=== PATIENT | female | born 1945 | race Caucasian/White ===

== ENCOUNTER 2019-05-31 09:02 | Outpatient (RCR) | payer MEDICARE, OTHER, SELFPAY | END 2019-08-28 23:59 | disposition home or self-care (01) | LOC: ANHLAB 09:02 | PROVIDERS: PCP Family Medicine; Visit Provider Internal Medicine Endocrinology, Diabetes & Metabolism | DX: R94.7 Abnormal results of other endocrine function studies (principal) | CPT/HCPCS: 36415; 82530 ==

== ENCOUNTER 2020-01-21 08:26 | Outpatient (CLI) | payer MEDICARE, OTHER, SELFPAY ==
[2020-01-21 09:21] LABS: Basophils Percent Auto 0.6 % (0.2-1.2); Eosinophils Absolute Auto 0.2 K/mm3 (0-0.3); Eosinophils Percent Auto 2.5 % (0-4.4); Hematocrit 41.8 % (37.0-47.0); Hemoglobin 13.7 g/dL (12.0-15.0); Immature Granulocyte Absolute 0.01 K/mm3 (0.00-0.031); Immature Granulocyte Percent A 0.1 % (0-0.5); Lymphocytes Absolute Auto 1.41 K/mm3 (0.9-3.2); Lymphocytes Percent Auto 21.1 % (18.3-44.2); Mean Corpuscular HGB Conc 32.8 g/dl (32-36); Mean Corpuscular Hemoglobin 30.7 pg (26-34); Mean Corpuscular Volume 93.7 fl (80-100); Mean Platelet Volume 9.9 fl (7.4-10.4); Monocytes Absolute Auto 0.5 K/mm3 (0.1-0.6); Monocytes Percent Auto 7.3 % (2.6-8.5); Neutrophils Absolute Auto 4.6 K/mm3 (1.3-6.7); Neutrophils Percent Auto 68.4 % (45.5-73.1); Platelet Count Result 313 k/mm3 (150-375); Red Blood Count 4.46 M/mm3 (4.2-5.4); Red Cell Distribution Width 13.2 % (11.5-14.5); White Blood Count 6.7 K/mm3 (4.5-10.0)
[2020-01-21 09:26] LABS: Hemoglobin A1C 5.2 % (<5.7)
[2020-01-21 09:29] LABS: Alanine Aminotransferase 15 U/L (4-35); Albumin Level 4.1 g/dL (3.5-5.1); Alkaline Phosphatase 76 U/L (38-126); Anion Gap 8.2 mmol/L (7-16); Aspartate Amino Transferase 23 U/L (14-36); Bilirubin,Total 0.6 mg/dL (0.2-1.3); Blood Urea Nitrogen 27 mg/dL (7-17); Calcium 9.1 mg/dL (8.4-10.2); Carbon Dioxide 30 mmol/L (22-30); Chloride 102 mmol/L (98-107); Cholesterol 217 mg/dL (0-200); Estimated Glomerular Filt Rate 54; Glucose 95 mg/dL (65-105); HDL Direct 78 mg/dL; Potassium 4.2 mmol/L (3.4-5.0); Sodium 136 mmol/L (137-145); Triglycerides 110 mg/dL (<150)
[2020-01-21 09:38] LABS: Add Urine Microscopic? YES; Appearance Urine Clear (Clear); Bilirubin Urine Negative (Negative); Blood Urine Negative (Negative); Color Urine Yellow (Yellow); Glucose Urine UA Negative (Negative); Ketones Urine Negative (Negative); Leukocyte Esterase Ur Trace LEU/UL (NEGATIVE); Nitrate Urine Negative (Negative); Protein Urine Negative (Negative); Specific Grav Ur 1.017 (1.001-1.035); Squamous Epithelial Cell Urine Few /hpf (Few); Urobilinogen Urine Negative mg/dL (<2.0); WBC Urine 0-3 /hpf (0-3)
[2020-01-21 09:39] LABS: LDL Cholesterol Direct 107 mg/dL
[2020-01-24 23:41] LABS: Vitamin D 1,25 (OH)2 Total 57 pg/mL (18-72); Vitamin D2 1,25 (OH)2 <8 pg/mL; Vitamin D3 1,25 (OH)2 57 pg/mL
== END 2020-01-21 08:27 | disposition home or self-care (01) ==
PROVIDERS: PCP Family Medicine; Visit Provider Physician Assistant
DX: I12.9 Hypertensive chronic kidney disease with stage 1 through stage 4 chronic kidney disease, or unspecified chronic kidney disease (principal); N18.9 Chronic kidney disease, unspecified; Z85.528 Personal history of other malignant neoplasm of kidney; R53.83 Other fatigue; R73.01 Impaired fasting glucose; E78.5 Hyperlipidemia, unspecified; E55.9 Vitamin D deficiency, unspecified
CPT/HCPCS: 36415; 80053; 80061; 81001; 82652; 83036; 85025

== ENCOUNTER 2020-01-23 06:29 | Outpatient (CLI) | payer MEDICARE, OTHER, SELFPAY ==
--- NOTE | ~2020-01-23 | CT_ITS ---
EXAMINATION: CT abdomen pelvis wo/w con DATE: 01/23/2020 07:09 INDICATION: Restaging of right renal cell carcinoma; status post right partial nephrectomy TECHNIQUE: Computed tomography (CT) of the abdomen and pelvis was performed without and subsequently with 100 cc Omnipaque 350 intravenous contrast. Automated exposure control and iterative reconstructi on technique were employed. Exam dose: 1303.50 mGy-cm total exam DLP. COMPARISON: None. FINDINGS: Approximately 9.7 mm rounded opacity in association with some discoid density in the psychology fellow ior right lower lobe may represent round atelectasis; primary or metastatic pulmonary neoplasm are in cluded but less likely in the differential diagnosis. Consider [address] examination. The lung bases are otherwise clear. No pericardial or pleural effusion. No hepatic space-occupying mass lesion. No bile duct dilatation. No pancreatic mass lesion, calcific ation or pancreatic duct dilatation. Normal splenic size. No splenic mass lesion. The adrenal glands are unremarkable. Status post right upper pole partial nephrectomy. Occasional bilateral renal cysts. No suspicious zulay id mass lesion of either kidney is evident. No urinary tract calculus or hydroureteronephrosis. The u rinary bladder is unremarkable. Retroflexed uterus. Normal caliber of the abdominal aorta. No intraperitoneal or retroperitoneal or pelvic mass lesion or adenopathy or ascites. Hemangiomas of T12 and L1. IMPRESSION: Status post right nephrectomy for history of right renal cell carcinoma; no recurrent or metastatic neoplasm is identified. Reviewed, dictated and finalized at [facility]. Reviewed, dictated and finalized at location B. IMPRESSION: Status post right nephrectomy for history of right renal cell carc inoma; no recurrent or metastatic neoplasm is identified.
== END 2020-01-23 06:30 | disposition home or self-care (01) ==
PROVIDERS: PCP Family Medicine; Visit Provider Physician Assistant
DX: C64.9 Malignant neoplasm of unspecified kidney, except renal pelvis (principal); Z90.5 Acquired absence of kidney
CPT/HCPCS: 74178; Q9967

== ENCOUNTER 2020-02-11 14:40 | Outpatient (CLI) | payer MEDICARE, OTHER, SELFPAY ==
--- NOTE | ~2020-02-11 | MM_ITS ---
EXAMINATION: MM screening [facility] BI w adria HISTORY: Screening mammogram TECHNIQUE: Craniocaudal and mediolateral oblique 3-D tomosynthesis images were obtained and synthetic 2-D images were generated. CAD analysis was submitted and interpreted. COMPARISON: 10/30/2018, 10/27/2018, 08/27/2016 BREAST PARENCHYMAL COMPOSITION: There are scattered areas of fibroglandular density. FINDINGS: RIGHT BREAST: There is no evidence of suspicious mass, calcification, or architectural distortion to suggest malignancy. There has been no significant interval change. LEFT BREAST: An asymmetry is present in the subareolar aspect of the left breast on the mediolateral oblique view. IMPRESSION: 1. Left breast asymmetry on the mediolateral oblique view. 2. Additional mammographic views and possible breast ultrasound are recommended. BI-RADS Category 0: Incomplete: Needs additional imaging evaluation. Reviewed, dictated and finalized at location A. IMPRESSION: 1. Left breast asymmetry on the mediolateral oblique view. 2. Additional mammographic views and possible breast ultrasound are recommended . BI-RADS Category 0: Incomplete: Needs additional imaging evaluation.
== END 2020-02-11 14:41 | disposition home or self-care (01) ==
LOC: ANHIMG 14:43
PROVIDERS: PCP Family Medicine; Visit Provider Physician Assistant
DX: Z12.31 Encounter for screening mammogram for malignant neoplasm of breast (principal); R92.8 Other abnormal and inconclusive findings on diagnostic imaging of breast
CPT/HCPCS: 77063; 77067

== ENCOUNTER 2020-03-07 11:55 | Outpatient (CLI) | payer MEDICARE, OTHER, SELFPAY ==
--- NOTE | ~2020-03-07 | MMUS_ITS ---
EXAMINATION: MM diagnostic mammo unilat LT, US breast LT limited HISTORY: Asymmetry reported in subareolar left breast on 02/11/2020 bilateral digital screening mammog cristian examination TECHNIQUE: Additional 3-D tomosynthesis images of the left breast were performed and synthetic 2-D im ages were generated. CAD analysis was submitted and interpreted. High resolution subareolar and lower inner quadrant left breast ultrasound was performed. COMPARISON: 02/11/2020 bilateral digital screening mammogram FINDINGS: MAMMOGRAPHIC FINDINGS: No suspicious mass, architectural distortion or any malignant calcification, skin thickening or retra ction is detected. ULTRASOUND: No suspicious mass or shadowing or any cyst is identified in the subareolar area or lower inner quadr ant. IMPRESSION: 1. No mammographic evidence of malignancy 2. Routine mammographic screening is recommended. BI-RADS Category 1: Negative Reviewed, dictated and finalized at location A. IMPRESSION: 1. No mammographic evidence of malignancy 2. Routine mammographic screening is recommended. BI-RADS Category 1: Negative
== END 2020-03-07 11:56 | disposition home or self-care (01) ==
LOC: ANHIMG 11:56
PROVIDERS: PCP Family Medicine; Visit Provider Physician Assistant
DX: R92.8 Other abnormal and inconclusive findings on diagnostic imaging of breast (principal)
CPT/HCPCS: 76642; 77065

== ENCOUNTER 2020-07-16 14:08 | Outpatient (CLI) | payer MEDICARE, OTHER, SELFPAY ==
[2020-07-16 14:52] LABS: Alanine Aminotransferase 15 U/L (4-35); Albumin Level 3.9 g/dL (3.5-5.1); Alkaline Phosphatase 69 U/L (38-126); Anion Gap 3 mmol/L (8-16); Aspartate Amino Transferase 23 U/L (14-36); Bilirubin,Total 0.3 mg/dL (0.2-1.3); Blood Urea Nitrogen 25 mg/dL (7-17); Calcium 8.9 mg/dL (8.4-10.2); Carbon Dioxide 33 mmol/L (22-30); Chloride 100 mmol/L (98-107); Estimated Glomerular Filt Rate 49; Glucose 115 mg/dL (65-105); Potassium 4.1 mmol/L (3.4-5.0); Sodium 136 mmol/L (137-145)
[2020-07-16 14:55] LABS: Hemoglobin A1C 5.3 % (<5.7)
== END 2020-07-16 14:09 | disposition home or self-care (01) ==
PROVIDERS: PCP Family Medicine; Visit Provider Family Medicine
DX: I12.9 Hypertensive chronic kidney disease with stage 1 through stage 4 chronic kidney disease, or unspecified chronic kidney disease (principal); E11.9 Type 2 diabetes mellitus without complications; N18.9 Chronic kidney disease, unspecified
CPT/HCPCS: 36415; 80053; 83036

== ENCOUNTER 2020-08-04 09:01 | Outpatient (CLI) | payer MEDICARE, OTHER, SELFPAY ==
--- NOTE | ~2020-08-04 | CT_ITS ---
EXAMINATION: CT diagnostic chest wo con DATE: 08/04/2020 09:21 INDICATION: Solitary pulmonary nodule, history of renal cell carcinoma TECHNIQUE: Computed tomography (CT) of the chest was performed without intravenous contrast. The dose -length product (DLP) was 123.27 mGy-cm. Automated exposure control and iterative reconstruction tech [employer] Cocktailque were employed. COMPARISON: 01/23/2020 FINDINGS: There is a 10 mm groundglass nodule of the left lung apex. Mild emphysema is noted. The pre viously described subpleural nodule of the right lower lobe has resolved, consistent with resolved in fection/inflammation. There is no pleural effusion or pneumothorax. No pathologically enlarged thorac ic lymph nodes are identified. The heart size is normal. Subendocardial fat deposition in the interve ntricular septum and left ventricular apex likely reflect prior myocardial infarction. Surgical canales es are noted in the right kidney. There is an 11 mm adenoma of the right adrenal gland. IMPRESSION: 1. Interval resolution of the previously described right lower lobe nodule, consistent with resolved infection/inflammation. 2. 10 mm groundglass nodule of the left lung apex, possibly infectious or inflammatory. Reviewed, dictated and finalized at location A. S PRESS OPERATOR IMPRESSION: 1. Interval resolution of the previously described right lower lobe nodule, con sistent with resolved infection/inflammation. 2. 10 mm groundglass nodule of the left lung apex, possibly infectious or infla mmatory.
== END 2020-08-04 09:02 | disposition home or self-care (01) ==
PROVIDERS: PCP Family Medicine; Visit Provider Family Medicine
DX: R91.1 Solitary pulmonary nodule (principal)
CPT/HCPCS: 71250

== ENCOUNTER → 2020-08-11 00:14 | Outpatient (CLI) | payer MEDICARE, OTHER, SELFPAY ==
[2020-08-11 19:33] LABS: SARS-CoV-2 RNA PCR Negative
== END ==
PROVIDERS: PCP Family Medicine; Visit Provider Internal Medicine Cardiovascular Disease
DX: Z01.812 Encounter for preprocedural laboratory examination (principal); Z20.822 Contact with and (suspected) exposure to COVID-19
CPT/HCPCS: C9803; U0003; U0005

== ENCOUNTER 2020-08-14 01:43 | Day surgery (SDC) | payer MEDICARE, OTHER, SELFPAY ==
[2020-08-13 13:55] VITALS: BMI 36.3
[2020-08-14] VITALS (8 sets, daily range): BP systolic 113–153; BP diastolic 56–97; PULSE 60–78; RESP 13–21; TEMP 36.2–36.6; O2SAT 95–98
[2020-08-14 08:32] LABS: Basophils Percent Auto 0.4 % (0.2-1.2); Eosinophils Absolute Auto 0.2 K/mm3 (0-0.3); Eosinophils Percent Auto 1.8 % (0-4.4); Hematocrit 42.1 % (37.0-47.0); Hemoglobin 14.2 g/dL (12.0-15.0); Immature Granulocyte Absolute 0.04 K/mm3 (0.00-0.031); Immature Granulocyte Percent A 0.4 % (0-0.5); Lymphocytes Absolute Auto 1.67 K/mm3 (0.9-3.2); Lymphocytes Percent Auto 17.6 % (18.3-44.2); Mean Corpuscular HGB Conc 33.7 g/dl (32-36); Mean Corpuscular Hemoglobin 31.4 pg (26-34); Mean Corpuscular Volume 93.1 fl (80-100); Mean Platelet Volume 9.5 fl (7.4-10.4); Monocytes Absolute Auto 0.8 K/mm3 (0.1-0.6); Neutrophils Absolute Auto 6.8 K/mm3 (1.3-6.7); Neutrophils Percent Auto 71.8 % (45.5-73.1); Platelet Count Result 305 k/mm3 (150-375); Red Blood Count 4.52 M/mm3 (4.2-5.4); Red Cell Distribution Width 13.2 % (11.5-14.5); White Blood Count 9.5 K/mm3 (4.5-10.0)
[2020-08-14 08:42] LABS: INR 0.9; Prothrombin Time 12.9 Seconds (11.1-14.7)
[2020-08-14 08:46] LABS: Anion Gap 5 mmol/L (8-16); Blood Urea Nitrogen 18 mg/dL (7-17); Calcium 9.2 mg/dL (8.4-10.2); Carbon Dioxide 31 mmol/L (22-30); Chloride 104 mmol/L (98-107); Estimated CRCL calculation 50 ml/min; Estimated Glomerular Filt Rate 54; Glucose 103 mg/dL (65-105); Potassium 4.1 mmol/L (3.4-5.0); Sodium 140 mmol/L (137-145)
--- NOTE | 2020-08-14 11:07 | WPDHPUPDATE1 ---
History and Physical Update Update Date/Time: 08/14/20 10:00am History and Physical has been reviewed, including an updated exam of the patient. There are NO changes in the patient's condition. Risks, benefits, and alternatives have been discussed and questions answered. Patient agrees to proceed with procedure.
--- NOTE | 2020-08-14 11:08 | WPDMODSED ---
Moderate Sedation Note-Pt Data Patient Data Allergies Allergy/AdvReac Type Severity Reaction Status Date / Time No Known Allergies Allergy Verified 07/16/20 13:31 Home Medications Medication Instructions Recorded Confirmed Type cholecalciferol (vitamin D3) 50 2,000 unit PO DAILY 05/25/19 08/13/20 History mcg (2,000 unit) tablet aspirin 81 mg tablet,delayed 81 mg PO DAILY tablet 05/28/19 08/13/20 History release metoprolol succinate 25 mg 25 mg PO DAILY #90 tablet 03/28/20 08/13/20 Rx tablet,extended release 24 hr irbesartan 150 mg tablet 150 mg PO DAILY 07/16/20 08/13/20 History hydrochlorothiazide 12.5 mg PO DAILY 08/13/20 08/13/20 History primidone 50 mg PO QPM 08/13/20 08/13/20 History Current Medications: Active Medications Sodium Chloride (Normal Saline Iv) 500 mls @ 100 mls/hr IV CONT .Q5H OMMO Sedation/Anesthesia: No previous sedation/anesthesia problems (including family history). [facility] Past Medical History Medical History Chronic kidney disease, stage 3 unspecified Essential and other specified forms of tremor Right lower lobe lung mass Vitamin D deficiency, unspecified Wellness examination Surgical History Surgical History History of partial nephrectomy Social History Social History Smoking status: Never smoker Second hand tobacco smoke exposure: Yes Alcohol intake: never Drinks per week: 1 Alcohol use details: very rarely Substance use: never Substance use type: does not use Living arrangements: with family Gender identity (if verbalized by the patient): Female Spiritual care concerns: No Mod Sed Physical Exam Physical Exam Pre Procedural Exam: Normal: Appearance, Eyes, Ears, Nose, Neck, Throat, Airway, Lungs, Heart Size, Heart Rate, Heart Rhythm, Neuro Exam, Abdomen, Liver, Kidneys, Spleen, Breasts, Genitalia, Extremities and Skin Hours since solid foods: 8 Hours since liquid intake: 8 Internal Medicine - PN: Obj Da Vital Signs Vital Signs: Vital Signs - 24 hr 08/14/20 08:30 Temperature 36.6 C Pulse Rate 78 Respiratory Rate 21 H Blood Pressure 153/97 H Pulse Oximetry 98 Meds/Results Medications: Active Medications Generic Name Dose Route Start Last Admin Trade Name Evette PRN Reason Stop Dose Admin Sodium Chloride 500 mls @ 100 mls/hr 08/14/20 08:30 Normal Saline Iv IV CONT .Q5H MOMO Labs CBC & Chem 7: 08/14/20 08:23 08/14/20 08:23 Labs: Laboratory Results - last 24 hr 08/14/20 08/14/20 08/14/20 08:23 08:23 08:23 WBC 9.5 RBC 4.52 Hgb 14.2 Hct 42.1 MCV 93.1 MCH 31.4 MCHC 33.7 RDW 13.2 Plt Count 305 MPV 9.5 Immature Gran % (Auto) 0.4 Neut % (Auto) 71.8 Lymph % (Auto) 17.6 L [place] % (Auto) 8.0 Eos % (Auto) 1.8 Baso % (Auto) 0.4 Lymph # (Auto) 1.67 [place] # (Auto) 0.8 H Eos # (Auto) 0.2 Baso # (Auto) 0.0 Abs Immat Gran (auto) 0.04 H Absolute Neuts (auto) 6.8 H Absolute Nucleated RBC 0.0 Nucleated RBC % 0.0 PT 12.9 INR 0.9 Sodium 140 Potassium 4.1 Chloride 104 Carbon Dioxide 31 H Anion Gap 5 L BUN 18 H Creatinine 1.00 Estim Creat Clear Calc 50 Estimated GFR 54 L Glucose 103 Calcium 9.2 ASA Classification/Sedation ASA Classification/Sedation ASA Class: I Emergent: No Risks: Risks, benefits and alternatives explained and patient/family accepted plan for sedation. Patient re-evaluated immediately prior to sedation.
--- NOTE | 2020-08-14 11:08 | WPDCARDPROC ---
Cardiac Cath Procedure Note Date of procedure:: 08/14/20 Performing physician:: Olivier Miramontes MD date of service 08/14/2020 Indication:: abnormal stress test Brief clinical history:: this is a 74-year-old female with past medical history of hypertension, renal cell carcinoma status post resection was evaluated for premature ventricular contractions. She complains of dyspnea on exertion. The total burden of the PVCs is 1.2%. Underwent stress test. echo ejection fraction 60%. Stress test shows small defect in the basal anterior and mid anterior and apical anterior segment. Procedure Procedure performed:: 1-Moderate sedation that started at 10:44 a.m. and ended at 11:04 a.m. total duration 20 minutes using 4mg of Versed and 100mcg fentanyl. The registered nurse was abi lackey. 2-Selective left and right coronary angiogram. 3-Left heart catheterization with measurement of LVEDP and measurement of gradient across aortic valve. 4-Right common femoral arterial angiogram. 5-Deployment of 6 Moroccan Angio-Seal. Sedation/Medication given:: Moderate sedation. Access site:: Right common femoral artery. Estimated blood loss:: 10cc Procedure note:: After informed consent patient was brought in to photo lab specialist with the was draped and prepped in usual manner. Moderate sedation was given and the right groin was infiltrated using 1% lidocaine. Five Moroccan sheath was obtained using micropuncture needle and the modified Seldinger technique. Selective left coronary angiogram was done using JL4 catheter with the tip of the catheter placed in the left main coronary artery. Selective right coronary angiogram was done using JR4 catheter with the tip of the catheter placed to the right coronary artery. After that 5 Moroccan pigtail catheter was advanced across the aortic valve into the left ventricle with measurement of LVEDP and measurement of gradient across aortic valve. Right common femoral arterial angiogram was done. Findings:: 1- left coronary artery is a large artery that divides into large LAD, large circumflex artery. Left main is free of disease. 2- left anterior descending artery is a large artery that runs and wraps around the apex. Free of disease. Large diagonal 1 branch free of disease. 3- leftcircumflex artery is a large artery Free of disease.. There is high OM1 medium in size and free of disease and large OM2 free of disease. 4- right coronary artery is Large artery and dominant and free of disease. 5- LVEDP was 15 mm Hgand no gradient across aortic valve. 6- opening arterial pressure 156/86 was and closing pressure was 130/80 7- right femoral artery angiogram shows no significant disease in the right common femoral artery. Conclusion:: no coronary artery disease. false positive stress test. PVCs are not related to coronary artery disease. Assessment and Plan Additional Plan continue aggressive risk factor modification for CAD.
--- NOTE | 2020-08-14 12:55 | SUR.PHASEII ---
Pt. given post cardiac cath. discharge education. Pt. verbalizes understanding of education. R femoral site dressing clean, dry, and intact upon discharge with no evidence of bleeding or hematoma. Pt. escorted to private vehicle with spouse. No change in pt. condition upon departure.
== END 2020-08-14 14:30 | disposition home or self-care (01) ==
PROVIDERS: PCP Family Medicine; Visit Provider Internal Medicine Cardiovascular Disease
PROC: 4A023N7 Measurement of Cardiac Sampling and Pressure, Left Heart, Percutaneous Approach (ICD-10-PCS; CPT 93452; principal; 2020-08-14 10:00)
DX: R94.39 Abnormal result of other cardiovascular function study (principal); R06.09 Other forms of dyspnea; I49.3 Ventricular premature depolarization; I12.9 Hypertensive chronic kidney disease with stage 1 through stage 4 chronic kidney disease, or unspecified chronic kidney disease; N18.30 Chronic kidney disease, stage 3 unspecified; G25.0 Essential tremor; E55.9 Vitamin D deficiency, unspecified; R91.8 Other nonspecific abnormal finding of lung field; Z85.528 Personal history of other malignant neoplasm of kidney; Z90.5 Acquired absence of kidney
CPT/HCPCS: 36415; 80048; 85025; 85610; 93458; A9270; C1760; C1887; C1894; G0269; J1644; J2250; J3010; J7040

== ENCOUNTER 2020-08-27 10:07 | Outpatient (CLI) | payer MEDICARE, OTHER, SELFPAY ==
[2020-08-27 10:37] LABS: Rheumatoid Factor < 8.6 IU/ML (<12)
[2020-08-27 10:49] LABS: Erythrocyte Sedimentation Rate 104 mm/hr (0-20)
== END 2020-08-27 10:08 | disposition home or self-care (01) ==
LOC: ANHLAB 10:09
PROVIDERS: PCP Family Medicine; Visit Provider Physician Assistant
DX: M25.50 Pain in unspecified joint (principal)
CPT/HCPCS: 36415; 85652; 86038; 86039; 86430

== ENCOUNTER 2021-01-27 13:32 | Outpatient (CLI) | payer MEDICARE, OTHER, SELFPAY ==
--- NOTE | ~2021-01-27 | CT_ITS ---
EXAMINATION: CT abdomen pelvis wo/w con DATE: 01/27/2021 14:15 INDICATION: Renal cell cancer restaging TECHNIQUE: Computed tomography (CT) of the abdomen and pelvis was performed without and subsequently with 100 cc Omnipaque 350 intravenous contrast. Automated exposure control and iterative reconstructi on technique were employed. Exam dose: 2096.35 mGy-cm total exam DLP. COMPARISON: 01/23/2020 CT abdomen and pelvis without and subsequently with IV contrast material FINDINGS: The lung bases are clear of infiltrate or consolidation. Borderline heart size. No pericardial or pleural effusion. The liver, gallbladder, bile ducts, pancreas, pancreatic duct, spleen and adrenal glands are unremark able. Status post right upper pole partial nephrectomy for history of renal cell cancer. Bilateral renal cysts, measuring up to 2.3 cm on the right, 3.2 cm on the left. No urinary tract calculus or hydroureteronephrosis. Normal caliber of the abdominal aorta. No intraperitoneal or retroperitoneal or pelvic mass lesion or adenopathy or ascites. Retroflexed uterus. The adnexal areas and urinary bladder are unremarkable. Benign hemangiomas of T12 and L1 vertebral bodies. No suspicious osteolytic or osteoblastic lesions are noted. IMPRESSION: Status post partial right nephrectomy for renal cell cancer; no recurrent or metastasis is identified. Bilateral renal cysts Retroflexed uterus Reviewed, dictated and finalized at [facility]. Reviewed, dictated and finalized at location A. IMPRESSION: Status post partial right nephrectomy for renal cell cancer; no re current or metastasis is identified. Bilateral renal cysts Retroflexed uterus
[2021-01-27 13:57] LABS: Estimated Glomerular Filt Rate > 60
== END 2021-01-27 13:33 | disposition home or self-care (01) ==
PROVIDERS: PCP Family Medicine; Visit Provider Physician Assistant
DX: Z85.528 Personal history of other malignant neoplasm of kidney (principal); Z90.5 Acquired absence of kidney; N28.1 Cyst of kidney, acquired; N85.4 Malposition of uterus
CPT/HCPCS: 74178; Q9967

== ENCOUNTER 2021-05-01 08:38 | Outpatient (CLI) | payer MEDICARE, OTHER, SELFPAY ==
--- NOTE | ~2021-05-01 | MM_ITS ---
EXAMINATION: MM screening [facility] w [facility]ria HISTORY: Screening mammogram TECHNIQUE: Craniocaudal and mediolateral oblique 3-D tomosynthesis images were obtained and synthetic 2-D images were generated. CAD analysis was submitted and interpreted. COMPARISON: 03/07/2020 diagnostic left mammogram and limited left breast ultrasound 02/11/2020, 10/30/2018, 10/27/2017 bilateral screening mammogram examinations BREAST PARENCHYMAL COMPOSITION: There are scattered areas of fibroglandular density. FINDINGS: Stable mild fibroglandular asymmetry. There is no evidence of suspicious mass, calcificatio n, or architectural distortion to suggest malignancy in either breast. There has been no suspicious i nterval change. IMPRESSION: 1. No mammographic evidence of malignancy. 2. Recommend routine screening mammography in one year. BI-RADS Category 2: Benign finding(s). Reviewed, dictated and finalized at location A. S ENGINEER
== END 2021-05-01 08:39 | disposition home or self-care (01) ==
LOC: ANHIMG 08:40
PROVIDERS: PCP Family Medicine; Visit Provider Obstetrics & Gynecology
DX: Z12.31 Encounter for screening mammogram for malignant neoplasm of breast (principal)
CPT/HCPCS: 77063; 77067

== ENCOUNTER → 2021-06-10 09:29 | Outpatient (CLI) | payer MEDICARE, OTHER, SELFPAY ==
[2021-06-10 19:39] LABS: SARS-CoV-2 RNA PCR Negative
== END ==
PROVIDERS: PCP Family Medicine; Visit Provider Physician Assistant
DX: R09.89 Other specified symptoms and signs involving the circulatory and respiratory systems (principal); Z20.822 Contact with and (suspected) exposure to COVID-19
CPT/HCPCS: C9803; U0003; U0005

== ENCOUNTER 2021-09-21 09:12 | Outpatient (CLI) | payer MEDICARE, OTHER, SELFPAY ==
[2021-09-21 09:59] LABS: Albumin Level 3.9 g/dL (3.5-5.1); Anion Gap 5 mmol/L (8-16); Blood Urea Nitrogen 21 mg/dL (7-17); Calcium 9.1 mg/dL (8.4-10.2); Carbon Dioxide 31 mmol/L (22-30); Chloride 102 mmol/L (98-107); Estimated Glomerular Filt Rate 54; Glucose 106 mg/dL (65-110); Phosphorus 3.8 mg/dL (2.5-4.5); Potassium 3.8 mmol/L (3.4-5.0); Sodium 138 mmol/L (137-145)
[2021-09-21 10:35] LABS: Creatinine Urine 101.3 mg/dL
[2021-09-21 10:49] LABS: Vitamin D 25 Hydroxy 87.2 ng/mL
[2021-09-21 11:00] LABS: Total Protein Urine Random < 5 mg/dL
[2021-09-21 11:01] LABS: Ur Ttl Prot Creatinine Ratio < 0.05 mg/mg (0-0.20)
== END 2021-09-21 09:13 | disposition home or self-care (01) ==
LOC: ANHLAB 09:19
PROVIDERS: PCP Family Medicine; Visit Provider Internal Medicine Nephrology
DX: I12.9 Hypertensive chronic kidney disease with stage 1 through stage 4 chronic kidney disease, or unspecified chronic kidney disease (principal); N18.31 Chronic kidney disease, stage 3a; R80.8 Other proteinuria
CPT/HCPCS: 36415; 80069; 82306; 82570; 83970; 84156

== ENCOUNTER 2022-02-01 07:55 | Outpatient (CLI) | payer MEDICARE, OTHER, SELFPAY ==
[2022-02-01 08:47] LABS: Anion Gap 5 mmol/L (8-16); Blood Urea Nitrogen 25 mg/dL (7-17); Calcium 8.9 mg/dL (8.4-10.2); Carbon Dioxide 33 mmol/L (22-30); Chloride 101 mmol/L (98-107); Estimated Glomerular Filt Rate > 60; Glucose 92 mg/dL (65-110); Phosphorus 3.4 mg/dL (2.5-4.5); Sodium 139 mmol/L (137-145)
[2022-02-01 08:49] LABS: Creatinine Urine 176.6 mg/dL
[2022-02-01 09:12] LABS: Total Protein Urine Random < 5 mg/dL
[2022-02-01 09:13] LABS: Ur Ttl Prot Creatinine Ratio < 0.03 mg/mg (0-0.20)
== END 2022-02-01 07:56 | disposition home or self-care (01) ==
LOC: ANHLAB 07:58
PROVIDERS: PCP Family Medicine; Visit Provider Internal Medicine Nephrology
DX: I12.9 Hypertensive chronic kidney disease with stage 1 through stage 4 chronic kidney disease, or unspecified chronic kidney disease (principal); N18.31 Chronic kidney disease, stage 3a
CPT/HCPCS: 36415; 80069; 82570; 84156

== ENCOUNTER 2022-02-03 09:06 | Outpatient (CLI) | payer MEDICARE, OTHER, SELFPAY ==
--- NOTE | ~2022-02-03 | CT_ITS ---
EXAMINATION: CT abdomen pelvis wo/w con DATE: 02/03/2022 09:52 INDICATION: Right partial nephrectomy for renal cancer TECHNIQUE: Computed tomography (CT) of the abdomen and pelvis was performed without and subsequently with 100 CC Omnipaque 350 intravenous contrast. Automated exposure control and iterative reconstructi on technique were employed. Exam dose: 1253.45 mGy-cm total exam DLP. COMPARISON: 01/27/2021 CT abdomen pelvis 03/02/2018 CT abdomen pelvis FINDINGS: The lung bases are clear. Normal heart size. No pericardial or pleural effusion. Several 4 mm or smaller hypoattenuating lesions of the liver, too small to definitively characterize, most like ly hepatic cysts. The gallbladder is unremarkable. No bile duct or pancreatic duct dilatation. No pancreatic mass lesio n or calcification. Normal splenic size. The adrenal glands are unremarkable, unchanged since 03/02/2018. Status post right partial nephrectomy for renal cell carcinoma a clinical history. Bilateral renal cy sts are again noted. No recurrent or new renal mass lesion is noted. No urinary tract calculus or hyd roureteronephrosis. The urinary bladder is unremarkable. Retroverted uterus. Normal caliber of the abdominal aorta. No intraperitoneal or retroperitoneal or pelvic mass lesion or adenopathy or ascites. Occasional colonic diverticula; no CT evidence of diverticulitis. No evidence of appendicitis. No bow el obstruction or intraperitoneal free air. Small fat-containing umbilical hernia. T12 and L1 vertebral body hemangiomas. Levoscoliosis and degenerative change of the lumbar spine. No suspicious osteolytic or osteoblastic lesions are noted. IMPRESSION: Status post right partial nephrectomy for renal cell cancer; no recurrent or new renal m alignancy is noted Bilateral renal cysts Retroverted uterus Mild colonic diverticulosis; no CT evidence of diverticulitis T12 and L1 vertebral body hemangiomas Reviewed, dictated and finalized at [facility]. Reviewed, dictated and finalized at location A. IMPRESSION: Status post right partial nephrectomy for renal cell cancer; no re current or new renal malignancy is noted Bilateral renal cysts Retroverted uterus Mild colonic diverticulosis; no CT evidence of diverticulitis T12 and L1 vertebral body hemangiomas
== END 2022-02-03 09:07 | disposition home or self-care (01) ==
PROVIDERS: PCP Family Medicine; Visit Provider Physician Assistant
DX: C64.9 Malignant neoplasm of unspecified kidney, except renal pelvis (principal); Z98.890 Other specified postprocedural states; N28.1 Cyst of kidney, acquired; N85.4 Malposition of uterus; K57.90 Diverticulosis of intestine, part unspecified, without perforation or abscess without bleeding; D18.09 Hemangioma of other sites
CPT/HCPCS: 74178; Q9967

== ENCOUNTER 2022-04-06 12:52 | Outpatient (CLI) | payer MEDICARE, OTHER, SELFPAY ==
--- NOTE | ~2022-04-06 | DEXA_ITS ---
Bone Density Report Name: FRANCIS WILBURN Age: 76 Sex: Female Ethnicity: White Date of : 1945 Indication: postmenopausal; screening for osteoporosis; height loss; cancer; end stage renal disease; Referring Provider: JORGE ALBERTO JENKINS Study: Bone densitometry was performed. Exam Date: April 06, 2022 Accession number: [id number] Bone Density: Region BMD T-score Z-score Classification AP Spine(L1-L4) 0.773 -2.5 -0.1 Osteoporosis Femoral Neck (Left) 0.618 -2.1 0.0 Osteopenia Total Hip (Left) 0.809 -1.1 0.7 Osteopenia Femoral Neck (Right) 0.561 -2.6 -0.5 Osteoporosis Total Hip (Right) 0.819 -1.0 0.8 Normal Total Hip Mean 0.814 -1.1 0.8 Osteopenia World Health Organization criteria for BMD impression classify patients as: Normal (T-score at or above -1.0), Osteopenia (T-score between -1.0 and -2.5), or Osteoporosis (T-score at or below -2.5). 10-year Fracture Risk: FRAX not reported because: Some T-score for Spine Total or Hip Total or Femoral Neck at or below -2.5 Clinical Information Provided by Patient: Has used the following medications: Prolia (i.e. denosumab), Vitamin D Has the following medical conditions: Cancer, End stage renal disease Patient maximum height was 66 Menopause Age: 56 No regular weight bearing exercise Onset of menses at age 13 Number of children 3 Impression: The patient has osteoporosis, based on the Right Femoral Neck T-score. Discussion: INCREASED RISK OF FRACTURE. BONE DENSITY IS UNDESIRABLY LOW AT ONE OR MORE SKELETAL SITES, CONSISTENT WITH POSTMENOPAUSAL OSTEOPOROSIS. This patient's lowest T-score meets the World Health Organization's (WHO) criteria for osteoporosis at one or more sites (T-score -2.5 or below). In untreated patients, the risk of osteoporotic fracture increases approximately two-fold for each 1.0 SD decrease in T-score. Low bone density is not the only risk factor for fracture; also consider factors such as patient's age, frailty or poor health, risk of falling, risk of injury, previous osteoporotic fracture, family history of osteoporosis, cigarette smoking, low body weight, etc. Not everyone with low bone mineral density has osteoporosis; osteomalacia and other metabolic bone disorders should also be considered. Patients who have osteoporosis should be evaluated for specific diseases and conditions (secondary causes) that may cause or contribute to bone loss. The [place] [employer]ocrinologists (AACE) and National Osteoporosis Foundation (NOF) recommend pharmacologic intervention for all postmenopausal women whose T-score is in this range. The patient should follow a healthful lifestyle (good nutrition with adequate calcium and vitamin D, and appropriate weight-bearing exercise). Follow-Up: Consider a repeat BMD and V
== END 2022-04-06 12:53 | disposition home or self-care (01) ==
PROVIDERS: PCP Family Medicine; Visit Provider Physician Assistant
DX: M81.0 Age-related osteoporosis without current pathological fracture (principal); M85.89 Other specified disorders of bone density and structure, multiple sites
CPT/HCPCS: 77080

== ENCOUNTER 2022-05-19 15:29 | Outpatient (CLI) | payer MEDICARE, OTHER, SELFPAY ==
--- NOTE | ~2022-05-19 | MM_ITS ---
EXAMINATION: MM screening [facility] BI w [facility]ria HISTORY: Screening mammogram TECHNIQUE: Craniocaudal and mediolateral oblique 3-D tomosynthesis images were obtained and synthetic 2-D images were generated. CAD analysis was submitted and interpreted. COMPARISON: 05/01/2021 bilateral screening mammogram diagnostic left mammogram and limited left breast ultrasound 02/07/2020 bilateral screening mammogram BREAST PARENCHYMAL COMPOSITION: There are scattered areas of fibroglandular density. FINDINGS: There is no evidence of suspicious mass, calcification, or architectural distortion to sugg est malignancy in either breast. There has been no suspicious interval change. IMPRESSION: 1. No mammographic evidence of malignancy. 2. Recommend routine screening mammography in one year. BI-RADS Category 1: Negative Reviewed, dictated and finalized at location A. ER CLAM
== END 2022-05-19 15:30 | disposition home or self-care (01) ==
PROVIDERS: PCP Family Medicine; Visit Provider Obstetrics & Gynecology
DX: Z12.31 Encounter for screening mammogram for malignant neoplasm of breast (principal)
CPT/HCPCS: 77063; 77067

== ENCOUNTER 2022-06-07 16:50 | Outpatient (CLI) | payer MEDICARE, OTHER, SELFPAY ==
[2022-06-07 17:57] LABS: Influenza A QL RT-PCR Negative (Negative); Influenza B QL RT-PCR Negative (Negative); SARS-CoV-2 RNA PCR Negative
== END 2022-06-07 16:51 | disposition home or self-care (01) ==
LOC: ANHLAB 16:53
PROVIDERS: PCP Family Medicine; Visit Provider Physician Assistant
DX: R19.7 Diarrhea, unspecified (principal); R50.9 Fever, unspecified; Z20.822 Contact with and (suspected) exposure to COVID-19
CPT/HCPCS: 87636

== ENCOUNTER 2022-07-05 14:22 | Outpatient (CLI) | payer MEDICARE, OTHER, SELFPAY ==
[2022-07-05 15:24] LABS: Creatinine Urine 56.2 mg/dL
[2022-07-05 15:26] LABS: Anion Gap 4 mmol/L (8-16); Blood Urea Nitrogen 24 mg/dL (7-17); Calcium 9.1 mg/dL (8.4-10.2); Carbon Dioxide 33 mmol/L (22-30); Chloride 102 mmol/L (98-107); Estimated Glomerular Filt Rate > 60; Glucose 93 mg/dL (65-110); Phosphorus 4.1 mg/dL (2.5-4.5); Potassium 4.1 mmol/L (3.4-5.0); Sodium 139 mmol/L (137-145)
[2022-07-05 15:35] LABS: Parathyroid Intact 64.2 pg/mL (7.5-53.5)
[2022-07-05 15:54] LABS: Total Protein Urine Random < 5 mg/dL; Ur Ttl Prot Creatinine Ratio < 0.09 mg/mg (0-0.20)
[2022-07-05 16:40] LABS: Vitamin D 25 Hydroxy 52.5 ng/mL
== END 2022-07-05 14:23 | disposition home or self-care (01) ==
PROVIDERS: PCP Family Medicine; Visit Provider Internal Medicine Nephrology
DX: I12.9 Hypertensive chronic kidney disease with stage 1 through stage 4 chronic kidney disease, or unspecified chronic kidney disease (principal); N18.31 Chronic kidney disease, stage 3a; E55.9 Vitamin D deficiency, unspecified; N25.81 Secondary hyperparathyroidism of renal origin
CPT/HCPCS: 36415; 80069; 82306; 82570; 83970; 84156

== ENCOUNTER 2022-07-09 01:46 | Day surgery (SDC) | payer MEDICARE, OTHER, SELFPAY ==
[2022-06-30 15:35] VITALS: BMI 35.9
[2022-07-09 08:27] VITALS: BP 163/60; PULSE 63; RESP 18; TEMP 36.6; O2SAT 97
[2022-07-09] MEDS: LACTATED RINGERS 1,000 ML 150 ML IV CONT (08:30)
--- NOTE | 2022-07-09 08:39 | PM.HPGS ---
History of Present Illness History of Present Illness Consent: Risks, benefits, and alternatives have been discussed and questions answered. Patient agrees to proceed with procedure. Chief complaint: hx of polyps, family hx colon ca Narrative: Priscilla Bone is a 76 year old female Presents for screening colonoscopy. Patient has a history of serrated adenoma removed by previous colonoscopy 2016. Family history is significant that her mother had colon cancer. Patient reports that in 2016 had resection of a renal cell carcinoma. Currently she states that her weight appetite and bowel movements are normal. She has had no bleeding. Review of Systems Review of Systems: Review of systems noncontributory. [facility] Past Medical History Medical History Chronic kidney disease, stage 3 unspecified Essential and other specified forms of tremor Right lower lobe lung mass Vitamin D deficiency, unspecified Wellness examination Surgical History Surgical History History of partial nephrectomy Social History Social History Smoking status: Never smoker Second hand tobacco smoke exposure: Yes Alcohol intake: never Drinks per week: 1 Alcohol use details: very rarely Substance use: never Substance use type: does not use Living arrangements: with family Occupation/Education: retired Gender identity (if verbalized by the patient): Female Sexual Orientation (if Verbalized by the Patient): Straight or Heterosexual Spiritual care concerns: No Meds Home Medications and Allergies Home Medications Medication Instructions Recorded Confirmed Type aspirin 81 mg tablet,delayed 81 mg PO DAILY 05/28/19 06/30/22 History release (Nancy Low Dose Aspirin) hydrochlorothiazide 12.5 mg tablet 12.5 mg PO DAILY #90 tabs 11/23/21 06/30/22 Rx ascorbic acid (vitamin C) 1,000 mg 1 g PO HS 06/17/22 06/30/22 History capsule cholecalciferol (vitamin D3) 50 5,000 unit PO DAILY 06/17/22 06/30/22 History mcg (2,000 unit) tablet docusate sodium 100 mg capsule 100 mg PO DAILY 06/30/22 06/30/22 History (Stool Softener) irbesartan 75 mg tablet 75 mg PO DAILY 06/30/22 06/30/22 History metoprolol succinate 25 mg 25 mg PO DAILY PRN PALPITATIONS 06/30/22 06/30/22 History tablet,extended release 24 hr primidone 50 mg tablet 50 mg PO HS 06/30/22 06/30/22 History Allergies Allergy/AdvReac Type Severity Reaction Status Date / Time No Known Allergies Allergy Verified 07/09/22 08:26 Vital Signs Vital Signs - 24 hr 07/09/22 08:27 Temperature 97.8 F Pulse Rate 63 Respiratory Rate 18 Blood Pressure 163/60 H Pulse Oximetry 97 Oxygen Delivery Room Air Exam Narrative: Physical exam reveals patient to be alert. Vital signs stable. HEENT exam is unremarkable. Patient is anicteric. Lungs are clear to auscultation and percussion. Heart is without murmur or extra sounds. Abdominal exam bowel sounds are present soft nontender with no hepatosplenomegaly. Digital external rectal exam is normal. Assessment and Plan Assessment and plan (1) History of colon polyps: Code(s): Z86.010 - Personal history of colonic polyps Status: Acute Assessment and Plan: Patient had a serrated adenoma removed from the colon in 2017. Plan for surveillance colonoscopy now. Consider this a 5 years. (2) Family history of colon cancer in mother: Code(s): Z80.0 - Family history of malignant neoplasm of digestive organs Status: Acute Assessment and Plan: Patient's mother had colon cancer. Continued surveillance colonoscopies at 5 year intervals has been recommended. (3) History of renal cell cancer: Code(s): Z85.528 - Personal history of other malignant neoplasm of kidney Status: Acute
--- NOTE | 2022-07-09 08:58 | P.PNAN_ITS ---
Anes - Initial Pre Proc Eval Procedure: Operation Date: 07/09/22 09:30 Proposed Procedures p Screening Colonoscopy - Garrick Castro MD Date/Time: 07/09/22 08:58 Surgeon: Garrick Castro MD Pre Op Diagnosis: hx of polyps, family hx colon ca Patient Data Age: 76 Gender: F Height: 1.63 m Weight: 92 kg Last Vital Signs Temp 97.8 F 07/09/22 08:27 Pulse 63 07/09/22 08:27 Resp 18 07/09/22 08:27 BP 163/60 H 07/09/22 08:27 Pulse Ox 97 07/09/22 08:27 O2 Del Method Room Air 07/09/22 08:27 Allergies Allergy/AdvReac Type Severity Reaction Status Date / Time No Known Allergies Allergy Verified 07/09/22 08:26 Home Medications Medication Instructions Recorded Confirmed Type aspirin 81 mg tablet,delayed 81 mg PO DAILY 05/28/19 06/30/22 History release (Nancy Low Dose Aspirin) hydrochlorothiazide 12.5 mg tablet 12.5 mg PO DAILY #90 tabs 11/23/21 06/30/22 Rx ascorbic acid (vitamin C) 1,000 mg 1 g PO HS 06/17/22 06/30/22 History capsule cholecalciferol (vitamin D3) 50 5,000 unit PO DAILY 06/17/22 06/30/22 History mcg (2,000 unit) tablet docusate sodium 100 mg capsule 100 mg PO DAILY 06/30/22 06/30/22 History (Stool Softener) irbesartan 75 mg tablet 75 mg PO DAILY 06/30/22 06/30/22 History metoprolol succinate 25 mg 25 mg PO DAILY PRN PALPITATIONS 06/30/22 06/30/22 History tablet,extended release 24 hr primidone 50 mg tablet 50 mg PO HS 06/30/22 06/30/22 History Patient hx anesthesia problems: none Family hx anesthesia problems: none Results Review: All pre-operative results and documents have been reviewed as part of the pre- operative evaluation. [facility] Past Medical History Medical History Chronic kidney disease, stage 3 unspecified Essential and other specified forms of tremor Right lower lobe lung mass Vitamin D deficiency, unspecified Wellness examination Surgical History Surgical History History of partial nephrectomy Social History Social History Smoking status: Never smoker Second hand tobacco smoke exposure: Yes Alcohol intake: never Drinks per week: 1 Alcohol use details: very rarely Substance use: never Substance use type: does not use Living arrangements: with family Occupation/Education: retired Gender identity (if verbalized by the patient): Female Sexual Orientation (if Verbalized by the Patient): Straight or Heterosexual Spiritual care concerns: No Anes - Eval Final PreProcedure Day of Procedure 07/09/22 08:58 Patient weight: obese Airway: Mallampati scale class II ASA classification: III Anesthesia type and monitoring: general GIVS and standard monitoring Results Review: All pre-operative results and documents have been reviewed as part of the pre- operative evaluation. Informed Consent: The patient's anesthetic plan and its attendant risks and benefits were discussed with the patient/family/POA. Questions were solicited and answers provided to the satisfaction of the patient/family/POA.
[2022-07-09 09:22] VITALS: BP 122/60; PULSE 59; RESP 21; O2SAT 96
[2022-07-09 09:32] VITALS: BP 134/74; PULSE 66; RESP 30; O2SAT 97
[2022-07-09 09:42] VITALS: BP 134/74; PULSE 59; RESP 18; O2SAT 96
== END 2022-07-09 09:45 | disposition home or self-care (01) ==
PROVIDERS: PCP Family Medicine; Visit Provider Internal Medicine Gastroenterology
PROC: 0DJD8ZZ Inspection of Lower Intestinal Tract, Via Natural or Artificial Opening Endoscopic (ICD-10-PCS; CPT 45378; principal; 2022-07-09 09:30)
DX: Z12.11 Encounter for screening for malignant neoplasm of colon (principal); K64.8 Other hemorrhoids; K57.30 Diverticulosis of large intestine without perforation or abscess without bleeding; Z86.010 Personal history of colon polyps; Z80.0 Family history of malignant neoplasm of digestive organs; N18.30 Chronic kidney disease, stage 3 unspecified; G25.0 Essential tremor; E55.9 Vitamin D deficiency, unspecified; Z79.82 Long term (current) use of aspirin; E66.9 Obesity, unspecified; Z68.34 Body mass index [BMI] 34.0-34.9, adult; Z85.528 Personal history of other malignant neoplasm of kidney
CPT/HCPCS: G0105; J2704; J7120

== ENCOUNTER 2022-12-28 14:00 | Outpatient (CLI) | payer MEDICARE, SELFPAY ==
--- NOTE | ~2022-12-28 | CT_ITS ---
EXAMINATION: CT abdomen pelvis wo/w con DATE: 12/28/2022 14:41 INDICATION: Renal cell carcinoma. TECHNIQUE: Computed tomography (CT) of the abdomen and pelvis was performed without and with 100 mL O mnipaque 350 intravenous contrast. Automated exposure control and iterative reconstruction technique were employed. The dose-length product was 1431.39 mGy-cm. COMPARISON: CT abdomen and pelvis 02/03/2022, 06/23/15 FINDINGS: The visualized portions of the lung bases demonstrate mild atelectasis. A calcified right l dillon nodule is consistent with old granulomatous disease. No pleural effusion. The heart size is michael l. No pericardial effusion. There is a 6 mm cyst in the liver. Calcifications in the spleen are consi stent with old granulomatous disease. The gallbladder, pancreas, and adrenal glands are normal. There are changes of partial right nephrectomy. There are cysts in the kidneys measuring up to 3.9 cm on t he left. There is a chronic 1.8 cm cyst medial to right kidney, likely a lymphangioma or inclusion cy st. There is diverticulosis of the colon without evidence of diverticulitis. There are no dilated loo ps of bowel. The appendix is normal. There are no pathologically enlarged lymph nodes. There is no fr ee intraperitoneal fluid. There is thoracolumbar levoscoliosis and moderate spondylosis. There is a h emangioma in T12 vertebral body. IMPRESSION: 1. Partial right nephrectomy. No recurrent neoplasm or metastatic disease. Reviewed, dictated and finalized at location E.
[2022-12-28 14:35] LABS: Estimated Glomerular Filt Rate 54
== END 2022-12-28 14:01 | disposition home or self-care (01) ==
PROVIDERS: PCP Family Medicine; Referring Provider Internal Medicine Nephrology; Visit Provider Physician Assistant
DX: N18.30 Chronic kidney disease, stage 3 unspecified (principal); Z85.528 Personal history of other malignant neoplasm of kidney; Z90.5 Acquired absence of kidney
CPT/HCPCS: 74178; Q9967

== ENCOUNTER 2023-01-07 09:02 | Outpatient (CLI) | payer MEDICARE, SELFPAY ==
[2023-01-07 09:39] LABS: Creatinine Urine 41.9 mg/dL; Total Protein Urine Random 7 mg/dL; Ur Ttl Prot Creatinine Ratio 0.17 mg/mg (0-0.20)
[2023-01-07 09:54] LABS: Anion Gap 6 mmol/L (8-16); Blood Urea Nitrogen 22 mg/dL (7-17); Calcium 9.4 mg/dL (8.4-10.2); Carbon Dioxide 33 mmol/L (22-30); Chloride 101 mmol/L (98-107); Estimated Glomerular Filt Rate 54; Glucose 87 mg/dL (65-110); Potassium 3.9 mmol/L (3.4-5.0); Sodium 140 mmol/L (137-145)
== END 2023-01-07 09:03 | disposition home or self-care (01) ==
LOC: ANHLAB 09:05
PROVIDERS: PCP Family Medicine; Visit Provider Internal Medicine Nephrology
DX: I12.9 Hypertensive chronic kidney disease with stage 1 through stage 4 chronic kidney disease, or unspecified chronic kidney disease (principal); N18.2 Chronic kidney disease, stage 2 (mild)
CPT/HCPCS: 36415; 80069; 82570; 84156

== ENCOUNTER 2023-07-06 13:44 | Outpatient (CLI) | payer MEDICARE, SELFPAY ==
[2023-07-06 14:14] LABS: Albumin Level 4.1 g/dL (3.5-5.1); Anion Gap 6 mmol/L (8-16); Blood Urea Nitrogen 25 mg/dL (7-17); Calcium 9.5 mg/dL (8.4-10.2); Carbon Dioxide 33 mmol/L (22-30); Chloride 100 mmol/L (98-107); Estimated Glomerular Filt Rate > 60; Glucose 127 mg/dL (65-110); Phosphorus 4.1 mg/dL (2.5-4.5); Sodium 139 mmol/L (137-145)
[2023-07-06 14:29] LABS: Parathyroid Intact 51.9 pg/mL (7.5-53.5)
[2023-07-06 14:33] LABS: Total Protein Urine Random < 5 mg/dL
[2023-07-06 14:34] LABS: Ur Ttl Prot Creatinine Ratio < 0.05 mg/mg (0-0.20)
== END 2023-07-06 13:45 | disposition home or self-care (01) ==
LOC: ANHLAB 13:51
PROVIDERS: PCP Family Medicine; Visit Provider Internal Medicine Nephrology
DX: I12.9 Hypertensive chronic kidney disease with stage 1 through stage 4 chronic kidney disease, or unspecified chronic kidney disease (principal); N18.31 Chronic kidney disease, stage 3a; N25.81 Secondary hyperparathyroidism of renal origin; E55.9 Vitamin D deficiency, unspecified; N28.1 Cyst of kidney, acquired
CPT/HCPCS: 36415; 80069; 82306; 82570; 83970; 84156

== ENCOUNTER 2023-07-20 14:33 | Outpatient (CLI) | payer MEDICARE, SELFPAY ==
--- NOTE | ~2023-07-20 | MM_ITS ---
EXAMINATION: MM screening [facility] BI w adria HISTORY: Screening TECHNIQUE: Craniocaudal and mediolateral oblique 3-D tomosynthesis images were obtained and synthetic 2-D images were generated. CAD analysis was submitted and interpreted. COMPARISON: Comparison to multiple prior studies sequentially, with oldest reviewed study dated 10/27. BREAST PARENCHYMAL COMPOSITION: Not dense: There are scattered areas of fibroglandular density. FINDINGS: There is no evidence of suspicious mass, calcification, or architectural distortion to sugg est malignancy in either breast. There has been no suspicious interval change. IMPRESSION: 1. No mammographic evidence of malignancy. 2. Recommend routine screening mammography in one year. BI-RADS Category 1: Negative Reviewed, dictated and finalized at location A. HOP PERFORMERS
== END 2023-07-20 14:34 | disposition home or self-care (01) ==
LOC: ANHIMG 14:36
PROVIDERS: PCP Family Medicine; Visit Provider Obstetrics & Gynecology
DX: Z12.31 Encounter for screening mammogram for malignant neoplasm of breast (principal)
CPT/HCPCS: 77063; 77067

== ENCOUNTER → 2023-08-09 13:34 | Outpatient (CLI) | payer MEDICARE, SELFPAY ==
--- NOTE | ~2023-08-09 | US_ITS ---
EXAMINATION: US renal BI DATE: 08/09/2023 14:01 INDICATION: Cyst of kidney, acquired. TECHNIQUE: Multiple ultrasound grayscale images of the kidneys were obtained. COMPARISON: CT 12/28/2022 FINDINGS: The right kidney measures 8.3 x 4.2 x 4.6 cm. The left kidney measures 12.4 x 5.1 x 7.3 cm. The kidne ys demonstrate normal parenchymal echogenicity. There are changes of partial nephrectomy involving ri ght kidney upper pole. There are cysts in the kidneys measuring up to 3.9 cm on the left. There is no hydronephrosis. The bladder is normal. IMPRESSION: 1. Stable benign cysts in the kidneys. 2. Partial right nephrectomy. Reviewed, dictated and finalized at location E. 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
== END ==
PROVIDERS: PCP Family Medicine; Visit Provider Internal Medicine Nephrology
DX: N28.1 Cyst of kidney, acquired (principal); Z90.5 Acquired absence of kidney
CPT/HCPCS: 76775

== ENCOUNTER 2023-11-29 10:07 | Outpatient (CLI) | payer MEDICARE, SELFPAY ==
[2023-11-29 10:47] LABS: Erythrocyte Sedimentation Rate 42 mm/hr (0-20)
[2023-11-29 11:08] LABS: Rheumatoid Factor < 12.0 IU/ML (<12)
[2023-11-29 11:09] LABS: CRP 0.7 mg/dL (<1.0)
[2023-11-30 14:19] LABS: Anti Cyclic Citrullinated Pept <16 UNITS
[2023-12-01 10:43] LABS: Anti Nuclear Antibody Pattern Nuclear, Speckled
== END 2023-11-29 10:08 | disposition home or self-care (01) ==
LOC: ANHLAB 10:11
PROVIDERS: PCP Family Medicine; Visit Provider Physician Assistant
DX: M25.532 Pain in left wrist (principal); M54.9 Dorsalgia, unspecified; R76.8 Other specified abnormal immunological findings in serum; R70.0 Elevated erythrocyte sedimentation rate
CPT/HCPCS: 36415; 85652; 86038; 86039; 86140; 86200; 86430

== ENCOUNTER 2024-01-03 06:40 | Outpatient (CLI) | payer MEDICARE, SELFPAY ==
--- NOTE | ~2024-01-03 | CT_ITS ---
EXAMINATION: CT abdomen pelvis wo/w con DATE: 01/03/2024 07:37 INDICATION: Renal cell carcinoma TECHNIQUE: Computed tomography (CT) of the abdomen and pelvis was performed without and with 100 mL O mnipaque-350 intravenous contrast. Automated exposure control and iterative reconstruction technique were employed. The dose-length product was 1376.69 mGy-cm. COMPARISON: 12/28/2022,, 01/27/2021 and 03/02/2018 FINDINGS: Lung bases are clear. Heart size is normal. No pericardial effusion. 6 mm hepatic cyst. Unchanged gal lbladder, spleen, pancreas and left adrenal gland are normal. 1.2 cm low-attenuation right adrenal ad enoma. Postoperative change of prior partial nephrectomy at the upper pole the right kidney with ovidio tional region at the upper pole demonstrating significant focal atrophy suggesting sequela prior infa rct. There are bilateral renal cysts the largest on the left measuring 4.1 cm. Unchanged 1.8 cm cysti c lesion along side the lateral margin of the inferior vena cava at level of the caudal tip in the ki dney most likely a lymphangioma or inclusion cyst. There are few scattered colonic diverticula withou t adjacent inflammatory stranding to suggest diverticulitis. No bowel obstruction. Normal appendix. U nchanged 1.3 cm hypoenhancing fibroid at the anterior fundus of the retroverted uterus. Bladder and b ilateral adnexa are unremarkable. No free intraperitoneal gas or fluid. No pathologically enlarged ab dominal or pelvic lymphadenopathy. Mild thoracolumbar levocurvature scoliosis with moderate spondylos is. There are hemangiomas at T12 and L1. IMPRESSION: 1. Stable appearance of a prior partial right nephrectomy. No evident residual/recurrent or metastati c disease. Reviewed, dictated and finalized at location A. IMPRESSION: 1. Stable appearance of a prior partial right nephrectomy. No evident residual/ recurrent or metastatic disease.
--- NOTE | ~2024-01-03 | CT_ITS ---
CT Scan of the Chest without Contrast: Clinical Indication: Pulmonary nodule Technique: Contiguous sections were acquired throughout the chest without intravenous contrast. Dose reduction technique was used on this scan by utilizing automated exposure control and iterative recon struction technique. The dose-length product (DLP) was 260.59 mGy-cm. COMPARISON: 08/04/2020 Findings: There is no evidence of any significant mediastinal, hilar or axillary lymphadenopathy. Small calcifi ed mediastinal lymph nodes are present. The mediastinal soft tissues appear normal. There is no evidence of pleural or pericardial effusion. Stable 9 mm groundglass nodule in the left lung apex. Several calcified granulomas are present. Images through the upper abdomen reveal no abnormalities. Impression: Stable 9 mm groundglass left apical pulmonary nodule. Reviewed, dictated and finalized at [facility]. Impression: Stable 9 mm groundglass left apical pulmonary nodule.
[2024-01-03 07:23] LABS: Estimated Glomerular Filt Rate > 60
== END 2024-01-03 06:41 | disposition home or self-care (01) ==
PROVIDERS: PCP Family Medicine; Visit Provider Physician Assistant
DX: R91.1 Solitary pulmonary nodule (principal); Z90.5 Acquired absence of kidney; Z85.528 Personal history of other malignant neoplasm of kidney
CPT/HCPCS: 71250; 74178; Q9967

== ENCOUNTER 2024-01-10 14:36 | Outpatient (CLI) | payer MEDICARE, SELFPAY ==
[2024-01-10 15:11] LABS: Creatinine Urine 113.8 mg/dL
[2024-01-10 15:16] LABS: Anion Gap 8 mmol/L (4-12); Blood Urea Nitrogen 30 mg/dL (7-17); Carbon Dioxide 31 mmol/L (22-30); Chloride 99 mmol/L (98-107); Estimated Glomerular Filt Rate 54; Glucose 106 mg/dL (65-110); Potassium 4.1 mmol/L (3.4-5.0); Sodium 138 mmol/L (137-145)
[2024-01-10 16:18] LABS: Total Protein Urine Random < 5 mg/dL; Ur Ttl Prot Creatinine Ratio < 0.04 mg/mg (0-0.20)
== END 2024-01-10 14:37 | disposition home or self-care (01) ==
LOC: ANHLAB 14:38
PROVIDERS: PCP Family Medicine; Visit Provider Internal Medicine Nephrology
DX: I12.9 Hypertensive chronic kidney disease with stage 1 through stage 4 chronic kidney disease, or unspecified chronic kidney disease (principal); N18.2 Chronic kidney disease, stage 2 (mild)
CPT/HCPCS: 36415; 80069; 82570; 84156

== ENCOUNTER 2024-01-17 14:16 | Outpatient (CLI) | payer MEDICARE, SELFPAY ==
--- NOTE | ~2024-01-17 | XR_ITS ---
XR hand RT min 3V Ordering provider: Nancy IrwinYolis History: . 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 Comparison: None. FINDINGS: BONES: No acute fracture or dislocation. Post operative changes in the distal radius. Old fracture of the ulnar styloid. JOINT SPACES: Narrowing of the distal interphalangeal joints SOFT TISSUES: Normal. IMPRESSION: No acute osseous abnormality right hand. Reviewed, dictated and finalized at location A.
--- NOTE | ~2024-01-17 | XR_ITS ---
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 Comparison: None. FINDINGS: BONES: No acute fracture or dislocation. Minimal subluxation of the first carpophalangeal joint. JOINT SPACES: Osteoarthritic changes of the first carpometacarpal joint. Osteoarthritic changes of th e proximal and distal interphalangeal joints with narrowing of the joints. SOFT TISSUES: Unremarkable. IMPRESSION: No acute osseous abnormality left hand. Reviewed, dictated and finalized at location A.
--- NOTE | ~2024-01-17 | XR_ITS ---
XR sacroiliac joints min 3V Ordering provider: Nancy IrwinYolis History: . ARTHRALGIA;CARE HOME CURRENT USE OF MEDICATIONS . Comparison: None. FINDINGS: BONES: No acute fracture or dislocation. Degenerative changes of the spine. JOINTS: The bilateral sacroiliac joint spaces appear well maintained. No bony fusion of the sacroilia c joints or bony erosions. . Pubic symphysitis. SOFT TISSUES: Unremarkable. IMPRESSION: NO ACUTE OSSEOUS ABNORMALITY. NORMAL SACROILIAC JOINTS. Pubic symphysitis. Degenerative changes of the spine. Reviewed, dictated and finalized at location A.
--- NOTE | ~2024-01-17 | XR_ITS ---
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 Comparison: None. FINDINGS: VERTEBRAL BODIES: No visible fracture or subluxation. Levoscoliosis. Degenerative changes of the spin e. DISK SPACES: Narrowing of the disc L1-L2, L2-L3, L4-L5 and L5-S1. SOFT TISSUES: Normal. IMPRESSION: No acute osseous abnormality lumbar spine. Reviewed, dictated and finalized at location A.
== END 2024-01-17 14:17 | disposition home or self-care (01) ==
LOC: ANHIMG 14:21
PROVIDERS: PCP Family Medicine; Visit Provider Physician Assistant Medical
DX: M25.50 Pain in unspecified joint (principal); Z79.899 Other long term (current) drug therapy
CPT/HCPCS: 72100; 72202; 73130

== ENCOUNTER 2024-09-27 09:18 | Outpatient (CLI) | payer MEDICARE, SELFPAY ==
--- NOTE | ~2024-09-27 | MM_ITS ---
EXAMINATION: MM screening ann marie BI w adria HISTORY: Screening TECHNIQUE: Craniocaudal and mediolateral oblique 3-D tomosynthesis images were obtained and synthetic 2-D images were generated. CAD analysis was submitted and interpreted. COMPARISON: Comparison to multiple prior studies sequentially, with oldest reviewed study dated 10/30. BREAST PARENCHYMAL COMPOSITION: Not dense: There are scattered areas of fibroglandular density. FINDINGS: There are developing asymmetries in the upper outer quadrant of the right breast, middle th ird. The left breast is stable without evidence for malignancy. IMPRESSION: 1. Developing right breast asymmetries. 2. Additional mammographic views and possible breast ultrasound are recommended. BI-RADS Category 0: Incomplete: Needs additional imaging evaluation. Reviewed, dictated and finalized at location A. IMPRESSION: 1. Developing right breast asymmetries. 2. Additional mammographic views and possible breast ultrasound are recommended . BI-RADS Category 0: Incomplete: Needs additional imaging evaluation.
--- OUTSIDE RECORDS SUMMARY | 2024-09-27 09:36 | XMS_ITS | Encounter Summary ---
Author Organization [facility] Address [facility] [place] [address] Care Team Providers Care Manager French Name Role Phone None, Provider Primary Care Provider UnavailMoreno Al MD Primary Care Provider [phone] Olivier Miramontes MD Unavailable Encounter Details Date Type Department Care Team (Latest Contact Info) Description 04/25/2018 Abstract [facility] , Wesley Antony MD Social History Tobacco Use Types Packs/Day Years Used Date Smoking Tobacco: Never Comments Unknown Sex and Gender Information Value Date Recorded Sex Assigned at Female 07/14/2024 9:23 AM ALCOHOL RUBBER Legal Sex Female 11:04 PM CDT Gender Identity Not on file Sexual Orientation Not on file documented as of this encounter Plan of Treatment Not on file documented as of this encounter Visit Diagnoses Not on filedocumented in this encounter Additional Health Concerns Infection Onset Date Last Indicated Resolved Time COVID-19 Rule Out 07/14/2024 07/14/2024 07/14/2024 9:35 AM ALCOHOL RUBBER documented as of this encounter Care Teams Manager French Relationship Specialty Start Date End Date None, Provider, PCP - General 10/09/20 03/24/22 Moreno Woodward MD [address] [facility] [address] [place] [address] PCP - General FAMILY PRACTICE 03/25/22 Olivier Miramontes MD [address] [place] [id number] CARDIOVASCULAR DISEASE 07/14/24 documented as of this encounter
--- OUTSIDE RECORDS SUMMARY | 2024-09-27 09:36 | XMS_ITS | Encounter Summary ---
Author Organization [facility] Address [facility] [facility] [place] [address] Care Team Providers Care Master Baker Name Role Phone Moreno Woodward MD Primary Care Provider [phone] Jignesh Weller MD Unavailable [phone] Encounter Details Date Type Department Care Team (Late st Contact Info) Description 05/01/2024 Lab Requisition [facility] - DermPath Lab [address] [facility] [place] [id number] Mehrdad [place] [address] Social History Tobacco Use Types Packs/Day Years Used Date Smoking Tobacco: Never Smokeless Tobacco: Never Alcohol Use Standard Drinks/Week Comments No 0 (1 standard drink = 0.6 oz pur e alcohol) PHQ-2 Answer Date Recorded PHQ2 TOTAL SCORE 0 10/18/2022 Sex and Gender Information Value Date Recorded Sex Assigned at Not on file Gender Identity Not on file Sexual Orientation Not on file documented as of this encounter Plan of Treatment Not on file documented as of this encounter Procedures Procedure Name Priority Date/Time Associated Diagnosis Comments DERMATOPATHOLOGY Routine 04/30/2024 12:0 0 AM [employer] TECHNICAL MANAGER documented in this encounter Results * DERMATOPATHOLOGY (04/30/2024 12:00 AM [employer] TECHNICAL MANAGER) Case Report Dermatopathology Report Case: [id number] Authorizing Provider: Mehrdad Mariano MD Collected: 04/30/2024 12:00 AM Ordering Location: [facility] - Received: 05/01/2024 02:37 PM DermPath Lab Pathologist: Darby Nation MD Specimen: Skin, right superior pretibia 3:07 PM [facility] DERMATOPATHOLOGY LABORATORY Final Diagnosis Specimen A. SKIN, right superior pretibia: SEBORRHEIC KERATOSIS, IRRITATED AND INFLAMED (L82.0) NOT PRESENT AT SAMPLED MARGIN 3:07 PM [employer] TECHNICAL MANAGER DERMATOPATHOLOGY LABORATORY Clinical History R/O SK Please check margins 3:07 PM [facility] DERMATOPATHOLOGY LABORATORY Gross Description Specimen A: Received is one formalin filled container labeled with the patients name and designated right superior pretibia. The specimen consists of a shave removal measuring [id number] mm. Jar 0. 3:07 PM [facility] DERMATOPATHOLOGY LABORATORY Microscopic Description Specimen A. SKIN, right superior pretibia: Sections show acanthosis, papillomatosis, hyperkeratosis, and squamous eddies. There is a lymphohistiocytic infiltrate within the papillary dermis. This lesion is not present at the sampled margin of the specimen. 3:07 PM [facility] DERMATOPATHOLOGY LABORATORY Disclaimer An external and internal positive and negative controls are appropriate for the histochemical, immunohistochemical and immunofluorescence stain(s) in this case (if any), except where stated explicitly. The performance characteristics of the stain(s) cited in this report were developed and its performance characteristic determined by the Dermatopathology Laboratory at [facility], directed by Dr. Amparo Pugh. These tests need not be, and therefore are not, approved by the [place] Food and Drug Administration. The tests are used for clinical purposes. Billing Codes Specimen Charges Stain Charges 97993 1 3:07 PM [facility] DERMATOPATHOLOGY LABORATORY Embedded Images 3:07 PM [facility] DERMATOPATHOLOGY LABORATORY Pathology/Cytolog y TISSUE SPECIMEN FROM SKIN / Unknown 04/30/2024 05/01/2024 2:37 PM [employer] TECHNICAL MANAGER Mehrdad Mariano MD LAB - PATHOLOGY/CYTO LOGY ORDERABLES DERMATOPATHOLOGY LABORATORY [facility] - Department of Dermatology [facility] Medicine [address] [place] [address], [address] [phone] documented in this encounter Visit Diagnoses Not on filedocumented in this encounter Care Teams Master Baker Relationship Specialty Start Date End Date Moreno Woodward MD [address] [place] [address] PCP - General Family Medicine 03/24/17 Jignesh Weller MD [address] [place] [address] Jackhammer Splitter Operator Electrophysiology 12/03/20 documented as of this encounter
--- OUTSIDE RECORDS SUMMARY | 2024-09-27 09:36 | XMS_ITS | Data Portability ---
Author Organization 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 Patient will come back in a year unless there are new symptoms. Not available 11/26/2020 16:02:10 04/09/2024 04/09/2024 Annual gynecological exam performed. Patient will come back in a year unless there are new symptoms. [email or web address] Not available 04/09/2024 14:25:02 Plan of Treatment Reminders Order Date Submit Date Provider Last Modified By Organization Details Last Modified Time Details Appointments None record ed. Lab None record ed. Referral None record ed. Procedures None record ed. Surgeries None record ed. Imaging None record ed. Medication Orders None record ed. Patient TargetsNo targets recorded. Patient InstructionsNo instructions recorded. Reason for Referral None Reported. Results Created Date Observation Date Name Description Value Unit Range Abnormal Flag Note LastModifiedBy Organization Detail LastModifiedTime 11/27/19 21 11/26/2020 pap, IG + HR HPV image guided Pap, HPV regardless of Pap result SEE RESULT S BELOW CASE REPOR T: Cytol ogy Gynec ologi katerine Repor t Case: [id number] Autho millie g Provi eli: Gaby Cruz MD Colle cted: 11/26 1651 Order ing Locat ion: [place] Patho [place] Recei opal: 11/27 0113 First Scree n: McBri de, Liza ret, CT Speci men: Scree mir Pap - Image d, Cervi x STATE MENT OF ADEQU ACY: Satis facto ry for evalu ation Trans forma tion zone compo nent prese nt FINAL DIAGN OSIS: Negat eva for Intra epith elial Lesio n or Malig nandini Elect frank elise felix d by Liza Lopez ret, CT on 2020 at 2:28 PM ----- ----- ----- ----- ----- ----- ----- ----- ----- ----- ----- ----- ----- ----- ----- ----- ----- ---- HPV RESUL TS: HPV mRNA E6/E7 : No HPV mRNA Detec kristin NOTE: This high risk HPV mRNA assay detec ts fourt een high- risk HPV types (16, 18, 31, 33, 35, 39, 45, 51, 52, 56, 58, 59, 66, 68) witho ut diffe renti ation . CHART ABLE COMME NT: Note: This speci men was revie wed by a Cytot echno logis t and/o r Patho logis t (as indic ated in this repor t) after evalu ation using the Thinp rep Imagi ng Syste m. CLINI KATERINE INFOR MATIO N: Menst rual Statu s: LMP (if appli cable ): 012 Clini katerine Histo ry/Pr eviou s Pap: Type of Neopl bakari (if appli cable ): Other Histo ry: Hormo gina (if appli cable ): PAP EDUCA LUCIANO L NOTE: The Pap Test is a scree mir test with an inher ent false negat eva rate. Liqui d-bas e sampl ing may decre ase, but will not elimi yoni, false negat eva resul ts. A negat eva resul t does not precl ude the prese nce and/o r devel opmen t of disea se, since the prese nce of abnor mal cells in the sampl e depen ds on the locat ion of the lesio n and sampl ing techn ique. Ricardo nued regul ar screroxanne hester is the best metho d of cance r preve ntion . If repor kristin cytol ogic findi ng do not corre late with physi katerine and/o r histo rical findi ngs, furth er inves tigat ion is recom jocelyn d, as clini mariela teixeira nted. Not Available [facility] (Lab) [address], [place], [address], 11/27/2020 15:31:38 04/09/20 24 04/09/2024 IMAGE GUIDE D PAP AND HPV REGAR DLESS image guided Pap, HPV regardless of Pap result SEE RESULT S BELOW CASE REPOR T: Cytol ogy Gynec ologi katerine Repor t Case: [id number] Autho ricaridad g Provi eli: Gaby Cruz MD Colle cted: 04/09 1621 Order ing Locat ion: [place] Path[place] Recei opal: 04/10 0643 First Scree n: Temo Tavarez, CT Speci men: Shalini hester Pap - Image d, Cervi x STATE MENT OF ADEQU ACY: Satis facto ry for evalu ation Trans forma tion zone compo nent prese nt ----- ----- ----- ----- ----- ----- ----- ----- ----- ----- ----- ----- ----- ----- ----- ----- ----- ---- FINAL DIAGN OSIS: Negat eva for Intra epith elial Lesio n or Anny delatorre (NIL) . Elect frank elise felix d by eTmo Tavarez, CT on 04/14 at 6:39 AM ----- ----- ----- ----- ----- ----- ----- ----- ----- ----- ----- ----- ----- ----- ----- ----- ----- ---- HPV RESUL TS: HPV mRNA E6/E7 : No HPV mRNA Detec kristin NOTE: This high risk HPV mRNA assay detec ts fourt een high- risk HPV types (16, 18, 31, 33, 35, 39, 45, 51, 52, 56, 58, 59, 66, 68) witho ut diffe renti ation . COMME NT: This speci men was revie wed by a Cytot echno logis t and/o r Patho logis t (as indic ated in this repor t) after evalu ation using the Thinp rep Imagi ng Syste m. CLINI KATERINE INFOR MATIO N: Menst rual Statu s: LMP (if appli cable ): Clini katerine Histo ry/Pr eviou s Pap: Type of Neopl bakari (if appli cable ): Signi fican t Clini katerine Findi ngs: Other Histo ry: Hormo gina (if appli cable ): PAP EDUCA LUCIANO L NOTE: The Pap Test is a scree mir test with an inher ent false negat eva rate. Liqui d-bas ed sampl ing may decre ase, but will not elimi yoni, false negat eva resul ts. A negat eva resul t does not precl ude the prese nce and/o r devel opmen t of disea se, since the prese nce of abnor mal cells in the sampl e depen ds on the locat ion of the lesio n and sampl ing techn ique. Ricardo nued regul ar scree mir is the best metho d of cance r preve ntion . If repor kristin cytol ogic findi ng do not corre late with physi katerine and/o r histo rical findi ngs, furth er inves tigat ion is recom jocelyn d, as clini mariela teixeira nted. Not Available [facility] (Lab) [address], [place], [address], 04/14/2024 07:42:41 11/06/08 2105/01/2021 MAMMO , scree mir, bilat eral No observ ation record ed. [facility] [address], [place], [address], 05/18/2021 10:47:09 05/19/20 22 05/19/2022 MAMMO , scree mir, bilat eral No observ ation record ed. [address], [place], [address], 09/22/2023 09:24:50 07/20/19 24 07/20/2023 MAMMO , scree mir, bilat eral No observ ation record ed. [facility] [address], [place], [address], 08/18/2023 15:40:28 Result Notes None recorded. Problems Name Problem SNOMED Code Status Onset Date Resolution Date Notes Provider Name and Address Organization Details Recorded Time Screening for malignant neoplasm of cervix Completed 201811/26/2020 Encounter for screening for malignant neoplasm of cervix;Re corded Elsewhere : No Locati on: [facility] So urce: EHR Chron ic: N Practic e ID: [id number] Bill able Time: 02:00:00 PM Reyna reese [facility] 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 16:04:14 Adult health examinati on Completed 201111/26/2020 Routine Medical Exam;Zeus rded Elsewhere : No Locati on: [facility] So urce: EHR Chron ic: N Practic e ID: [id number] Bill able Time: 09:00:00 AM Reyna reese [facility] 1 16:04:[address] Concept Completed 201811/26/2020 Encntr for case resource manager exam (general) (routine) w/o abn findings; Recorded Elsewhere : No Locati on: [facility] So urce: EHR Chron ic: N Practic e ID: [id number] Bill able Time: 02:00:00 PM Reyna Moreira [facility] 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 1 16:04:11 Noninflam matory disorder of vulva [id number] Completed 201811/26/2020 Noninflam matory disorder of vulva and perineum, unspecifi ed;Record ed Elsewhere : No Locati on: [facility] So urce: EHR Chron ic: N Practic e ID: [id number] Bill able Time: 01:30:00 PM Reyna reese [facility] 1 16:04:17 Screening for malignant neoplasm of rectum Completed 201111/26/2020 Screening for malignant neoplasms of the rectum;Re corded Elsewhere : No Locati on: [facility] So urce: EHR Chron ic: N Practic e ID: [id number] Bill able Time: 09:00:00 AM Reyna Moreira [facility] 16:04:21 Specializ ed medical examinati on Completed 201111/26/2020 Routine gynecolog ical examinati on;Practi ce ID: [id number] Reyna Moreira [facility] 1 16:04:25 Notes:Neoplasm of unsp behav ior of other genitourinary organs Practice ID: [id number] Problem Notes None recorded. Procedures Surgical History Date Name Laterality Status Provider Name and Address Organization Details Recorded Time 07/20/19 24 Date of Last Mammogram completed Brittany Garibay [facility] 04/09/2024 14:27:53 08/14/19 21 cardiac catheterization completed [facility] 12/01/2020 15:45:47 11/04/19 19 Date of Last Pap Smear completed [facility] 05/22/2020 15:58:43 10/19/19 18 grafting to skin completed [facility] 03/15/2022 15:09:48 10/19/19 16 partial nephrectomy completed [facility] 03/15/2022 15:09:28 04/20/20 13 procedure on wrist completed [facility] 03/15/2022 15:09:09 02/19/20 13 procedure on knee completed [facility] 03/15/2022 15:08:16 10/19/19 13 procedure on shoulder completed [facility] 11/15/2019 10:40:06 01/18/19 98 procedure on shoulder completed [facility] 11/15/2019 10:39:40 Imaging Results Imaging Date Name Status LastModified by Organiz ation Details LastModified Time 05/01/2021 MAMMO, screening, bilateral completed [place] [id number] [facility] [address], [place], [address], 05/18/2021 10:47:09 05/19/2022 MAMMO, screening, bilateral completed [address] [facility] [address], [place], [address], 09/22/2023 09:24:50 07/20/2023 MAMMO, screening, bilateral completed [facility] [address], [place], [address], 08/18/2023 15:40:28 Procedure Notes None recorded. Medical Equipment None Reported. Allergies No known drug allergies Medications Name Sig Start Date Stop Date Status Note LastModified by Organization Details LastModified Time amoxicill in 500 mg capsule TAKE 4 CAPSULES BY MOUTH 1HOUR BEFORE DENTAL APPOINTM ENT 04/09 completed Not Available Not Available Not Available primidone 50 mg tablet TAKE 1 TABLET AT BEDTIME active Not Available Not Available No t Available prednison e 10 mg tablet 3 TABS BY MOUTH DAILY X 3D, THEN 2 TABS DAILY X 3DAYS, THEN 1 TAB DAILY X 5D 12/01 completed Not Available Not Available Not Available cephalexi n 250 mg capsule 05/22 completed Not Available Not Available Not Available benzonata te 100 mg capsule TAKE 1 CAPSULE BY MOUTH 3 TIMES A DAY NEEDED FOR COUGH 04/09 completed Not Available Not Available Not Available losartan 25 mg tablet take 1 tablet by oral route every day 12/01 completed Prescrib ed Elsewher e: Yes [facility] By: cmedical Encount er DateTime : 05/10/20 12 09:00:00 AM Not Available Not Available Not Available hydrochlo rothiazid e 12.5 mg capsule take 2 capsule by oral route every day 12/01 completed Prescrib ed Elsewher e: Yes [facility]oca [facility] odify By: cmedical Encount er DateTime : 05/10/20 12 09:00:00 AM Not Available Not Available Not Available irbesarta n 75 mg tablet TAKE 1 TABLET BY MOUTH EVERY DAY AT NIGHT active Not Available Not Available No t Available diltiazem CD 120 mg capsule,e xtended release 24 hr 06/28 completed Not Available Not Available Not Available Longs Adult Low Strength ASA 81 mg tablet,de layed release Take 1 tablet every day by oral route. 06/28 completed Not Available Not Available Not Available metoprolo l succinate ER 25 mg tablet,ex tended release 24 hr TAKE 1 TABLET BY MOUTH EVERY DAY active Not Available Not Available No t Available irbesarta n 150 mg tablet TAKE 1 TABLET BY MOUTH EVERY DAY 06/28 completed Not Available Not Available Not Available Aspir-81 mg tablet,de layed release take 1 tablet by oral route every day 2021 active Prescrib ed Elsewher e: Yes Loca tion: Vipul oliveira [facility] odify By: [email or web address] trick En counter DateTime : 09/01/19 14 09:00:00 AM Not Available Not Available Not Available albuterol sulfate HFA 90 mcg/actua tion aerosol inhaler INHALE 1 PUFF EVERY 4 HOURS NEEDED FOR SHORTNES S OF BREATH OR WHEEZING 06/28 completed Not Available Not Available Not Available losartan 100 mg tablet 05/22 completed Not Available Not Available Not Available topiramat e 50 mg tablet SLOW INCREASE TO 2 TABS AT BREAKFAS T AND BEDTIME (WRITTEN INSTRUCT IONS GIVEN TO PATIENT) 06/28 completed Not Available Not Available Not Available Boostrix Tdap 2.5 Lf unit-8 mcg-5 Lf/0.5 mL intramusc ular syringe 11/14 completed Not Available Not Available Not Available Vitamin C active Not Available Not Leda ilable Not Available Stool Softener active Not Available Not Available Not Available Vitamin D3 active Not Available Not Available Not Available Miralax 05/22 completed Not Available Not Available Not Available Vitamin D3 10 mcg (400 unit) capsule 06/28 completed Prescrib ed Elsewher e: Yes Loca tion: Vipul oliveira [facility] odify By: cmedical Encount er DateTime : 05/10/20 12 09:00:00 AM Not Available Not Available Not Available hydrochlo rothiazid e 12.5 mg tablet TAKE 1 TABLET BY MOUTH EVERY MORNING active Not Available Not Available No t Available Fiber Laxative (methylce llulose) 500 mg tablet 08/31 completed Prescrib ed Elsewher e: Yes Loca tion: Vipul oliveira [facility] odify By: [email or web address] trick En counter DateTime : 05/10/20 12 09:00:00 AM Not Available Not Available Not Available amlodipin e besylate (bulk) 100 % powder 10/13 completed Prescrib ed Elsewher e: Yes Loca tion: Vipul oliveira [facility] odify By: reyna noriega DateTime : 05/10/20 12 09:00:00 AM Not Available Not Available Not Available Prolia 2021 active Not Available Not Available Not Avai lable Suprep Bowel Prep Kit 17.5 gram-3.13 gram-1.6 gram oral solution 06/28 completed Not Available Not Available Not Available Kapspargo Sprinkle 25 mg capsule,e xtended release 11/03 completed Prescrib ed Elsewher e: Yes Loca tion: [facility] M odify By: reyna Rodriguez r DateTime : 11/04/19 19 02:00:00 PM Not Available Not Available Not Available Flowflex COVID-19 Antigen Home Test kit USE DIRECTED 04/09 completed Not Available Not Available Not Available Vitals Date Recorded Body height Body mass index (BMI) Body weight Systolic blood pressure Diastolic blood pressure Provider Name and Address Organization Details Last Updated DateTime 11/26/2020 162.56 cm 35.4 kg/m2 98204.03 g 167 mm[Hg] 78 mm[Hg] [facility] 1 16:03:58 Date Recorded Body height Body mass index (BMI) Body weight Systolic blood pressure Diastolic blood pressure Provider Name and Address Organization Details Last Updated DateTime 01/22/2022 162.56 cm 35.4 kg/m2 06592.03 g 122 mm[Hg] 78 mm[Hg] [facility] 2 16:07:39 Date Recorded Body height Body mass index (BMI) Body weight Systolic blood pressure Diastolic blood pressure Provider Name and Address Organization Details Last Updated DateTime 06/24/2022 162.56 cm 35.9 kg/m2 94114.81 g 160 mm[Hg] 74 mm[Hg] [facility] 3 11:59:46 Date Recorded Body height Body mass index (BMI) Body weight Systolic blood pressure Diastolic blood pressure Provider Name and Address Organization Details Last Updated DateTime 12/23/2022 162.56 cm 35.4 kg/m2 30230.03 g 146 mm[Hg] 72 mm[Hg] [facility] 3 11:03:46 Date Recorded Body height Body mass index (BMI) Body weight Systolic blood pressure Diastolic blood pressure Systolic blood pressure Diastolic blood pressure Provider Name and Address Organization Details Last Updated DateTime 4 162.56 cm 35 kg/m2 58823.8 4 g 161 mm[Hg] 101 mm[Hg] 160 mm[Hg] 88 mm[Hg] Brittany Garibay [facility] 4 14:26:08 Social History Question Answer Notes LastModified by Organizat ion Details LastModified Time Tobacco Smoking Status Never Smoker Reyna Moreira mary ann [facility] 12/23/2022 11:03:55 Do You Have An Advance Directive? No Information n ot available 12/23/2022 What Is Your Level Of Alcohol Consumption? None Information not available 12/23/2022 Are You Blind Or Do You Have Difficulty Seeing? No Information n ot available 12/23/2022 What Is Your Level Of Caffeine Consumption? None Information not available 12/23/2022 How Much Tobacco Do You Chew? None Information not available 12/23/2022 In The 14 Days Before Symptom Onset, Have You Had Close Contact With A Laboratory-confirm ed COVID-19 While That Case Was Ill? No Information n ot available 12/23/2022 In The 14 Days Before Symptom Onset, Have You Had Close Contact With A Person Who Is Under Investigation For COVID-19 While That Person Was Ill? No Information not available 12/23/2022 Have You Been To An Area Known To Be High Risk For COVID-19? No Information not available 12/23/2022 Are You Deaf Or Do You Have Serious Difficulty Hearing? No Information not available 12/23/2022 What Type Of Diet Are You Following? REGULAR Information n ot available 12/23/2022 What Is The Highest Grade Or Level Of School You Have Completed Or The Highest Degree You Have Received? 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 No Information not available 12/23/2022 Do You Use Protection During Sex? No Information not available 12/23/2022 Do You Use Your Seat Belt Or Car Seat Routinely? Yes Information not available 12/23/2022 Do You Have Smoke And Carbon Monoxide Detectors In Your Home? Yes Information not available 12/23/2022 How Much Tobacco Do You Smoke? No Information not available 12/23/2022 Do You Feel Stressed (tense, Restless, Nervous, Or Anxious, Or Unable To Sleep At Night)? [id number] Information not available 12/23/2022 Do You Use Any Illicit Or Recreational Drugs? No Information not available 12/23/2022 Do You Use Sunscreen Routinely? No Information not available 12/23/2022 Have You Used IV Drugs? No Information not available 12/23/2022 Sex: Unknown Functional Status Question Answer Note LastModified by Organizat ion Details LastModified Time Are you able to walk? YESWOREST Information not available 12/23/2022 What is your exercise level? Occasional Information not available 12/23/2022 Mental Status None recorded. Family History Relationship Description Onset Age of this Age Resolved Age Notes LastModified by Organization Details LastModified Time Mother Carcinoma in situ of colon [email or web address] Not available 2022 10:51:21 Sister Hypertensive disorder [email or web address] Not available 2019 09:52:48 Father Heart disease [email or web address] Not available 2019 09:52:53 Medical History Condition Response Cancer Y Hypertension Y GI Problems Y High Cholesterol Y Gynecological History Statement/Question Response Date of Last Mammogram 07/20/2023 N On BCP's at Conception? N HPV Vaccine N Current Control Method None Age at First Child 27 Sexually Active? N Date of DEXA bone scan 12/01/2018 Date of Last Pap Smear 11/03/2018 Sexual Problems? N LMP Unknown N Obstetrics History GPAL:G 4 P 0 0 1 3 Type Value Spontaneous 1 Living 3 Total 4 Past Encounters Encounter ID Performer Location Encounter Start Date Encounter Closed Date Diagnosis/Indication Diagnosis SNOMED-CT Code Diagnosis ICD10 Code Diagnosis Note [id number] Randy Cruz MD [facility] [address] [address] 11/15/2019 09:24:01 11/15/2019 10:20:08 Vaginal lesion 814372613 N94.89 [id number] Randy Cruz MD [facility] [address] [address] 05/22/2020 15:17:49 05/22/2020 16:01:32 Vaginal lesion 071573850 N94.89 This patient is a 74-year-ol d female presents for follow-up on vaginal polyp. She has a vaginal polyp in the posterior left fornix of the vagina. It appears unchanged. She was examined. She has lot of inclusion cyst over the vulva. There is nothing on the vulva appears malignant. She will follow up in 6 months for well-woman exam. [id number] Randy Cruz MD [facility] [address] [address] 11/26/2020 14:33:52 11/26/2020 16:51:11 Gynecologic examination 21474379 Z01.419 This patient is here for her annual exam. A thorough history was taken. A physical exam was performed. Age appropriat e routine health screening was ordered, performed, and discussed. Recommende d testing was ordered. She was asked to follow up in one year. She will be informed of any test results. Mammogram - [ done] Colonoscop y - [ done ] Bone Density - [ done ] Cholestero l - [ done] Pap - todaypolyp unchanged. Same as last year. Vaginal polyp. [id number] Randy Cruz MD [facility] [address] [address] 01/22/2022 15:18:27 01/23/2022 18:12:23 Polyp of vaginal wall 240952846 N84.2 this patient is a 76-year-ol d female with a vaginal polyp. She presents for examinatio n the polyp to confirm its stability. The polyp was examined it is at the posterior left fornix. Is hyperemic and unchanged in size. We will follow-up as needed. It is been stable over several examinatio ns. [id number] Randy Cruz MD [facility] [address] [address] 06/24/2022 10:51:12 06/24/2022 12:17:00 Polyp of vaginal wall 756129858 N84.2 76-year-ol d female who presents for follow-up for vaginal polyp. Was examined. It appears stable and unchanged. No worrisome features. We did discuss removal of this and I recommende d we do in the operating room due to its location. As far back in the vagina and may require some suturing. I think she does not tolerate the exams well. This would be difficult for her. She will contact us and come in if she wants to proceed with removal. Otherwise she will return in 6 months. [id number] Randy Cruz MD [facility] [address] [address] 12/23/2022 10:02:04 12/23/2022 11:41:33 Polyp of vaginal wall 946903401 N84.2 77-year-ol d female presents for follow-up on a vaginal polyp. It is stable. Is been stable for year and. We going look at this once a year now. [id number] Randy Cruz MD [facility] [address] [address] 04/09/2024 14:15:28 04/09/2024 15:04:31 Gynecologic examination 62102158 Z01.419 Z11.51 This patient is here for her annual exam. A thorough history was taken. A physical exam was performed. Age appropriat e routine health screening was ordered, performed, and discussed. Recommende d testing was ordered. She was asked to follow up in one year. She will be informed of any test results. Mammogram - [ done] Colonoscop y - [ done ] Bone Density - [ done ] Cholestero l - [ done] Pap - todaypolyp unchanged. Same as last year. Vaginal polyp. Health Concerns Section Related Observation LastModified by Organization Alex ls LastModified Time None Recorded Concern Status LastModified by Organization Details LastModified Time None Recorded Advance Directives Directive N: Payers Encounter Date Sequence Insurance Name Policy Number Policy Tsang Covered Member ID Tsang Member ID Guarantor Name 11/26/2020 1 [place] Priscilla J Smitha [id number] 1 Priscilla Smitha 11/26/2020 2 [employer] Priscilla J Smitha [id number] Priscilla Smitha 01/22/2022 1 [place] Priscilla J Smitha [id number] 1 Priscilla Smitha 01/22/2022 2 [employer] Priscilla J Smitha [id number] Priscilla Smitha 06/24/2022 1 [place] Priscilla J Smitha [id number] 1 Priscilla Smitha 06/24/2022 2 [employer] Priscilla J Smitha [id number] Priscilla Smitha 12/23/2022 1 [place] Priscilla J Smitha [id number] 1 Priscilla Smitha 12/23/2022 2 [place] [id number] Priscilla J Smitha [id number] Priscilla Smitha 04/09/2024 1 [place] Priscilla J Smitha [id number] Priscilla Smitha 04/09/2024 2 [id number] Priscilla J Smitha [id number] Priscilla Smitha Notes Date Note Type Note Provider Name and Address Organization Details Recorded Time 11/26/2020 text/html Annual GYNReport ed bypatient.History: no gynecologic complaints Menstrual cycle:Normal menses Urinary symptoms:No hematuria; No incontinence Vulva:No genital lesion Vagina:Normal vaginal discharge Breast:No breast pain; No breast lump; No nipple discharge Menopausal Symptoms:No menopausal symptoms; Normal vaginal lubrication Psychological symptoms:No depression; No anxiety Preventive measures:Encourage self breast examination; Encourage regular exercise Randy Cruz MD [address], [place], [address], [facility] 11/26/2020 16:46:30 01/22/2022 text/html this patient is a 76-year-old female with a vaginal polyp. She presents for examination the polyp to confirm its stability. The polyp was examined it is at the posterior left fornix. Is hyperemic and unchanged in size. We will follow-up as needed. It is been stable over several examinations. Randy Cruz MD [address], [place], [address], [facility] 01/23/2022 15:49:36 06/24/2022 text/html 76-year-old cecily mehta who presents for follow-up for vaginal polyp. Was examined. It appears stable and unchanged. No worrisome features. We did discuss removal of this and I recommended we do in the operating room due to its location. As far back in the vagina and may require some suturing. I think she does not tolerate the exams well. This would be difficult for her. She will contact us and come in if she wants to proceed with removal. Otherwise she will return in 6 months. Randy Cruz MD [address], [place], [address], [facility] 06/24/2022 12:13:20 12/23/2022 text/html 77-year-old cecily mehta presents for follow-up on a vaginal polyp. It is stable. Is been stable for year and. We going look at this once a year now. Randy Cruz MD [address], [place], [address], [facility] 12/23/2022 11:40:25 04/09/2024 text/html Annual GYNReport ed bypatient.History: no gynecologic complaints Urinary symptoms:No hematuria Vulva:No genital lesion Vagina:Normal vaginal discharge Breast:No breast pain; No breast lump Menopausal Symptoms:No menopausal symptoms Psychological symptoms:No depression; No anxiety Preventive measures:Encourage self breast examination; Encourage regular exercise Randy Cruz MD [address], [place], [address], [facility] 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 Status 11/15/19 20 1 CLOSED Fetus Data First Name Last Name Admitted to NICU Weight (g) Sex Living Outcome Pediatric Complications Fetus ID Race Codes Race Delivery Type M [id number] Vaginal Delivery Alo Calculation Initial Alo Date Initial Exam Date Initial Exam Provider Initial Ultrasound Date Last Menstrual Period Date Ultra Sound Weeks Gestation 0 Eighteen To Twenty Week Alo Update Ultra Sound Date Fundal Height At Umbil Quickening Date Ultra Sound Latest Weeks Gestation Final Alo Confirmed By Final Alo Confirmed Date Final Alo Date Ultra Sound Latest Days Gestation 0 0 Menstrual History Last Menstrual Date Menses Monthly On Bcp Conception Prior Menses Frequency Hcg Plus Date Menarche Onset Age Delivery Information Delivery Date Delivery Type Labor Anesthesia Weeks Gestation Incision Type Labor Labor Length Hrs Delivered By Post Complications Tubal Sterilization Discharge Date Comments 9 Discharge Information Feeding Method Contraceptive Method Maternal HG B and HCT Levels Ob Episode Information Episode Created Date Number of Fetuses Patient Bloodtype Patient rh Status Prepregnancy Weight lbs Domestic Partner Domestic Partner Phone Father Name Bundling Machine Operator Status 11/15/19 20 1 CLOSED Fetus Data First Name Last Name Admitted to NICU Weight (g) Sex Living Outcome Pediatric Complications Fetus ID Race Codes Race Delivery Type M [id number] Vaginal Delivery Alo Calculation Initial Alo Date Initial Exam Date Initial Exam Provider Initial Ultrasound Date Last Menstrual Period Date Ultra Sound Weeks Gestation 0 Eighteen To Twenty Week Alo Update Ultra Sound Date Fundal Height At Umbil Quickening Date Ultra Sound Latest Weeks Gestation Final Alo Confirmed By Final Alo Confirmed Date Final Alo Date Ultra Sound Latest Days Gestation 0 0 Menstrual History Last Menstrual Date Menses Monthly On Bcp Conception Prior Menses Frequency Hcg Plus Date Menarche Onset Age Delivery Information Delivery Date Delivery Type Labor Anesthesia Weeks Gestation Incision Type Labor Labor Length Hrs Delivered By Post Complications Tubal Sterilization Discharge Date Comments 8 Discharge Information Feeding Method Contraceptive Method Maternal HG B and HCT Levels Ob Episode Information Episode Created Date Number of Fetuses Patient Bloodtype Patient rh Status Prepregnancy Weight lbs Domestic Partner Domestic Partner Phone Father Name Bundling Machine Operator Status 11/15/19 20 1 CLOSED Fetus Data First Name Last Name Admitted to NICU Weight (g) Sex Living Outcome Pediatric Complications Fetus ID Race Codes Race Delivery Type F [id number] Vaginal Delivery Alo Calculation Initial Alo Date Initial Exam Date Initial Exam Provider Initial Ultrasound Date Last Menstrual Period Date Ultra Sound Weeks Gestation 0 Eighteen To Twenty Week Alo Update Ultra Sound Date Fundal Height At Umbil Quickening Date Ultra Sound Latest Weeks Gestation Final Alo Confirmed By Final Alo Confirmed Date Final Alo Date Ultra Sound Latest Days Gestation 0 0 Menstrual History Last Menstrual Date Menses Monthly On Bcp Conception Prior Menses Frequency Hcg Plus Date Menarche Onset Age Delivery Information Delivery Date Delivery Type Labor Anesthesia Weeks Gestation Incision Type Labor Labor Length Hrs Delivered By Post Complications Tubal Sterilization Discharge Date Comments 4 Discharge Information Feeding Method Contraceptive Method Maternal HG B and HCT Levels Ob Episode Information Episode Created Date Number of Fetuses Patient Bloodtype Patient rh Status Prepregnancy Weight lbs Domestic Partner Domestic Partner Phone Father Name Bundling Machine Operator Status 11/15/19 20 1 CLOSED Fetus Data First Name Last Name Admitted to NICU Weight (g) Sex Living Outcome Pediatric Complications Fetus ID Race Codes Race Delivery Type , Spontane ous [id number] Alo Calculation Initial Alo Date Initial Exam Date Initial Exam Provider Initial Ultrasound Date Last Menstrual Period Date Ultra Sound Weeks Gestation 0 Eighteen To Twenty Week Alo Update Ultra Sound Date Fundal Height At Umbil Quickening Date Ultra Sound Latest Weeks Gestation Final Alo Confirmed By Final Alo Confirmed Date Final Alo Date Ultra Sound Latest Days Gestation 0 0 Menstrual History Last Menstrual Date Menses Monthly On Bcp Conception Prior Menses Frequency Hcg Plus Date Menarche Onset Age Delivery Information Delivery Date Delivery Type Labor Anesthesia Weeks Gestation Incision Type Labor Labor Length Hrs Delivered By Post Complications Tubal Sterilization Discharge Date Comments 6 Discharge Information Feeding Method Contraceptive Method Maternal HG B and HCT Levels
--- OUTSIDE RECORDS SUMMARY | 2024-09-27 09:36 | XMS_ITS | Clinical Summary ---
Author Organization [facility] Address [address] [place] [address] Care Team Providers Care Therapist Asst Name Role Phone Moreno Woodward MD Primary Care Provider Jose Angel Cody MD Unavailable [phone] Allergies No known active allergies Medications hydroCHLOROthiaz magda (MICROZIDE) 12.5 mg capsule 08/05/2015Hydrochlo rothiazide, po solid 12.5 mg CapsulePOas directedCurrent Medication 08/05/19 16 Active aspirin 81 mg tablet Take 1 tablet (81 mg total) by mouth daily Active primidone (MYSOLINE) 50 mg tablet Take 1 tablet (50 mg total) by mouth nightly 5 03/16/20 19 Active cholecalciferol (VITAMIN D-3) 5,000 unit capsule Take 1 capsule (5,000 Units total) by mouth daily Active amoxicillin 500 mg capsule TAKE 4 CAPSULES BY MOUTH 1 HOUR BEFORE DENTAL APPOINTMENT 09/15/19 24 Active bisacodyl EC (DULCOLAX EC) 5 mg EC tablet Active denosumab (PROLIA) 60 mg/mL syringe Inject under the skin once Active metoprolol XL (TOPROL-XL) 25 mg extended release tablet Take 1 tablet (25 mg total) by mouth as needed Active ascorbic acid (ascorbic acid with rory hips) 500 mg tablet,chewable Acti ve irbesartan (AVAPRO) 75 mg tabletIndication s:Essential hypertension TAKE 1 TABLET BY MOUTH EVERY DAY AT NIGHT 90 tablet 3 06/14/20 24 Active Active Problems Problem Noted Date Diagnosed Date Polyarthralgia 01/16/2024 Overview (01/30/2024): US left hand/wrist 01/30/24: Grade 1-2 power Doppler of the scapho-lunate joint Grade 1 power Doppler of the dorsal wrist, radial scaphoid joint and ulnar styloid Moderate synovial thickening of the 2nd MCPJ Mild synovial thickening of the 3rd and 4th MCPJ Moderate synovial thickening with grade 1 power Doppler of the 2nd and 3rd PIPJ Moderate to marked spurring of the 1st CMC joint Assessment & Plan (02/02/2024 1:32 PM CDT): Mild joint swelling but no pain so cdai still low. Hand US did show inflammation but pt has not pain and she is not interested in medication. She was informed that serologies and exam are compatible with a seronegative rheumatoid arthritis diagnosis and this is a progressive, chronic disease that damages joints. Will have her follow up with us when she is interested in taking medication. We discussed starting methotrexate or plaquenil but she declined today. Labs/xrays and US reviewed with pt at length. 45 min spent with pt today between Dr. Cody and myself. Has hx of + mike 1:80 but no other symptoms or signs of a CTD/SLE. No family hx of psoriasis. . Labs and imaging 01/2024: Avise shows MIKE positive by MICHELLE only. Othewise negative. Hep b and c neg Ua neg Igg 1477 Crp 5.4 Cbc neg Cmp neg Uric acid 5.4 Esr 22 CK 75 Lumbar spine xray DDD L1-S1 Si joints neg Lt hand neg US left hand/wrist 01/30/24: Grade 1-2 power Doppler of the scapho-lunate joint Grade 1 power Doppler of the dorsal wrist, radial scaphoid joint and ulnar styloid Moderate synovial thickening of the 2nd MCPJ Mild synovial thickening of the 3rd and 4th MCPJ Moderate synovial thickening with grade 1 power Doppler of the 2nd and 3rd PIPJ Moderate to marked spurring of the 1st CMC joint Assessment & Plan (01/16/2024 1:05 PM CDT): Mild joint swelling but no pain so cdai still low at 11. Has hx of + mike 1:80 but no other symptoms or signs of a CTD/SLE. Suspect she is a seronegative rheumatoid arthritis. No family hx of psoriasis. Check serologies, hand and lumbar xrays and Left hand US and re-evaluate in [address] Cody today. 45 min spent with pt today between Dr. Cody and myself. Encounter for long-term (current) use of medicat ions 01/16/2024 Assessment & Plan (02/02/2024 8:28 AM CDT): Renal cell carcinoma 2016- s/p partial right nephrectomy. + mike 1:80 from pcp 2023. Assessment & Plan (01/16/2024 1:05 PM CDT): Renal cell carcinoma 2016- s/p partial right nephrectomy. + mike 1:80 from pcp 2023. Localized osteoarthritis of right knee Assessment & Plan (01/16/2024 1:07 PM CDT): Hx of rt knee ACL tear and OA, managed with off loading ortho rt knee brace, does not want tkr. Chronic low back pain without sciatica Assessment & Plan (01/16/2024 1:08 PM CDT): Hx of chronic low back pain, check lumbar and SI joint xray. Sprain of cruciate ligament of knee 06/29/2021 PVC's (premature ventricular contractions) 12/08 Essential hypertension 07/07/2020 Assessment & Plan (01/16/2024 1:06 PM CDT): Managed by pcp. Bp at goal today. CALLAHAN (dyspnea on exertion) 07/07/2020 Essential tremor 04/02/2019 Assessment & Plan (08/08/2023 10:53 AM STUDENT FINANCE ADVISOR): Images from the original note were not included. Ms. Priscilla Bone is a 77 y.o. old right handed patient with a predominantly action and postural tremor that affected her ADLs, impaired her ability to handle her job and was socially awkward. She first developed tremor involving her right hand. Since then she had gradual progression of the tremor. She was prescribed propranolol, primidone and topiramate with adequate doses and either had minimal benefit or had intolerable side effects of sedation, depression, bradycardia, mental slowing and fatigue. Alcohol improved the tremor. Her tremor had worsened over the past year The natural history of the illness and the treatment options (including the surgical ones) were extensively discussed with Ms. Priscilla Bone and her . Her tremor affected her ADLs, impaired her ability to handle her job and was socially awkward. She has failed medical treatment and therefore is a good candidate for left deep brain stimulation surgery of the ventral intermediate nucleus of the thalamus (VIM). Indeed, she has no major medical illness and no cognitive deficit by history. She was also considering left VIM Focused Ultrasound Thalamotomy (HiFUS). I discussed with her all aspects of this procedure (including the actual performance of the procedure, the potential benefits and complications and the post-surgical programming sessions). I answered all her questions pertaining to the procedure. We also discussed HIFU, inertial dampening devices and the Gopal Trio peripheral stimulation device. We discussed that we start by implanting the side of the brain controlling the dominant hand (in her case the left hemisphere), and that only later will we assess the need for bilateral ViM stimulation given its elevated risk of stimulation side effects such as dysarthria and imbalance. She would like to proceed with left VIM HiFU thalamotomy evaluation. Recommendations: CT scan to evaluate skull density ratio Refer to Dr. Alva when SDR is in the normal range or discuss candidacy for DBS Watch balance Same primidone for now A total of 40 minutes were spent face to face this patient during this visit, of which greater than 50% of the time was spent talking about the treatment and management of the symptoms. Prescribed medications: risks, benefits, potential medical consequences and complications ( side effects ), alternatives and indications for treatment were discussed. All questions were answered to satisfaction of patient and/or family members. Angella Salcedo MD Assessment & Plan (04/19/2022 10:15 AM CDT): Images from the original note were not included. Ms. Priscilla Bone is a 76 y.o. old right handed patient with a predominantly action and postural tremor that affected her ADLs, impaired her ability to handle her job and was socially awkward. She first developed tremor involving her right hand. Since then she had gradual progression of the tremor. She was prescribed propranolol, primidone and topiramate with adequate doses and either had minimal benefit or had intolerable side effects of sedation, depression, bradycardia, mental slowing and fatigue. Alcohol improved the tremor. The natural history of the illness and the treatment options (including the surgical ones) were extensively discussed with Ms. Priscilla Bone and her . Her tremor affected her ADLs, impaired her ability to handle her job and was socially awkward. She has failed medical treatment and therefore is a good candidate for left deep brain stimulation surgery of the ventral intermediate nucleus of the thalamus (VIM). Indeed, she has no major medical illness and no cognitive deficit by history. She was also considering left VIM Focused Ultrasound Thalamotomy (HiFUS) which would need to be done either in [place] or [place]. I discussed with her all aspects of this procedure (including the actual performance of the procedure, the potential benefits and complications and the post-surgical programming sessions). I answered all her questions pertaining to the procedure. We also discussed HIFU, inertial dampening devices and the Gopal Trio peripheral stimulation device. We discussed that we start by implanting the side of the brain controlling the dominant hand (in her case the left hemisphere), and that only later will we assess the need for bilateral ViM stimulation given its elevated risk of stimulation side effects such as dysarthria and imbalance. She would like to think about left deep brain stimulation surgery of the ventral intermediate nucleus of the thalamus (VIM). Recommendations: 1. Refer to Dr. Bonilla left deep brain stimulation surgery of the ventral intermediate nucleus of the thalamus (VIM) for Essential Tremor when she is ready. 2. I gave her the tremor DBS packet today. I also gave her access to fusfoundation.org to learn about HIFU and essentialtremor.org to learn more about ET from the IETF as well as support groups. 3. Continue current therapy with primidone at 50 mg daily as more caused depression and fatigue. 4. Encourage exercise. A total of 40 minutes were spent face to face this patient during this visit, of which greater than 50% of the time was spent talking about the treatment and management of the symptoms. Prescribed medications: risks, benefits, potential medical consequences and complications ( side effects ), alternatives and indications for treatment were discussed. All questions were answered to satisfaction of patient and/or family members. Angella Salcedo MD Assessment & Plan (02/27/2021 9:47 AM CDT): She had a predominantly action and postural tremor affecting the upper extremities, head, neck and voice with only mild bradykinesia, with no evidence of rigidity, decreased arm swing, small steps, hypophonia or postural instability. As such the most likely diagnosis was essential tremor. Her thyroid levels were normal in the past. At this time she was undertreated for her tremor which was bothersome. She was taking primidone 75 mg daily. Bigger doses in the past made her feel confused and imbalanced and recently, when she tried to titrate to 100 mg, she noted sleepiness. She is not sure whether it is helping her tremor. Though her telemetry rn has given the okay, she is reluctant to try propranolol due to history of low heart rate and PVCs. So, we will first try a slow titration of topirimate (over 8 week, increasing from 12.5 mg/day to 200 mg/day or until side effects or tremor resolution). I gave her written instructions and she knows to watch and report any side effects. If this is not successful either due to side effects or lack of efficacy, we can consider propranolol, watching pulse and perhaps getting rid of her current anti- hypertensive. Should she have side effects of sleepiness or confusion, I would start to taper the primidone vs stopping the topirimate. Gabapentin is another options. I also discussed surgical treatments with her including deep brain stimulation, focused ultrasound thalamotomy and radiothalamotomy. She is not ready for these yet. Recs: 1. Same primidone for now but should she develop confusion or sleepiness with topirimate, I would first taper and stop the primidone since she is not sure she has any benefit. 2. Slow titration of topirimate, report once she gets to 100 mg bid or if side effects, sooner. 3. Start home exercise program. Assessment & Plan (04/02/2019 4:25 PM CDT): She had a predominantly action and postural tremor affecting the upper extremities, head, neck and voice with very little bradykinesia, no rigidity and no postural instability. As such the most likely diagnosis was essential tremor. Her thyroid levels were normal. At this time she was undertreated for her tremor. She was taking primidone 50 mg daily. I would titrate her primidone by 25 mg every other week until she had benefit or had a side effect she could not tolerate. These side effects could include fatigue and imbalance. Should primidone be ineffective or cause side effects I would consider trying propranolol titrated up to 120 mg BID or side effects (which could include fatigue, depression or decreased exercise tolerance). Gabapentin and topiramate are other options. I also discussed surgical treatments with her including deep brain stimulation, focused ultrasound thalamotomy and radiothalamotomy. She is not ready for these yet. I spent 60 minutes in consultation with her. Over 1/2 the time was spent in counseling and coordination of care. Osteoporosis 04/02/2019 Noninflammatory disorder of vulva 10/13/2018 Overview (09/27/2023): Noninflammatory disorder of vulva and perineum, unspecified;Recorded Elsewhere: No Location: [facility] Source: EHR Chronic: N Practice ID: [id number] Billable Time: 01:30:00 PM Squamous cell cancer of skin of nose 12/01/2017 Squamous cell carcinoma of nose 11/10/2017 Palpitations 03/28/2017 Overview (02/24/2021): Event monitor 03/2017 (2 week) - SR at 65, range 43-117 rare PACs/PVCs, rare atrial triplets, 4 SVT runs, longest 5 beats at 119, fastest 4 beats at 177, event button (136 times) & skipped/irrgular beats correlated SR w/ PVCs (rarely w/ PACs) Holter 01/2017 - Baseline sinus at 72 (range 45-110). Rare PVCs and PACs No runs. No AF. Most symptoms correlate w/ sinus alone. Some correlate w/ sinus w/ PVC. EKG Stress 03/2017 - Walked 6:00 min. EKG and clinically negative. Some PACs, PVCs, one ventricular triplet w/ exercise. 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 Overview (09/27/2023): Neoplasm of uncertain behavior of other and unspecified female genital organs;Recorded Elsewhere: No Location: [facility] Source: EHR Chronic: N Practice ID: [id number] Billable Time: 09:00:00 AM Complete tear of medial collateral ligament of k nee 04/02/2013 Complete tear of anterior cruciate ligament of k nee 03/05/2013 Osteoarthritis of knee 02/28/2013 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 08/26/2010 Resolved Problems Problem Noted Date Diagnosed Date Resolved Date Abnormal stress test 08/15/2020 021 Ventricular premature complexes 03/03/2017 09/03/2021 Arthralgia of ankle 04/16/2013 02/02/20 24 Arthralgia of shoulder 08/27/201002/01 Encounters Date Type Department Care Team Description 08/20/2024 Telephone [facility] Movement Disorders [address] [place] [id number] Lurdes Friedman CMA from Last 3 Months Immunizations Immunization Administration Dates Next Due Influenza, Unspecified 08/05/2015 Tdap 10/06/2019,04/25/2013 Surgical History Surgery Date Site/Laterality Comments KIDNEY SURGERY SHOULDER SURGERY WRIST SURGERY PARTIAL NEPHRECTOMY 10/19/2015 - 11/18/2015 Medical History Medical History Date Comments Hypertension Arrhythmia Renal cell carcinoma (HCC) Cataracts, bilateral Squamous cell carcinoma of skin, unspecified Family History Medical History Relation Name Comments No Known Problems Daughter Heart attack Father Myocardial infa rction; Cancer Mother Cancer, unknown ; Tremor Mother Tremor Mother's Sister Hypertension Sister 1 Osteoarthritis Sister 1 No Known Problems Son 1 GERD Son 2 Relation Name Status Comments Daughter Alive Father (Age 74) Mother (Age 94) Mother's Sister Sister 1 Alive Fraternal twin Sister 2 Alive Son 1 Alive Son 2 Alive Social History Tobacco Use Types Packs/Day Years Used Date Smoking Tobacco: Never Smokeless Tobacco: Never Tobacco Cessation:Counseling Given: Not Answered Alcohol Use Standard Drinks/Week Comments No 0 (1 standard drink = 0.6 oz pur e alcohol) AUDIT-C Answer Date Recorded Frequency of Alcohol Consumption Not on file 09/27/2023 Q2: How many drinks containi ng alcohol do you have on a typical day when you are drinking? Patient does not drink Frequency of Binge Drinking Not on file 02/2024 Comments Unknown Sex and Gender Information Value Date Recorded Sex Assigned at Not on file Legal Sex Female 3:30 AM STUDENT FINANCE ADVISOR Gender Identity Not on file Sexual Orientation Not on file 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 Not on file Not on file Obstetrics History Last Filed Vital Signs Vital Sign Reading Time Taken Comments Blood Pressure 122/70 06/04/2024 9:19 AM STUDENT FINANCE ADVISOR Pulse 85 06/04/2024 9:19 AM STUDENT FINANCE ADVISOR Temperature 36.2 C (97.1 F) 04/19/2022 9:03 AM CDT Respiratory Rate 16 03/03/2017 2:48 PM CDT Oxygen Saturation 96% 06/04/2024 9:19 AM STUDENT FINANCE ADVISOR Inhaled Oxygen Concentration - - Weight 94.3 kg (208 lb) 06/04/2024 9:19 AM STUDENT FINANCE ADVISOR Height 160 cm (5' 3 ) 06/04/2024 9:19 AM STUDENT FINANCE ADVISOR Body Mass Index 36.85 06/04/2024 9:19 AM STUDENT FINANCE ADVISOR Plan of Treatment Health Maintenance Due Date Last Done Comments Fall Risk Assessment 1945 Hepatitis C Screening 1945 Pneumococcal vaccine 65+ (1 of 1 - PCV) 1996 Zoster Vaccine (1 of 2) 1996 Well Visit 65+ 10/02/2011 Osteoporosis Screening-Bone Density Scan 10/25/2015 10/24/2013 Depression Screening 04/19/2023 04/19/2022 Influenza Vaccine (#1) 2024 08/05/2015 DTaP/Tdap/Td Vaccine (3 - Td or Tdap) 10/05/2029 10/06/2019, 04/25/2013 Breast Cancer Screening-Mammogram Discontinued 07/20/2023, 05/19/2022, 05/01/2021, Additional history exists Hepatitis B Screening Completed 01/16/2024 Insurance MEDICARE [facility] MEDICARE [facility] MEDICARE [facility] MEDICARE [facility] Care Teams Therapist Asst Relationship Specialty Start Date End Date Moreno Woodward MD [address] [place] [address] PCP - General 08/04/16 Jose Angel Cody MD [address] [place] [address] Consulting Physician Rheumatology 01/27/24
--- OUTSIDE RECORDS SUMMARY | 2024-09-27 09:36 | XMS_ITS | Clinical Summary ---
Author Organization [facility] Address [address] [place] [address] Care Team Providers Care Sql Ssrs Ssis Developer Name Role Phone Moreno Woodward MD Primary Care Provider Jignesh Weller MD Unavailable [phone] Source Comments [facility],non-owned Affiliates and Associated Physician Practices is amultiple site organization consisting of ambulatory clinics and hospital sitesin [place], [place], [place] and [place]. This disclosure is being madepursuant to the Care Everywhere program and may not contain all information available regarding this patient. Last updated 18.[facility] Allergies No known active allergies Medications * Be aware that medications may not be up to date on this document. Alwaysverify current medications with the patient. Medication Sig Dispensed Refills Start Date End Date Status aspirin (ASPIRIN) 81 MG tablet Take 1 (one) tablet by mouth once daily Active hydroCHLOROthiazide (HYDRODIURIL) 12.5 MG Take 1 (one) tablet by mouth once daily Active metoprolol succinate XL 24hr (TOPROL XL) 25 MG tablet Take 1 Tab by mouth once daily 30 Tab 5 03/28/2017 Active Additional Information Patient taking differently:25 mg Oral2 TIMES DAILY, PRN-If HR is over 60 bpm, Informant: Patient, Reported on 10/18/2022 primidone (MYSOLINE) 50 MG tablet Take 1 (one) tablet by mouth at bedtime 09/16/2020 Active denosumab (PROLIA) 60 MG/ML SC injection Prolia 60 mg/mL subcutaneous syringe inject 1 mL every 6 months into back of arm/subcutaneously Active irbesartan (AVAPRO) 75 MG tablet Take 1 (one) tablet by mouth once daily Active vitamin D3 (CHOLECACIFEROL) 125 MCG (5000 UT) Take 1 (one) tablet by mouth once daily Active Probiotic Product (ElationEMR) capsule Take 1 (one) capsule by mouth every 3 days Active ascorbic acid (VITAMIN C) 250 MG chewable tablet Take 1 (one) tablet by mouth at bedtime Active Active Problems Problem Noted Date Diagnosed Date PVC's (premature ventricular contractions) 12/08 Essential hypertension 07/07/2020 3 Essential tremor 04/02/2019 10/24/2022 Overview (10/24/2022): Last Assessment & Plan: Images from the original note were not included. Ms. Priscilla Wilburn is a 76 y.o. old right handed [...] ones) were extensively discussed with Ms. Priscilla Wilburn and her . Her tremor affected her [...] would need to be done either in [place] or [place]. I discussed with her all aspects of this procedure (including the actual performance of the procedure, the potential benefits and complications and the post-surgical programming sessions). I answered all her questions pertaining to the procedure. We also discussed HIFU, inertial dampening devices and the [employer] peripheral stimulation device. We discussed that we [...] patient and/or family members. Angella Salcedo MD Last Assessment & Plan: She had a predominantly action and postural [...] it is helping her tremor. 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 3. Start home exercise program. Palpitations 03/28/2017 Overview (04/18/2017): Event monitor 03/2017 (2 week) - SR [...] size, mild MR, trivial AI, RVSP 28 Osteoarthritis of knee 02/28/2013 3 Family History Medical History Relation Name Comments CAD (Coronary Artery Disease) Father at 72 CAD (Coronary Artery Disease) Paternal Uncle Relation Name Status Comments Father Maternal Grandfather Maternal Grandmother Mother Paternal Grandfather Paternal Grandmother Paternal Uncle Sister Alive Social History Tobacco Use Types Packs/Day [...] on file Sexual Orientation Not on file Last Filed Vital Signs Vital Sign Reading Time Taken Comments Blood Pressure 134/78 10/18/2022 10:36 AM CDT Pulse 80 10/18/2022 10:36 AM CDT Temperature 37.4 C (99.3 F) 10/18/2022 10:36 AM CDT Respiratory Rate - - Oxygen Saturation 97% 03/28/2017 11:45 AM CDT Inhaled Oxygen Concentration - - Weight 94.1 kg (207 lb 6.4 oz) 10/18/2022 10:36 AM CDT Height 160 cm (5' 3 ) 10/12/2021 11:41 AM CDT Body Mass Index 36.74 10/12/2021 11:41 AM CDT Plan of Treatment Health Maintenance Due Date Last Done Comments BONE DENSITY TESTING 1945 MEDICARE AWV 12 MONTHS 1945 HEPATITIS C SCREENING 09/26/1964 DTAP/TDAP/TD VACCINES (1 - Tdap) 1965 PNEUMOCOCCAL VACCINE 50+ (1 of 1 - PCV) 1996 ZOSTER VACCINE (1 of 2) 1996 Respiratory Syncytial Virus (RSV) Vaccine Pt: or over 60 yrs (1 - 1-dose 75+ series) 2021 COVID-19 VACCINE (3 - 2023-2 5 season) 2024 05/08/2021, 08/25/2020 DEPRESSION SCREENING 06/20/2024 10/18/2022 INFLUENZA VACCINE (Season Ended) 2025 08/05/2015 HEPATITIS B VACCINE Aged Out No longe r eligible based on patient's age to complete this topic HIB VACCINE Aged Out No longer eligi ble based on patient's age to complete this topic HPV VACCINE Aged Out No longer eligi ble based on patient's age to complete this topic MENINGOCOCCAL (Group B) VACCINE SHARED DECISION-MAKING Aged Out No longer eligible based on patient's age to complete this topic MENINGOCOCCAL GROUPS A/C/Y/W VACCINE Aged Out No longer eligible b ased on patient's age to complete this topic Care Teams Sql Ssrs Ssis Developer Relationship Specialty Start Date End Date Moreno Woodward MD [address] [place] [address] PCP - General Family Medicine 03/24/17 Jignesh Weller MD [address] [place] [address] Hotel Administrative Assistant Electrophysiology 12/03/20
--- OUTSIDE RECORDS SUMMARY | 2024-09-27 09:36 | XMS_ITS | Encounter Summary ---
Author Organization [facility] Address [address] [place], [place] [address] [address] Care Team Providers Care Frit Coater Name Role Phone Moreno Woodward MD Primary Care Provider [phone] Jignesh Weller MD Unavailable [phone] Encounter Details Date Type Department Care Team (Late st Contact Info) Description 10/13/2017 Lab Requisition [facility] D[facility] [address] [place] [id number] Mehrdad [place] [address] Social History Tobacco Use Types Packs/Day Years Used Date Smoking Tobacco: Never Alcohol Use Standard Drinks/Week Comments No 0 (1 standard drink = 0.6 oz pur e alcohol) Sex and Gender Information Value Date Recorded Sex Assigned at Not on file Gender Identity Not on file Sexual Orientation Not on file documented as of this encounter Plan of Treatment Not on file documented as of this encounter Procedures Procedure Name Priority Date/Time Associated Diagnosis Comments DERMATOPATHOLOGY Routine 10/12/2017 12:0 0 AM CDT documented in this encounter Results * DERMATOPATHOLOGY (10/12/2017 12:00 AM CDT) Case Report Dermatopathology Report Case: [id number] Authorizing Provider: Mehradd Mariano MD Collected: 10/12/2017 12:00 AM Pathologist: Floridalma Vyas MD Received: 10/13/2017 12:13 PM Specimens: A) - Skin, above tip of nose B) - Skin, right distal thigh 5:00 PM [facility] DERMATOPATHOLOGY LABORATORY Final Diagnosis Specimen A. 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 SKIN, right distal thigh: SEBORRHEIC KERATOSIS, IRRITATED AND INFLAMED (L82.0) NOT PRESENT AT SAMPLED MARGIN 5:00 PM T DERMATOPATHOLOGY LABORATORY Clinical History A: R/O BCC vs SCC. Check margins. B: R/O ISK. Check margins. 5:00 PM [facility] DERMATOPATHOLOGY LABORATORY Gross Description Specimen A: Received is one formalin filled container labeled with the patient's name and designated above tip of nose. The specimen consists of a punch biopsy measuring [id number]. The margin is inked green. Jar 0. Specimen B: Received is one formalin filled container labeled with the patient's name and designated right distal thigh. The specimen consists of a shave biopsy measuring [id number]. The margin is inked green. Jar 0. 5:00 PM [facility] DERMATOPATHOLOGY [facility]ORATORY Microscopic Description Specimen A. SKIN, above tip of nose: The epidermis shows parakeratosis and full thinkness disorderly maturation of keratinocytes. In the dermis there are nests of squamoid aggregates that infiltrate the dermis. The nests have only focal central keratinization and rare horn holly formation. Epithelial Membrane Antigen (SANJUANA) highlights the squamoid aggregates and fails to show definative evidence of ductal formation. Carcinoembryonic antigen (CEA) highlights only very rare ducts, which appear entrapped. CD117 is negative in the carcinoma as is Mike-EP4. This lesion is present at the margin of the specimen. Specimen B. SKIN, right distal thigh: Sections show acanthosis, papillomatosis, hyperkeratosis, and squamous eddies. There is a lymphohistiocytic infiltrate within the papillary dermis. This lesion is not present at the sampled margin of the specimen. 5:00 PM [facility] DERMATOPATHOLOGY LABORATORY Disclaimer An external and internal positive and negative controls are appropriate for the histochemical, immunohistochemical and immunofluorescence stain(s) in this case (if any), except where stated explicitly. The performance characteristics of the stain(s) cited in this report were developed and its performance characteristic determined by the Dermatopathology Laboratory at [facility]. These tests need not be, and therefore are not, approved by the [place] Food and Drug Administration. The tests are used for clinical purposes. Billing Codes Specimen Charges Stain Charges 51169 86634 1 1 68055 99625 76774 76913 1 1 1 1 8 5:00 PM CDT DERMATOPATHOLOGY LABORATORY Embedded Images 8 5:00 PM CDT DERMATOPATHOLOGY LABORATORY Pathology/Cytology TISSUE SPECIMEN FROM SKIN / Unknown 10/12/2017 10/13/2017 12:13 PM CDT Miscellaneous samples (specimen) TISSUE SPECIMEN FROM SKIN / Unknown 10/12/2017 10/13/2017 12:13 PM CDT Mehrdad Mariano MD LAB - PATHOLOGY/CYTO LOGY ORDERABLES DERMATOPATHOLOGY LABORATORY [facility] - Department of Dermatology [address] [place] [address], 5th Floor Lab [address] [phone] documented in this encounter Visit Diagnoses Not on filedocumented in this encounter Care Teams Frit Coater Relationship Specialty Start Date End Date Moreno Woodward MD [address] [place] [address] PCP - General Family Medicine 03/24/17 Jignesh Weller MD [address] [place] [address] Switch Technician Electrophysiology 12/03/20 documented as of this encounter
--- OUTSIDE RECORDS SUMMARY | 2024-09-27 09:36 | XMS_ITS ---
Author Organization [facility] Address [address] [place] [address] Care Team Providers Care Medical Consultant Name Role Phone Moreno Woodward MD Primary Care Provider Jose Angel Cody MD Unavailable [phone] Active Problems Problem Noted Date Diagnosed Date [...] Cody and myself. Has hx of + bob 1:80 but no other symptoms or signs of a CTD/SLE. No family hx of psoriasis. . Labs and imaging 01/2024: [facility]ise shows BOB positive by MICHELLE only. Othewise negative. Hep [...] low at 11. Has hx of + bob 1:80 but no other symptoms or signs [...] carcinoma 2016- s/p partial right nephrectomy. + bob 1:80 from pcp 2023. Assessment & Plan (01/16/2024 1:05 PM CDT): Renal cell carcinoma 2016- s/p partial right nephrectomy. + bob 1:80 from pcp 2023. Localized osteoarthritis of [...] 04/02/2019 Assessment & Plan (08/08/2023 10:53 AM DRIVER WHEELCHAIR): Images from the original note were not [...] would need to be done either in [place] or [place]. I discussed with her all aspects of this procedure (including the actual performance of the procedure, the potential benefits and complications and the post-surgical programming sessions). I answered all her questions pertaining to the procedure. We also discussed HIFU, inertial dampening devices and the [employer] peripheral stimulation device. We discussed that we [...] it is helping her tremor. Though her securities vault supervisor has given the okay, she is [...] vulva and perineum, unspecified;Recorded Elsewhere: No Location: [facility] Source: EHR Chronic: N Practice ID: [id number] [...] specified female genital organs;Recorded Elsewhere: No Location: 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 Past Treatment and Therapy Plans No past plan information found. Lifetime Dose Tracking * Chemical Lifetime Dose Automatic Entry Manual Entr y DLP 773 mGycm 773 mGycm 0 mGycm Resolved Problems Problem Noted Date Diagnosed Date Resolved Date Abnormal stress test 08/15/2020 021 Ventricular premature complexes 03/03/2017 09/03/2021 Arthralgia of ankle 04/16/2013 02/02/20 24 Arthralgia of shoulder 08/27/201002/01
--- OUTSIDE RECORDS SUMMARY | 2024-09-27 09:36 | XMS_ITS | Referral Summary ---
Author Organization [facility] Address [address] [place] [address] Care Team Providers Care Heavy Machinery Operator Name Role Phone Moreno Woodward MD Primary Care Provider Jose Angel Cody MD Unavailable [phone] Encounters Date Type Department Care Team Description 08/20/2024 Telephone [facility] Movement Disorders [address] [place] [phone] Lurdes Friedman CMA from Last 3 Months Allergies No known active allergies Medications hydroCHLOROthiaz [...] DAY AT NIGHT 90 tablet 3 06/14/20 Active Active Problems Problem Noted Date Diagnosed [...] . Labs and imaging 01/2024: [facility] shows BBO positive by MICHELLE only. Othewise negative. Hep [...] 04/02/2019 Assessment & Plan (08/08/2023 10:53 AM WOMEN'S SWIM COACH): Images from the original note were not [...] would need to be done either in [place] or [place]. I discussed with her all aspects of [...] it is helping her tremor. 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 Overview (09/27/2023): Neoplasm of uncertain behavior of other and unspecified female genital organs;Recorded Elsewhere: No Location: [facility] Source: EHR Chronic: N Practice [...] 04/16/2013 02/02/20 24 Arthralgia of shoulder 08/27/201002/01 Immunizations Immunization Administration Dates Next Due Influenza, Unspecified 08/05/2015 Tdap 10/06/2019,04/25/2013 Social History Tobacco Use Types Packs/Day Years [...] on file Legal Sex Female 3:30 AM WOMEN'S SWIM COACH Gender Identity Not on file Sexual Orientation Not on file 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 Not on file Not on file Last Filed Vital Signs Vital Sign Reading Time Taken Comments Blood Pressure 122/70 06/04/2024 9:19 AM WOMEN'S SWIM COACH Pulse 85 06/04/2024 9:19 AM WOMEN'S SWIM COACH Temperature 36.2 C (97.1 F) 04/19/2022 9:03 AM CDT Respiratory Rate 16 03/03/2017 2:48 PM CDT Oxygen Saturation 96% 06/04/2024 9:19 AM WOMEN'S SWIM COACH Inhaled Oxygen Concentration - - Weight 94.3 kg (208 lb) 06/04/2024 9:19 AM WOMEN'S SWIM COACH Height 160 cm (5' 3 ) 06/04/2024 9:19 AM WOMEN'S SWIM COACH Body Mass Index 36.85 06/04/2024 9:19 AM WOMEN'S SWIM COACH Plan of Treatment Not on file Insurance MEDICARE [facility] MEDICARE [facility] MEDICARE [facility] MEDICARE [facility] Care Teams Heavy Machinery Operator Relationship Specialty Start Date End Date Moreno Woodward MD [address] [facility] [address] [place] [address] PCP - General 08/04/16 Jose Angel Cody MD [address] [place] [address] Consulting Physician Rheumatology 01/27/24
--- OUTSIDE RECORDS SUMMARY | 2024-09-27 09:36 | XMS_ITS | Clinical Summary ---
Author Organization [facility] Address [address] [place] [address] Care Team Providers Care Ore Charger Name Role Phone Moreno Woodward MD Primary Care Provider [phone] Olivier Miramontes MD Unavailable [phone] Allergies No known active allergies Medications acetaminophen (TYLENOL) 500 MG tablet every 4 hours Active amLODIPine (NORVASC) 5 MG tablet Take 1 tablet (5 mg total) by mouth daily. 08/22/2012 Active vitamin C (ASCORBIC ACID) 500 MG tablet Active aspirin EC (ECOTRIN) 81 MG tablet Take 1 tablet (81 mg total) by mouth daily. 08/30/2013 Active vitamin D3, cholecalciferol , (D 5000) 125 mcg capsule Take 1 capsule (5,000 Units total) by mouth daily. Active denosumab (PROLIA) 60 MG/ML injection Inject under the skin once Active hydroCHLOROthia zide (MICROZIDE) 12.5 MG tablet Take 1 tablet (12.5 mg total) by mouth every morning. 06/05/2014 Active irbesartan (AVAPRO) 75 MG tablet Take 1 tablet (75 mg total) by mouth nightly. Active losartan (COZAAR) 100 MG tablet Take 1 tablet (100 mg total) by mouth daily. 08/30/2013 Active metoprolol succinate ER (TOPROL-XL) 25 MG 24 hr tablet Take 1 tablet (25 mg total) by mouth. Active primidone (MYSOLINE) 50 MG tablet take 1 tablet orally bedtime Active Encounters Date Type Department Care Team Description 07/14/2024 9:06 AM STRAP SEWER - 07/14/2024 12:04 PM STRAP SEWER Emergency [facility] Emergency Room [address] [place] [address] Froylan Wiseman MD URI Discharge Disposition: Home or Self Care (Routine Discharge) 07/14/2024 Travel from Last 3 Months Social History Tobacco Use Types Packs/Day Years Used Date Smoking Tobacco: Never Smokeless Tobacco: Never Tobacco Cessation:Counseling Given: Not Answered Comments Unknown Sex and Gender Information Value Date Recorded Sex Assigned at Female 07/14/2024 9:23 AM STRAP SEWER Legal Sex Female 11:04 PM CDT Gender Identity Not on file Sexual Orientation Not on file Last Filed Vital Signs Vital Sign Reading Time Taken Comments Blood Pressure 151/71 07/14/2024 12:00 PM STRAP SEWER Pulse 101 07/14/2024 12:00 PM STRAP SEWER Temperature 37.6 C (99.6 F) 07/14/2024 12:00 PM STRAP SEWER Respiratory Rate 20 07/14/2024 12:00 PM STRAP SEWER Oxygen Saturation 92% 07/14/2024 12:00 PM STRAP SEWER Inhaled Oxygen Concentration - - Weight 99.6 kg (219 lb 9.3 oz) 07/14/2024 9:08 A M STRAP SEWER Height 165.1 cm (5' 5 ) 07/14/2024 9:08 AM STRAP SEWER Body Mass Index 36.54 07/14/2024 9:08 AM STRAP SEWER Plan of Treatment Health Maintenance Due Date Last Done Comments Hepatitis C 1964 Zoster Vaccines (1 of 2) 1996 Annual Medicare Wellness Visit 10/02/2011 Pneumococcal Vaccine: 65+ Years (1 of 1 - PCV) 10/02/2011 RSV Immunization or 60+ Years (1 - 1-dose 75+ series) 2021 COVID-19 Vaccine ( - 2023-2 5 season) 2024 DTaP, Tdap and Td Vaccines ( 3 - Td or Tdap) 10/05/2029 10/06/2019, 04/25/2013 Dexa Scan (General) Completed 10/24/2013 Colorectal Cancer Screening FIT/FOBT (1 Year) Discontinued 04/07/2018 Meningococcal B Vaccine Aged Out No l onger eligible based on patient's age to complete this topic Meningococcal Vaccine Aged Out No amanuel alexandro eligible based on patient's age to complete this topic RSV Immunizations Under 20 Months Aged Out No longer eligible based on patient's age to complete this topic Procedures Procedure Name Priority Date/Time Associated Diagnosis Comments XR CHEST PORTABLE STAT 07/14/2024 9:3 4 AM STRAP SEWER ECG 12-LEAD Routine 07/14/2024 9:17 AM STRAP SEWER Procedure Note - 07/14/2024 9:17 AM CSTThis note is in progress. [facility] Test Date: 2024-07-14 Pat Name: FRANCIS WILBURN Department: 85 Room: EXAM 404 Gender: Female Field Account Director: : 1945 Requested By: FROYLAN WISEMAN Order Number: [id number] Reading MD: Measurements Intervals Pioneer Rate: 112 P: 38 NH: 172 QRS: 32 QRSD: 84 T: 38 QT: 303 QTc: 415 Interpretive Statements SINUS TACHYCARDIA ABNORMAL RHYTHM ECG No previous ECG available for comparison LACTIC ACID W REFLEX (SEPSIS) STAT 07/14/2024 9:10 AM STRAP SEWER PRO-BRAIN NATRIURETIC PEPTIDE STAT 07/14/2024 9:10 AM STRAP SEWER TROPONIN, QUANT STAT 07/14/2024 9:10 AM STRAP SEWER COMPREHENSIVE METABOLIC PANEL STAT 07/14/2024 9:10 AM STRAP SEWER CBC W/DIFF AUTOMATED STAT 07/14/2024 9:10 AM STRAP SEWER RESP SYNCYTIAL VIRUS STAT 07/14/2024 9:07 AM STRAP SEWER INFLUENZA A & B STAT 07/14/2024 9:07 AM STRAP SEWER CORONAVIRUS (COVID 19) STAT 07/14/2024 9:07 AM STRAP SEWER FECAL BLOOD FIT SCREEN Routine 04/07/2018 12:27 AM CDT BONE DENSITY/DEXA Routine 10/24/2013 12:14 PM CDT from Last 3 Months or Most Recently Relevant to Health Maintenance Results * XR CHEST PORTABLE (07/14/2024 9:34 AM STRAP SEWER) Anatomical Region Laterality Modality Chest Radiographic Denise ging 07/14/2024 9:36 AM STRAP SEWER Impressions 07/14/2024 9:38 AM STRAP SEWER IMPRESSION: Mild cardiac enlargement with slight prominence of the central pulmonary vessels but without CHF.. No active infiltrate. Referred By: Interpreted By: Caleb Castilol MD, 07/14/2024 9:36 AM Narrative 07/14/2024 9:38 AM STRAP SEWER [facility] [address] [facility] [place] [address] 07/14/2024, 9:30 AM. HISTORY: Cough. Fever. Flulike symptoms. EXAM: Erect portable AP chest. Correlation this study 04/25/2018. FINDINGS: Reverse arthroplasty right glenohumeral joint. The glenoid component prosthesis is anchored to the glenoid of the scapula by screws. The stem of the humeral component prosthesis is central medullary canal proximal humerus and cemented in place. The cortex of the diaphysis of the humerus is within suggesting osteopenia or osteoporosis. There is a braided wire suture circumferentially about the proximal diaphysis of the humerus. The heart is mildly enlarged with a left ventricular configuration. Minimal prominence of the central pulmonary vessels without congestive failure. The lungs appear clear of active infiltrates. No pleural effusion. No pneumothorax. Minimal ectasia of the aorta. Procedure Note Jairo Castillo MD - 07/14/2024 [facility] [id number] [place] [address]. [place] [address] 07/14/2024, 9:30 AM. HISTORY: Cough. Fever. Flulike symptoms. EXAM: Erect portable AP chest. Correlation this study 04/25/2018. FINDINGS: Reverse arthroplasty right glenohumeral joint. The glenoidcomponent prosthesis is anchored to the glenoid of the scapula by screws.The stem of the humeral component prosthesis is central medullary canalproximal humerus and cemented in place. The cortex of the diaphysis ofthe humerus is within suggesting osteopenia or osteoporosis. There is abraided wire suture circumferentially about the proximal diaphysis of thehumerus. The heart is mildly enlarged with a left ventricular configuration.Minimal prominence of the central pulmonary vessels without congestivefailure. The lungs appear clear of active infiltrates. No pleuraleffusion. No pneumothorax. Minimal ectasia of the aorta. IMPRESSION: Mild cardiac enlargement with slight prominence of the central pulmonaryvessels but without CHF.. No active infiltrate. Referred By: Interpreted By: Caleb Castillo MD, 07/14/2024 9:36 AM Froylan Wiseman MD GENERAL IMAGING Final Result * LACTIC ACID W REFLEX (SEPSIS) (07/14/2024 9:10 AM STRAP SEWER) LACTIC ACID VENOUS 1.2 0.4 - 2.0 MMOL/L 07/14/2024 9:52 AM STRAP SEWER [facility] 07/14/2024 9:10 AM STRAP SEWER Froylan Wiseman MD LABORATORY Final Result [facility] [address] [place] [address], * PRO-BRAIN NATRIURETIC PEPTIDE (07/14/2024 9:10 AM STRAP SEWER) PRO-B TYPE NATRIURETIC PEPTIDE 369 <450 PG/ML 07/14/2024 9:56 AM STRAP SEWER [facility] Comment: CUT POINTS ESTABLISHED BY [employer] ON NT PROBNP (ICON) STUDY (2006). AGE INDEPENDENT: <300 PG/ML HAS A 99% NEGATIVE PREDICTIVE VALUE FOR EXCLUDING ACUTE CHF <50 YEARS: >450 PG/ML IS CONSISTENT WITH ACUTE CHF 50-75 YEARS: >900 PG/ML IS CONSISTENT WITH ACUTE CHF >75 YEARS: >1800 PG/ML IS CONSISTENT WITH ACUTE CHF IN PATIENTS WITH RENAL INSUFFICIENCY (GFR <60), >1200 PG/ML YIELDS A DIAGNOSTIC SENSITIVITY AND SPECIFICITY OF 89% AND 72% FOR ACUTE CHF. 07/14/2024 9:10 AM STRAP SEWER us Froylan Wiseman MD LABORATORY Final Result [facility] [address] [place] [address], * (ABNORMAL) COMPREHENSIVE METABOLIC PANEL (07/14/2024 9:10 AM STRAP SEWER) GLUCOSE 126(H) 70 - 99 MG/DL 07/14/2024 9:56 AM [facility] BUN 20(H) 7 - 18 MG/DL 07/14/2024 9:56 AM [facility] CREATININE S/P/B 1.13(H) 0.55 - 1.02 MG/DL 07/14/2024 9:56 AM [facility] SODIUM S/P/B 137 136 - 145 MMOL/L 07/14/2024 9:56 AM [facility] POTASSIUM S/P/B 3.5 3.5 - 5.1 MMOL/L 07/14/2024 9:56 AM [facility] CHLORIDE S/P/B 99(L) 100 - 108 MMOL/L 07/14/2024 9:56 AM [facility] CO2 29.9 21 - 32 MMOL/L 07/14/2024 9:56 AM [facility] CALCIUM S/P/B 9.4 8.5 - 10.1 MG/DL 07/14/2024 9:56 AM [facility] BILIRUBIN TOTAL S/P/B 0.7 0.2 - 1.2 MG/DL 07/14/2024 9:56 AM [facility] TOTAL PROTEIN S/P/B 8.1 6.4 - 8.2 G/DL 07/14/2024 9:56 AM [facility] ALBUMIN S/P/B 3.5 3.4 - 5.0 G/DL 07/14/2024 9:56 AM [facility] AST 19 15 - 37 U/L 07/14/2024 9:56 AM [facility] ALT 25 14 - 55 U/L 07/14/2024 9:56 AM [facility] ALKALINE PHOSPHATASE S/P/B 92 50 - 136 U/L 07/14/2024 9:56 AM [facility] ANION GAP 8.1 5 - 15 MMOL/L 07/14/2024 9:56 AM [facility] BUN CREATININE RATIO 17.7 6 - 26 07/14/2024 9:56 AM [facility] A/G RATIO 0.8(L) 1.0 - 2.0 RATIO 07/14/2024 9:56 AM [facility] GFR ESTIMATE 50(L) >90 ML/MIN/1.7 3 M2 07/14/2024 9:56 AM [facility] Comment: NOTE: eGFR is not calculated for patients <18 years of age. This is an estimated GFR calculation using the new CKD EPI creatinine equation without race and so does not require a correction factor for race. This estimated GFR should not be used for calculating drug doses. 07/14/2024 9:10 AM STRAP SEWER us Froylan Wiseman MD LABORATORY Final Result [facility] [address] [place] [address], [place] [phone] * (ABNORMAL) CBC W/DIFF AUTOMATED (07/14/2024 9:10 AM [facility]) WBC 8.95 4.4 - 11.0 x10'3/uL 07/14/2024 9:33 AM [facility] RBC 4.46(L) 4.50 - 5.10 x10'6/uL 07/14/2024 9:33 AM [facility] HGB 13.9 12.3 - 15.3 G/DL 07/14/2024 9:33 AM [facility] HCT 41.1 35.9 - 44.6 % 07/14/2024 9:33 AM [facility] MCV 92.2 80.0 - 96.0 FL 07/14/2024 9:33 AM [facility] MCH 31.2(H) 25.3 - 30.9 PG 07/14/2024 9:33 AM [facility] MCHC 33.8 31.0 - 34.1 G/DL 07/14/2024 9:33 AM [facility] RDW 13.8 12.4 - 15.1 % 07/14/2024 9:33 AM [facility] PLT 253 151 - 353 x10'3/uL 07/14/2024 9:33 AM [facility] MPV 9.6 9.6 - 12.0 FL 07/14/2024 9:33 AM [facility] RBC MORPHOLOGY NORMAL 07/14/2024 9:33 AM [facility] PLT MORPH. NORMAL 07/14/2024 9:33 AM [facility] WBC MORPHOLOGY NORMAL 07/14/2024 9:33 AM [facility] LYMPHOCYTES % 2.8(L) 15.8 - 45.0 % 07/14/2024 9:33 AM [facility] NEUTROPHILS % 90.5(H) 42.1 - 71.9 % 07/14/2024 9:33 AM [facility] MONOCYTES % 5.6(L) 5.7 - 12.5 % 07/14/2024 9:33 AM [facility] EOSINOPHILS 0.3 0.0 - 5.6 % 07/14/2024 9:33 AM [facility] BASOPHILS 0.4 0.0 - 1.3 % 07/14/2024 9:33 AM [facility] ABS. NEUTROPHILS 8.09(H) 1.40 - 6.00 x10'3/uL 07/14/2024 9:33 AM [facility] IMMATURE GRANS % 0.4 0.0 - 0.5 % 07/14/2024 9:33 AM [facility] ABS. LYMPHOCYTES 0.25(L) 0.80 - 4.70 x10'3/uL 07/14/2024 9:33 AM [facility] 07/14/2024 9:10 AM STRAP SEWER Froylan Wiseman MD LABORATORY Final Result [facility] [address] [place] [address], * TROPONIN, QUANT (07/14/2024 9:10 AM STRAP SEWER) Pathologist [facility] TROPONIN I HIGH SENSITIVITY 17 0 - 50 ng/L 07/14/2024 9:54 AM [facility] Comment: HIGH DOSES OF BIOTIN, TROPONIN-SPECIFIC AUTOANTIBODIES, AND ANTIBODY THERAPY CONTAINING HAMA MAY INTERFERE WITH THIS TEST RESULT. CORRELATION TO CLINICAL HISTORY AND PRESENTATION RECOMMENDED. 07/14/2024 9:10 AM STRAP SEWER Froylan Wiseman MD LABORATORY Final Result Performing Organization Address City/[facility]/ZIP Co de Phone Number [facility] [address] [place] [address], [place] [phone] * CORONAVIRUS (COVID-19) MOLECULAR (07/14/2024 9:07 AM STRAP SEWER) CORONAVIRUS SARS COV 2 RNA NEGATIVE NEGATIVE 07/14/2024 9:35 AM STRAP SEWER [facility] Comment: NEGATIVE RESULTS DO NOT RULE OUT COVID 19 AND SHOULD NOT BE USED THE SOLE BASIS FOR TREATMENT OR PATIENT MANAGEMENT DECISIONS, INCLUDING INFECTION CONTROL DECISIONS. NEGATIVE RESULTS SHOULD BE CONSIDERED IN THE CONTEXT OF A PATIENT'S RECENT EXPOSURES, HISTORY AND THE PRESENCE OF CLINICAL SIGNS AND SYMPTOMS CONSISTENT WITH COVID 19. THE ID NOW COVID-19 2.0 TEST HAS BEEN AUTHORIZED BY THE FDA UNDER EAU FOR USE BY AUTHORIZED LABORATORIES. PERFORMED BY NUCLEIC ACID AMPLIFICATION FOR MOLECULAR QUALITATIVE DETECTION OF SARS-COV-2. SPECIMEN TYPE NASAL 07/14/2024 9:13 AM STRAP SEWER [facility] NASOPHARYNGEAL SWAB / Unknown 07/14/2024 9:07 AM STRAP SEWER Froylan Wiseman MD MICROBIOLOGY - GENERAL ORDERABLE S Final Result Performing Organization Address City/[facility]/ZIP Co de Phone Number [facility] [address] [place] [address], [place] [phone] * INFLUENZA A & B (07/14/2024 9:07 AM STRAP SEWER) SPECIMEN TYPE NASOPHARYNX 07/14/2024 9:34 AM STRAP SEWER [facility] INFLUENZA A NEGATIVE NEGATIVE 07/14/2024 9:36 AM STRAP SEWER [facility] INFLUENZA B NEGATIVE NEGATIVE 07/14/2024 9:36 AM STRAP SEWER [facility] NASAL STRUCTURE / Unknown 07/14/2024 9:07 AM STRAP SEWER us Froylan Wiseman MD MICROBIOLOGY - GENERAL ORDERABLE S Final Result Performing Organization Address City/[facility]/ZIP Co de Phone Number [facility] [address] [place] [address], [place] [phone] * RESP SYNCYTIAL VIRUS (07/14/2024 9:07 AM STRAP SEWER) SPECIMEN TYPE NASOPHARYNGEAL SWAB 07/14/2024 9:13 AM STRAP SEWER [facility] RAPID RSV NEGATIVE NEGATIVE 07/14/2024 9:34 AM STRAP SEWER [facility] NASOPHARYNGEAL SWAB / Unknown 07/14/2024 9:07 AM STRAP SEWER us Froylan Wiseman MD MICROBIOLOGY - GENERAL ORDERABLE S Final Result Performing Organization Address City/[facility] Co de Phone Number [facility] [address] [place] [address], [place] [phone] * FECAL BLOOD FIT SCREEN (04/07/2018 12:27 AM CDT) FECAL BLOOD FIT SCRN NEGATIVE NEGATIVE 04/11/2018 7:13 AM CDT [facility] STOOL SPECIMEN / Unknown 04/07/2018 12:27 AM CDT 04/07/2018 12:28 AM CDT Wesley Antony Md, MD BODY FLUIDS AND STOOLS ORDERABLES Final Result Performing Organization Address City/[facility]/ZIP Co de Phone Number [facility] [address] [place] [address], [place] [phone] * BONE DENSITY/DEXA (10/24/2013 12:14 PM CDT) Anatomical Region Laterality Modality Bone Bone Density 10/24/2013 12:1 4 PM CDT 10/24/2013 12:14 PM CDT Narrative 10/24/2013 2:51 PM CDT FRANCIS WILBURN ORDERING MD: GUSTAVO COURTNEY MD ACCT: [id number] ADMIT/SERVICE DATE: 10/24/13 DISCHARGE DATE: : 1945 PT TYPE: REG CLI SEX: F ORD SITE: [facility] STUDY DATE REPORT # PROCEDURE CODE PROCEDURE 10/24/13 [id number] DEXASCAN XR DEXA SCAN EXTORDERID [id number] CHART DOCUMENT DIVISION OF RADIOLOGY ACCESSION # EXAM DATE EXAM DESCRIPTION [id number] 10/24/2013 XR DEXA SCAN IMAGING STUDIES: BONE DENSITOMETRY 10-24-2013 HISTORY: OSTEOPENIA, OVARIAN FAILURE, VITAMIN D DEFICIENCY COMPARISON: 07-02-2008 DISCUSSION:BONE DENSITOMETRY LUMBAR SPINE L2-L4: BONE MINERAL DENSITY 0.694 GRAMS PER CM SQUARED T SCORE: -3.5 WHO CLASSIFICATION: BORDERLINE BETWEEN MODERATE AND SEVERE OSTEOPOROSIS ON 07-02-2008, BONE MINERAL DENSITY AT L2-L4 WAS 0.869 GRAMS PER CM SQUARED WITH T SCORE OF -2.8 INDICATING INTERVAL DECREASED SPINAL BONE MINERAL DENSITY. BONE DENSITOMETRY LEFT FEMORAL NECK: BONE MINERAL DENSITY 0.68GRAMS PER CM SQUARED T SCORE: -1.5 WHO CLASSIFICATION: BORDERLINE BETWEEN MILD AND MODERATE OSTEOPENIA ON 07-02-2008, LEFT FEMORAL NECK BONE MINERAL DENSITY WAS 0.903 GRAMS PER CM SQUARED WITH T SCORE OF -0.6 INDICATING INTERVAL DECREASE. IMPRESSION: 1.OSTEOPOROSIS SPINE WITH INTERVAL DECREASED BONE MINERAL DENSITY SINCE 2008. INCREASED RISK FOR FRACTURE. 2.OSTEOPENIA LEFT FEMORAL NECK WITH INTERVAL DECREASE SINCE 2008. ELECTRONICALLY SIGNED BY ENRICO FAM MD 10/24/2013 14:49 CRR/JANI 10/24/201312:14 P 10/24/2013 1:44 P JOB NO: DOC NO: [id number] CC: Procedure Note Wesley Prabhakar MD - 04/14/2018 FRANCIS WILBURN ORDERING MD: GUSTAVO COURTNEY MD ACCT: [id number] ADMIT/SERVICE DATE: 10/24/13 DISCHARGE DATE: : 1945 PT TYPE: REG CLI SEX: F ORD SITE: [facility] STUDY DATE REPORT # PROCEDURE CODE PROCEDURE 10/24/13 [id number] DEXASCAN XR DEXA SCAN EXTORDERID [id number] CHART DOCUMENT DIVISION OF RADIOLOGY ACCESSION # EXAM DATE EXAM DESCRIPTION [id number] 10/24/2013 XR DEXA SCAN IMAGING STUDIES: BONE DENSITOMETRY 10-24-2013 HISTORY: OSTEOPENIA, OVARIAN FAILURE, VITAMIN D DEFICIENCY COMPARISON: 07-02-2008 DISCUSSION:BONE DENSITOMETRY LUMBAR SPINE L2-L4: BONE MINERAL DENSITY 0.694 GRAMS PER CM SQUARED T SCORE: -3.5 WHO CLASSIFICATION: BORDERLINE BETWEEN MODERATE AND SEVERE OSTEOPOROSIS ON 07-02-2008, BONE MINERAL DENSITY AT L2-L4 WAS 0.869 GRAMS PER CMSQUARED WITH T SCORE OF -2.8 INDICATING INTERVAL DECREASED SPINAL BONE MINERAL DENSITY. BONE DENSITOMETRY LEFT FEMORAL NECK: BONE MINERAL DENSITY 0.68GRAMS PER CM SQUARED T SCORE: -1.5 WHO CLASSIFICATION: BORDERLINE BETWEEN MILD AND MODERATE OSTEOPENIA ON 07-02-2008, LEFT FEMORAL NECK BONE MINERAL DENSITY WAS 0.903 GRAMS PER CM SQUARED WITH T SCORE OF -0.6 INDICATING INTERVAL DECREASE. IMPRESSION: 1.OSTEOPOROSIS SPINE WITH INTERVAL DECREASED BONE MINERAL DENSITY SINCE 2008. INCREASED RISK FOR FRACTURE. 2.OSTEOPENIA LEFT FEMORAL NECK WITH INTERVAL DECREASE SINCE 2008. ELECTRONICALLY SIGNED BY ENRICO FAM MD 10/24/2013 14:49 CRR/DJEarline 10/24/201312:14 P 10/24/2013 1:44 P JOB NO: DOC NO: [id number] CC: Gustavo Courtney MD DEXA Final Result from Last 3 Months or Most Recently Relevant to Health Maintenance Insurance MEDICARE [facility] Care Teams Ore Charger Relationship Specialty Start Date End Date Moreno Woodward MD [address] [place] [address] PCP - General FAMILY PRACTICE 03/25/22 Olivier Miramontes MD [address] [facility] [address] [place] [id number] CARDIOVASCULAR DISEASE 07/14/24
--- OUTSIDE RECORDS SUMMARY | 2024-09-27 09:36 | XMS_ITS | Clinical Summary ---
Author Organization [facility] Address [address] [place] [address] Phone Care Team Providers Care Family Independence Case Manager Name Role Phone Moreno Woodward MD Primary Care Provider [phone] Allergies No known active allergies Medications acetaminophen (TYLENOL) 500 MG tablet every 4 hours Active albuterol HFA (PROVENTIL HFA) 108 (90 Base) MCG/ACT inhaler 1 Active ascorbic acid (VITAMIN C) 1000 MG tablet Take 1,000 mg by mouth Active aspirin (ST JUSTUS) 81 MG EC tablet daily Active benzonatate (TESSALON) 100 MG capsule 1 Active Cholecalciferol 50 MCG (2000 UT) capsule 1 capsule daily Ac tive Denosumab (Prolia) 60 MG/ML solution prefilled syringe Prolia 60 mg/mL subcutaneous syringe inject 1 mL every 6 months into back of arm/subcutaneous ly Active hydroCHLOROthia zide (HYDRODIURIL) 12.5 MG tablet 1 Active irbesartan (AVAPRO) 75 MG tablet 1 Active primidone (MYSOLINE) 50 MG tablet primidone 50 mg tablet 9 Active topiramate (TOPAMAX) 50 MG tablet Slow increase to 2 tabs at breakfast and bedtime (written instructions given to patient) 1 Active Probiotic Product capsule Take 1 capsule by mouth every 3 (three) days Active Active Problems Problem Noted Date Diagnosed Date Sprain of cruciate ligament of knee 06/29/2021 Ventricular premature beats 12/08/2020 Dyspnea on exertion 07/07/2020 Essential hypertension 07/07/2020 Hypertensive disorder 04/02/2019 Essential tremor 04/02/2019 Overview (06/29/2021): Last Assessment & Plan: She had a [...] it is helping her tremor. Though her events assistant has given the okay, she is reluctant [...] effects, sooner. 3. Start home exercise program. 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 Palpitations 03/28/2017 Overview (06/29/2021): Event monitor 03/2017 (2 week) - SR [...] size, mild MR, trivial AI, RVSP 28 Event monitor 03/2017 (2 week) - SR [...] size, mild MR, trivial AI, RVSP 28 Ventricular premature complex 03/03/2017 Renal cell carcinoma 02/04/2016 Imaging of thorax abnormal 11/25/2015 Ankle joint pain 04/16/2013 Complete tear, knee, medial collateral ligament 04/02/2013 Complete tear, knee, anterior cruciate ligament 03/05/2013 Osteoarthritis of knee 02/28/2013 Shoulder joint pain 08/27/2010 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 08/26/2010 Immunizations Immunization Administration Dates Next Due Influenza, Unspecified 08/05/2015 Sars-cov-2, Unspecified 08/27/2020 Tdap 10/06/2019,04/25/2013 Family History Medical History Relation Comments Kidney disease Neg Hx Nephrolithiasis Neg Hx Social History Tobacco Use Types Packs/Day Years Used Date Smoking Tobacco: Never Smokeless Tobacco: Never Alcohol Use Standard Drinks/Week Comments Yes 0 (1 standard drink = 0.6 oz pur e alcohol) rare use Comments Unknown Sex and Gender Information Value Date Recorded Sex Assigned at Not on file Legal Sex Female 9:55 AM [facility] Gender Identity Not on file Sexual Orientation Not on file Last Filed Vital Signs Vital Sign Reading Time Taken Comments Blood Pressure 134/76 02/08/2022 2:24 PM CDT Pulse - - Temperature 36.2 C (97.1 F) 02/08/2022 2:24 PM CDT Respiratory Rate 18 02/08/2022 2:24 PM CDT Oxygen Saturation - - Inhaled Oxygen Concentration - - Weight 93 kg (205 lb) 02/08/2022 2:24 PM CDT Height 162.6 cm (5' 4 ) 02/08/2022 2:24 PM CDT Body Mass Index 35.19 02/08/2022 2:24 PM CDT Plan of Treatment Health Maintenance Due Date Last Done Comments Pneumococcal PPSV23/PCV13 65 + Years / Low and Medium Risk (1 of 4 - PCV) 10/02/2011 Influenza Vaccine (Season Ended) 2025 08/05/19 16 Insurance MEDICARE [facility] MEDICARE SUPPLEMENT Care Teams Family Independence Case Manager Relationship Specialty Start Date End Date oMreno Woodward MD [id number] [facility] [address] [facility] [address] [place] [id number] PCP - General Internal Medicine 06/29/21
== END 2024-09-27 09:19 | disposition home or self-care (01) ==
PROVIDERS: PCP Family Medicine; Visit Provider Obstetrics & Gynecology
DX: Z12.31 Encounter for screening mammogram for malignant neoplasm of breast (principal)
CPT/HCPCS: 77063; 77067

== ENCOUNTER 2024-10-17 13:09 | Outpatient (CLI) | payer MEDICARE, SELFPAY ==
--- NOTE | ~2024-10-17 | DEXA_ITS ---
Bone Density Report Name: FRANCIS WILBURN Age: 79 Sex: Female Ethnicity: White Date of : 1945 Indication: postmenopausal osteoporosis; parental hip fracture; height loss; prior fracture; cancer; end stage renal disease; Referring Provider: MILTON CASILLAS Study: Bone densitometry was performed. Exam Date: October 17, 2024 Accession number: [id number] Bone Density: Region BMD T-score Z-score Classification AP Spine(L1-L4) 0.747 -2.7 -0.2 Osteoporosis Femoral Neck (Left) 0.557 -2.6 -0.4 Osteoporosis Total Hip (Left) 0.786 -1.3 0.7 Osteopenia Femoral Neck (Right) 0.542 -2.8 -0.6 Osteoporosis Total Hip (Right) 0.812 -1.1 0.9 Osteopenia Total Hip Mean 0.799 -1.2 0.8 Osteopenia World Health Organization criteria for BMD impression classify patients as: Normal (T-score at or above -1.0), Osteopenia (T-score between -1.0 and -2.5), or Osteoporosis (T-score at or below -2.5). 10-year Fracture Risk: FRAX not reported because: Some T-score for Spine Total or Hip Total or Femoral Neck at or below -2.5 Previous Exams: Region Exam Age BMD T-score BMD Change BMD Change Date g/cm2 vs Baseline vs Previous AP Spine (L1-L4) 10/17/2024 79 0.747 -2.7 0.018 (2.5%) -0.026 (-3.4%) 04/06/2022 76 0.773 -2.5 0.044 (6.0%)# 0.034 (4.6%)# 12/01/2018 73 0.739 -2.8 0.010 (1.4%) 0.010 (1.4%) 10/11/2016 71 0.729 -2.9 Total Hip(Left) 10/17/2024 79 0.786 -1.3 -0.087 (-10.0% -0.023 (-2.8%) 04/06/2022 76 0.809 -1.1 -0.065 (-7.4%) -0.043 (-5.0%) 12/01/2018 73 0.851 -0.7 -0.022 (-2.6%) -0.022 (-2.6%) 10/11/2016 71 0.873 -0.6 Total Hip(Right) 10/17/2024 79 0.812 -1.1 0.003 (0.4%) -0.007 (-0.9%) 04/06/2022 76 0.819 -1.0 0.010 (1.2%) 0.010 (1.2%) 10/11/2016 71 0.809 -1.1 *Denotes significance at 95% confidence level, LSC for AP Spine = 0.022 g/cm2, LSC for Total Hip = 0.027 g/cm2 # Denotes dissimilar scan types or analysis methods Clinical Information Provided by Patient: Has had a low trauma fracture Parent has had a hip fracture Has used the following medications: Fosamax (i.e. alendronate), Prolia (i.e. denosumab), Vitamin D Has the following medical conditions: Cancer, End stage renal disease Patient maximum height was 67 Menopause Age: 56 No regular weight bearing exercise Onset of menses at age 15 Number of children 3 Impression: The patient has established osteoporosis, based on the Right Femoral Neck T-score and the existence of a prior fracture. The patient has risk factors, including: parental hip fracture, previous fracture. No significant bone loss was observed. Discussion: HIGH RISK OF FRACTURE. BONE DENSITY IS UNDESIRABLY LOW AT ONE OR MORE SKELETAL SITES, CONSISTENT WITH POSTMENOPAUSAL OSTEOPOROSIS. This patient's lowest T-score, in a patient who has previously fractured, meets the World Health Organization's (WHO) criteria for severe osteoporosis. In untreated patients, the risk of osteoporotic fracture increases approximately two-fold for each 1.0 SD decrease in T-score. Low bone density is not the only risk factor for fracture; also consider factors such as patient's age, frailty or poor health, risk of falling, risk of injury, previous osteoporotic fracture, family history of osteoporosis, cigarette smoking, low body weight, etc. Not everyone with low bone mineral density has osteoporosis; osteomalacia and other metabolic bone disorders should also be considered. Patients who have osteoporosis should be evaluated for specific diseases and conditions (secondary causes) that may cause or contribute to bone loss. The [place] Association of Clinical Endocrinologists (AACE) and National Osteoporosis Foundation (NOF) recommend pharmacologic intervention for all postmenopausal women whose T-score is in this range. The patient should follow a healthful lifestyle (good nutrition with adequate calcium and vitamin D, and appropriate weight-bearing exercise). Follow-Up: Consider a repeat BMD and Vertebral Fracture Assessment (VFA) exam in 2 years or sooner if medically necessary, to reassess this patient's status. Reported by: ANGELES on 10/17/2024 1:46:00 PM. Reviewed, dictated and finalized at location [facility]
--- OUTSIDE RECORDS SUMMARY | 2024-10-17 14:02 | XMS_ITS | Clinical Summary ---
Author Organization [facility] Address [address] [place] [address] Care Team Providers Care Plate Colorer Name Role Phone Moreno Woodward MD Primary Care Provider [phone] Jignesh Weller MD Unavailable Source Comments [facility],non-owned Affiliates and Associated Physician Practices is amultiple site organization consisting of ambulatory clinics and hospital sitesin [place], [place], [place] and [place]. This disclosure is being madepursuant to the Care Everywhere program and may not contain all information available regarding this patient. Last updated 18.[facility] Allergies No known active allergies Medications * Be aware that medications may not be up to date on this document. Alwaysverify current medications with the patient. aspirin (ASPIRIN) 81 MG tablet Take 1 (one) tablet by mouth once daily Active hydroCHLOROthia zide (HYDRODIURIL) 12.5 MG Take 1 (one) tablet by mouth once daily Active metoprolol succinate XL 24hr (TOPROL XL) 25 MG tablet Take 1 Tab by mouth once daily 30 Tab 5 7 Active Additional Information Patient taking differently:25 mg Oral2 TIMES DAILY, PRN-If HR is over 60 bpm, Informant: Patient, Reported on 10/18/2022 primidone (MYSOLINE) 50 MG tablet Take 1 (one) tablet by mouth at bedtime Active denosumab (PROLIA) 60 MG/ML SC injection Prolia 60 mg/mL subcutaneous syringe inject 1 mL every 6 months into back of arm/subcutaneous ly Active irbesartan (AVAPRO) 75 MG tablet Take 1 (one) tablet by mouth once daily Active vitamin D3 (CHOLECACIFEROL ) 125 MCG (5000 UT) Take 1 (one) tablet by mouth once daily Active Probiotic Product (Commutable) capsule Take 1 (one) capsule by mouth every 3 days Active ascorbic acid (VITAMIN C) 250 MG chewable tablet Take 1 (one) tablet by mouth at bedtime Active Active Problems Problem Noted Date Diagnosed Date PVC's (premature ventricular contractions) 12/08 Essential hypertension 07/07/2020 Essential tremor 04/02/2019 10/24/2022 Overview (10/24/2022): Last [...] would need to be done either in [place] or [place]. I discussed with her all aspects of this procedure (including the actual performance of the procedure, the potential benefits and complications and the post-surgical programming sessions). I answered all her questions pertaining to the procedure. We also discussed HIFU, inertial dampening devices and the Epidemic Sound peripheral stimulation device. We discussed that we [...] it is helping her tremor. Though her kitchen hand has given the okay, she is reluctant [...] Date Recorded PHQ2 TOTAL SCORE 0 10/18/2022 Comments No Sex and Gender Information Value Date Recorded Sex Assigned at Not on file Legal Sex Female 1:14 PM CDT Gender Identity Not on file [...] on patient's age to complete this topic Insurance [facility] * Guarantor: PRISCILLA WILBURN Account Type Relation to Patient Date of Phone Billing Address Personal/Family [address] [place] [address] MEDICARE [employer] [place], [place] [phone] Care Teams Plate Colorer Relationship Specialty Start Date End Date Moreno Woodward MD [address] [place] [address] PCP - General Family Medicine 03/24/17 Jignesh Weller MD [address] [place] [address] [facility] 12/03/20
--- OUTSIDE RECORDS SUMMARY | 2024-10-17 14:02 | XMS_ITS ---
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 I discussed with her all aspects of this procedure (including the actual performance of the procedure, the potential benefits and complications and the post-surgical programming sessions). I answered all her questions pertaining to the procedure. We also discussed HIFU, inertial dampening devices and the inZair peripheral stimulation device. We discussed that we [...] it is helping her tremor. 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
--- OUTSIDE RECORDS SUMMARY | 2024-10-17 14:02 | XMS_ITS | Data Portability ---
Author Organization [facility] Address [address] [place] [address] Care Team Providers Care Billet Heater Operator Name Role Phone MENSAHCESARDIANNE Primary Care Provider [phone] Assessment Encounter Date Assessment Date Assessment LastModified [...] as clini mariela teixeira nted. Not Available [facility] (Lab) [address], [place], [address], 11/27/2020 15:31:38 04/09/20 24 04/09/2024 IMAGE GUIDE [...] . Elect frank elise felix d by Temo Tavarez, CT on 04/14 at 6:39 AM [...] as clini mariela teixeira nted. Not Available [facility] (Lab) [address], [place], [address], 04/14/2024 07:42:41 11/06/08 2105/01/2021 MAMMO , scree mir, bilat eral No observ ation record ed. [place] [id number] [facility] [address], [place], [address], 05/18/2021 10:47:09 05/19/20 22 05/19/2022 MAMMO , scree mir, bilat eral No observ ation record ed. [email or web address] [place] [address] [address], [place], [address], 09/22/2023 09:24:50 07/20/19 24 07/20/2023 MAMMO , scree mir, bilat eral No observ ation record ed. [id number], [place], [address], 08/18/2023 15:40:28 09/28/19 25 09/27/2024 MAMMO , scree mir, digit al, bilat eral No observ ation record ed. [id number] [facility], [place], [address], 10/09/2024 10:49:37 Result Notes None recorded. Problems Name Problem SNOMED Code Status Onset Date Resolution Date Notes Provider Name and Address Organization Details Recorded Time Screening for malignant neoplasm of cervix Completed 201811/26/2020 Encounter for screening for malignant neoplasm of cervix;Re corded Elsewhere : No Locati on: [facility] So urce: EHR Chron ic: N Practic e ID: [id number] Bill able Time: 02:00:00 PM Reyna reese [facility] 1 16:04:19 Neoplasti c disease of uncertain behavior Completed 201411/26/2020 Neoplasm of uncertain behavior of other specified female genital organs;Re corded Elsewhere : No Locati on: [facility] So urce: EHR Chron ic: N Practic e ID: [id number] Bill able Time: 02:30:00 PM Reyna reese [facility] 16:04:14 Adult health examinati on Completed 201111/26/2020 Routine Medical Exam;Zeus rded Elsewhere : No Locati on: [facility] So urce: EHR Chron ic: N Practic e ID: [id number] Bill able Time: 09:00:00 AM Reyna reese [facility] 1 16:04:[address] Concept Completed 201811/26/2020 Encntr for linen manager exam (general) (routine) w/o abn findings; Recorded Elsewhere : No Locati on: [facility] So urce: EHR Chron ic: N Practic e ID: [id number] Bill able Time: 02:00:00 PM Reyna reese [facility] 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 1 16:04:11 Noninflam matory disorder of vulva [id number] Completed 201811/26/2020 Noninflam matory disorder of vulva and perineum, unspecifi ed;Record ed Elsewhere : No Locati on: [facility] So urce: EHR Chron ic: N Practic e ID: [id number] Bill able Time: 01:30:00 PM Reyna reese [facility] 1 16:04:17 Screening for malignant neoplasm of rectum Completed 201111/26/2020 Screening for malignant neoplasms of the rectum;Re corded Elsewhere : No Locati on: [facility] So urce: EHR Chron ic: N Practic e ID: [id number] Bill able Time: 09:00:00 AM Reyna reese [facility] 1 16:04:21 Specializ ed medical examinati on Completed 201111/26/2020 Routine gynecolog ical examinati on;Greerti ce ID: [id number] [facility] 16:04:25 Notes:Neoplasm of unsp behav ior of other genitourinary organs Practice ID: [id number] Problem Notes None recorded. Procedures Surgical History Date Name Laterality Status Provider Name and Address Organization Details Recorded Time 07/20/19 24 Date of Last Mammogram completed Brittany Garibay [facility] 04/09/2024 14:27:53 08/14/19 21 cardiac catheterization completed [facility] 12/01/2020 15:45:47 11/04/19 19 Date of Last Pap Smear completed [facility] 05/22/2020 15:58:43 10/19/19 18 grafting to skin completed [facility] 03/15/2022 15:09:48 10/19/19 16 partial nephrectomy completed [facility] 03/15/2022 15:09:28 04/20/20 13 procedure on wrist completed [facility] 03/15/2022 15:09:09 02/19/20 13 procedure on knee completed [facility] 03/15/2022 15:08:16 10/19/19 13 procedure on shoulder completed [facility] 11/15/2019 10:40:06 01/18/19 98 procedure on shoulder completed [facility] 11/15/2019 10:39:40 Imaging Results Imaging Date Name Status LastModified by Organiz ation Details LastModified Time 05/01/2021 MAMMO, screening, bilateral completed [address], [place], [address], 05/18/2021 10:47:09 05/19/2022 MAMMO, screening, bilateral completed [place] [id number] [facility] [address], [place], [address], 09/22/2023 09:24:50 07/20/2023 MAMMO, screening, bilateral completed [place] [id number] [facility] [address], [place], [address], 08/18/2023 15:40:28 09/27/2024 MAMMO, screening, digital, bilateral completed [place] [id number] [facility] [address], [place], [address], 10/09/2024 10:49:37 Procedure Notes None recorded. Medical Equipment None [...] Prescrib ed Elsewher e: Yes [facility] By: cmedical Encount er DateTime : 05/10/20 12 09:00:00 AM Not Available Not Available Not Available hydrochlo rothiazid e 12.5 mg capsule take 2 capsule by oral route every day 12/01 completed Prescrib ed Elsewher e: Yes Loca tion: [facility] odify By: cmedical Encount er DateTime [...] Prescrib ed Elsewher e: Yes Loca tion: [facility] odify By: [email or web address] trick En counter DateTime [...] Prescrib ed Elsewher e: Yes Loca tion: [facility] odify By: cmedical Encount er DateTime : 05/10/20 12 09:00:00 AM Not Available Not Available Not Available hydrochlo rothiazid e 12.5 mg tablet TAKE 1 TABLET BY MOUTH EVERY MORNING active Not Available Not Available No t Available Fiber Laxative (methylce llulose) 500 mg tablet 08/31 completed Prescrib ed Elsewher e: Yes [facility] odify By: [email or web address] trick En counter DateTime : 05/10/20 12 09:00:00 AM Not Available Not Available Not Available amlodipin e besylate (bulk) 100 % powder 10/13 completed Prescrib ed Elsewher e: Yes Loca tion: Rusty roxanne [facility] odify By: reyna Rodriguez r DateTime : 05/10/20 12 09:00:00 AM Not Available Not Available Not Available Prolia 2021 active Not Available Not Available Not Avai lable Suprep Bowel Prep Kit 17.5 gram-3.13 gram-1.6 gram oral solution 06/28 completed Not Available Not Available Not Available Kapspargo Sprinkle 25 mg capsule,e xtended release 11/03 completed Prescrib ed Elsewher e: Yes Loca tion: Rusty roxanne [facility] odify By: reyna Rodriguez r DateTime : [...] Updated DateTime 11/26/2020 162.56 cm 35.4 kg/m2 89924.03 g 167 mm[Hg] 78 mm[Hg] [facility] 1 16:03:58 Date Recorded Body height Body mass index (BMI) Body weight Systolic blood pressure Diastolic blood pressure Provider Name and Address Organization Details Last Updated DateTime 01/22/2022 162.56 cm 35.4 kg/m2 27757.03 g 122 mm[Hg] 78 mm[Hg] [facility] 2 16:07:39 Date Recorded Body height Body mass index (BMI) Body weight Systolic blood pressure Diastolic blood pressure Provider Name and Address Organization Details Last Updated DateTime 06/24/2022 162.56 cm 35.9 kg/m2 91742.81 g 160 mm[Hg] 74 mm[Hg] Reyna Moreira [facility] 3 11:59:46 Date Recorded Body height Body mass index (BMI) Body weight Systolic blood pressure Diastolic blood pressure Provider Name and Address Organization Details Last Updated DateTime 12/23/2022 162.56 cm 35.4 kg/m2 28274.03 g 146 mm[Hg] 72 mm[Hg] Reyna Moreira [facility] 3 11:03:46 Date Recorded Body height Body mass index (BMI) Body weight Systolic blood pressure Diastolic blood pressure Systolic blood pressure Diastolic blood pressure Provider Name and Address Organization Details Last Updated DateTime 4 162.56 cm 35 kg/m2 20656.8 4 g 161 mm[Hg] 101 mm[Hg] 160 mm[Hg] 88 mm[Hg] Brittany Garibay [facility] 4 14:26:08 Social History Question Answer Notes LastModified by Organizat ion Details LastModified Time Tobacco Smoking Status Never Smoker [facility] 12/23/2022 11:03:55 Do You Have An [...] Or The Highest Degree You Have Received? 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 [id number] Information not available 12/23/2022 Do You Use [...] Time Mother Carcinoma in situ of colon [id number] Not available 2022 10:51:21 Sister Hypertensive disorder [...] Code Diagnosis Note [id number] Randy Cruz MD [place] [address] [address] 11/15/2019 09:24:01 11/15/2019 10:20:08 Vaginal lesion 439915726 N94.89 [id number] Randy Cruz MD [place] [address] [address] 05/22/2020 15:17:49 05/22/2020 16:01:32 Vaginal lesion 998423724 N94.89 This patient is a 74-year-ol d female presents for follow-up on vaginal polyp. She has a vaginal polyp in the posterior left fornix of the vagina. It appears unchanged. She was examined. She has lot of inclusion cyst over the vulva. There is nothing on the vulva appears malignant. She will follow up in 6 months for well-woman exam. [id number] Randy Cruz MD [place] [address],[facility] [place] [address] 11/26/2020 14:33:52 11/26/2020 16:51:11 Gynecologic examination 37490280 Z01.419 This patient is here for her [...] unchanged. Same as last year. Vaginal polyp. [id number] Randy Cruz MD [place] [address] [address] 01/22/2022 15:18:27 01/23/2022 18:12:23 Polyp of vaginal wall 392577433 N84.2 this patient is a 76-year-ol d female with a vaginal polyp. She presents for examinatio n the polyp to confirm its stability. The polyp was examined it is at the posterior left fornix. Is hyperemic and unchanged in size. We will follow-up as needed. It is been stable over several examinatio ns. [id number] MD Marilin Cage [address] [address] 06/24/2022 10:51:12 06/24/2022 12:17:00 Polyp of vaginal wall 779297968 N84.2 76-year-ol d female who presents for [...] Otherwise she will return in 6 months. [id number] MD Marilin Cage [address] [address] 12/23/2022 10:02:04 12/23/2022 11:41:33 Polyp of vaginal wall 386917761 N84.2 77-year-ol d female presents for follow-up on a vaginal polyp. It is stable. Is been stable for year and. We going look at this once a year now. [id number] MD Marilin Cage [address] [address] 04/09/2024 14:15:28 04/09/2024 15:04:31 Gynecologic examination 96779312 Z01.419 Z11.51 This patient is here for [...] Concerns Section Related Observation LastModified by Organization Detai ls LastModified Time None Recorded Concern Status LastModified by Organization Details LastModified Time None Recorded Advance Directives Directive N: Payers Encounter Date Sequence Insurance Name Policy Number Policy Tsang Covered Member ID Tsang Member ID Guarantor Name 11/26/2020 1 [place] Priscilla J Smitha [id number] 1 Priscilla Smitha 11/26/2020 2 [employer] Priscilla J Smitha [id number] Priscilla Smitha 01/22/2022 1 [place] Priscilla J Smitha [id number] 1 Priscilla Smitha 01/22/2022 2 [employer] Priscilla J Smitha [id number] Priscilla Smitha 06/24/2022 1 [place] Priscilla J Smitha [id number] 1 Priscilla Smitha 06/24/2022 2 [employer] Priscilla J Smitha [id number] Priscilla Smitha 12/23/2022 1 [place] Priscilla J Smitha [id number] 1 Priscilla Smitha 12/23/2022 2 [place] [id number] Priscilla J Smitha [id number] Priscilla Smitha 04/09/2024 1 [place] Priscilla J Smitha [id number] 1 Priscilla Smitha 04/09/2024 2 [place] [id number] Priscilla J Smitha [id number] Priscilla Smitha Notes Date Note Type [...] exercise Randy Cruz MD [address], [place], [address], [facility] 11/26/2020 16:46:30 01/22/2022 text/html this patient is a 76-year-old female with a vaginal polyp. She presents for examination the polyp to confirm its stability. The polyp was examined it is at the posterior left fornix. Is hyperemic and unchanged in size. We will follow-up as needed. It is been stable over several examinations. Randy Cruz MD [address], [place], [address], [facility] 01/23/2022 15:49:36 06/24/2022 text/html 76-year-old cecily [...] months. Randy Cruz MD [address], [place], [address], [facility] 06/24/2022 12:13:20 12/23/2022 text/html 77-year-old cecily mehta presents for follow-up on a vaginal polyp. It is stable. Is been stable for year and. We going look at this once a year now. Randy Cruz MD [address], [place], [address], [facility] 12/23/2022 11:40:25 04/09/2024 text/html Annual GYNReport ed bypatient.History: no gynecologic complaints Urinary symptoms:No hematuria Vulva:No genital lesion Vagina:Normal vaginal discharge Breast:No breast pain; No breast lump Menopausal Symptoms:No menopausal symptoms Psychological symptoms:No depression; No anxiety Preventive measures:Encourage self breast examination; Encourage regular exercise Randy Cruz MD [address], [place], [address], [facility] 04/09/2024 15:00:15 OBGyn Episode Ob Episode Information Episode Created Date Number of Fetuses Patient Bloodtype Patient rh Status Prepregnancy Weight lbs Domestic Partner Domestic Partner Phone Father Name Creative Services Producer Status 11/15/19 20 1 CLOSED Fetus Data [...] Domestic Partner Domestic Partner Phone Father Name Creative Services Producer Status 11/15/19 20 1 CLOSED Fetus Data [...] Domestic Partner Domestic Partner Phone Father Name Creative Services Producer Status 11/15/19 20 1 CLOSED Fetus Data [...] Domestic Partner Domestic Partner Phone Father Name Creative Services Producer Status 11/15/19 20 1 CLOSED Fetus Data [...]
--- OUTSIDE RECORDS SUMMARY | 2024-10-17 14:02 | XMS_ITS | Encounter Summary ---
Author Organization [facility] Address [address] [place] [address] Care Team Providers Care Captain Of Guards Name Role Phone Moreno Woodward MD Primary Care Provider [phone] Olivier Miramontes MD Unavailable [phone] Encounter Details Date Type Department Care Team (Late st Contact Info) Description 10/17/2024 7:00 AM CDT Laboratory Only [facility] [address] [place] [address] Donato Barba MD [address], [place] [id number] Arrived Social History Tobacco Use Types Packs/Day Years Used Date Smoking Tobacco: Never Smokeless Tobacco: Never Comments Unknown Sex and Gender Information Value Date Recorded Sex Assigned at Female 07/14/2024 9:23 AM 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 Legal Sex Female 11:04 PM CDT Gender Identity Not on file Sexual Orientation Not on file documented as of this encounter Plan of Treatment Not on file documented as of this encounter Procedures Procedure Name Priority Date/Time Associated Diagnosis Comments HEALTH FAIR WITH LIPID Routine 10/17/2024 12:10 AM CDT HEMOGLOBIN, GLYCOSYLATED Routine 10/17/2024 12:10 AM CDT VITAMIN D, 25 OH Routine 10/17/2024 12:1 0 AM CDT documented in this encounter Results * VITAMIN D, 25 OH (10/17/2024 12:10 AM CDT) VITAMIN D 25 HYDROXY S/P/B 71 30 - 100 NG/ML 10/17/2024 10:44 AM CDT [facility] Comment: INTERPRETATION DEFICIENT <20 INSUFFICIENT 20-29 SUFFICIENT 30-100 10/17/2024 12:1 0 AM CDT Donato Barba MD LABORATORY Final Result [facility] [address] [place] [address], * (ABNORMAL) HEALTH FAIR WITH LIPID (10/17/2024 12:10 AM CDT) Pathologist [facility] WBC 6.47 4.4 - 11.0 x10'3/uL 10/17/2024 7:52 AM CDT [facility] RBC 4.32(L) 4.50 - 5.10 x10'6/uL 10/17/2024 7:52 AM CDT [facility] HGB 13.5 12.3 - 15.3 G/DL 10/17/2024 7:52 AM CDT [facility] HCT 41.1 35.9 - 44.6 % 10/17/2024 7:52 AM CDT [facility] MCV 95.1 80.0 - 96.0 FL 10/17/2024 7:52 AM CDT [facility] MCH 31.3(H) 25.3 - 30.9 PG 10/17/2024 7:52 AM CDT [facility] MCHC 32.8 31.0 - 34.1 G/DL 10/17/2024 7:52 AM CDT [facility] RDW 13.6 12.4 - 15.1 % 10/17/2024 7:52 AM CDT [facility] PLT 292 151 - 353 x10'3/uL 10/17/2024 7:52 AM CDT [facility] MPV 9.8 9.6 - 12.0 FL 10/17/2024 7:52 AM CDT [facility] RBC MORPHOLOGY NORMAL 10/17/2024 7:52 AM CDT [facility] PLT MORPH. NORMAL 10/17/2024 7:52 AM T [facility] WBC MORPHOLOGY NORMAL 10/17/2024 7:52 AM CDT [facility] LYMPHOCYTES % 26.3 15.8 - 45.0 % 10/17/2024 7:52 AM CDT [facility] NEUTROPHILS % 60.0 42.1 - 71.9 % 10/17/2024 7:52 AM T [facility] MONOCYTES % 8.7 5.7 - 12.5 % 10/17/2024 7:52 AM CDT [facility] EOSINOPHILS 3.9 0.0 - 5.6 % 10/17/2024 7:52 AM T [facility] BASOPHILS 0.8 0.0 - 1.3 % 10/17/2024 7:52 AM T [facility] ABS. NEUTROPHILS 3.89 1.40 - 6.00 x10'3/uL 10/17/2024 7:52 AM T [facility] IMMATURE GRANS % 0.3 0.0 - 0.5 % 10/17/2024 7:52 AM T [facility] ABS. LYMPHOCYTES 1.70 0.80 - 4.70 x10'3/uL 10/17/2024 7:52 AM T [facility] GLUCOSE 97 70 - 99 MG/DL 10/17/2024 8:[address] [facility] BUN 24(H) 7 - 18 MG/DL 10/17/2024 8:[address] [facility] CREATININE S/P/B 0.97 0.55 - 1.02 MG/DL 10/17/2024 8:[address] [facility] SODIUM S/P/B 141 136 - 145 MMOL/L 10/17/2024 8:[address] [facility] POTASSIUM S/P/B 3.6 3.5 - 5.1 MMOL/L 10/17/2024 8:[address] [facility] CHLORIDE S/P/B 102 100 - 108 MMOL/L 10/17/2024 8:[address] [facility] CO2 31.8 21 - 32 MMOL/L 10/17/2024 8:[address] [facility] CALCIUM S/P/B 9.4 8.5 - 10.1 MG/DL 10/17/2024 8:[address] [facility] BILIRUBIN TOTAL S/P/B 0.5 0.2 - 1.2 MG/DL 10/17/2024 8:[address] [facility] TOTAL PROTEIN S/P/B 7.0 6.4 - 8.2 G/DL 10/17/2024 8:[address] [facility] ALBUMIN S/P/B 3.3(L) 3.4 - 5.0 G/DL 10/17/2024 8:[address] [facility] AST 16 15 - 37 U/L 10/17/2024 8:[address] [facility] ALT 20 14 - 55 U/L 10/17/2024 8:[address] [facility] ALKALINE PHOSPHATASE S/P/B 79 50 - 136 U/L 10/17/2024 8:[address] [facility] ANION GAP 7.2 5 - 15 MMOL/L 10/17/2024 8:[address] [facility] BUN CREATININE RATIO 24.7 6 - 26 10/17/2024 8:[address] [facility] A/G RATIO 0.9(L) 1.0 - 2.0 RATIO 10/17/2024 8:[address] [facility] GFR ESTIMATE 60(L) >90 ML/MIN/1. 73 M2 10/17/2024 8:[address] [facility] Comment: NOTE: eGFR is not calculated for patients <18 years of age. This is an estimated GFR calculation using the new CKD EPI creatinine equation without race and so does not require a correction factor for race. This estimated GFR should not be used for calculating drug doses. TSH 2.517 0.358 - 3.74 uIU/ML 10/17/2024 8:[address] [facility] Comment: HIGH DOSES OF BIOTIN MAY INTERFERE WITH THIS TEST RESULT. CORRELATION TO CLINICAL HISTORY AND PRESENTATION RECOMMENDED. CHOLESTEROL 238(H) <200.0 MG/DL 10/17/2024 8:[address] [facility] TRIGLYCERIDES 91 <150 MG/DL 10/17/2024 8:[address] [facility] HDL 90 >40.0 MG/DL 10/17/2024 8:[address] [facility] LDL (CALCULATED) 130(H) <100 MG/DL 10/17/2024 8:[address] [facility] NON HDL CHOLESTEROL 148(H) <130 MG/DL 10/17/2024 8:[address] [facility] CHOL/HDL RATIO 2.6 0.0 - 4.5 10/17/2024 8:[address] [facility] VLDL CALCULATION 18 5 - 55 MG/DL 10/17/2024 8:26 AM CDT [facility] LIPID INTERPRETATION 10/17/2024 8:26 AM CDT [facility] Comment: NIH CONCENSUS REPORT RECOMMENDATIONS: ADULT CHILD LOW RISK: CHOLESTEROL <200 <170 TRIGLYCERIDE <150 --- HDL >=60 --- LDL <100 <110 BORDERLINE: CHOLESTEROL 200-239 170-199 TRIGLYCERIDE 150-199 --- HDL 40-59 --- LDL 100-159 110-129 HIGH RISK: CHOLESTEROL >=240 >=200 TRIGLYCERIDE >=200 --- HDL <40 --- LDL >=160 >=130 10/17/2024 12:1 0 AM CDT Donato Barba MD LABORATORY Final Result Performing Organization Address [facility] de Phone Number [facility] [address] [place] [address], [place] [phone] * HEMOGLOBIN, GLYCOSYLATED (10/17/2024 12:10 AM CDT) HGB A1C 5.4 <5.7 % 10/17/2024 9:17 AM CDT [facility] Comment: INCREASED RISK OF DIABETES <5.7% NON-DIABETES 5.7-6.4% INCREASED RISK FOR FUTURE DIABETES > OR = 6.5 CONSISTENT WITH DIABETES STANDARDS OF MEDICAL CARE IN DIABETES-2010 DIABETES CARE, 33(SUPP 1): S1-S61,2010 ESTIMATED AVG GLUCOSE 108 mg/dL 10/17/2024 9:17 AM CDT [facility] 10/17/2024 12:1 0 AM CDT us Donato Barba MD LABORATORY Final Result Performing Organization Address [facility] Co de Phone Number [facility] [address] [place] [address], [place] [phone] documented in this encounter Visit Diagnoses Not on filedocumented in this encounter Care Teams Captain Of Guards Relationship Specialty Start Date End Date Moreno Woodward MD [address] [facility] [address] [place] [address] PCP - General FAMILY PRACTICE 03/25/22 Olivier Miramontes MD [address] [place] [address] CARDIOVASCULAR DISEASE 07/14/24 documented as of this encounter
--- OUTSIDE RECORDS SUMMARY | 2024-10-17 14:02 | XMS_ITS | Encounter Summary ---
Author Organization [facility] Address [address] [place] [address] Care Team Providers Care Starcher And Tenter Range Feeder Name Role Phone Moreno Woodward MD Primary Care Provider [phone] Jignesh Weller MD Unavailable [phone] Encounter Details Date Type Department Care Team (Late st Contact Info) Description 10/13/2017 Lab Requisition [facility] [address] [place] [id number] Mehrdad [place] [address] Social History Tobacco Use Types Packs/Day Years Used Date Smoking Tobacco: Never Alcohol Use Standard Drinks/Week Comments No 0 (1 standard drink = 0.6 oz pur e alcohol) Comments Unknown Sex and Gender Information Value [...] AM CDT) Case Report Dermatopathology Report Case: [id number] Authorizing Provider: Mehrdad Mariano MD Collected: 10/12/2017 12:00 AM Pathologist: Floridalma Vyas MD Received: 10/13/2017 12:13 PM Specimens: A) - Skin, above tip of nose B) - Skin, right distal thigh 8 5:00 PM T DERMATOPATHOLOGY LABORATORY Final Diagnosis Specimen A. 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 SKIN, right distal thigh: SEBORRHEIC KERATOSIS, IRRITATED AND INFLAMED (L82.0) NOT PRESENT AT SAMPLED MARGIN 5:00 PM T DERMATOPATHOLOGY LABORATORY Clinical History A: R/O BCC vs SCC. Check margins. B: R/O ISK. Check margins. 5:00 PM T DERMATOPATHOLOGY LABORATORY Gross Description Specimen A: Received is one formalin filled container labeled with the patient's name and designated above tip of nose. The specimen consists of a punch biopsy measuring [id number]. The margin is inked green. Jar 0. Specimen B: Received is one formalin filled container labeled with the patient's name and designated right distal thigh. The specimen consists of a shave biopsy measuring [id number]. The margin is inked green. Jar 0. 8 5:00 PM T DERMATOPATHOLOGY LABORATORY Microscopic Description Specimen A. SKIN, [...] at the sampled margin of the specimen. 8 5:00 PM CDT DERMATOPATHOLOGY LABORATORY Disclaimer An external and internal positive and negative controls are appropriate for the histochemical, immunohistochemical and immunofluorescence stain(s) in this case (if any), except where stated explicitly. The performance characteristics of the stain(s) cited in this report were developed and its performance characteristic determined by the Dermatopathology Laboratory at [facility]. These tests need not be, and therefore are not, approved by the [place] Food and Drug Administration. The tests are used for clinical purposes. Billing Codes Specimen Charges Stain Charges 29052 16439 1 1 81043 47970 40159 67450 1 1 1 1 8 5:00 PM CDT DERMATOPATHOLOGY LABORATORY Embedded Images 8 5:00 PM CDT DERMATOPATHOLOGY LABORATORY Pathology/Cytology TISSUE SPECIMEN FROM SKIN / Unknown 10/12/2017 10/13/2017 12:13 PM CDT Miscellaneous samples (specimen) TISSUE SPECIMEN FROM SKIN / Unknown 10/12/2017 10/13/2017 12:13 PM CDT Mehrdad Mariano MD LAB - PATHOLOGY/CYTOLOGY ORD ERABLES Final Result DERMATOPATHOLOGY LABORATORY [facility] - Department of Dermatology [address] [facility] 5th [address] [phone] documented in this encounter Visit Diagnoses Not on filedocumented in this encounter Care Teams Starcher And Tenter Range Feeder Relationship Specialty Start Date End Date Moreno Woodward MD [address] [place] [address] PCP - General Family Medicine 03/24/17 Jignesh Weller MD [address] [place] [address] Desktop Manager Electrophysiology 12/03/20 documented as of this encounter
--- OUTSIDE RECORDS SUMMARY | 2024-10-17 14:02 | XMS_ITS | Referral Summary ---
Author Organization [facility] Address [address] [place] [address] Care Team Providers Care Lead Janitor Name Role Phone Moreno Woodward MD Primary Care Provider Jose Angel Cody MD Unavailable [phone] Encounters Date Type Department Care Team Description 08/20/2024 Telephone [facility] Movement Disorders [address] [place] [phone] Lurdes Friedman CMA from Last 3 [...] 04/02/2019 Assessment & Plan (08/08/2023 10:53 AM INK MAKER): Images from the original note were not [...] would need to be done either in [place] or [place]. I discussed with her all aspects of [...] it is helping her tremor. 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 Overview (09/27/2023): Neoplasm of uncertain behavior of other and unspecified female genital organs;Recorded Elsewhere: No Location: [facility] Source: EHR Chronic: N Practice ID: [id number] [...] on file Legal Sex Female 3:30 AM INK MAKER Gender Identity Not on file Sexual Orientation Not on file 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 Not on file Not on file Last Filed Vital Signs Vital Sign Reading Time Taken Comments Blood Pressure 122/70 06/04/2024 9:19 AM INK MAKER Pulse 85 06/04/2024 9:19 AM INK MAKER Temperature 36.2 C (97.1 F) 04/19/2022 9:03 AM CDT Respiratory Rate 16 03/03/2017 2:48 PM CDT Oxygen Saturation 96% 06/04/2024 9:19 AM INK MAKER Inhaled Oxygen Concentration - - Weight 94.3 kg (208 lb) 06/04/2024 9:19 AM INK MAKER Height 160 cm (5' 3 ) 06/04/2024 9:19 AM INK MAKER Body Mass Index 36.85 06/04/2024 9:19 AM INK MAKER Plan of Treatment Not on file Insurance MEDICARE [facility] MEDICARE [facility] MEDICARE [facility] MEDICARE [facility] Care Teams Lead Janitor Relationship Specialty Start Date End Date Moreno Woodward MD [address] [facility] [address] [place] [address] PCP - General 08/04/16 Jose Angel Cody MD [address] [place] [address] Consulting Physician Rheumatology 01/27/24
--- OUTSIDE RECORDS SUMMARY | 2024-10-17 14:02 | XMS_ITS | Clinical Summary ---
Author Organization [facility] Address [address] [place] [address] Phone Care Team Providers Care Special Education Administrator Name Role Phone Moreno Woodward MD Primary Care Provider [phone] Allergies No known active allergies Medications acetaminophen [...] it is helping her tremor. Though her dough raiser has given the okay, she is reluctant [...] on file Legal Sex Female 9:55 AM [email or web address] Gender Identity Not on file Sexual Orientation [...] Medium Risk (1 of 4 - PCV) 1996 Influenza Vaccine (Season Ended) 2025 08/05/19 16 Insurance MEDICARE [facility] MEDICARE SUPPLEMENT Care Teams Special Education Administrator Relationship Specialty Start Date End Date Moreno Woodward MD [address] [facility] [address] [facility] [address] [place] [address] PCP - General Internal Medicine 06/29/21
--- OUTSIDE RECORDS SUMMARY | 2024-10-17 14:02 | XMS_ITS | Clinical Summary ---
Author Organization [facility] Address [address] [place] [address] Care Team Providers Care Mine Patrol Name Role Phone Moreno Woodward MD Primary Care Provider [phone] Olivier Miramontes MD Unavailable [phone] Allergies No known active allergies Medications acetaminophen [...] Encounters Date Type Department Care Team Description 10/17/2024 7:00 AM CDT Laboratory Only [facility] [address] [place] [address] Donato Barba MD Arrived from Last 3 Months Social History Tobacco Use Types Packs/Day Years Used Date Smoking Tobacco: Never Smokeless Tobacco: Never Tobacco Cessation:Counseling Given: Not Answered Comments Unknown Sex and Gender Information Value Date Recorded Sex Assigned at Female 07/14/2024 9:23 AM 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 Legal Sex Female 11:04 PM CDT Gender Identity Not on file Sexual Orientation Not on file Last Filed Vital Signs Vital Sign Reading Time Taken Comments Blood Pressure 151/71 07/14/2024 12:00 PM 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 ASSOCIATE Pulse 101 07/14/2024 12:00 PM 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 ASSOCIATE Temperature 37.6 C (99.6 F) 07/14/2024 12:00 PM 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 ASSOCIATE Respiratory Rate 20 07/14/2024 12:00 PM 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 ASSOCIATE Oxygen Saturation 92% 07/14/2024 12:00 PM 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 ASSOCIATE Inhaled Oxygen Concentration - - Weight 99.6 kg (219 lb 9.3 oz) 07/14/2024 9:08 A M 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 ASSOCIATE Height 165.1 cm (5' 5 ) 07/14/2024 9:08 AM 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 ASSOCIATE Body Mass Index 36.54 07/14/2024 9:08 AM 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 ASSOCIATE Plan of Treatment Health Maintenance Due Date Last Done Comments Hepatitis C 1963 Pneumococcal Vaccine: 50+ Years (1 of 1 - PCV) 1996 Zoster Vaccines (1 of 2) 1996 Annual Medicare Wellness Visit 10/02/2011 RSV Immunization or 60+ Years (1 [...] Procedure Name Priority Date/Time Associated Diagnosis Comments VITAMIN D, 25 OH Routine 10/17/2024 12:1 0 AM CDT HEALTH FAIR WITH LIPID Routine 10/17/2024 12:10 AM CDT HEMOGLOBIN, GLYCOSYLATED Routine 10/17/2024 12:10 AM CDT FECAL BLOOD FIT SCREEN Routine 04/07/2018 12:27 AM CDT BONE DENSITY/DEXA Routine 10/24/2013 12: 14 PM CDT from Last 3 Months or Most Recently Relevant to Health Maintenance Results * (ABNORMAL) HEALTH FAIR WITH LIPID (10/17/2024 12:10 AM CDT) WBC 6.47 4.4 - 11.0 x10'3/uL 10/17/2024 7:52 AM CDT [facility] RBC 4.32(L) 4.50 - 5.10 x10'6/uL 10/17/2024 7:52 AM CDT [facility] HGB 13.5 12.3 - 15.3 G/DL 10/17/2024 7:52 AM CDT [facility] HCT 41.1 35.9 - 44.6 % 10/17/2024 7:52 AM CDT [facility] MCV 95.1 80.0 - 96.0 FL 10/17/2024 7:52 AM CDT [facility] MCH 31.3(H) 25.3 - 30.9 PG 10/17/2024 7:52 AM CDT [facility] MCHC 32.8 31.0 - 34.1 G/DL 10/17/2024 7:52 AM CDT [facility] RDW 13.6 12.4 - 15.1 % 10/17/2024 7:52 AM CDT [facility] PLT 292 151 - 353 x10'3/uL 10/17/2024 7:52 AM CDT [facility] MPV 9.8 9.6 - 12.0 FL 10/17/2024 7:52 AM CDT [facility] RBC MORPHOLOGY NORMAL 10/17/2024 7:52 AM CDT [facility] PLT MORPH. NORMAL 10/17/2024 7:52 AM T [facility] WBC MORPHOLOGY NORMAL 10/17/2024 7:52 AM T [facility] LYMPHOCYTES % 26.3 15.8 - 45.0 % 10/17/2024 7:52 AM CDT [facility] NEUTROPHILS % 60.0 42.1 - 71.9 % 10/17/2024 7:52 AM CDT [facility] MONOCYTES % 8.7 5.7 - 12.5 % 10/17/2024 7:52 AM CDT [facility] EOSINOPHILS 3.9 0.0 - 5.6 % 10/17/2024 7:52 AM T [facility] BASOPHILS 0.8 0.0 - 1.3 % 10/17/2024 7:52 AM T [facility] ABS. NEUTROPHILS 3.89 1.40 - 6.00 x10'3/uL 10/17/2024 7:52 AM T [facility] IMMATURE GRANS % 0.3 0.0 - 0.5 % 10/17/2024 7:52 AM T [facility] ABS. LYMPHOCYTES 1.70 0.80 - 4.70 x10'3/uL 10/17/2024 7:52 AM T [facility] GLUCOSE 97 70 - 99 MG/DL 10/17/2024 8:26 AM [facility] BUN 24(H) 7 - 18 MG/DL 10/17/2024 8:26 AM [facility] CREATININE S/P/B 0.97 0.55 - 1.02 MG/DL 10/17/2024 8:26 AM [facility] SODIUM S/P/B 141 136 - 145 MMOL/L 10/17/2024 8:26 AM [facility] POTASSIUM S/P/B 3.6 3.5 - 5.1 MMOL/L 10/17/2024 8:26 AM [facility] CHLORIDE S/P/B 102 100 - 108 MMOL/L 10/17/2024 8:26 AM [facility] CO2 31.8 21 - 32 MMOL/L 10/17/2024 8:26 AM [facility] CALCIUM S/P/B 9.4 8.5 - 10.1 MG/DL 10/17/2024 8:26 AM [facility] BILIRUBIN TOTAL S/P/B 0.5 0.2 - 1.2 MG/DL 10/17/2024 8:26 AM [facility] TOTAL PROTEIN S/P/B 7.0 6.4 - 8.2 G/DL 10/17/2024 8:26 AM [facility] ALBUMIN S/P/B 3.3(L) 3.4 - 5.0 G/DL 10/17/2024 8:26 AM [facility] AST 16 15 - 37 U/L 10/17/2024 8:26 AM [facility] ALT 20 14 - 55 U/L 10/17/2024 8:26 AM [facility] ALKALINE PHOSPHATASE S/P/B 79 50 - 136 U/L 10/17/2024 8:26 AM [facility] ANION GAP 7.2 5 - 15 MMOL/L 10/17/2024 8:26 AM [facility] BUN CREATININE RATIO 24.7 6 - 26 10/17/2024 8:26 AM [facility] A/G RATIO 0.9(L) 1.0 - 2.0 RATIO 10/17/2024 8:26 AM [facility] GFR ESTIMATE 60(L) >90 ML/MIN/1. 73 M2 10/17/2024 8:26 AM [facility] Comment: NOTE: eGFR is not calculated for patients <18 years of age. This is an estimated GFR calculation using the new CKD EPI creatinine equation without race and so does not require a correction factor for race. This estimated GFR should not be used for calculating drug doses. TSH 2.517 0.358 - 3.74 uIU/ML 10/17/2024 8:26 AM [facility] Comment: HIGH DOSES OF BIOTIN MAY INTERFERE WITH THIS TEST RESULT. CORRELATION TO CLINICAL HISTORY AND PRESENTATION RECOMMENDED. CHOLESTEROL 238(H) <200.0 MG/DL 10/17/2024 8:26 AM [facility] TRIGLYCERIDES 91 <150 MG/DL 10/17/2024 8:26 AM [facility] HDL 90 >40.0 MG/DL 10/17/2024 8:26 AM [facility] LDL (CALCULATED) 130(H) <100 MG/DL 10/17/2024 8:26 AM [facility] NON HDL CHOLESTEROL 148(H) <130 MG/DL 10/17/2024 8:26 AM [facility] CHOL/HDL RATIO 2.6 0.0 - 4.5 10/17/2024 8:26 AM [facility] VLDL CALCULATION 18 5 - 55 MG/DL 10/17/2024 8:26 AM CDT [facility] LIPID INTERPRETATION 10/17/2024 8:26 AM CDT [facility] Comment: NIH [facility] REPORT RECOMMENDATIONS: [...] MD LABORATORY Final Result Performing Organization Address [facility] de Phone Number [facility] [address] [place] [address], [place] [phone] * HEMOGLOBIN, GLYCOSYLATED (10/17/2024 12:10 AM CDT) HGB A1C 5.4 <5.7 % 10/17/2024 9:17 AM CDT [facility] Comment: INCREASED RISK OF DIABETES <5.7% NON-DIABETES 5.7-6.4% INCREASED RISK FOR FUTURE DIABETES > OR = 6.5 CONSISTENT WITH DIABETES STANDARDS OF MEDICAL CARE IN DIABETES-2010 DIABETES CARE, 33(SUPP 1): S1-S61,2010 ESTIMATED AVG GLUCOSE 108 mg/dL 10/17/2024 9:17 AM CDT [facility] 10/17/2024 12:1 0 AM CDT Donato Barba MD LABORATORY Final Result Performing Organization Address [facility] Co de Phone Number [facility] [address] [place] [address], * VITAMIN D, 25 OH (10/17/2024 12:10 AM CDT) VITAMIN D 25 HYDROXY S/P/B 71 30 - 100 NG/ML 10/17/2024 10:44 AM CDT [facility] Comment: INTERPRETATION DEFICIENT <20 INSUFFICIENT 20-29 SUFFICIENT 30-100 10/17/2024 12:1 0 AM CDT Donato Barba MD LABORATORY Final Result Performing Organization Address [facility] Co de Phone Number [facility] [address] [place] [address], * FECAL BLOOD FIT SCREEN (04/07/2018 12:27 AM CDT) FECAL BLOOD FIT SCRN NEGATIVE NEGATIVE 04/11/2018 7:13 AM CDT [facility] STOOL SPECIMEN / Unknown 04/07/2018 12:27 AM CDT 04/07/2018 12:28 AM CDT Wesley Antony Md, MD BODY FLUIDS AND STOOLS ORDERABLES Final Result Performing Organization Address [facility] de Phone Number [facility] [address] [place] [address], [place] [phone] * BONE DENSITY/DEXA (10/24/2013 12:14 PM CDT) Anatomical Region Laterality Modality Bone Bone Density 10/24/2013 12:1 4 PM CDT 10/24/2013 12:14 PM CDT Narrative 10/24/2013 2:51 PM CDT PRISCILLA WILBURN MD: GUSTAVO COURTNEY MD ACCT: [id number] ADMIT/SERVICE DATE: 10/24/13 DISCHARGE DATE: : 1945 PT TYPE: REG CLI SEX: F ORD SITE: [facility] STUDY DATE REPORT # PROCEDURE CODE PROCEDURE 10/24/13 [id number] DEXASCAN XR DEXA SCAN EXTORDERID [id number] CHART DOCUMENT DIVISION OF RADIOLOGY ACCESSION # EXAM DATE EXAM DESCRIPTION [id number] 10/24/2013 XR DEXA SCAN IMAGING STUDIES: BONE [...] SIGNED BY ENRICO FAM MD 10/24/2013 14:49 CRR/DJM 10/24/201312:14 P 10/24/2013 1:44 P JOB NO: DOC NO: [id number] CC: Procedure Note Wesley Prabhakar MD - 04/14/2018 PRISCILLA WILBURN MD: GUSTAVO COURTNEY MD ACCT: [id number] ADMIT/SERVICE DATE: 10/24/13 DISCHARGE DATE: : 1945 PT TYPE: REG CLI SEX: F ORD SITE: [facility] STUDY DATE REPORT # PROCEDURE CODE PROCEDURE 10/24/13 [id number] DEXASCAN XR DEXA SCAN EXTORDERID [id number] CHART DOCUMENT DIVISION OF RADIOLOGY ACCESSION # EXAM DATE EXAM DESCRIPTION [id number] 10/24/2013 XR DEXA SCAN IMAGING STUDIES: BONE [...] 10/24/2013 1:44 P JOB NO: DOC NO: [id number] CC: Gustavo Courtney MD DEXA Final Result from Last 3 Months or Most Recently Relevant to Health Maintenance Insurance MEDICARE [facility] [address] [place] [id number] Care Teams Mine Patrol Relationship Specialty Start Date End Date Moreno Woodward MD [address] [place] [address] PCP - General FAMILY PRACTICE 03/25/22 Olivier Miramontes MD [address] [facility] [address] [place] [id number] CARDIOVASCULAR DISEASE 07/14/24
--- OUTSIDE RECORDS SUMMARY | 2024-10-17 14:02 | XMS_ITS | Encounter Summary ---
Author Organization [facility] Address [address] [place] [address] Care Team Providers Care Electronics Assembler Name Role Phone Moreno Woodward MD Primary Care Provider [phone] Jignesh Weller MD Unavailable [phone] Encounter Details Date Type Department Care Team (Late st Contact Info) Description 05/01/2024 Lab Requisition [facility] - DermPath Lab [address] [facility] [place] [id number] Mehrdad [place] [address] Social History Tobacco Use Types [...] Comments DERMATOPATHOLOGY Routine 04/30/2024 12:0 0 AM MEDICAL MICROBIOLOGIST documented in this encounter Results * DERMATOPATHOLOGY (04/30/2024 12:00 AM MEDICAL MICROBIOLOGIST) Case Report Dermatopathology Report Case: [id number] Authorizing Provider: Mehrdad Mariano MD Collected: 04/30/2024 12:00 AM Ordering Location: [facility] Physician [facility] - Received: 05/01/2024 02:37 PM DermPath Lab Pathologist: Darby Nation MD Specimen: Skin, right superior pretibia 3:07 PM [facility] DERMATOPATHOLOGY [facility]ORATORY Final Diagnosis Specimen A. SKIN, right superior pretibia: SEBORRHEIC KERATOSIS, IRRITATED AND INFLAMED (L82.0) NOT PRESENT AT SAMPLED MARGIN 3:07 PM [facility] DERMATOPATHOLOGY [facility]ORATORY Clinical History R/O SK Please check margins 3:07 PM [facility]ERMATOPATH[facility] Gross Description Specimen A: Received is one formalin filled container labeled with the patients name and designated right superior pretibia. The specimen consists of a shave removal measuring 61i52f2 mm. Jar 0. 3:07 PM [facility] DERMATOPATHOLOGY [facility]ORY Microscopic Description Specimen A. SKIN, right superior pretibia: Sections show acanthosis, papillomatosis, hyperkeratosis, and squamous eddies. There is a lymphohistiocytic infiltrate within the papillary dermis. This lesion is not present at the sampled margin of the specimen. 3:07 PM [facility] DERMATOPATHOLOGY [facility]ORATORY Disclaimer An external and internal positive and negative controls are appropriate for the histochemical, immunohistochemical and immunofluorescence stain(s) in this case (if any), except where stated explicitly. The performance characteristics of the stain(s) cited in this report were developed and its performance characteristic determined by the Dermatopathology Laboratory at [facility], directed by Dr. Amparo Pugh. These tests need not be, and therefore are not, approved by the [place] Food and Drug Administration. The tests are used for clinical purposes. Billing Codes Specimen Charges Stain Charges 78652 1 3:07 PM [facility] DERMATOPATHOLOGY [facility]ORATORY Embedded Images 3:07 PM [facility] DERMATOPATH[facility] Pathology/Cytolog y TISSUE SPECIMEN FROM SKIN / Unknown 04/30/2024 05/01/2024 2:37 PM MEDICAL MICROBIOLOGIST us Mehrdad Mariano MD LAB - PATHOLOGY/CYTOLOGY ORD ERABLES Final Result DERMATOPATHOLOGY LABORATORY [facility] - Department of Dermatology [facility] Specialized Medicine [address] [place] [address], [address] [phone] documented in this encounter Visit Diagnoses Not on filedocumented in this encounter Care Teams Electronics Assembler Relationship Specialty Start Date End Date Moreno Woodward MD [address] [place] [address] PCP - General Family Medicine 03/24/17 Jignesh Weller MD [address] [place] [address] Hedis Coordinator Electrophysiology 12/03/20 documented as of this encounter
--- OUTSIDE RECORDS SUMMARY | 2024-10-17 14:02 | XMS_ITS | Encounter Summary ---
Author Organization [facility] Address [facility] [place] [address] Care Team Providers Care Couture Dressmaker Name Role Phone None, Provider Primary Care Provider UnavailMoreno Al MD Primary Care Provider [phone] Olivier Miramontes MD Unavailable Encounter Details Date Type Department Care Team (Latest Contact Info) Description 04/25/2018 Abstract [facility] , Wesley Antony MD Social History Tobacco Use Types Packs/Day Years Used Date Smoking Tobacco: Never Comments Unknown Sex and Gender Information Value Date Recorded Sex Assigned at Female 07/14/2024 9:23 AM DIRECTOR MEDICAL WRITING Legal Sex Female 11:04 PM CDT Gender Identity Not on file Sexual Orientation Not on file documented as of this encounter Plan of Treatment Not on file documented as of this encounter Visit Diagnoses Not on filedocumented in this encounter Additional Health Concerns Infection Onset Date Last Indicated Resolved Time COVID-19 Rule Out 07/14/2024 07/14/2024 07/14/2024 9:35 AM DIRECTOR MEDICAL WRITING documented as of this encounter Care Teams Couture Dressmaker Relationship Specialty Start Date End Date None, Provider, PCP - General 10/09/20 03/24/22 Moreno Woodward MD [address] [facility] [address] [place] [address] PCP - General FAMILY PRACTICE 03/25/22 Olivier Miramontes MD [address] [place] [id number] CARDIOVASCULAR DISEASE 07/14/24 documented as of this encounter
--- OUTSIDE RECORDS SUMMARY | 2024-10-17 14:02 | XMS_ITS | Clinical Summary ---
Author Organization [facility] Address [address] [place] [address] Care Team Providers Care Manufacturing Technician Name Role Phone Moreno Woodward MD Primary Care Provider Jose Angel Cody MD Unavailable [phone] Allergies No known active allergies Medications [...] 04/02/2019 Assessment & Plan (08/08/2023 10:53 AM GASOLINE ENGINE INSPECTOR): Images from the original note were not [...] would need to be done either in [place] or [place]. I discussed with her all aspects of [...] it is helping her tremor. Though her charge account identification clerk has given the okay, she is reluctant [...] vulva and perineum, unspecified;Recorded Elsewhere: No Location: [facility] Source: EHR Chronic: N Practice ID: [...] specified female genital organs;Recorded Elsewhere: No Location: 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 Source: EHR Chronic: N Practice ID: [...] Type Department Care Team Description 08/20/2024 Telephone [facility] Movement Disorders [address] [place] [phone] Lurdes Friedman CMA from Last 3 Months [...] on file Legal Sex Female 3:30 AM GASOLINE ENGINE INSPECTOR Gender Identity Not on file Sexual Orientation Not on file 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 Not on file Not on file Obstetrics History Last Filed Vital Signs Vital Sign Reading Time Taken Comments Blood Pressure 122/70 06/04/2024 9:19 AM GASOLINE ENGINE INSPECTOR Pulse 85 06/04/2024 9:19 AM GASOLINE ENGINE INSPECTOR Temperature 36.2 C (97.1 F) 04/19/2022 9:03 AM CDT Respiratory Rate 16 03/03/2017 2:48 PM CDT Oxygen Saturation 96% 06/04/2024 9:19 AM GASOLINE ENGINE INSPECTOR Inhaled Oxygen Concentration - - Weight 94.3 kg (208 lb) 06/04/2024 9:19 AM GASOLINE ENGINE INSPECTOR Height 160 cm (5' 3 ) 06/04/2024 9:19 AM GASOLINE ENGINE INSPECTOR Body Mass Index 36.85 06/04/2024 9:19 AM GASOLINE ENGINE INSPECTOR Plan of Treatment Health Maintenance Due Date Last Done Comments Fall Risk Assessment 1945 Hepatitis C Screening 1945 Pneumococcal vaccine 65+ (1 of 1 - PCV) 1996 Zoster Vaccine (1 of 2) 1996 Well Visit 65+ 10/02/2011 Osteoporosis Screening-Bone Density Scan 10/25/2015 10/24/2013 Depression Screening 04/19/2023 04/19/2022 Influenza Vaccine (Season Ended) 2025 08/05/19 16 DTaP/Tdap/Td Vaccine (3 - Td or Tdap) 10/05/2029 10/06/2019, 04/25/2013 Breast Cancer Screening-Mammogram Discontinued 07/20/2023, 05/19/2022, 05/01/2021, Additional history exists Hepatitis B Screening Completed 01/16/2024 Insurance MEDICARE [employer] [facility] MEDICARE [employer] [facility] MEDICARE [facility] MEDICARE [facility] Care Teams Manufacturing Technician Relationship Specialty Start Date End Date Moreno Woodward MD [address] [place] [address] PCP - General 08/04/16 Jose Angel Cody MD [address] [place] [address] Consulting Physician Rheumatology 01/27/24
== END 2024-10-17 13:10 | disposition home or self-care (01) ==
LOC: ANHIMG 13:13
PROVIDERS: PCP Family Medicine; Visit Provider Obstetrics & Gynecology
DX: M81.0 Age-related osteoporosis without current pathological fracture (principal); M85.89 Other specified disorders of bone density and structure, multiple sites; Z78.0 Asymptomatic menopausal state
CPT/HCPCS: 77080

== ENCOUNTER 2024-11-02 08:45 | Outpatient (CLI) | payer MEDICARE, SELFPAY ==
--- NOTE | ~2024-11-02 | MMUS_ITS ---
EXAMINATION: US breast RT complete, MM diagnostic ann marie RT w adria HISTORY: Follow-up right breast asymmetry TECHNIQUE: Additional 3-D tomosynthesis images of the right breast were performed and synthetic 2-D i mages were generated. CAD analysis was submitted and interpreted. High resolution complete right jason st ultrasound was performed. COMPARISON: Comparison to multiple prior studies sequentially, with oldest reviewed study dated 02/10. BREAST PARENCHYMAL COMPOSITION: Not dense: There are scattered areas of fibroglandular density. FINDINGS: MAMMOGRAPHIC FINDINGS: There is a persistent small oval circumscribed mass in the lower outer quadrant of the right breast, middle third measuring 6 mm. ULTRASOUND: Complete US of all 4 quadrants of the right breast/s and retroareolar region was reviewed. At 8:00, 6 cm from the nipple there is an irregular shaped antiparallel hypoechoic mass with adjacent echogenic soft tissue and posterior shadowing. The entirety of the area measures approximately 1.8 cm on longi tudinal image. This may correspond to the area focal mass seen on mammogram. IMPRESSION: 1. Complex heterogeneous soft tissue of the right breast at 8:00, 6 cm from the nipple measuring up t o 1.8 cm with marginal antiparallel hypoechoic structure. 2. Ultrasound-guided right breast biopsy recommended. BI-RADS category 4, suspicious findings. Reviewed, dictated and finalized at location A. IMPRESSION: 1. Complex heterogeneous soft tissue of the right breast at 8:00, 6 cm from the nipple measuring up to 1.8 cm with marginal antiparallel hypoechoic structure. 2. Ultrasound-guided right breast biopsy recommended. BI-RADS category 4, suspicious findings.
== END 2024-11-02 08:46 | disposition home or self-care (01) ==
LOC: MICIMG 08:47
PROVIDERS: PCP Family Medicine; Visit Provider Obstetrics & Gynecology
DX: R92.8 Other abnormal and inconclusive findings on diagnostic imaging of breast (principal)
CPT/HCPCS: 76641; 77061; 77065; G0279

== ENCOUNTER 2025-01-03 09:48 | Outpatient (CLI) | payer MEDICARE, SELFPAY ==
--- NOTE | ~2025-01-03 | MR_ITS ---
MR breast BI wo/w con 01/04/2025 07:11 CDT INDICATION: Complex soft tissue the right breast seen on recent examination. TECHNIQUE: MRI of the breasts perform using standard protocol pre-and post IV contrast with the follo wing sequences: Axial T2 STIR, axial T1, axial vibrant T1 with fat suppression precontrast and multip hasic postcontrast. 20 cc MultiHance administered intravenously COMPARISON: Comparison to multiple prior studies sequentially, with oldest reviewed study dated 04/22. FINDINGS: There are no abnormalities on the precontrast sequences. There is mild background parenchym al enhancement. No enhancing lesions following contrast administration. No areas of enhancement emerald ting threshold criteria on CAD analysis. No evidence of signal abnormalities in the axillary or inte rnal mammary node distributions. LEFT BREAST: No signal abnormalities on precontrast sequences. There is mild background parenchymal enhancement. No enhancing lesions following contrast administration. No areas of enhancement meeti ng threshold criteria on CAD analysis. No evidence of signal abnormalities in the axillary or inter nal mammary node distributions. IMPRESSION: 1: Right breast: Negative. No evidence of malignancy. Given the lack of enhancement corresponding to the abnormality in the right breast seen on prior ultrasound dated 11/02/2024, this area likely rep resents benign fat necrosis. Six-month follow-up Limited right breast ultrasound recommended. BI-RADS Category 3. 2: Left breast: Negative. No evidence of malignancy. BI-RADS category 1. Recommend annual mammogr aphy follow-up. Follow-up MRI may be useful for supplementing mammographic evaluation as clinically indicated. Reviewed, dictated and finalized at location B. IMPRESSION: 1: Right breast: Negative. No evidence of malignancy. Given the lack of enha ncement corresponding to the abnormality in the right breast seen on prior ultr asound dated 11/02/2024, this area likely represents benign fat necrosis. Six-mo nth follow-up Limited right breast ultrasound recommended. BI-RADS Category 3. 2: Left breast: Negative. No evidence of malignancy. BI-RADS category 1. Re commend annual mammography follow-up. Follow-up MRI may be useful for supplementing mammographic evaluation as clinic ally indicated.
--- OUTSIDE RECORDS SUMMARY | 2025-01-03 09:53 | XMS_ITS | Clinical Summary ---
Author Organization [facility] Address [address] [place] [id number] Phone Care Team Providers Care Director Fundraising Name Role Phone Moreno Woodward MD Primary Care Provider [phone] Allergies No known active allergies Medications acetaminophen [...] it is helping her tremor. Though her dry wall nailer has given the okay, she is reluctant [...] file Legal Sex Female 9:55 AM [facility] Gender Identity Not on file Sexual Orientation [...] 2:24 PM CDT Height 162.6 cm (5' 4) 02/08/2022 2:24 PM CDT Body Mass Index 35.19 02/08/2022 2:24 PM CDT Plan of Treatment Health Maintenance Due Date Last Done Comments Pneumococcal PPSV23/PCV13 65 + Years / Low and Medium Risk (1 of 2 - PCV) 1996 Influenza Vaccine (#1) 2025 08/05/2015 Insurance MEDICARE [facility] MEDICARE SUPPLEMENT Care Teams Director Fundraising Relationship Specialty Start Date End Date Moreno Woodward MD [address] [facility] [address] [facility] [address] [place] [address] PCP - General Internal Medicine 06/29/21
--- OUTSIDE RECORDS SUMMARY | 2025-01-03 09:53 | XMS_ITS | Referral Summary ---
Author Organization [facility] Address [address] [place] [address] Care Team Providers Care Cryptographer Name Role Phone Moreno Woodward MD Primary Care Provider Jose Angel Cody MD Unavailable [phone] Allergies No known active allergies Medications [...] 04/02/2019 Assessment & Plan (08/08/2023 10:53 AM NURSE REVIEWER): Images from the original note were not [...] risks, benefits, potential medical consequences and complications (side effects), alternatives and indications for treatment were discussed. [...] would need to be done either in [place] or [place]. I discussed with her all aspects of [...] risks, benefits, potential medical consequences and complications (side effects), alternatives and indications for treatment were discussed. [...] it is helping her tremor. 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 Overview (09/27/2023): Neoplasm of uncertain behavior of other and unspecified female genital organs;Recorded Elsewhere: No Location: [facility] Source: EHR Chronic: N Practice [...] on file Legal Sex Female 3:30 AM NURSE REVIEWER Gender Identity Not on file Sexual Orientation Not on file 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 Not on file Not on file Last Filed Vital Signs Vital Sign Reading Time Taken Comments Blood Pressure 122/70 06/04/2024 9:19 AM NURSE REVIEWER Pulse 85 06/04/2024 9:19 AM NURSE REVIEWER Temperature 36.2 C (97.1 F) 04/19/2022 9:03 AM CDT Respiratory Rate 16 03/03/2017 2:48 PM CDT Oxygen Saturation 96% 06/04/2024 9:19 AM NURSE REVIEWER Inhaled Oxygen Concentration - - Weight 94.3 kg (208 lb) 06/04/2024 9:19 AM NURSE REVIEWER Height 160 cm (5' 3) 06/04/2024 9:19 AM NURSE REVIEWER Body Mass Index 36.85 06/04/2024 9:19 AM NURSE REVIEWER Plan of Treatment Not on file Insurance MEDICARE [facility] MEDICARE [facility] MEDICARE [facility] MEDICARE [facility] Care Teams Cryptographer Relationship Specialty Start Date End Date Moreno Woodward MD [address] [facility] [address] [place] [address] PCP - General 08/04/16 Jose Angel Cody MD [address] [place] [address] Consulting Physician Rheumatology 01/27/24
--- OUTSIDE RECORDS SUMMARY | 2025-01-03 09:53 | XMS_ITS | Data Portability ---
Author Organization [facility] [place] Address [address] [place] [address] Care Team Providers Care Tank Calibrator Name Role Phone DIANNE MENSAH Primary Care Provider [phone] Assessment Encounter Date Assessment Date Assessment LastModified [...] Abnormal Flag Note LastModifiedBy Organization Detail LastModifiedTime 11/27/1911/26/2020 pap, IG + HR HPV image guided Pap, HPV regardless of Pap result SEE RESULT S BELOW CASE REPOR T: Cytol ogy Gynec ologi katerine Repor t Case: [id number] Autho millie mccullough Provi eli: Gaby Cruz MD Colle cted: 11/26 1651 Order ing Locat ion: [place] [facility] Recei opal: 11/27 0113 First Scree n: Liza Lopez ret, CT Speci men: Scree mir Pap - Image d, Cervi x STATE MENT OF ADEQU ACY: Satis facto ry for evalu ation Trans forma tion zone compo nent prese nt FINAL DIAGN OSIS: Negat eva for Intra epith elial Lesio n or Anny delatorre Elect frank elise felix d by Liza [...] as clini mariela teixeira nted. Not Available [facility] (Lab) [address] [facility], [place], [address], 11/27/2020 15:31:38 04/09/20 24 04/09/2024 IMAGE GUIDE D PAP AND HPV REGAR DLESS image guided Pap, HPV regardless of Pap result SEE RESULT S BELOW CASE REPOR T: Cytol ogy Gynec ologi katerine Repor t Case: [id number] Autho millie g Provi eli: Gaby Cruz MD Colle cted: 04/09 1621 Order ing Locat ion: [place] [facility] Recei opal: 04/10 0643 First Scree n: Temo Tavarez, CT Speci men: Shalini maganag Pap - Image d, Cervi x STATE MENT OF ADEQU ACY: Satis facto ry for evalu ation Trans forma tion zone compo nent prese nt ----- ----- ----- ----- ----- ----- ----- ----- ----- ----- ----- ----- ----- ----- ----- ----- ----- ---- FINAL DIAGN OSIS: Negat eva for Intra epith elial Lesio n or Anny delatorre ([facility]) . Elect frank elise felix d by [...] tigat ion is recom jocelyn d, as leon teixeira nted. Not Available [facility] (Lab) [address], [place], [address], 04/14/2024 07:42:41 05/01/20 21 05/01/2021 MAMMO , scree mir, bilat eral No observ ation record ed. [address] [facility], [place], [address], 05/18/2021 10:47:09 05/19/20 22 05/19/2022 MAMMO , scree mir, bilat eral No observ ation record ed. [address] [facility], [place], [address], 09/22/2023 09:24:50 07/20/19 24 07/20/2023 MAMMO , scree mir, bilat eral No observ ation record ed. [address] [address], [place], [address], 08/18/2023 15:40:28 09/28/19 25 09/27/2024 MAMMO , scree mir, digit al, bilat eral No observ ation record ed. [address] [address], [place], [address], 10/09/2024 10:49:37 10/18/19 25 10/17/2024 DEXA, axial skele ton + verte bral fract ure asses sment No observ ation record ed. [address] [address], [place], [address], 10/22/2024 09:44:31 11/03/19 25 11/02/2024 MAMMO , diagn ostic , tomos ynthe sis, unila teral No observ ation record ed. [email or web address] [facility] [address], [place], [address], 11/07/2024 15:55:45 11/06/19 25 11/02/2024 MAMMO , diagn ostic , tomos ynthe sis, unila teral No observ ation record ed. [email or web address] [facility] [address], [place], [address], 11/07/2024 15:57:26 Result Notes None recorded. Problems Name Problem SNOMED Code Status Onset Date Resolution Date Notes Provider Name and Address Organization Details Recorded Time Adult health examinati on Completed 201111/26/2020 Routine Medical Exam;Zeus rded Elsewhere : No Locati on: [facility] So urce: EHR Chron ic: N Practic e ID: [id number] Bill able Time: 09:00:00 AM [facility] 16:04:08 Screening for malignant neoplasm of rectum Completed 201111/26/2020 Screening for malignant neoplasms of the rectum;Re corded Elsewhere : No Locati on: [facility] So urce: EHR Chron ic: N Practic e ID: [id number] Bill able Time: 09:00:00 AM Reyna reese [facility] 16:04:21 Specializ ed medical examinati on Completed 201111/26/2020 Routine gynecolog ical examinati on;Practi ce ID: 0001 [facility] 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 16:04:11 Neoplasti c disease of uncertain behavior Completed 201411/26/2020 Neoplasm of uncertain behavior of other specified female genital organs;Re corded Elsewhere : No Locati on: [facility] So urce: EHR Chron ic: N Practic e ID: 0001 Bill able Time: 02:30:00 PM Reyna reese [facility] 16:04:14 Noninflam matory disorder of vulva 83497731 Completed 201811/26/2020 Noninflam matory disorder of vulva and perineum, unspecifi ed;Record ed Elsewhere : No Locati on: [facility] So urce: EHR Chron ic: N Practic e ID: [id number] Bill able Time: 01:30:00 PM Reyna [facility] 16:04:17 Screening for malignant neoplasm of cervix Completed 201811/26/2020 Encounter for screening for malignant neoplasm of cervix;Re corded Elsewhere : No Locati on: [facility] So urce: EHR Chron ic: N Practic e ID: [id number] Bill able Time: 02:00:00 PM Reyna [facility] 16:04:[address] Concept Completed 201811/26/2020 Encntr for bell staff exam (general) (routine) w/o abn findings; Recorded Elsewhere : No Locati on: [facility] So urce: EHR Chron ic: N Practic e ID: [id number] Bill able Time: 02:00:00 PM Reynadanielle Moreira [facility] 16:04:24 Notes:Neoplasm of unsp behav ior of other genitourinary organs Practice ID: [id number] Problem Notes None recorded. Procedures Surgical History Date Name Laterality Status Provider Name and Address Organization Details Recorded Time 07/20/19 24 Date of Last Mammogram completed Brittany Garibay [facility] 04/09/2024 14:27:53 08/14/19 21 cardiac catheterization completed [facility] 12/01/2020 15:45:47 11/04/19 19 Date of Last Pap Smear completed [facility] 05/22/2020 15:58:43 10/19/19 18 grafting to skin completed [facility] 03/15/2022 15:09:48 10/19/19 16 partial nephrectomy completed [facility] 03/15/2022 15:09:28 04/20/20 13 procedure on wrist completed [facility] 03/15/2022 15:09:09 02/19/20 13 procedure on knee completed [facility] 03/15/2022 15:08:16 10/19/19 13 procedure on shoulder completed [facility] 11/15/2019 10:40:06 01/18/19 98 procedure on shoulder completed [facility] 11/15/2019 10:39:40 Imaging Results None recorded. Procedure Notes None recorded. Medical Equipment None [...] Prescrib ed Elsewher e: Yes [facility] By: cmedical Encount er DateTime : 05/10/20 12 09:00:00 AM Not Available Not Available Not Available hydrochlo rothiazid e 12.5 mg capsule take 2 capsule by oral route every day 12/01 completed Prescrib ed Elsewher e: Yes Loca tion: V[facility] odify By: cmedical Encount er DateTime : [...] ed Elsewher e: Yes Loca tion: [facility] odify By: [email or web address] trick En counter [...] ed Elsewher e: Yes Loca tion: [facility] odify By: cmedical Encount er DateTime : 05/10/20 12 09:00:00 AM Not Available Not Available Not Available hydrochlo rothiazid e 12.5 mg tablet TAKE 1 TABLET BY MOUTH EVERY MORNING active Not Available Not Available No t Available Fiber Laxative (methylce llulose) 500 mg tablet 08/31 completed Prescrib ed Elsewher e: Yes Loca tion: Vipul oliveira [facility] odify By: [email or web address] trick En counter DateTime : 05/10/20 12 09:00:00 AM Not Available Not Available Not Available amlodipin e besylate (bulk) 100 % powder 10/13 completed Prescrib ed Elsewher e: Yes Loca tion: Vipul oliveira [facility] odify By: reyna Rodriguez r DateTime : 05/10/20 12 09:00:00 AM Not Available Not Available Not Available Prolia 2021 active Not Available Not Available Not Avai lable Suprep Bowel Prep Kit 17.5 gram-3.13 gram-1.6 gram oral solution 06/28 completed Not Available Not Available Not Available Kapspargo Sprinkle 25 mg capsule,e xtended release 11/03 completed Prescrib ed Elsewher e: Yes Loca tion: Rusty roxanne [facility] odify By: reyna Rodriguez r DateTime : 11/04/19 19 02:00:00 PM Not Available Not Available Not Available Flowflex COVID-19 Antigen Home Test kit USE DIRECTED 04/09 completed Not Available Not Available Not Available Vitals Date Recorded Body height Body mass index (BMI) Body weight Systolic And Diastolic Provider Name and Address Organization Details Last Updated DateTime 06/24/2022 162.56 cm 35.9 kg/m2 81719.81 g 160/74 mm[Hg] [facility] 06/24/2022 11:59:46 Date Recorded Body height Body mass index (BMI) Body weight Systolic And Diastolic Provider Name and Address Organization Details Last Updated DateTime 11/26/2020 162.56 cm 35.4 kg/m2 44918.03 g 167/78 mm[Hg] [facility] 11/26/2020 16:03:58 Date Recorded Body height Body mass index (BMI) Body weight Systolic And Diastolic Provider Name and Address Organization Details Last Updated DateTime 12/23/2022 162.56 cm 35.4 kg/m2 45519.03 g 146/72 mm[Hg] Reyna Moreira [facility] 12/23/2022 11:03:46 Date Recorded Body height Body mass index (BMI) Body weight Systolic And Diastolic Provider Name and Address Organization Details Last Updated DateTime 01/22/2022 162.56 cm 35.4 kg/m2 27333.03 g 122/78 mm[Hg] Reyna Moreira [facility] 01/22/2022 16:07:39 Date Recorded Body height Body mass index (BMI) Body weight Systolic And Diastolic Systolic And Diastolic Provider Name and Address Organization Details Last Updated DateTime 04/09/2024 162.56 cm 35 kg/m2 65741.84 g 161/101 mm[Hg] 160/88 mm[Hg] Brittany Garibay [facility] 14:26:08 Social History Question Answer Notes LastModified by Organizat ion Details LastModified Time Tobacco Smoking Status Never Smoker Reyna Moreira [facility] 12/23/2022 11:03:55 Do You Have An Advance Directive? No Information n ot available 12/23/2022 Are You Blind Or Do [...] Or The Highest Degree You Have Received? [id number] Information not available 12/23/2022 Are There Any [...] LastModified by Organizat ion Details LastModified Time Do you use any illicit or recreational drugs? No Information not available 12/23/2022 What is your level of alcohol consumption? None Information not available 12/23/2022 Are you able to walk? 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 Occasional Information not available 12/23/2022 Mental Status Question Answer Note LastModified by Organization D etails LastModified Time Do you feel stressed (tense, restless, nervous, or anxious, or unable to sleep at night)? [id number] Information not available 12/23/2022 Family History Relationship Description Onset Age of this Age Resolved Age Notes LastModified by Organization Details LastModified Time Mother Carcinoma in situ of colon [email or web address] Not available 2022 10:51:21 Sister Hypertensive disorder [email or web address] Not available 2019 09:52:48 Father Heart disease [email or web address] Not available 2019 09:52:53 Medical History Condition Response Cancer Y GI Problems Y High Cholesterol Y Hypertension Y Gynecological History Statement/Question Response Date of [...] Code Diagnosis Note [id number] Randy Cruz MD [facility] [address] [address] 11/15/2019 09:24:01 11/15/2019 10:20:08 Vaginal lesion 507817031 N94.89 [id number] Randy Cruz MD [facility] [address],[place] [address] 05/22/2020 15:17:49 05/22/2020 16:01:32 Vaginal lesion 954584913 N94.89 This patient is a 74-year-ol d female presents for follow-up on vaginal polyp. She has a vaginal polyp in the posterior left fornix of the vagina. It appears unchanged. She was examined. She has lot of inclusion cyst over the vulva. There is nothing on the vulva appears malignant. She will follow up in 6 months for well-woman exam. [id number] Randy Cruz MD [facility] [address],[place] [address] 11/26/2020 14:33:52 11/26/2020 16:51:11 Gynecologic examination 31694695 Z01.419 This patient is here for her [...] unchanged. Same as last year. Vaginal polyp. [id number] Randy rCuz MD [facility] [address],[place] [address] 01/22/2022 15:18:27 01/23/2022 18:12:23 Polyp of vaginal wall 492430315 N84.2 this patient is a 76-year-ol d female with a vaginal polyp. She presents for examinatio n the polyp to confirm its stability. The polyp was examined it is at the posterior left fornix. Is hyperemic and unchanged in size. We will follow-up as needed. It is been stable over several examinatio ns. [id number] Randy Cruz MD [facility] [address],[place] [address] 06/24/2022 10:51:12 06/24/2022 12:17:00 Polyp of vaginal wall 910993692 N84.2 76-year-ol d female who presents for [...] Otherwise she will return in 6 months. [id number] Randy Cruz MD [facility] [address],[place] [address] 12/23/2022 10:02:04 12/23/2022 11:41:33 Polyp of vaginal wall 148425223 N84.2 77-year-ol d female presents for follow-up on a vaginal polyp. It is stable. Is been stable for year and. We going look at this once a year now. [id number] MD Marilin Cage [address],[facility] [place] [address] 04/09/2024 14:15:28 04/09/2024 15:04:31 Gynecologic examination 47900433 Z01.419 Z11.51 This patient is here for [...] None Recorded Advance Directives Directive N: Payers Insurance Date Sequence Insurance Name Policy Number Policy Tsang Covered Member ID Tsang Member ID Guarantor Name 03/27/2024 1 [place] Priscilla Bone [id number] Priscilla Bone 12/23/2022 2 [facility] Priscilla Bone [id number] Priscilla Bone 04/06/2024 2 [place] [id number] Priscilla Bone [id number] Priscilla Smitha Notes Date Note Type [...] exercise Randy Cruz MD [address], [place], [address], [facility] 11/26/2020 16:46:30 01/22/2022 text/html this patient is a 76-year-old female with a vaginal polyp. She presents for examination the polyp to confirm its stability. The polyp was examined it is at the posterior left fornix. Is hyperemic and unchanged in size. We will follow-up as needed. It is been stable over several examinations. Randy Cruz MD [address], [place], [address], [facility] 01/23/2022 15:49:36 06/24/2022 text/html 76-year-old cecily [...] months. Randy Cruz MD [address], [place], [address], [facility] 06/24/2022 12:13:20 12/23/2022 text/html 77-year-old cecily mehta presents for follow-up on a vaginal polyp. It is stable. Is been stable for year and. We going look at this once a year now. Randy Cruz MD [address], [place], [address], [facility] 12/23/2022 11:40:25 04/09/2024 text/html Annual GYNReport ed bypatient.History: no gynecologic complaints Urinary symptoms:No hematuria Vulva:No genital lesion Vagina:Normal vaginal discharge Breast:No breast pain; No breast lump Menopausal Symptoms:No menopausal symptoms Psychological symptoms:No depression; No anxiety Preventive measures:Encourage self breast examination; Encourage regular exercise Randy Cruz MD [address], [place], [address], [facility] 04/09/2024 15:00:15 OBGyn Episode Ob Episode Information Episode Created Date Number of Fetuses Patient Bloodtype Patient rh Status Prepregnancy Weight lbs Domestic Partner Domestic Partner Phone Father Name Apple Picking Supervisor Status 11/15/19 20 1 CLOSED Fetus Data [...] Domestic Partner Domestic Partner Phone Father Name Apple Picking Supervisor Status 11/15/19 20 1 CLOSED Fetus Data First Name Last Name Admitted to NICU Weight (g) Sex Living Outcome Pediatric Complications Fetus ID Race Codes Race Delivery Type M 178 Vaginal Delivery Alo Calculation Initial Alo Date [...] Domestic Partner Domestic Partner Phone Father Name Apple Picking Supervisor Status 11/15/19 20 1 CLOSED Fetus Data [...] Confirmed By Final Alo Confirmed Date Final Lao Date Ultra Sound Latest Days Gestation 0 [...] Domestic Partner Domestic Partner Phone Father Name Apple Picking Supervisor Status 11/15/19 20 1 CLOSED Fetus Data [...]
--- OUTSIDE RECORDS SUMMARY | 2025-01-03 09:53 | XMS_ITS | Clinical Summary ---
Author Organization [facility] Address [address] [place] [address] Care Team Providers Care Haulage Engine Operator Name Role Phone Moreno Woodward MD Primary Care Provider [phone] Jignesh Weller MD Unavailable [phone] Source Comments [facility],non-owned Affiliates and Associated Physician Practices is amultiple site organization consisting of ambulatory clinics and hospital sitesin [place], [place], [place] and [place]. This disclosure is being madepursuant to the Care Everywhere program and may not contain all information available regarding this patient. Last updated 18.[facility] Allergies No known active allergies Medications * [...] by mouth once daily Active Probiotic Product (PlayLab) capsule Take 1 (one) capsule by mouth [...] would need to be done either in [place] or [place]. I discussed with her all aspects of this procedure (including the actual performance of the procedure, the potential benefits and complications and the post-surgical programming sessions). I answered all her questions pertaining to the procedure. We also discussed HIFU, inertial dampening devices and the XimoXi peripheral stimulation device. We discussed that we [...] it is helping her tremor. Though her accountant clerk has given the okay, she is [...] 10:36 AM CDT Height 160 cm (5' 3) 10/12/2021 11:41 AM CDT Body Mass Index [...] 08/25/2020 DEPRESSION SCREENING 06/20/2024 10/18/2022 INFLUENZA VACCINE (#1) 2025 08/05/2015 HEPATITIS B VACCINE Aged Out [...] age to complete this topic Insurance MEDICARE [facility] * Guarantor: PRISCILLA WILBURN Account Type Relation to Patient Date of Phone Billing Address Personal/Family [address] [place] [address] MEDICARE [facility] [place], [place] [address] Care Teams Haulage Engine Operator Relationship Specialty Start Date End Date Moreno Woodward MD [address] [place] [address] PCP - General Family Medicine 03/24/17 Jignesh Weller MD [address] [place] [address] Floor Helper Electrophysiology 12/03/20
--- OUTSIDE RECORDS SUMMARY | 2025-01-03 09:53 | XMS_ITS | Clinical Summary ---
Author Organization [facility] Address [address] [place] [address] Care Team Providers Care Turn Out Worker Name Role Phone Moreno Woodward MD Primary Care Provider Jose Angel Cody MD Unavailable [phone] Allergies No known active allergies Medications [...] 04/02/2019 Assessment & Plan (08/08/2023 10:53 AM DIE CUTTER APPRENTICE): Images from the original note were not [...] would need to be done either in [place] or [place]. I discussed with her all aspects of [...] it is helping her tremor. 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 08/31/2013 Overview (09/27/2023): Neoplasm of uncertain behavior of other and unspecified female genital organs;Recorded Elsewhere: No Location: [facility] Source: EHR Chronic: N Practice ID: [...] on file Legal Sex Female 3:30 AM DIE CUTTER APPRENTICE Gender Identity Not on file Sexual Orientation Not on file 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 Not on file Not on file Obstetrics History Last Filed Vital Signs Vital Sign Reading Time Taken Comments Blood Pressure 122/70 06/04/2024 9:19 AM DIE CUTTER APPRENTICE Pulse 85 06/04/2024 9:19 AM DIE CUTTER APPRENTICE Temperature 36.2 C (97.1 F) 04/19/2022 9:03 AM CDT Respiratory Rate 16 03/03/2017 2:48 PM CDT Oxygen Saturation 96% 06/04/2024 9:19 AM DIE CUTTER APPRENTICE Inhaled Oxygen Concentration - - Weight 94.3 kg (208 lb) 06/04/2024 9:19 AM DIE CUTTER APPRENTICE Height 160 cm (5' 3) 06/04/2024 9:19 AM DIE CUTTER APPRENTICE Body Mass Index 36.85 06/04/2024 9:19 AM DIE CUTTER APPRENTICE Plan of Treatment Health Maintenance Due Date Last Done Comments Fall Risk Assessment 1945 Hepatitis C Screening 1945 Pneumococcal vaccine 65+ (1 of 1 - PCV) 1996 Zoster Vaccine (1 of 2) 1996 Well Visit 65+ 10/02/2011 Osteoporosis Screening-Bone Density Scan 10/25/2015 10/24/2013 Depression Screening 04/19/2023 04/19/2022 Influenza Vaccine (#1) 2025 08/05/2015 DTaP/Tdap/Td Vaccine (3 - Td or Tdap) 10/05/2029 10/06/2019, 04/25/2013 Breast Cancer Screening-Mammogram Discontinued 07/20/2023, 05/19/2022, 05/01/2021, Additional history exists Hepatitis B Screening Completed 01/16/2024 Insurance MEDICARE [facility] MEDICARE [facility] MEDICARE [facility] MEDICARE [facility] Care Teams Turn Out Worker Relationship Specialty Start Date End Date Moreno Woodward MD [address] [place] [address] PCP - General 08/04/16 Jose Angel Cody MD [address] [place] [address] Consulting Physician Rheumatology 01/27/24
--- OUTSIDE RECORDS SUMMARY | 2025-01-03 09:53 | XMS_ITS ---
Author Organization [facility] Address [address] [place] [address] Care Team Providers Care Brim Greaser Operator Name Role Phone Moreno Woodward MD Primary Care Provider Jose Angel Cody MD Unavailable [phone] Active Problems Problem Noted Date Diagnosed [...] 04/02/2019 Assessment & Plan (08/08/2023 10:53 AM CONSTRUCTION ASSISTANT): Images from the original note were not [...] would need to be done either in [place] or [place]. I discussed with her all aspects of this procedure (including the actual performance of the procedure, the potential benefits and complications and the post-surgical programming sessions). I answered all her questions pertaining to the procedure. We also discussed HIFU, inertial dampening devices and the Stribe peripheral stimulation device. We discussed that we [...] it is helping her tremor. 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
--- OUTSIDE RECORDS SUMMARY | 2025-01-03 09:53 | XMS_ITS | Encounter Summary ---
Author Organization [facility] Address [address] [facility] [place] [address] Care Team Providers Care Cloth Shrinking Tester Name Role Phone Moreno Woodward MD Primary Care Provider [phone] Jignesh Weller MD Unavailable [phone] Encounter Details Date Type Department Care Team (Late st Contact Info) Description 05/01/2024 Lab Requisition [facility] - DermPath Lab [address] [facility], [place] [id number] Mehrdad Mariano [place] [address] Social History Tobacco Use Types [...] Comments DERMATOPATHOLOGY Routine 04/30/2024 12:0 0 AM BUILDING WRECKER documented in this encounter Results * DERMATOPATHOLOGY (04/30/2024 12:00 AM BUILDING WRECKER) Case Report Dermatopathology Report Case: [id number] Authorizing Provider: Mehdrad Mariano MD Collected: 04/30/2024 12:00 AM Ordering Location: [facility] - Received: 05/01/2024 02:37 PM DermPath Lab Pathologist: Darby Nation MD Specimen: Skin, right superior pretibia 3:[address] [facility] DERMATOPATHOLOGY LABORATORY Final Diagnosis Specimen A. SKIN, right superior pretibia: SEBORRHEIC KERATOSIS, IRRITATED AND INFLAMED (L82.0) NOT PRESENT AT SAMPLED MARGIN 3:[address] [facility] DERMATOPATHOLOGY LABORATORY at [address] BUILDING WRECKER Clinical History R/O SK Please check margins 3:[address] [facility] DERMATOPATHOLOGY LABORATORY Gross Description Specimen A: Received is one formalin filled container labeled with the patients name and designated right superior pretibia. The specimen consists of a shave removal measuring [id number] mm. Jar 0. 3:[address] [facility] DERMATOPATHOLOGY LABORATORY Microscopic Description Specimen A. SKIN, right superior pretibia: Sections show acanthosis, papillomatosis, hyperkeratosis, and squamous eddies. There is a lymphohistiocytic infiltrate within the papillary dermis. This lesion is not present at the sampled margin of the specimen. 3:[address] [facility] DERMATOPATHOLOGY LABORATORY Disclaimer An external and internal positive and negative controls are appropriate for the histochemical, immunohistochemical and immunofluorescence stain(s) in this case (if any), except where stated explicitly. The performance characteristics of the stain(s) cited in this report were developed and its performance characteristic determined by the Dermatopathology Laboratory at [facility], directed by Dr. Amparo Pugh. These tests need not be, and therefore are not, approved by the [place] Food and Drug Administration. The tests are used for clinical purposes. Billing Codes Specimen Charges Stain Charges 79764 1 3:[address] [facility] DERMATOPATHOLOGY LABORATORY Embedded Images 3:[address] [facility] DERMATOPATHOLOGY LABORATORY Pathology/Cytolog y TISSUE SPECIMEN FROM SKIN / Unknown 04/30/2024 05/01/2024 2:37 PM BUILDING WRECKER us Mehrdad Mariano MD LAB - PATHOLOGY/CYTOLOGY ORD ERABLES Final Result DERMATOPATHOLOGY LABORATORY [facility] - Department of Dermatology [facility] [address] [place] [address], [address]rd [address] [phone] documented in this encounter Visit Diagnoses Not on filedocumented in this encounter Care Teams Cloth Shrinking Tester Relationship Specialty Start Date End Date Moreno Woodward MD [address] [place] [address] PCP - General Family Medicine 03/24/17 Jignesh Weller MD [address] [place] [address] Handle Lathe Operator Electrophysiology 12/03/20 documented as of this encounter
--- OUTSIDE RECORDS SUMMARY | 2025-01-03 09:53 | XMS_ITS | Encounter Summary ---
Author Organization [facility] Address [address] [facility] [place] [address] Care Team Providers Care Breakfast Manager Name Role Phone Moreno Woodward MD Primary Care Provider [phone] Jignesh Weller MD Unavailable [phone] Encounter Details Date Type Department Care Team (Late st Contact Info) Description 10/13/2017 Lab Requisition [facility] Care DermPath Lab [address] [place] [id number] Mehrdad [place] [address] Social History Tobacco Use Types [...] AM CDT) Case Report Dermatopathology Report Case: [id number] Authorizing Provider: Mehrdad Mariano MD Collected: 10/12/2017 12:00 AM Pathologist: Floridalma Vyas MD Received: 10/13/2017 12:13 PM Specimens: A) - Skin, above tip of nose B) - Skin, right distal thigh 8 5:00 PM CDT DERMATOPATHOLOGY LABORATORY Final Diagnosis Specimen A. 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 SKIN, right distal thigh: SEBORRHEIC KERATOSIS, IRRITATED AND INFLAMED (L82.0) NOT PRESENT AT SAMPLED MARGIN 8 5:00 PM CDT DERMATOPATHOLOGY LABORATORY at 1700 CDT Clinical History A: R/O BCC vs SCC. Check margins. B: R/O ISK. Check margins. 8 5:00 PM CDT DERMATOPATHOLOGY LABORATORY Gross Description Specimen A: Received is one formalin filled container labeled with the patient's name and designated above tip of nose. The specimen consists of a punch biopsy measuring [id number]. The margin is inked green. Jar 0. Specimen B: Received is one formalin filled container labeled with the patient's name and designated right distal thigh. The specimen consists of a shave biopsy measuring [id number]. The margin is inked green. Jar 0. 8 5:00 PM CDT DERMATOPATHOLOGY LABORATORY Microscopic Description Specimen A. SKIN, [...] Dermatopathology Laboratory at [facility]. These tests need not be, and therefore are not, approved by the [place] Food and Drug Administration. The tests are used for clinical purposes. Billing Codes Specimen Charges Stain Charges 01980 44737 1 1 25650 46067 54244 57563 1 1 1 1 8 5:00 PM CDT DERMATOPATHOLOGY LABORATORY Embedded Images 8 5:00 PM CDT DERMATOPATHOLOGY LABORATORY Pathology/Cytology TISSUE SPECIMEN FROM SKIN / Unknown 10/12/2017 10/13/2017 12:13 PM CDT Miscellaneous samples (specimen) TISSUE SPECIMEN FROM SKIN / Unknown 10/12/2017 10/13/2017 12:13 PM CDT Mehrdad Mariano MD LAB - PATHOLOGY/CYTOLOGY ORD ERABLES Final Result DERMATOPATHOLOGY LABORATORY [facility] - Department of Dermatology [address] [facility] 5th [address] [phone] documented in this encounter Visit Diagnoses Not on filedocumented in this encounter Care Teams Breakfast Manager Relationship Specialty Start Date End Date Moreon Woodward MD [address] [place] [address] PCP - General Family Medicine 03/24/17 Jignesh Weller MD [address] [place] [address] Interventional Technologist Electrophysiology 12/03/20 documented as of this encounter
== END 2025-01-03 09:49 | disposition home or self-care (01) ==
PROVIDERS: PCP Family Medicine; Visit Provider Surgery
DX: R92.8 Other abnormal and inconclusive findings on diagnostic imaging of breast (principal); N63.13 Unspecified lump in the right breast, lower outer quadrant
CPT/HCPCS: 77049; A9577; C8908

== ENCOUNTER 2025-01-07 13:16 | Outpatient (CLI) | payer MEDICARE, SELFPAY ==
--- OUTSIDE RECORDS SUMMARY | 2025-01-07 13:21 | XMS_ITS | Encounter Summary ---
Author Organization [facility] Address [address] [facility] [place] [address] Care Team Providers Care Logistics Account Manager Name Role Phone Moreno Woodward MD Primary Care Provider [phone] Jignesh Weller MD Unavailable [phone] Encounter Details Date Type Department Care Team (Late st Contact Info) Description 10/13/2017 Lab Requisition [facility] Care DermPath Lab [address] [place] [id number] Mehrdad Mariano [place] [address] Social History Tobacco Use Types [...] AM CDT) Case Report Dermatopathology Report Case: [id number] Authorizing Provider: Mehrdad Mariano MD Collected: 10/12/2017 [...] specimen consists of a punch biopsy measuring [id number]. The margin is inked green. Jar 0. Specimen B: Received is one formalin filled container labeled with the patient's name and designated right distal thigh. The specimen consists of a shave biopsy measuring [id number]. The margin is inked green. Jar 0. [...] determined by the Dermatopathology Laboratory at [facility]. These tests need not be, and therefore are not, approved by the [place] Food and Drug Administration. The tests are used for clinical purposes. Billing Codes Specimen Charges Stain Charges 10928 01634 1 1 16432 05582 43054 48827 1 1 1 1 8 5:00 PM CDT DERMATOPATHOLOGY LABORATORY Embedded Images 8 5:00 PM CDT DERMATOPATHOLOGY LABORATORY Pathology/Cytology TISSUE SPECIMEN FROM SKIN / Unknown 10/12/2017 10/13/2017 12:13 PM CDT Miscellaneous samples (specimen) TISSUE SPECIMEN FROM SKIN / Unknown 10/12/2017 10/13/2017 12:13 PM CDT Mehrdad Mariano MD LAB - PATHOLOGY/CYTOLOGY ORD ERABLES Final Result DERMATOPATHOLOGY LABORATORY [facility] - Department of Dermatology [address] [facility] 5th Floor [address] [phone] documented in this encounter Visit Diagnoses Not on filedocumented in this encounter Care Teams Logistics Account Manager Relationship Specialty Start Date End Date Moreno Woodward MD [address] [place] [address] PCP - General Family Medicine 03/24/17 Jignesh Weller MD [address] [place] [address] Senior Animator Electrophysiology 12/03/20 documented as of this encounter
--- OUTSIDE RECORDS SUMMARY | 2025-01-07 13:21 | XMS_ITS ---
Author Organization [facility] Address [address] [place] [address] Care Team Providers Care Explosive Ordnance Disposal Manager Name Role Phone Moreno Woodward MD Primary Care Provider Jose Angel Cody MD Unavailable [phone] Active Problems Problem Noted Date Diagnosed [...] 04/02/2019 Assessment & Plan (08/08/2023 10:53 AM PHYSICIAN PRACTICE MARKET MANAGER): Images from the original note were not [...] would need to be done either in [place] or [place]. I discussed with her all aspects of this procedure (including the actual performance of the procedure, the potential benefits and complications and the post-surgical programming sessions). I answered all her questions pertaining to the procedure. We also discussed HIFU, inertial dampening devices and the Pumpic peripheral stimulation device. We discussed that we [...] it is helping her tremor. 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
--- OUTSIDE RECORDS SUMMARY | 2025-01-07 13:21 | XMS_ITS | Clinical Summary ---
Author Organization [facility] Address [address] [place] [address] Phone Care Team Providers Care Lining Vamper Name Role Phone Moreno Woodward MD Primary Care Provider [phone] Allergies No known active allergies Medications acetaminophen [...] it is helping her tremor. Though her silhouette artist has given the okay, she is reluctant [...] on file Legal Sex Female 9:55 AM [facility] Gender Identity Not on file Sexual Orientation [...] Influenza Vaccine (#1) 2025 08/05/2015 Insurance MEDICARE [facility] MEDICARE SUPPLEMENT Care Teams Lining Vamper Relationship Specialty Start Date End Date Moreno Woodward MD [address] [facility] [address] [facility] [address] [place] [address] PCP - General Internal Medicine 06/29/21
--- OUTSIDE RECORDS SUMMARY | 2025-01-07 13:21 | XMS_ITS | Referral Summary ---
Author Organization [facility] Address [address] [place] [address] Care Team Providers Care Maintenance Shop Manager Name Role Phone Moreno Woodward MD Primary Care Provider Jose Angel Cody MD Unavailable [phone] Allergies No known active allergies Medications [...] 04/02/2019 Assessment & Plan (08/08/2023 10:53 AM COMMODITY TRADER): Images from the original note were not [...] would need to be done either in [place] or [place]. I discussed with her all aspects of [...] it is helping her tremor. 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 Overview (09/27/2023): Neoplasm of uncertain behavior of other and unspecified female genital organs;Recorded Elsewhere: No Location: [facility] Source: EHR Chronic: N Practice [...] on file Legal Sex Female 3:30 AM COMMODITY TRADER Gender Identity Not on file Sexual Orientation Not on file 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 Not on file Not on file Last Filed Vital Signs Vital Sign Reading Time Taken Comments Blood Pressure 122/70 06/04/2024 9:19 AM COMMODITY TRADER Pulse 85 06/04/2024 9:19 AM COMMODITY TRADER Temperature 36.2 C (97.1 F) 04/19/2022 9:03 AM CDT Respiratory Rate 16 03/03/2017 2:48 PM CDT Oxygen Saturation 96% 06/04/2024 9:19 AM COMMODITY TRADER Inhaled Oxygen Concentration - - Weight 94.3 kg (208 lb) 06/04/2024 9:19 AM COMMODITY TRADER Height 160 cm (5' 3) 06/04/2024 9:19 AM COMMODITY TRADER Body Mass Index 36.85 06/04/2024 9:19 AM COMMODITY TRADER Plan of Treatment Not on file Insurance MEDICARE [facility] MEDICARE [facility] MEDICARE [facility] MEDICARE [facility] Care Teams Maintenance Shop Manager Relationship Specialty Start Date End Date Moreno Woodward MD [address] [facility] [address] [place] [address] PCP - General 08/04/16 Jose Angel Cody MD [address] [place] [address] Consulting Physician Rheumatology 01/27/24
--- OUTSIDE RECORDS SUMMARY | 2025-01-07 13:21 | XMS_ITS | Encounter Summary ---
Author Organization [facility] Address [facility] [place] [address] Care Team Providers Care Hand Tier Name Role Phone None, Provider Primary Care Provider UnavailMoreno Al MD Primary Care Provider [phone] Olivier Miramontes MD Unavailable [phone] Encounter Details Date Type Department Care Team (Latest Contact Info) Description 04/25/2018 Abstract [facility] , Wesley Antony MD Social History Tobacco Use Types Packs/Day Years Used Date Smoking Tobacco: Never Comments Unknown Sex and Gender Information Value Date Recorded Sex Assigned at Female 07/14/2024 9:23 AM HEALTH AID Legal Sex Female 11:04 PM CDT Gender Identity Not on file Sexual Orientation Not on file documented as of this encounter Plan of Treatment Not on file documented as of this encounter Visit Diagnoses Not on filedocumented in this encounter Additional Health Concerns Infection Onset Date Last Indicated Resolved Time COVID-19 Rule Out 07/14/2024 07/14/2024 07/14/2024 9:35 AM HEALTH AID documented as of this encounter Care Teams Hand Tier Relationship Specialty Start Date End Date None, Provider, PCP - General 10/09/20 03/24/22 Moreno Woodward MD [address] [facility] [address] [place] [address] PCP - General FAMILY PRACTICE 03/25/22 Olivier Miramontes MD [address] [place] [id number] CARDIOVASCULAR DISEASE 07/14/24 documented as of this encounter
--- OUTSIDE RECORDS SUMMARY | 2025-01-07 13:21 | XMS_ITS | Data Portability ---
Author Organization [facility] Address [address] [place] [address] Care Team Providers Care Clarifier Operator Name Role Phone DIANNE MENSAH Primary Care Provider [phone] Assessment Encounter Date Assessment Date Assessment LastModified [...] Lesio n or Anny delatorre Elect frank eilse felix d by Liza Lopez ret, CT [...] as clini mariela teixeira nted. Not Available [facility] (Lab) [address] [facility], [place], [address], 11/27/2020 15:31:38 04/09/20 24 04/09/2024 IMAGE GUIDE [...] epith elial Lesio n or Anny delatorre ([facility]) . Elect frank elise felix d by [...] d, as leon teixeira nted. Not Available [facility] (Lab) [address], [place], [address], 04/14/2024 07:42:41 05/01/20 21 05/01/2021 MAMMO , scree mir, bilat eral No observ ation record ed. [address] [facility], [place], [address], 05/18/2021 10:47:09 05/19/20 22 05/19/2022 MAMMO , scree mir, bilat eral No observ ation record ed. [address] [facility], [place], [address], 09/22/2023 09:24:50 07/20/19 24 07/20/2023 MAMMO , scree mir, bilat eral No observ ation record ed. [address] [address], [place], [address], 08/18/2023 15:40:28 09/28/19 25 09/27/2024 MAMMO , scree mir, digit al, bilat eral No observ ation record ed. [address] [address], [place], [address], 10/09/2024 10:49:37 10/18/19 25 10/17/2024 DEXA, axial skele ton + verte bral fract ure asses sment No observ ation record ed. [address] [address], [place], [address], 10/22/2024 09:44:31 11/03/19 25 11/02/2024 MAMMO , diagn ostic , tomos ynthe sis, unila teral No observ ation record ed. [email or web address] [address], [place], [address], 11/07/2024 15:55:45 11/06/19 25 11/02/2024 MAMMO , diagn ostic , tomos ynthe sis, unila teral No observ ation record ed. [facility] [address], [place], [address], 11/07/2024 15:57:26 Result Notes None recorded. Problems Name Problem SNOMED Code Status Onset Date Resolution Date Notes Provider Name and Address Organization Details Recorded Time Adult health examinati on Completed 201111/26/2020 Routine Medical Exam;Zeus rded Elsewhere : No Locati on: [facility] So urce: EHR Chron ic: N Practic e ID: [id number] Bill able Time: 09:00:00 AM [facility] Screening for malignant neoplasm of rectum Completed 201111/26/2020 Screening for malignant neoplasms of the rectum;Re corded Elsewhere : No Locati on: [facility] So urce: EHR Chron ic: N Practic e ID: [id number] Bill able Time: 09:00:00 AM Reyna reese [facility] 16:04:21 Specializ ed medical examinati on Completed 201111/26/2020 Routine gynecolog ical examinati on;Practi ce ID: [id number] [facility] 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 16:04:11 Neoplasti c disease of uncertain behavior Completed 201411/26/2020 Neoplasm of uncertain behavior of other specified female genital organs;Re corded Elsewhere : No Locati on: [facility] So urce: EHR Chron ic: N Practic e ID: [id number] Bill able Time: 02:30:00 PM Reyna reese [facility] 16:04:14 Noninflam matory disorder of vulva 56856548 Completed 201811/26/2020 Noninflam matory disorder of vulva and perineum, unspecifi ed;Record ed Elsewhere : No Locati on: [facility] So urce: EHR Chron ic: N Practic e ID: [id number] Bill able Time: 01:30:00 PM Reyna [facility] 16:04:17 Screening for malignant neoplasm of cervix Completed 201811/26/2020 Encounter for screening for malignant neoplasm of cervix;Re corded Elsewhere : No Locati on: [facility] So urce: EHR Chron ic: N Practic e ID: 0001 Bill able Time: 02:00:00 PM Reyna [facility] 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 16:04:24 Notes:Neoplasm of unsp behav ior of other genitourinary organs Practice ID: [id number] Problem Notes None recorded. Procedures Surgical History Date Name Laterality Status Provider Name and Address Organization Details Recorded Time 07/20/19 24 Date of Last Mammogram completed Brittany Garibay [facility] 04/09/2024 14:27:53 08/14/19 21 cardiac catheterization completed [facility] 12/01/2020 15:45:47 11/04/19 19 Date of Last Pap Smear completed [facility] 05/22/2020 15:58:43 10/19/19 18 grafting to skin completed [facility] 03/15/2022 15:09:48 10/19/19 16 partial nephrectomy completed [facility] 03/15/2022 15:09:28 04/20/20 13 procedure on wrist completed [facility] 03/15/2022 15:09:09 02/19/20 13 procedure on knee completed [facility] 03/15/2022 15:08:16 10/19/19 13 procedure on shoulder completed [facility] 11/15/2019 10:40:06 01/18/19 98 procedure on shoulder completed [facility] 11/15/2019 10:39:40 Imaging Results None recorded. [...] Prescrib ed Elsewher e: Yes [facility] odify By: cmedical Encount er DateTime : 05/10/20 12 09:00:00 AM Not Available Not Available Not Available hydrochlo rothiazid e 12.5 mg capsule take 2 capsule by oral route every day 12/01 completed Prescrib ed Elsewher e: Yes Loca tion: [facility] odify By: cmedical Encount er DateTime : [...] Prescrib ed Elsewher e: Yes Loca tion: [facility] odify By: [email or web address] trick En counter DateTime [...] Prescrib ed Elsewher e: Yes Loca tion: [facility] odify By: cmedical Encount er DateTime : 05/10/20 12 09:00:00 AM Not Available Not Available Not Available hydrochlo rothiazid e 12.5 mg tablet TAKE 1 TABLET BY MOUTH EVERY MORNING active Not Available Not Available No t Available Fiber Laxative (methylce llulose) 500 mg tablet 08/31 completed Prescrib ed Elsewher e: Yes Loca tion: Vipul oliveira [facility] odify By: [email or web address] trick En counter DateTime : 05/10/20 12 09:00:00 AM Not Available Not Available Not Available amlodipin e besylate (bulk) 100 % powder 10/13 completed Prescrib ed Elsewher e: Yes Loca tion: [facility]ul oliveira [facility] odify By: reyna Rodriguez r [...] Elsewher e: Yes Loca tion: Rusty roxanne [facility] odify By: reyna Rodriguez r DateTime : 11/04/19 19 02:00:00 PM Not Available Not Available Not Available Flowflex COVID-19 Antigen Home Test kit USE DIRECTED 04/09 completed Not Available Not Available Not Available Vitals Date Recorded Body height Body mass index (BMI) Body weight Systolic And Diastolic Provider Name and Address Organization Details Last Updated DateTime 06/24/2022 162.56 cm 35.9 kg/m2 19916.81 g 160/74 mm[Hg] [facility] 06/24/2022 11:59:46 Date Recorded Body height Body mass index (BMI) Body weight Systolic And Diastolic Provider Name and Address Organization Details Last Updated DateTime 11/26/2020 162.56 cm 35.4 kg/m2 96622.03 g 167/78 mm[Hg] [facility] 11/26/2020 16:03:58 Date Recorded Body height Body mass index (BMI) Body weight Systolic And Diastolic Provider Name and Address Organization Details Last Updated DateTime 12/23/2022 162.56 cm 35.4 kg/m2 03613.03 g 146/72 mm[Hg] Reyna Moreira [facility] 12/23/2022 11:03:46 Date Recorded Body height Body mass index (BMI) Body weight Systolic And Diastolic Provider Name and Address Organization Details Last Updated DateTime 01/22/2022 162.56 cm 35.4 kg/m2 84442.03 g 122/78 mm[Hg] Reyna Moreira [facility] 01/22/2022 16:07:39 Date Recorded Body height Body mass index (BMI) Body weight Systolic And Diastolic Systolic And Diastolic Provider Name and Address Organization Details Last Updated DateTime 04/09/2024 162.56 cm 35 kg/m2 27615.84 g 161/101 mm[Hg] 160/88 mm[Hg] Brittany Garibay [facility] 14:26:08 Social History Question Answer Notes LastModified by Organizat ion Details LastModified Time Tobacco Smoking Status Never Smoker Reyna Moreira [facility] 12/23/2022 11:03:55 Do You Have An [...] Or The Highest Degree You Have Received? 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 Occasional Information not available 12/23/2022 Mental Status Question Answer Note LastModified by Organization D etails LastModified Time Do you feel stressed (tense, restless, nervous, or anxious, or unable to sleep at night)? [id number] Information not available 12/23/2022 Family History Relationship Description Onset Age of this Age Resolved Age Notes LastModified by Organization Details LastModified Time Mother Carcinoma in situ of colon [email or web address] Not available 2022 10:51:21 Sister Hypertensive disorder [...] Code Diagnosis Note [id number] Randy Cruz MD [facility] [address] [address] 11/15/2019 09:24:01 11/15/2019 10:20:08 Vaginal lesion 213795782 N94.89 [id number] Randy Cruz MD [facility] [address],[place] [address] 05/22/2020 15:17:49 05/22/2020 16:01:32 Vaginal lesion 524275942 N94.89 This patient is a 74-year-ol d female presents for follow-up on vaginal polyp. She has a vaginal polyp in the posterior left fornix of the vagina. It appears unchanged. She was examined. She has lot of inclusion cyst over the vulva. There is nothing on the vulva appears malignant. She will follow up in 6 months for well-woman exam. [id number] Rnady Cruz MD [facility] [address],[place] [address] 11/26/2020 14:33:52 11/26/2020 16:51:11 Gynecologic examination 29534078 Z01.419 This patient is here for her [...] unchanged. Same as last year. Vaginal polyp. [id number] Randy Cruz MD [facility] [address],[place] [address] 01/22/2022 15:18:27 01/23/2022 18:12:23 Polyp of vaginal wall 349678677 N84.2 this patient is a 76-year-ol d female with a vaginal polyp. She presents for examinatio n the polyp to confirm its stability. The polyp was examined it is at the posterior left fornix. Is hyperemic and unchanged in size. We will follow-up as needed. It is been stable over several examinatio ns. [id number] Randy Cruz MD [facility] [address],[place] [address] 06/24/2022 10:51:12 06/24/2022 12:17:00 Polyp of vaginal wall 490355940 N84.2 76-year-ol d female who presents for [...] Otherwise she will return in 6 months. [id number] Randy Curz MD [facility] [address],[place] [address] 12/23/2022 10:02:04 12/23/2022 11:41:33 Polyp of vaginal wall 892327648 N84.2 77-year-ol d female presents for follow-up on a vaginal polyp. It is stable. Is been stable for year and. We going look at this once a year now. [id number] MD Marilin Cage [address],[facility] [place] [address] 04/09/2024 14:15:28 04/09/2024 15:04:31 Gynecologic examination 38010323 Z01.419 Z11.51 This patient is here for [...] Name 03/27/2024 1 [place] Priscilla Bone [id number] 1 Priscilla Bone 12/23/[address] [facility] Priscilla Bone [id number] Priscilla Bone 04/06/2024 2 [place] [id number] Priscilla Bone [id number] Priscilla Smitha Notes Date Note Type [...] exercise Randy Cruz MD [address], [place], [address], [facility] 11/26/2020 16:46:30 01/22/2022 text/html this patient is a 76-year-old female with a vaginal polyp. She presents for examination the polyp to confirm its stability. The polyp was examined it is at the posterior left fornix. Is hyperemic and unchanged in size. We will follow-up as needed. It is been stable over several examinations. Randy Cruz MD [address], [place], [address], , [facility] 01/23/2022 15:49:36 06/24/2022 text/html 76-year-old cecily [...] months. Randy Cruz MD [address], [place], [address], , [facility] 06/24/2022 12:13:20 12/23/2022 text/html 77-year-old cecily mehta presents for follow-up on a vaginal polyp. It is stable. Is been stable for year and. We going look at this once a year now. Randy Cruz MD [address], [place], [address], , [facility] 12/23/2022 11:40:25 04/09/2024 text/html Annual GYNReport ed bypatient.History: no gynecologic complaints Urinary symptoms:No hematuria Vulva:No genital lesion Vagina:Normal vaginal discharge Breast:No breast pain; No breast lump Menopausal Symptoms:No menopausal symptoms Psychological symptoms:No depression; No anxiety Preventive measures:Encourage self breast examination; Encourage regular exercise Randy Cruz MD [address], [place], [address], , [facility] 04/09/2024 15:00:15 OBGyn Episode Ob Episode Information Episode Created Date Number of Fetuses Patient Bloodtype Patient rh Status Prepregnancy Weight lbs Domestic Partner Domestic Partner Phone Father Name Bookbinder Chief Status 11/15/19 20 1 CLOSED Fetus Data [...] Domestic Partner Domestic Partner Phone Father Name Bookbinder Chief Status 11/15/19 20 1 CLOSED Fetus Data [...] Domestic Partner Domestic Partner Phone Father Name Bookbinder Chief Status 11/15/19 20 1 CLOSED Fetus Data [...] Domestic Partner Domestic Partner Phone Father Name Bookbinder Chief Status 11/15/19 20 1 CLOSED Fetus Data [...]
--- OUTSIDE RECORDS SUMMARY | 2025-01-07 13:21 | XMS_ITS | Clinical Summary ---
Author Organization [facility] Address [address] [place] [address] Care Team Providers Care Quality Assurance Manager Name Role Phone Moreno Woodward MD Primary Care Provider Jose Angel Cody MD Unavailable [phone] Allergies No known active allergies Medications [...] 04/02/2019 Assessment & Plan (08/08/2023 10:53 AM ANGULAR JS DEVELOPER): Images from the original note were [...] would need to be done either in [place] or [place]. I discussed with her all aspects of [...] it is helping her tremor. 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 08/31/2013 Overview (09/27/2023): Neoplasm of uncertain behavior of other and unspecified female genital organs;Recorded Elsewhere: No Location: [facility] Source: EHR Chronic: N Practice ID: [...] on file Legal Sex Female 3:30 AM ANGULAR JS DEVELOPER Gender Identity Not on file Sexual Orientation Not on file 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 Not on file Not on file Obstetrics History Last Filed Vital Signs Vital Sign Reading Time Taken Comments Blood Pressure 122/70 06/04/2024 9:19 AM ANGULAR JS DEVELOPER Pulse 85 06/04/2024 9:19 AM ANGULAR JS DEVELOPER Temperature 36.2 C (97.1 F) 04/19/2022 9:03 AM CDT Respiratory Rate 16 03/03/2017 2:48 PM CDT Oxygen Saturation 96% 06/04/2024 9:19 AM ANGULAR JS DEVELOPER Inhaled Oxygen Concentration - - Weight 94.3 kg (208 lb) 06/04/2024 9:19 AM ANGULAR JS DEVELOPER Height 160 cm (5' 3) 06/04/2024 9:19 AM ANGULAR JS DEVELOPER Body Mass Index 36.85 06/04/2024 9:19 AM ANGULAR JS DEVELOPER Plan of Treatment Health Maintenance Due Date [...] Hepatitis B Screening Completed 01/16/2024 Insurance [facility]IC[facility]IC[facility] [id number] [employer] [facility] Care Teams Quality Assurance Manager Relationship Specialty Start Date End Date Moreno Woodward MD [address] [place] [address] PCP - General 08/04/16 Jose Angel Cody MD [address] [place] [address] Consulting Physician Rheumatology 01/27/24
--- OUTSIDE RECORDS SUMMARY | 2025-01-07 13:21 | XMS_ITS | Clinical Summary ---
Author Organization [facility] Address [address] [place] [address] Care Team Providers Care Management Recruiter Name Role Phone Moreno Woodward MD Primary Care Provider [phone] Olivier Miramontes MD Unavailable Allergies No known active allergies Medications acetaminophen [...] Description 10/17/2024 7:00 AM CDT Laboratory Only [facility] [address] [place] [address] Donato Barba MD from Last 3 Months Social History Tobacco Use Types Packs/Day Years Used Date Smoking Tobacco: Never Smokeless Tobacco: Never Tobacco Cessation:Counseling Given: Not Answered Comments Unknown Sex and Gender Information Value Date Recorded Sex Assigned at Female 07/14/2024 9:23 AM ENGINE LATHE TENDER Legal Sex Female 11:04 PM CDT Gender Identity Not on file Sexual Orientation Not on file Last Filed Vital Signs Vital Sign Reading Time Taken Comments Blood Pressure 151/71 07/14/2024 12:00 PM ENGINE LATHE TENDER Pulse 101 07/14/2024 12:00 PM ENGINE LATHE TENDER Temperature 37.6 C (99.6 F) 07/14/2024 12:00 PM ENGINE LATHE TENDER Respiratory Rate 20 07/14/2024 12:00 PM ENGINE LATHE TENDER Oxygen Saturation 92% 07/14/2024 12:00 PM ENGINE LATHE TENDER Inhaled Oxygen Concentration - - Weight 99.6 kg (219 lb 9.3 oz) 07/14/2024 9:08 A M ENGINE LATHE TENDER Height 165.1 cm (5' 5) 07/14/2024 9:08 AM ENGINE LATHE TENDER Body Mass Index 36.54 07/14/2024 9:08 AM ENGINE LATHE TENDER Plan of Treatment Health Maintenance Due Date [...] - 11.0 x10'3/uL 10/17/2024 7:52 AM CDT [facility] RBC 4.32(L) 4.50 - 5.10 x10'6/uL 10/17/2024 7:52 AM CDT [facility] HGB 13.5 12.3 - 15.3 G/DL 10/17/2024 7:52 AM CDT [facility] HCT 41.1 35.9 - 44.6 % 10/17/2024 7:52 AM CDT [facility] MCV 95.1 80.0 - 96.0 FL 10/17/2024 7:52 AM CDT [facility] MCH 31.3(H) 25.3 - 30.9 PG 10/17/2024 7:52 AM CDT [facility] MCHC 32.8 31.0 - 34.1 G/DL 10/17/2024 7:52 AM CDT [facility] RDW 13.6 12.4 - 15.1 % 10/17/2024 7:52 AM CDT [facility] PLT 292 151 - 353 x10'3/uL 10/17/2024 7:52 AM CDT [facility] MPV 9.8 9.6 - 12.0 FL 10/17/2024 7:52 AM CDT [facility] RBC MORPHOLOGY NORMAL 10/17/2024 7:52 AM CDT [facility] PLT MORPH. NORMAL 10/17/2024 7:52 AM T [facility] WBC MORPHOLOGY NORMAL 10/17/2024 7:52 AM T [facility] LYMPHOCYTES % 26.3 15.8 - 45.0 % 10/17/2024 7:52 AM CDT [facility] NEUTROPHILS % 60.0 42.1 - 71.9 % 10/17/2024 7:52 AM CDT [facility] MONOCYTES % 8.7 5.7 - 12.5 % 10/17/2024 7:52 AM T [facility] EOSINOPHILS 3.9 0.0 - 5.6 % 10/17/2024 7:52 AM T [facility] BASOPHILS 0.8 0.0 - 1.3 % 10/17/2024 7:52 AM T [facility] ABS. NEUTROPHILS 3.89 1.40 - 6.00 x10'3/uL 10/17/2024 7:52 AM T [facility] IMMATURE GRANS % 0.3 0.0 - 0.5 % 10/17/2024 7:52 AM T [facility] ABS. LYMPHOCYTES 1.70 0.80 - 4.70 x10'3/uL 10/17/2024 7:52 AM T [facility] GLUCOSE 97 70 - 99 MG/DL 10/17/2024 8:26 AM [facility] BUN 24(H) 7 - 18 MG/DL 10/17/2024 8:26 AM [facility] CREATININE S/P/B 0.97 0.55 - 1.02 MG/DL 10/17/2024 8:26 AM [facility] SODIUM S/P/B 141 136 - 145 MMOL/L 10/17/2024 8:26 AM [facility] POTASSIUM S/P/B 3.6 3.5 - 5.1 MMOL/L 10/17/2024 8:26 AM [facility] CHLORIDE S/P/B 102 100 - 108 MMOL/L 10/17/2024 8:26 AM [facility] CO2 31.8 21 - 32 MMOL/L 10/17/2024 8:26 AM [facility] CALCIUM S/P/B 9.4 8.5 - 10.1 MG/DL 10/17/2024 8:26 AM [facility] BILIRUBIN TOTAL S/P/B 0.5 0.2 - 1.2 MG/DL 10/17/2024 8:26 AM [facility] TOTAL PROTEIN S/P/B 7.0 6.4 - 8.2 G/DL 10/17/2024 8:26 AM [facility] ALBUMIN S/P/B 3.3(L) 3.4 - 5.0 G/DL 10/17/2024 8:26 AM [facility] AST 16 15 - 37 U/L 10/17/2024 8:26 AM [facility] ALT 20 14 - 55 U/L 10/17/2024 8:26 AM [facility] ALKALINE PHOSPHATASE S/P/B 79 50 - 136 U/L 10/17/2024 8:26 AM [facility] ANION GAP 7.2 5 - 15 MMOL/L 10/17/2024 8:26 AM [facility] BUN CREATININE RATIO 24.7 6 - 26 10/17/2024 8:26 AM [facility] A/G RATIO 0.9(L) 1.0 - 2.0 RATIO 10/17/2024 8:26 AM [facility] GFR ESTIMATE 60(L) >90 ML/MIN/1. 73 M2 10/17/2024 8:26 AM [facility] Comment: NOTE: eGFR is not calculated for patients <18 years of age. This is an estimated GFR calculation using the new CKD EPI creatinine equation without race and so does not require a correction factor for race. This estimated GFR should not be used for calculating drug doses. TSH 2.517 0.358 - 3.74 uIU/ML 10/17/2024 8:26 AM [facility] Comment: HIGH DOSES OF BIOTIN MAY INTERFERE WITH THIS TEST RESULT. CORRELATION TO CLINICAL HISTORY AND PRESENTATION RECOMMENDED. CHOLESTEROL 238(H) <200.0 MG/DL 10/17/2024 8:26 AM [facility] TRIGLYCERIDES 91 <150 MG/DL 10/17/2024 8:26 AM [facility] HDL 90 >40.0 MG/DL 10/17/2024 8:26 AM [facility] LDL (CALCULATED) 130(H) <100 MG/DL 10/17/2024 8:26 AM [facility] NON HDL CHOLESTEROL 148(H) <130 MG/DL 10/17/2024 8:26 AM [facility] CHOL/HDL RATIO 2.6 0.0 - 4.5 10/17/2024 8:26 AM [facility] VLDL CALCULATION 18 5 - 55 MG/DL 10/17/2024 8:26 AM CDT [facility] LIPID INTERPRETATION 10/17/2024 8:26 AM CDT [facility] Comment: NIH CONCENSUS REPORT RECOMMENDATIONS: [...] MD LABORATORY Final Result Performing Organization Address [facility] de Phone Number [facility] [address] [place] [address], [place] [phone] * HEMOGLOBIN, GLYCOSYLATED (10/17/2024 12:10 AM CDT) HGB A1C 5.4 <5.7 % 10/17/2024 9:17 AM CDT [facility] Comment: INCREASED RISK OF DIABETES <5.7% NON-DIABETES 5.7-6.4% INCREASED RISK FOR FUTURE DIABETES > OR = 6.5 CONSISTENT WITH DIABETES STANDARDS OF MEDICAL CARE IN DIABETES-2010 DIABETES CARE, 33(SUPP 1): S1-S61,2010 ESTIMATED AVG GLUCOSE 108 mg/dL 10/17/2024 9:17 AM CDT [facility] 10/17/2024 12:1 0 AM CDT Donato Barba MD LABORATORY Final Result Performing Organization Address [facility] Co de Phone Number [facility] [address] [place] [address], * VITAMIN D, 25 OH (10/17/2024 12:10 AM CDT) VITAMIN D 25 HYDROXY S/P/B 71 30 - 100 NG/ML 10/17/2024 10:44 AM CDT [facility] Comment: INTERPRETATION DEFICIENT <20 INSUFFICIENT 20-29 SUFFICIENT 30-100 10/17/2024 12:1 0 AM CDT Donato Barba MD LABORATORY Final Result Performing Organization Address [facility] Co de Phone Number [facility] [address] [place] [address], * FECAL BLOOD FIT SCREEN (04/07/2018 12:27 AM CDT) FECAL BLOOD FIT SCRN NEGATIVE NEGATIVE 04/11/2018 7:13 AM CDT [facility] STOOL SPECIMEN / Unknown 04/07/2018 12:27 AM CDT 04/07/2018 12:28 AM CDT Wesley Antony Md, MD BODY FLUIDS AND STOOLS ORDERABLES Final Result Performing Organization Address [facility] de Phone Number [facility] [address] [place] [address], [place] [phone] * BONE DENSITY/DEXA (10/24/2013 12:14 PM CDT) Anatomical Region Laterality Modality Bone Bone Density 10/24/2013 12:1 4 PM CDT 10/24/2013 12:14 PM CDT Narrative 10/24/2013 2:51 PM CDT PRISCILLA WILBURN MD: GUSTAVO COURTNEY MD ACCT: [id number] ADMIT/SERVICE DATE: 10/24/13 DISCHARGE DATE: : 1945 PT TYPE: REG CLI SEX: F ORD SITE: [facility] STUDY DATE REPORT # PROCEDURE CODE PROCEDURE 10/24/13 [id number] DEXASCAN XR DEXA SCAN EXTORDERID [id number] CHART DOCUMENT DIVISION OF RADIOLOGY ACCESSION # EXAM DATE EXAM DESCRIPTION [id number] 10/24/2013 XR DEXA SCAN IMAGING STUDIES: BONE [...] 10/24/2013 1:44 P JOB NO: DOC NO: [id number] CC: Procedure Note Wesley Prabhakar MD - 04/14/2018 PRISCILLA WILBURN ORDERING MD: GUSTAVO COURTNEY MD ACCT: [id number] ADMIT/SERVICE DATE: 10/24/13 DISCHARGE DATE: : 1945 PT TYPE: REG CLI SEX: F ORD SITE: [facility] STUDY DATE REPORT # PROCEDURE CODE PROCEDURE 10/24/13 [id number] DEXASCAN XR DEXA SCAN EXTORDERID [id number] CHART DOCUMENT DIVISION OF RADIOLOGY ACCESSION # EXAM DATE EXAM DESCRIPTION [id number] 10/24/2013 XR DEXA SCAN IMAGING STUDIES: BONE [...] 10/24/2013 1:44 P JOB NO: DOC NO: [id number] CC: Gustavo Courtney MD DEXA Final Result from Last 3 Months or Most Recently Relevant to Health Maintenance Insurance MEDICARE [facility] Care Teams Management Recruiter Relationship Specialty Start Date End Date Moreno Woodward MD [address] [place] [address] PCP - General FAMILY PRACTICE 03/25/22 Olivier Miramontes MD [address] [facility] [address] [place] [id number] CARDIOVASCULAR DISEASE 07/14/24
--- OUTSIDE RECORDS SUMMARY | 2025-01-07 13:21 | XMS_ITS | Clinical Summary ---
Author Organization [facility] Cover Address [address] [facility] [place] [address] Care Team Providers Care Side Gluer Name Role Phone Moreno Woodward MD Primary Care Provider [phone] Jignesh Weller MD Unavailable [phone] Source Comments [facility] Cover,non-owned Affiliates and Associated Physician Practices is amultiple site organization consisting of ambulatory clinics and hospital sitesin [place], [place], [place] and [place]. This disclosure is being madepursuant to the Care Everywhere program and may not contain all information available regarding this patient. Last updated 18.[facility] Cover Allergies No known active allergies Medications * [...] by mouth once daily Active Probiotic Product ([employer]) capsule Take 1 (one) capsule by mouth [...] would need to be done either in [place] or [place]. I discussed with her all aspects of this procedure (including the actual performance of the procedure, the potential benefits and complications and the post-surgical programming sessions). I answered all her questions pertaining to the procedure. We also discussed HIFU, inertial dampening devices and the Exo peripheral stimulation device. We discussed that we [...] to satisfaction of patient and/or family members. Anglela Salcedo MD Last Assessment & Plan: She [...] it is helping her tremor. Though her sink cutter has given the okay, she is reluctant [...] age to complete this topic Insurance MEDICARE [facility] * Guarantor: PRISCILLA WILBURN Account Type Relation to Patient Date of Phone Billing Address Personal/Family [address] [place] [address] MEDICARE [facility] [place], [place] [address] Care Teams Side Gluer Relationship Specialty Start Date End Date Moreno Woodward MD [address] [place] [address] PCP - General Family Medicine 03/24/17 Jignesh Weller MD [address] [place] [address] Cooking Casing And Drying Supervisor Electrophysiology 12/03/20
--- OUTSIDE RECORDS SUMMARY | 2025-01-07 13:21 | XMS_ITS | Encounter Summary ---
Author Organization [facility] Address [address] [facility] [place] [address] Care Team Providers Care Lead Burner Supervisor Name Role Phone Moreno Woodward MD Primary Care Provider [phone] Jignesh Weller MD Unavailable [phone] Encounter Details Date Type Department Care Team (Late st Contact Info) Description 05/01/2024 Lab Requisition [facility] - DermPath Lab [address] [facility] [place] [id number] Mehrdad [place] [address] Social History Tobacco Use Types [...] Comments DERMATOPATHOLOGY Routine 04/30/2024 12:0 0 AM FILLING HAULER WEAVING documented in this encounter Results * DERMATOPATHOLOGY (04/30/2024 12:00 AM FILLING HAULER WEAVING) Case Report Dermatopathology Report Case: [id number] Authorizing Provider: Mehrdad Mariano MD Collected: 04/30/2024 12:00 AM Ordering Location: [facility] - Received: 05/01/2024 02:37 PM DermPath Lab Pathologist: Darby Nation MD Specimen: Skin, right superior pretibia 3:07 PM [facility] Final Diagnosis Specimen A. SKIN, right superior pretibia: SEBORRHEIC KERATOSIS, IRRITATED AND INFLAMED (L82.0) NOT PRESENT AT SAMPLED MARGIN 3:07 PM [facility] DERMATOPATHOLOGY [facility]ATORY at [address] [employer] Clinical History R/O SK Please check margins 3:07 PM [facility] Gross Description Specimen A: Received is one formalin filled container labeled with the patients name and designated right superior pretibia. The specimen consists of a shave removal measuring 31s24s3 mm. Jar 0. 3:07 PM [facility] Microscopic Description Specimen A. SKIN, right superior pretibia: Sections show acanthosis, papillomatosis, hyperkeratosis, and squamous eddies. There is a lymphohistiocytic infiltrate within the papillary dermis. This lesion is not present at the sampled margin of the specimen. 3:07 PM [facility] Disclaimer An external and internal positive and negative controls are appropriate for the histochemical, immunohistochemical and immunofluorescence stain(s) in this case (if any), except where stated explicitly. The performance characteristics of the stain(s) cited in this report were developed and its performance characteristic determined by the Dermatopathology Laboratory at [facility], directed by Dr. Amparo Pugh. These tests need not be, and therefore are not, approved by the [place] Food and Drug Administration. The tests are used for clinical purposes. Billing Codes Specimen Charges Stain Charges 78085 1 3:07 PM [facility] Embedded Images 3:07 PM [facility] Pathology/Cytolog y TISSUE SPECIMEN FROM SKIN / Unknown 04/30/2024 05/01/2024 2:37 PM FILLING [employer]ING us Mehrdad Mariano MD LAB - PATHOLOGY/CYTOLOGY ORD ERABLES Final Result DERMATOPATHOLOGY LABORATORY [facility] - Department of Dermatology [facility] Specialized Medicine [address] [place] [address], [address] [phone] documented in this encounter Visit Diagnoses Not on filedocumented in this encounter Care Teams Lead Burner Supervisor Relationship Specialty Start Date End Date Moreno Woodward MD [address] [place] [address] PCP - General Family Medicine 03/24/17 Jignesh Weller MD [address] [place] [address] Wardrobe Specialist Electrophysiology 12/03/20 documented as of this encounter
[2025-01-07 14:16] LABS: Albumin Level 3.8 g/dL (3.5-5.1); Anion Gap 6 mmol/L (4-12); Blood Urea Nitrogen 21 mg/dL (7-17); Calcium 9.5 mg/dL (8.4-10.2); Carbon Dioxide 32 mmol/L (22-30); Chloride 97 mmol/L (98-107); Estimated Glomerular Filt Rate 54; Glucose 115 mg/dL (65-110); Potassium 4.1 mmol/L (3.4-5.0); Sodium 135 mmol/L (137-145)
[2025-01-07 14:26] LABS: Parathyroid Intact 40.1 pg/mL (14.5-75.2)
[2025-01-07 15:12] LABS: Total Protein Urine Random < 5 mg/dL; Ur Ttl Prot Creatinine Ratio < 0.08 mg/mg (0-0.20)
== END 2025-01-07 13:17 | disposition home or self-care (01) ==
LOC: ANHLAB 13:18
PROVIDERS: PCP Family Medicine; Visit Provider Internal Medicine Nephrology
DX: I12.9 Hypertensive chronic kidney disease with stage 1 through stage 4 chronic kidney disease, or unspecified chronic kidney disease (principal); N18.31 Chronic kidney disease, stage 3a; N25.81 Secondary hyperparathyroidism of renal origin; E55.9 Vitamin D deficiency, unspecified
CPT/HCPCS: 36415; 80069; 82306; 82570; 83970; 84156

== ENCOUNTER 2025-02-28 08:58 | Outpatient (CLI) | payer MEDICARE, SELFPAY ==
--- NOTE | ~2025-02-28 | CT_ITS ---
EXAMINATION: CT abdomen pelvis wo/w con DATE: 02/28/2025 09:46 INDICATION: Personal history of other malignant neoplasm of kidney. TECHNIQUE: Computed tomography (CT) of the abdomen and pelvis was performed without and with 100 mL Omnipaque 350 intravenous contrast. Automated exposure control and iterative reconstruction technique were employed. The dose-length product was 1419.26 mGy-cm. COMPARISON: CT abdomen and pelvis 01/03/2024, 03/02/2018, 06/23/2015 FINDINGS: The visualized portions of lung bases demonstrate mild atelectasis. No pleural effusion. The heart size is normal. No pericardial effusion. There is a 7 mm cyst in the liver. The gallbladder is normal. Calcifications in the spleen are consistent with old granulomatous disease. The pancreas and adrenal glands are normal. There are changes of posterior right nephrectomy. There are cysts in the kidneys measuring up to 4.2 cm on the left. There are no dilated loops of bowel. The appendix is normal. There are no pathologically enlarged lymph nodes. There is no free intraperitoneal fluid. There is a hemangioma in T12 vertebral body. There is severe lumbar spondylosis. Thoracolumbar levoscoliosis is noted. IMPRESSION: 1. Partial right nephrectomy. No evidence of malignancy. Reviewed, dictated and finalized at location E.
[2025-02-28 09:36] LABS: Estimated Glomerular Filt Rate 54
--- OUTSIDE RECORDS SUMMARY | 2025-02-28 09:36 | XMS_ITS ---
Author Organization [facility] Address [address] [place] [address] Care Team Providers Care Able Seaman Name Role Phone Moreno Woodward MD Primary Care Provider Jose Angel Cody MD Unavailable [phone] Active Problems Problem Noted Date Diagnosed Date BOB positive 01/31/2025 Assessment & Plan (01/31/2025 8:26 AM CDT): Hx of low positive bob 1:80 but no signs or symptoms of CTD/SLE, will continue monitoring pt. Polyarthralgia 01/16/2024 Overview (01/30/2024): US left hand/wrist [...] the 1st [facility] joint Assessment & Plan (01/31/2025 8:25 AM CDT): She was informed that serologies and exam [...] of medicat ions 01/16/2024 Assessment & Plan (01/31/2025 8:25 AM CDT): Renal cell carcinoma 2016- s/p partial right nephrectomy. + bob 1:80 from pcp 2023. Assessment & Plan (02/02/2024 8:28 AM CDT): [...] 04/02/2019 Assessment & Plan (08/08/2023 10:53 AM LOG CUT OFF SAWYER): Images from the original note were not [...] would need to be done either in [place] or [place]. I discussed with her all aspects of [...] it is helping her tremor. 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
--- OUTSIDE RECORDS SUMMARY | 2025-02-28 09:36 | XMS_ITS | Clinical Summary ---
Author Organization [facility] Address [address] [place] [address] Care Team Providers Care Roll Scale Worker Name Role Phone Moreno Woodward MD Primary Care Provider Jose Angel Cody MD Unavailable [phone] Allergies No known active allergies Medications hydroCHLOROthia zide (MICROZIDE) 12.5 mg capsule 08/05/2015Hydrochl orothiazide, po solid 12.5 mg CapsulePOas directedCurrent Medication [...] syringe Inject under the skin once Active ascorbic acid (ascorbic acid with rory hips) 500 mg tablet,chewable Acti ve irbesartan (AVAPRO) 75 mg tabletIndicatio ns:Essential hypertension TAKE 1 TABLET BY MOUTH EVERY DAY AT NIGHT 90 tablet 3 06/14/20 24 Active metoprolol XL (TOPROL-XL) 25 mg extended release tablet Take 1 tablet (25 mg total) by mouth as needed (for palpitations) 30 tablet 3 02/16/20 25 Active metoprolol XL (TOPROL-XL) 25 mg extended release tablet Take 1 tablet (25 mg total) by mouth as needed 025 Discontin ued(Reord er) Active Problems Problem Noted Date Diagnosed Date [...] 04/02/2019 Assessment & Plan (08/08/2023 10:53 AM FACILITIES LOCATOR): Images from the original note were not [...] would need to be done either in [place] or [place]. I discussed with her all aspects of [...] it is helping her tremor. 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 Overview (09/27/2023): Neoplasm of uncertain behavior of other and unspecified female genital organs;Recorded Elsewhere: No Location: [facility] Source: EHR Chronic: N Practice ID: [...] Encounters Date Type Department Care Team Description 02/15/2025 Telephone [facility] Cardiology [address] [place] [address] Olivier Miramontes MD from Last 3 Months Immunizations Immunization Administration [...] on file Legal Sex Female 3:30 AM FACILITIES LOCATOR Gender Identity Not on file Sexual Orientation Not on file 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 Not on file Not on file Obstetrics History Last Filed Vital Signs Vital Sign Reading Time Taken Comments Blood Pressure 122/70 06/04/2024 9:19 AM FACILITIES LOCATOR Pulse 85 06/04/2024 9:19 AM FACILITIES LOCATOR Temperature 36.2 C (97.1 F) 04/19/2022 9:03 AM CDT Respiratory Rate 16 03/03/2017 2:48 PM CDT Oxygen Saturation 96% 06/04/2024 9:19 AM FACILITIES LOCATOR Inhaled Oxygen Concentration - - Weight 94.3 kg (208 lb) 06/04/2024 9:19 AM FACILITIES LOCATOR Height 160 cm (5' 3) 06/04/2024 9:19 AM FACILITIES LOCATOR Body Mass Index 36.85 06/04/2024 9:19 AM FACILITIES LOCATOR Plan of Treatment Health Maintenance Due Date [...] Hepatitis B Screening Completed 01/16/2024 Insurance MEDICARE [facility] MEDICARE [facility] MEDICARE [facility] MEDICARE [facility] Care Teams Roll Scale Worker Relationship Specialty Start Date End Date Moreno Woodward MD [address] [place] [address] PCP - General 08/04/16 Jose Angel Cody MD [address] [place] [address] Consulting Physician Rheumatology 01/27/24
--- OUTSIDE RECORDS SUMMARY | 2025-02-28 09:36 | XMS_ITS | Clinical Summary ---
Author Organization [facility] Address [address] [place] [address] Phone Care Team Providers Care Patternmaker Bench Name Role Phone Moreno Woodward MD Primary Care Provider [phone] Allergies No known active allergies Medications acetaminophen [...] it is helping her tremor. Though her grease refiner operator has given the okay, she is [...] on file Legal Sex Female 9:55 AM [facility] Gender Identity Not on file Sexual [...] Influenza Vaccine (#1) 2025 08/05/2015 Insurance MEDICARE [facility] MEDICARE SUPPLEMENT Care Teams Patternmaker Bench Relationship Specialty Start Date End Date Moreno Woodward MD [address] [facility] [address] [facility] [address] [place] [address] PCP - General Internal Medicine 06/29/21
== END 2025-02-28 08:59 | disposition home or self-care (01) ==
PROVIDERS: PCP Family Medicine; Visit Provider Physician Assistant
DX: Z85.528 Personal history of other malignant neoplasm of kidney (principal)
CPT/HCPCS: 74178; Q9967

== ENCOUNTER 2025-05-13 09:00 | Outpatient (CLI) | payer MEDICARE, SELFPAY ==
--- NOTE | ~2025-05-13 | US_ITS ---
US breast RT limited 05/13/2025 09:25 Indication: Follow-up right breast mass Procedure: High-resolution ultrasound of the right breast in the area previously identified concern Comparison: Comparison to multiple prior studies sequentially, with oldest reviewed study dated 09/27/2024. Findings: There is heterogeneous soft tissue in the right breast at 8:00, 6 cm from the nipple without internal vascularity or posterior features. Serial images demonstrate a normal heterogeneous echotexture which blends with the surrounding soft tissue. No discrete mass identified. No significant interval change allowing for differences of technique. Impression: 1: Stable likely benign heterogeneous soft tissue in the right breast. BI-RADS CATEGORY 3-PROBABLY BENIGN FINDING RECOMMENDATION: Recommend 6 month follow-up bilateral mammogram with Limited right breast ultrasound or MRI examination. Reviewed, dictated and finalized at location O. RUCTIONAL TECHNOLOGY INSTRUCTOR Impression: 1: Stable likely benign heterogeneous soft tissue in the right breast. BI-RADS CATEGORY 3-PROBABLY BENIGN FINDING RECOMMENDATION: Recommend 6 month follow-up bilateral mammogram with Limited ri ght breast ultrasound or MRI examination.
--- OUTSIDE RECORDS SUMMARY | 2025-05-13 09:48 | XMS_ITS | Clinical Summary ---
Author Organization [facility] Address [address] [place] [address] Care Team Providers Care Flexographic Printing Press Operator Name Role Phone Moreno Woodward MD Primary Care Provider Jose Angel Cody MD Unavailable [phone] Allergies No known active allergies Medications [...] palpitations) 30 tablet 3 02/16/20 25 Active Active Problems Problem Noted Date Diagnosed [...] 04/02/2019 Assessment & Plan (08/08/2023 10:53 AM MAMMA LOGIST): Images from the original note were not [...] discussed HIFU, inertial dampening devices and the [employer] peripheral stimulation device. We discussed that we [...] would need to be done either in [place] or [place]. I discussed with her all aspects of this procedure (including the actual performance of the procedure, the potential benefits and complications and the post-surgical programming sessions). I answered all her questions pertaining to the procedure. We also discussed HIFU, inertial dampening devices and the [employer] peripheral stimulation device. We discussed that we [...] it is helping her tremor. 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 Overview (09/27/2023): Neoplasm of uncertain behavior of other and unspecified female genital organs;Recorded Elsewhere: No Location: [facility] Source: EHR Chronic: N Practice ID: [id number] [...] Encounters Date Type Department Care Team Description 03/22/2025 1:30 PM CDT Ancillary Procedure [facility] Medical [facility] Cardiology [address] [place] [phone] Palpitations 03/19/2025 Telephone [facility] Cardiology [address] [place] [phone] Olivier Miramontes MD 02/15/2025 Telephone [facility] Cardiology [address] [place] [phone] Olivier Miramontes MD from Last 3 Months [...] on file Legal Sex Female 3:30 AM MAMMA LOGIST Gender Identity Not on file Sexual Orientation Not on file 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 Not on file Not on file Last Filed Vital Signs Vital Sign Reading Time Taken Comments Blood Pressure 122/70 06/04/2024 9:19 AM MAMMA LOGIST Pulse 85 06/04/2024 9:19 AM MAMMA LOGIST Temperature 36.2 C (97.1 F) 04/19/2022 9:03 AM CDT Respiratory Rate 16 03/03/2017 2:48 PM CDT Oxygen Saturation 96% 06/04/2024 9:19 AM MAMMA LOGIST Inhaled Oxygen Concentration - - Weight 94.3 kg (208 lb) 06/04/2024 9:19 AM MAMMA LOGIST Height 160 cm (5' 3) 06/04/2024 9:19 AM MAMMA LOGIST Body Mass Index 36.85 06/04/2024 9:19 AM MAMMA LOGIST Plan of Treatment Health Maintenance Due Date [...] history exists Hepatitis B Screening Completed 01/16/2024 Procedures Procedure Name Priority Date/Time Associated Diagnosis Comments EXTENDED/ASSISTED HOLTER PATCH (>48 HOURS UP TO 7 DAYS) Routine 03/22/2025 12:54 PM CDT Palpitations from Last 3 Months Results * Extended/Residential Holter Patch (>48 hours up to 7 days) (03/22/2025 12:54 PM CDT) Anatomical Region Laterality Modality Electrocardiogra phy Narrative 04/08/2025 2:12 PM CDT AMBULATORY DIRECTOR OF DANCE REPORT Patient Name: Priscilla Bone Date of : 1945 Requesting Physician: Dr Miramontes Date of interpretation: 04/08/25 Type of monitor : 7 day Holter monitor Date of the study/Enrollment period: March 22 till March 29, 2025 Indication: Palpitations Quality of the study: Artifact time 2 hours Interpretation: Average heart rate was 70 beats per minute with a minimum heart rate 51 beats per minute and maximum heart rate 154 beats per minute. There was a total of 11 PVCs and a total of 150 supraventricular ectopic beats. No evidence of atrial fibrillation, ventricular tachycardia or significant pauses or blocks. There were 2 episodes of supraventricular tachycardia the longest consistent of 9 beats at heart rate 128 beats per minute. Patient was asymptomatic during the monitoring time. Conclusions: Couple episodes of supraventricular tachycardia. Rare supraventricular ectopic contractions. Voice recognition software was used to complete this document, therefore, dry cleaner presser variances may occur. Olivier Miramontes MD, [facility] 04/08/25 Procedure Note Olivier Miramontes MD - 04/08/2025 AMBULATORY DIRECTOR OF DANCE REPORT Patient Name: Priscilla Bone Date of : 1945 Requesting Physician: Dr Miramontes Date of interpretation: 04/08/25 Type of monitor : 7 day Holter monitor Date of the study/Enrollment period: March 22 till March 29, 2025 Indication: Palpitations Quality of the study: Artifact time 2 hours Interpretation: Average heart rate was 70 beats per minute with a minimum heart rate 51beats per minute and maximum heart rate 154 beats per minute. There was atotal of 11 PVCs and a total of 150 supraventricular ectopic beats. Noevidence of atrial fibrillation, ventricular tachycardia or significantpauses or blocks. There were 2 episodes of supraventricular tachycardiathe longest consistent of 9 beats at heart rate 128 beats per minute.Patient was asymptomatic during the monitoring time. Conclusions: Couple episodes of supraventricular tachycardia. Rare supraventricularectopic contractions. Voice recognition software was used to complete this document, therefore,dry cleaner presser variances may occur. Olivier Miramontes MD, [facility] 04/08/25 Olivier Miramontes MD CV CARDIAC SERVICES PROCEDURES Final Result from Last 3 Months Insurance MEDICARE [facility] MEDICARE [facility] MEDICARE [employer] MEDICARE SUPPLEMENT MEDICARE [facility] Care Teams Flexographic Printing Press Operator Relationship Specialty Start Date End Date Moreno Woodward MD [address] [email or web address] [address] [place] [address] PCP - General 08/04/16 Jose Angel Cody MD [address] [place] [address] Consulting Physician Rheumatology 01/27/24
--- OUTSIDE RECORDS SUMMARY | 2025-05-13 09:48 | XMS_ITS | Clinical Summary ---
Author Organization [facility] Address [address] [place] [address] Phone Care Team Providers Care Rubber Chemist Name Role Phone Moreno Woodward MD Primary Care Provider [phone] Allergies No known active allergies Medications acetaminophen [...] it is helping her tremor. Though her motor and chassis inspector has given the okay, she is reluctant [...] on file Legal Sex Female 9:[address] [facility] Gender Identity Not on file [...] Influenza Vaccine (#1) 2025 08/05/2015 Insurance MEDICARE [facility] MEDICARE SUPPLEMENT Care Teams Rubber Chemist Relationship Specialty Start Date End Date Moreno Woodward MD [address] [facility] [address] [facility] [address] [place] [address] PCP - General Internal Medicine 06/29/21
--- OUTSIDE RECORDS SUMMARY | 2025-05-13 09:48 | XMS_ITS ---
Author Organization [facility] Address [address] [place] [address] Care Team Providers Care Forest Scientist Name Role Phone Moreno Woodward MD Primary Care Provider Jose Angel Cody MD Unavailable [phone] Active Problems Problem Noted Date Diagnosed [...] 04/02/2019 Assessment & Plan (08/08/2023 10:53 AM CHURN DRILLER): Images from the original note were not [...] ones) were extensively discussed with Ms. Priscilla Boen and her . Her tremor affected her [...] would need to be done either in [place] or [place]. I discussed with her all aspects of [...] it is helping her tremor. 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
--- OUTSIDE RECORDS SUMMARY | 2025-05-13 09:49 | XMS_ITS | Encounter Summary ---
Author Organization [facility] Address [facility] [place] [address] Care Team Providers Care Black Oxide Coating Equipment Tender Name Role Phone None, Provider Primary Care Provider UnavailMoreno Al MD Primary Care Provider [phone] Olivier Miramontes MD Unavailable Encounter Details Date Type Department Care Team (Latest Contact Info) Description 04/25/2018 Abstract [facility] , [facility] Antony MD Social History Tobacco Use Types Packs/Day Years Used Date Smoking Tobacco: Never Comments Unknown Sex and Gender Information Value Date Recorded Sex Assigned at Female 07/14/2024 9:23 AM WADER BOOT TOP ASSEMBLER Legal Sex Female 11:04 PM CDT Gender Identity Not on file Sexual Orientation Not on file documented as of this encounter Plan of Treatment Not on file documented as of this encounter Visit Diagnoses Not on filedocumented in this encounter Additional Health Concerns Infection Onset Date Last Indicated Resolved Time COVID-19 Rule Out 07/14/2024 07/14/2024 07/14/2024 9:35 AM WADER BOOT TOP ASSEMBLER documented as of this encounter Care Teams Black Oxide Coating Equipment Tender Relationship Specialty Start Date End Date None, Provider, PCP - General 10/09/20 03/24/22 Moreno Woodward MD [address] [facility] [address] [place] [address] PCP - General FAMILY PRACTICE 03/25/22 Olivier Miramontes MD [address] [place] [address] CARDIOVASCULAR DISEASE 07/14/24 documented as of this encounter
--- OUTSIDE RECORDS SUMMARY | 2025-05-13 09:49 | XMS_ITS | Encounter Summary ---
Author Organization [facility] Address [address] [place] [address] Care Team Providers Care Rotary Drier Name Role Phone Moreno Woodward MD Primary Care Provider [phone] Jignesh Weller MD Unavailable [phone] Encounter Details Date Type Department Care Team (Late st Contact Info) Description 05/01/2024 Lab Requisition [facility] - DermPath Lab [address] [facility] [place] [id number] Mehrdad Mar[place] [address] Social History Tobacco Use Types [...] Comments DERMATOPATHOLOGY Routine 04/30/2024 12:0 0 AM APPEALS REPRESENTATIVE documented in this encounter Results * DERMATOPATHOLOGY (04/30/2024 12:00 AM APPEALS REPRESENTATIVE) Case Report Dermatopathology Report Case: [id number] Authorizing Provider: Mehrdad Mariano MD Collected: 04/30/2024 12:00 AM Ordering Location: [facility] - Received: 05/01/2024 02:37 PM DermPath Lab Pathologist: Darby Nation MD Specimen: Skin, right superior pretibia 3:07 PM [facility] DERMATOPATHOLOGY LABORATORY Final Diagnosis Specimen A. SKIN, right superior pretibia: SEBORRHEIC KERATOSIS, IRRITATED AND INFLAMED (L82.0) NOT PRESENT AT SAMPLED MARGIN 3:07 PM [facility] DERMATOPATHOLOGY LABORATORY at 1507 APPEALS REPRESENTATIVE Clinical History R/O SK Please check margins 3:07 PM [facility] DERMATOPATHOLOGY LABORATORY Gross Description Specimen A: Received is one formalin filled container labeled with the patients name and designated right superior pretibia. The specimen consists of a shave removal measuring [id number] mm. Jar 0. 3:07 PM [facility] DERMATOPATHOLOGY LABORATORY Microscopic Description Specimen A. SKIN, right superior pretibia: Sections show acanthosis, papillomatosis, hyperkeratosis, and squamous eddies. There is a lymphohistiocytic infiltrate within the papillary dermis. This lesion is not present at the sampled margin of the specimen. 3:07 PM [facility] DERMATOPATHOLOGY LABORATORY Disclaimer An external and internal positive and negative controls are appropriate for the histochemical, immunohistochemical and immunofluorescence stain(s) in this case (if any), except where stated explicitly. The performance characteristics of the stain(s) cited in this report were developed and its performance characteristic determined by the Dermatopathology Laboratory at [facility], directed by Dr. Amparo Pugh. These tests need not be, and therefore are not, approved by the [place] Food and Drug Administration. The tests are used for clinical purposes. Billing Codes Specimen Charges Stain Charges 98126 1 3:07 PM [facility] DERMATOPATHOLOGY LABORATORY Embedded Images 3:07 PM [facility] DERMATOPATHOLOGY LABORATORY Pathology/Cytolog y TISSUE SPECIMEN FROM SKIN / Unknown 04/30/2024 05/01/2024 2:37 PM APPEALS REPRESENTATIVE us Mehrdad Mariano MD LAB - PATHOLOGY/CYTOLOGY ORD ERABLES Final Result DERMATOPATHOLOGY LABORATORY [facility] - Department of Dermatology [facility] Specialized Medicine [address] [place] [address], [address] [phone] documented in this encounter Visit Diagnoses Not on filedocumented in this encounter Care Teams Rotary Drier Relationship Specialty Start Date End Date Moreno Woodward MD [address] [place] [address] PCP - General Family Medicine 03/24/17 Jignesh Weller MD [address] [place] [address] Estimator Printing Plate Making Electrophysiology 12/03/20 documented as of this encounter
--- OUTSIDE RECORDS SUMMARY | 2025-05-13 09:49 | XMS_ITS | Clinical Summary ---
Author Organization [facility] Address [address] [facility] [place] [address] Care Team Providers Care Academic Affairs Vice President Name Role Phone Moreno Woodward MD Primary Care Provider Jignesh Weller MD Unavailable [phone] Source Comments [facility],non-owned Affiliates and Associated Physician Practices is amultiple site organization consisting of ambulatory clinics and hospital sitesin [place], [place], [place] and [place]. This disclosure is being madepursuant to the Care Everywhere program and may not contain all information available regarding this patient. Last updated 18.[facility] Allergies No known active allergies Medications * [...] by mouth once daily Active Probiotic Product (Nanapi) capsule Take 1 (one) capsule by mouth [...] would need to be done either in [place] or [place]. I discussed with her all aspects of this procedure (including the actual performance of the procedure, the potential benefits and complications and the post-surgical programming sessions). I answered all her questions pertaining to the procedure. We also discussed HIFU, inertial dampening devices and the [employer] peripheral stimulation device. We discussed that we [...] it is helping her tremor. Though her community ambassador has given the okay, she is reluctant [...] yrs (1 - 1-dose 75+ series) 2021 DEPRESSION SCREENING 06/20/2024 10/18/2022 COVID-19 VACCINE (3 - 2024-2 6 season) 2025 05/08/2021, 08/25/2020 INFLUENZA VACCINE (#1) 2025 08/05/2015 HEPATITIS B [...] age to complete this topic Insurance MEDICARE REPLACED BY [facility] * Guarantor: PRISCILLA WILBURN Account Type Relation to Patient Date of Phone Billing Address Personal/Family [address] [place] [address] MEDICARE [facility] [place], [place] [address] Care Teams Academic Affairs Vice President Relationship Specialty Start Date End Date Moreno Woodward MD [address] [place] [address] PCP - General Family Medicine 03/24/17 Jignesh Weller MD [address] [place] [address] Scoring Machine Operator Electrophysiology 12/03/20
--- OUTSIDE RECORDS SUMMARY | 2025-05-13 09:49 | XMS_ITS | Encounter Summary ---
Author Organization [facility] Address [address] [facility] [place] [address] Care Team Providers Care Operational Intelligence Analyst Name Role Phone Moreno Woodward MD Primary Care Provider [phone] Jignesh Weller MD Unavailable [phone] Encounter Details Date Type Department Care Team (Late st Contact Info) Description 10/13/2017 Lab Requisition [facility] Care DermPath Lab [address] [place] [id number] [place] [address] Social History Tobacco Use Types [...] AM CDT) Case Report Dermatopathology Report Case: [id number] Authorizing Provider: Mehrdad Mariano MD Collected: 10/12/2017 [...] specimen consists of a punch biopsy measuring [id number]. The margin is inked green. Jar 0. Specimen B: Received is one formalin filled container labeled with the patient's name and designated right distal thigh. The specimen consists of a shave biopsy measuring [id number]. The margin is inked green. Jar 0. [...] characteristic determined by the Dermatopathology Laboratory at [facility]. These tests need not be, and therefore are not, approved by the [place] Food and Drug Administration. The tests are used for clinical purposes. Billing Codes Specimen Charges Stain Charges 72981 40109 1 1 [address] 537[address] 85152 88537 1 1 1 1 8 5:00 PM CDT DERMATOPATHOLOGY LABORATORY Embedded Images 8 5:00 PM CDT DERMATOPATHOLOGY LABORATORY Pathology/Cytology TISSUE SPECIMEN FROM SKIN / Unknown 10/12/2017 10/13/2017 12:13 PM CDT Miscellaneous samples (specimen) TISSUE SPECIMEN FROM SKIN / Unknown 10/12/2017 10/13/2017 12:13 PM CDT Mehrdad Mariano MD LAB - PATHOLOGY/CYTOLOGY ORD ERABLES Final Result DERMATOPATHOLOGY LABORATORY [facility] - Department of Dermatology [address] [facility] 5th [address] [phone] documented in this encounter Visit Diagnoses Not on filedocumented in this encounter Care Teams Operational Intelligence Analyst Relationship Specialty Start Date End Date Moreno Woodward MD [address] [place] [address] PCP - General Family Medicine 03/24/17 Jignesh Weller MD [address] [place] [address] Coke Handling Supervisor Electrophysiology 12/03/20 documented as of this encounter
--- OUTSIDE RECORDS SUMMARY | 2025-05-13 09:49 | XMS_ITS | Clinical Summary ---
Author Organization [facility] Address [address] [place] [address] Care Team Providers Care Radiation Oncologist Name Role Phone Moreno Woodward MD Primary Care Provider [phone] Olivier Miramontes MD Unavailable [phone] Allergies No known active allergies Medications acetaminophen [...] Encounters Date Type Department Care Team Description 04/17/2025 Travel from Last 3 Months Social History Tobacco Use Types Packs/Day Years Used Date Smoking Tobacco: Never Smokeless Tobacco: Never Tobacco Cessation:Counseling Given: Not Answered Comments Unknown Sex and Gender Information Value Date Recorded Sex Assigned at Female 07/14/2024 9:23 AM CLINICAL DOCUMENTATION DEVELOPER Legal Sex Female 11:04 PM CDT Gender Identity Not on file Sexual Orientation Not on file Last Filed Vital Signs Vital Sign Reading Time Taken Comments Blood Pressure 151/71 07/14/2024 12:00 PM CLINICAL DOCUMENTATION DEVELOPER Pulse 101 07/14/2024 12:00 PM CLINICAL DOCUMENTATION DEVELOPER Temperature 37.6 C (99.6 F) 07/14/2024 12:00 PM CLINICAL DOCUMENTATION DEVELOPER Respiratory Rate 20 07/14/2024 12:00 PM CLINICAL DOCUMENTATION DEVELOPER Oxygen Saturation 92% 07/14/2024 12:00 PM CLINICAL DOCUMENTATION DEVELOPER Inhaled Oxygen Concentration - - Weight 99.6 kg (219 lb 9.3 oz) 07/14/2024 9:08 A M CLINICAL DOCUMENTATION DEVELOPER Height 165.1 cm (5' 5) 07/14/2024 9:08 AM CLINICAL DOCUMENTATION DEVELOPER Body Mass Index 36.54 07/14/2024 9:08 AM CLINICAL DOCUMENTATION DEVELOPER Plan of Treatment Health Maintenance Due Date Last Done Comments Hepatitis C 1963 Pneumococcal Vaccine: 50+ Years (1 of 1 - PCV) 1996 Zoster Vaccines (1 of 2) 1996 Annual Medicare Wellness Visit 10/02/2011 RSV Immunization or 60+ Years (1 - 1-dose 75+ series) 2021 COVID-19 Vaccine ( - 2024-2 6 season) 2025 Influenza Adult (#1) 2025 08/05/2015 DTaP, Tdap and Td Vaccines ( 3 - Td or Tdap) 10/05/2029 10/06/2019, 04/25/2013 Dexa Scan (General) Completed 10/24/2013 Colorectal Cancer Screening FIT/FOBT (1 Year) Discontinued 04/07/2018 Hepatitis A Vaccines Aged Out No long er eligible based on patient's age to complete this topic Meningococcal B Vaccine Aged Out No l onger eligible based on patient's age to complete this topic Meningococcal Vaccine Aged Out No amanuel alexandro eligible based on patient's age to complete this topic RSV Immunizations Under 20 Months Aged Out No longer eligible based on patient's age to complete this topic Procedures Procedure Name Priority Date/Time Associated Diagnosis Comments HEALTH FAIR VITAMIN D 25-OH Routine 04/17/2025 12:10 AM CDT [facility] FAIR WITH LIPID Routine 04/17/2025 12:10 AM CDT [facility] HEMOGLOBIN A1C Routine 04/17/2025 12:10 AM CDT FECAL BLOOD FIT SCREEN Routine 04/07/2018 12:27 AM CDT BONE DENSITY/DEXA Routine 10/24/2013 12: 14 PM CDT from Last 3 Months or Most Recently Relevant to Health Maintenance Results * (ABNORMAL) HEALTH FAIR WITH LIPID (04/17/2025 12:10 AM CDT) WBC 7.33 4.4 - 11.0 x10'3/uL 04/17/2025 7:07 AM CDT [facility] RBC 4.47(L) 4.50 - 5.10 x10'6/uL 04/17/2025 7:07 AM CDT [facility] HGB 13.9 12.3 - 15.3 G/DL 04/17/2025 7:07 AM CDT [facility] HCT 41.5 35.9 - 44.6 % 04/17/2025 7:07 AM CDT [facility] MCV 92.8 80.0 - 96.0 FL 04/17/2025 7:07 AM CDT [facility] MCH 31.1(H) 25.3 - 30.9 PG 04/17/2025 7:07 AM CDT [facility] MCHC 33.5 31.0 - 34.1 G/DL 04/17/2025 7:07 AM CDT [facility] RDW 13.4 12.4 - 15.1 % 04/17/2025 7:07 AM CDT [facility] PLT 301 151 - 353 x10'3/uL 04/17/2025 7:07 AM T [facility] MPV 9.6 9.6 - 12.0 FL 04/17/2025 7:07 AM T [facility] RBC MORPHOLOGY NORMAL 04/17/2025 7:07 AM T [facility] PLT MORPH. NORMAL 04/17/2025 7:07 AM T [facility] WBC MORPHOLOGY NORMAL 04/17/2025 7:07 AM T [facility] LYMPHOCYTES % 19.9 15.8 - 45.0 % 04/17/2025 7:07 AM [facility] NEUTROPHILS % 68.5 42.1 - 71.9 % 04/17/2025 7:07 AM T [facility] MONOCYTES % 7.8 5.7 - 12.5 % 04/17/2025 7:07 AM [facility] EOSINOPHILS 2.9 0.0 - 5.6 % 04/17/2025 7:07 AM [facility] BASOPHILS 0.5 0.0 - 1.3 % 04/17/2025 7:07 AM [facility] ABS. NEUTROPHILS 5.02 1.40 - 6.00 x10'3/uL 04/17/2025 7:07 AM T [facility] IMMATURE GRANS % 0.4 0.0 - 0.5 % 04/17/2025 7:07 AM T [facility] ABS. LYMPHOCYTES 1.46 0.80 - 4.70 x10'3/uL 04/17/2025 7:07 AM [facility] GLUCOSE 92 70 - 99 MG/DL 04/17/2025 8:09 AM T [facility] BUN 20(H) 7 - 18 MG/DL 04/17/2025 8:09 AM T [facility] CREATININE S/P/B 0.92 0.55 - 1.02 MG/DL 04/17/2025 8:09 AM [facility] SODIUM S/P/B 139 136 - 145 MMOL/L 04/17/2025 8:09 AM T [facility] POTASSIUM S/P/B 4.0 3.5 - 5.1 MMOL/L 04/17/2025 8:09 AM T [facility] CHLORIDE S/P/B 102 100 - 108 MMOL/L 04/17/2025 8:09 AM [facility] CO2 29.7 21 - 32 MMOL/L 04/17/2025 8:09 AM [facility] CALCIUM S/P/B 9.0 8.5 - 10.1 MG/DL 04/17/2025 8:09 AM [facility] BILIRUBIN TOTAL S/P/B 0.4 0.2 - 1.2 MG/DL 04/17/2025 8:09 AM [facility] TOTAL PROTEIN S/P/B 7.7 6.4 - 8.2 G/DL 04/17/2025 8:09 AM [facility] ALBUMIN S/P/B 3.3(L) 3.4 - 5.0 G/DL 04/17/2025 8:09 AM [facility] AST 13(L) 15 - 37 U/L 04/17/2025 8:09 AM [facility] ALT 18 14 - 55 U/L 04/17/2025 8:09 AM [facility] ALKALINE PHOSPHATASE S/P/B 85 50 - 136 U/L 04/17/2025 8:09 AM [facility] ANION GAP 7.3 5 - 15 MMOL/L 04/17/2025 8:09 AM [facility] BUN CREATININE RATIO 21.7 6 - 26 04/17/2025 8:09 AM [facility] A/G RATIO 0.8(L) 1.0 - 2.0 RATIO 04/17/2025 8:09 AM [facility] GFR ESTIMATE 64(L) >90 ML/MIN/1. 73 M2 04/17/2025 8:09 AM [facility] Comment: NOTE: eGFR is not calculated for patients <18 years of age. This is an estimated GFR calculation using the new CKD EPI creatinine equation without race and so does not require a correction factor for race. This estimated GFR should not be used for calculating drug doses. TSH 2.197 0.358 - 3.74 uIU/ML 04/17/2025 8:09 AM [facility] Comment: HIGH DOSES OF BIOTIN MAY INTERFERE WITH THIS TEST RESULT. CORRELATION TO CLINICAL HISTORY AND PRESENTATION RECOMMENDED. CHOLESTEROL 249(H) <200.0 MG/DL 04/17/2025 8:09 AM [facility] TRIGLYCERIDES 74 <150 MG/DL 04/17/2025 8:09 AM [facility] HDL 91 >40.0 MG/DL 04/17/2025 8:09 AM [facility] LDL (CALCULATED) 143(H) <100 MG/DL 04/17/2025 8:09 AM [facility] Comment:CALCULATED USING THE FRIEDEWALD EQUATION NON HDL CHOLESTEROL 158(H) <130 MG/DL 04/17/2025 8:09 AM [facility] CHOL/HDL RATIO 2.7 0.0 - 4.5 04/17/2025 8:09 AM [facility] VLDL CALCULATION 15 5 - 55 MG/DL 04/17/2025 8:09 AM CDT [facility] LIPID INTERPRETATION 04/17/2025 8:09 AM CDT [facility] Comment: [facility] REPORT RECOMMENDATIONS: ADULT CHILD LOW RISK: CHOLESTEROL <200 <170 TRIGLYCERIDE <150 --- HDL >=60 --- LDL <100 <110 BORDERLINE: CHOLESTEROL 200-239 170-199 TRIGLYCERIDE 150-199 --- HDL 40-59 --- LDL 100-159 110-129 HIGH RISK: CHOLESTEROL >=240 >=200 TRIGLYCERIDE >=200 --- HDL <40 --- LDL >=160 >=130 04/17/2025 12:1 0 AM CDT Donato Barba MD LABORATORY Final Result Performing Organization Address [facility] de Phone Number [facility] [address] [place] [address], [place] [phone] * HEMOGLOBIN, GLYCOSYLATED (04/17/2025 12:10 AM CDT) HGB A1C 5.6 <5.7 % 04/17/2025 7:45 AM CDT [facility] Comment: INCREASED RISK OF DIABETES <5.7% NON-DIABETES 5.7-6.4% INCREASED RISK FOR FUTURE DIABETES > OR = 6.5 CONSISTENT WITH DIABETES STANDARDS OF MEDICAL CARE IN DIABETES-2010 DIABETES CARE, 33(SUPP 1): S1-S61,2010 ESTIMATED AVG GLUCOSE 114 mg/dL 04/17/2025 7:45 AM CDT [facility] 04/17/2025 12:1 0 AM CDT Donato Barba MD LABORATORY Final Result Performing Organization Address [facility] Co de Phone Number [facility] [address] [place] [address], [place] [phone] * VITAMIN D, 25 OH (04/17/2025 12:10 AM CDT) VITAMIN D 25 HYDROXY S/P/B 79 30 - 100 NG/ML 04/17/2025 4:58 PM CDT [facility] Comment: INTERPRETATION DEFICIENT <20 INSUFFICIENT 20-29 SUFFICIENT 30-100 04/17/2025 12:1 0 AM CDT Donato Barba MD LABORATORY Final Result Performing Organization Address [facility]/ZIP Co de Phone Number [facility] [address] [place] [address], * FECAL BLOOD FIT SCREEN (04/07/2018 12:27 AM CDT) FECAL BLOOD FIT SCRN NEGATIVE NEGATIVE 04/11/2018 7:13 AM CDT [facility] STOOL SPECIMEN / Unknown 04/07/2018 12:27 AM CDT 04/07/2018 12:28 AM CDT Wesley Antony Md, MD BODY FLUIDS AND STOOLS ORDERABLES Final Result Performing Organization Address [facility] Co de Phone Number [facility] [address] [place] [address], [place] [phone] * BONE DENSITY/DEXA (10/24/2013 12:14 PM CDT) Anatomical Region Laterality Modality Bone Bone Density 10/24/2013 12:1 4 PM CDT 10/24/2013 12:14 PM CDT Narrative 10/24/2013 2:51 PM CDT PRISCILLA WILBURN MD: GUSTAVO COURTNEY MD ACCT: [id number] ADMIT/SERVICE DATE: 10/24/13 DISCHARGE DATE: : 1945 PT TYPE: REG CLI SEX: F ORD SITE: [facility] STUDY DATE REPORT # PROCEDURE CODE PROCEDURE 10/24/13 [id number] DEXASCAN XR DEXA SCAN EXTORDERID [id number] CHART DOCUMENT DIVISION OF RADIOLOGY ACCESSION # EXAM DATE EXAM DESCRIPTION [id number] 10/24/2013 XR DEXA SCAN IMAGING STUDIES: BONE [...] 10/24/2013 1:44 P JOB NO: DOC NO: [id number] CC: Procedure Note Wesley Prabhakar MD - 04/14/2018 PRISCILLA WILBURN MD: GUSTAVO COURTNEY MD ACCT: [id number] ADMIT/SERVICE DATE: 10/24/13 DISCHARGE DATE: : 1945 PT TYPE: REG CLI SEX: F ORD SITE: [facility] STUDY DATE REPORT # PROCEDURE CODE PROCEDURE 10/24/13 [id number] DEXASCAN XR DEXA SCAN EXTORDERID [id number] CHART DOCUMENT DIVISION OF RADIOLOGY ACCESSION # EXAM DATE EXAM DESCRIPTION [id number] 10/24/2013 XR DEXA SCAN IMAGING STUDIES: BONE [...] 10/24/2013 1:44 P JOB NO: DOC NO: [id number] CC: Gustavo Courtney MD DEXA Final Result from Last 3 Months or Most Recently Relevant to Health Maintenance Insurance MEDICARE [facility] Care Teams Radiation Oncologist Relationship Specialty Start Date End Date Moreno Woodward MD [address] [place] [address] PCP - General FAMILY PRACTICE 03/25/22 Olivier Miramontes MD [address] [address] CARDIOVASCULAR DISEASE 07/14/24
== END 2025-05-13 09:01 | disposition home or self-care (01) ==
LOC: ANHFOHIMG 09:03
PROVIDERS: PCP Family Medicine; Visit Provider Surgery
DX: N63.13 Unspecified lump in the right breast, lower outer quadrant (principal); R92.8 Other abnormal and inconclusive findings on diagnostic imaging of breast
CPT/HCPCS: 76642

== ENCOUNTER 2025-06-17 14:02 | Outpatient (CLI) | payer MEDICARE, SELFPAY ==
--- OUTSIDE RECORDS SUMMARY | 2025-06-17 14:15 | XMS_ITS ---
Author Organization [facility] Address [address] [place] [address] Care Team Providers Care Woodworking Belt Sander Name Role Phone Moreno Woodward MD Primary Care Provider Jose Angel Cody MD Unavailable [phone] Active Problems Problem Noted Date Diagnosed [...] 04/02/2019 Assessment & Plan (08/08/2023 10:53 AM SUPERVISOR ACOUSTICAL TILE CARPENTERS): Images from the original note were not [...] satisfaction of patient and/or family members. Angella aSlcedo MD Assessment & Plan (04/19/2022 10:15 AM [...] would need to be done either in [place] or [place]. I discussed with her all aspects of [...] it is helping her tremor. 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
--- OUTSIDE RECORDS SUMMARY | 2025-06-17 14:15 | XMS_ITS | Data Portability ---
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 Not Available [facility] (Lab) [address] [facility], [place], [address], 11/27/2020 15:31:38 04/09/20 24 04/09/2024 IMAGE GUIDE [...] epith elial Lesio n or Anny delatorre ([facility]) . Elect frank elise felix d [...] d, as leon teixeira nted. Not Available [facility] (Lab) [address], [place], [address], 04/14/2024 07:42:41 05/01/20 21 05/01/2021 MAMMO , scree mir, bilat eral No observ ation record ed. [address] [facility], [place], [address], 05/18/2021 10:47:09 05/19/20 22 05/19/2022 MAMMO , scree mir, bilat eral No observ ation record ed. [address] [facility], [place], [address], 09/22/2023 09:24:50 07/20/19 24 07/20/2023 MAMMO , scree mir, bilat eral No observ ation record ed. [address] [address], [place], [address], 08/18/2023 15:40:28 09/28/19 25 09/27/2024 MAMMO , scree mir, digit al, bilat eral No observ ation record ed. [address] [address], [place], [address], 10/09/2024 10:49:37 10/18/19 25 10/17/2024 DEXA, axial skele ton + verte bral fract ure asses sment No observ ation record ed. [address] [address], [place], [address], 10/22/2024 09:44:31 11/03/19 25 11/02/2024 MAMMO , diagn ostic , tomos ynthe sis, unila teral No observ ation record ed. [email or web address] [facility] [address], [place], [address], 11/07/2024 15:55:45 11/06/19 25 11/02/2024 MAMMO , diagn ostic , tomos ynthe sis, unila teral No observ ation record ed. [email or web address] [facility] [address], [place], [address], 11/07/2024 15:57:26 Result Notes None recorded. Problems Name Problem SNOMED Code Status Onset Date Resolution Date Notes Provider Name and Address Organization Details Recorded Time Adult health examinati on Completed 201111/26/2020 Routine Medical Exam;Zeus rded Elsewhere : No Locati on: [facility] So urce: EHR Chron ic: N Practic e ID: [id number] Bill able Time: 09:00:00 AM [facility]08 Screening for malignant neoplasm of rectum Completed 201111/26/2020 Screening for malignant neoplasms of the rectum;Re corded Elsewhere : No Locati on: [facility] So urce: EHR Chron ic: N Practic e ID: [id number] Bill able Time: 09:00:00 AM Reyna reese [facility] 16:04:21 Specializ ed medical examinati on Completed 201111/26/2020 Routine gynecolog ical examinati on;Practi ce ID: [id number] [facility] 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 16:04:11 Neoplasti c disease of uncertain behavior Completed 201411/26/2020 Neoplasm of uncertain behavior of other specified female genital organs;Re corded Elsewhere : No Locati on: [facility] So urce: EHR Chron ic: N Practic e ID: [id number] Bill able Time: 02:30:00 PM Reyna reese [facility] 16:04:14 Noninflam matory disorder of vulva [id number] Completed 201811/26/2020 Noninflam matory disorder of vulva and perineum, unspecifi ed;Record ed Elsewhere : No Locati on: [facility] So urce: EHR Chron ic: N Practic e ID: [id number] Bill able Time: 01:30:00 PM Reyna [facility] 16:04:17 Screening for malignant neoplasm of cervix Completed 201811/26/2020 Encounter for screening for malignant neoplasm of cervix;Re corded Elsewhere : No Locati on: [facility] So urce: EHR Chron ic: N Practic e ID: [id number] Bill able Time: 02:00:00 PM Reyna [facility] 16:04:[address] Concept Completed 201811/26/2020 Encntr for wire galvanizer exam (general) (routine) w/o abn findings; Recorded Elsewhere : No Locati on: [facility] So urce: EHR Chron ic: N Practic e ID: [id number] Bill able Time: 02:00:00 PM Reynadanielle Moreira [facility] 16:04:24 Notes:Neoplasm of unsp behav ior of other genitourinary organs Practice ID: [id number] Problem Notes None recorded. Procedures Surgical History Date Name Laterality Status Provider Name and Address Organization Details Recorded Time 07/20/19 24 Date of Last Mammogram completed Brittany Garibay [facility] 04/09/2024 14:27:53 08/14/19 21 cardiac catheterization completed [facility] 12/01/2020 15:45:47 11/04/19 19 Date of Last Pap Smear completed [facility] 05/22/2020 15:58:43 10/19/19 18 grafting to skin completed [facility] 03/15/2022 15:09:48 10/19/19 16 partial nephrectomy completed [facility] 03/15/2022 15:09:28 04/20/20 13 procedure on wrist completed [facility] 03/15/2022 15:09:09 02/19/20 13 procedure on knee completed [facility] 03/15/2022 15:08:16 10/19/19 13 procedure on shoulder completed [facility] 11/15/2019 10:40:06 01/18/19 98 procedure on shoulder completed [facility] 11/15/2019 10:39:40 Imaging Results None recorded. Procedure Notes None recorded. Medical Equipment None Reported. Allergies No known drug allergies Medications Name Sig Start Date Stop Date Status Note LastModified by Organization Details LastModified Time amoxicill in 500 mg capsule TAKE 4 CAPSULES BY MOUTH 1HOUR BEFORE DENTAL APPOINTM ENT 04/15 completed Not Available Not Available Not Available primidone 50 mg tablet TAKE 1 TABLET BY MOUTH AT BEDTIME active Not Available Not Available [...] mg capsule TAKE 1 CAPSULE BY MOUTH THREE TIMES A DAY NEEDED FOR COUGH active Not Available Not Available No t Available losartan 25 mg tablet take 1 tablet by oral route every day 12/01 completed Prescrib ed Elsewher e: Yes [facility] By: cmedical Encount er DateTime : 05/10/20 12 09:00:00 AM Not Available Not Available Not Available hydrochlo rothiazid e 12.5 mg capsule take 2 capsule by oral route every day 12/01 completed Prescrib ed Elsewher e: Yes [facility] M odify By: cmedical [...] tended release 24 hr TAKE 1 TABLET (25 MG TOTAL) BY MOUTH NEEDED (FOR PALPITAT IONS) active Not Available Not Available No t Available irbesarta n 150 mg tablet TAKE 1 TABLET BY MOUTH EVERY DAY 06/28 completed Not Available Not Available Not Available Aspir-81 mg tablet,de layed release take 1 tablet by oral route every day 2021 active Prescrib ed Elsewher e: Yes Loca tion: [facility] odify By: [email or web address] trick En counter DateTime : 09/01/19 14 09:00:00 AM Not Available Not Available Not Available albuterol sulfate HFA 90 mcg/actua tion aerosol inhaler INHALE 1 PUFF EVERY 4 HOURS NEEDED FOR SHORTNES S OF BREATH OR WHEEZING 06/28 completed Not Available Not Available Not Available losartan 100 mg tablet 05/22 completed Not Available Not Available Not Available amoxicill in 875 mg-potass ium clavulana te 125 mg tablet TAKE 1 TABLET BY MOUTH EVERY 12 HOURS FOR 7 DAYS 04/15 completed Not Available Not Available Not Available [...] Prescrib ed Elsewher e: Yes Loca tion: [facility] odify By: [email or web address] Mcbridet er DateTime : 05/10/20 12 09:00:00 AM Not Available Not Available Not Available hydrochlo rothiazid e 12.5 mg tablet TAKE 1 TABLET BY MOUTH EVERY MORNING active Not Available Not Available No t Available Fiber Laxative (methylce llulose) 500 mg tablet 08/31 completed Prescrib ed Elsewher e: Yes Loca tion: [facility] odify By: [email or web address] trick En counter DateTime : 05/10/20 12 09:00:00 AM Not Available Not Available Not Available amlodipin e besylate (bulk) 100 % powder 10/13 completed Prescrib ed Elsewher e: Yes Loca tion: [facility] odify By: reyna Rodriguez r DateTime : 05/10/20 12 09:00:00 AM Not Available Not Available Not Available Prolia 2021 active Not Available Not Available Not Avai lable Suprep Bowel Prep Kit 17.5 gram-3.13 gram-1.6 gram oral solution 06/28 completed Not Available Not Available Not Available Kapspargo Sprinkle 25 mg capsule,e xtended release 11/03 completed Prescrib ed Elsewher e: Yes Loca tion: [facility] odify By: reyna Rodriguez r DateTime : 11/04/19 19 02:00:00 PM Not Available Not Available Not Available Flowflex COVID-19 Antigen Home Test kit USE DIRECTED 04/09 completed Not Available Not Available Not Available Vitals Date Recorded Body height Body mass index (BMI) Body weight Systolic And Diastolic Provider Name and Address Organization Details Last Updated DateTime 06/24/2022 162.56 cm 35.9 kg/m2 78608.81 g 160/74 mm[Hg] Reyna Moreira [facility] 06/24/2022 11:59:46 Date Recorded Body height Body mass index (BMI) Body weight Systolic And Diastolic Provider Name and Address Organization Details Last Updated DateTime 11/26/2020 162.56 cm 35.4 kg/m2 81539.03 g 167/78 mm[Hg] Reyna Moreira [facility] 11/26/2020 16:03:58 Date Recorded Body height Body mass index (BMI) Body weight Systolic And Diastolic Provider Name and Address Organization Details Last Updated DateTime 12/23/2022 162.56 cm 35.4 kg/m2 89919.03 g 146/72 mm[Hg] Reyna [facility] 12/23/2022 11:03:46 Date Recorded Body height Body mass index (BMI) Body weight Systolic And Diastolic Provider Name and Address Organization Details Last Updated DateTime 01/22/2022 162.56 cm 35.4 kg/m2 97500.03 g 122/78 mm[Hg] Reyna [facility] 01/22/2022 16:07:39 Date Recorded Body height Body mass index (BMI) Body weight Systolic And Diastolic Systolic And Diastolic Provider Name and Address Organization Details Last Updated DateTime 04/09/2024 162.56 cm 35 kg/m2 77779.84 g 161/101 mm[Hg] 160/88 mm[Hg] Brittany Garibay [facility] 14:26:08 Social History Question Answer Notes LastModified by Organizat ion Details LastModified Time Tobacco Smoking Status Never Smoker Reyna Moreira [facility] 12/23/2022 11:03:55 Do You [...] Or The Highest Degree You Have Received? [id number] Information not available 12/23/2022 Are There Any [...] not available 12/23/2022 Are you able to walk independently without assistance or assistive devices? 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 Occasional Information not available 12/23/2022 Mental Status Question Answer Note LastModified by Organization D etails LastModified Time Do you feel stressed (tense, restless, nervous, or anxious, or unable to sleep at night)? [id number] Information not available 12/23/2022 Family History Relationship Description Onset Age of this Age Resolved Age Notes LastModified by Organization Details LastModified Time Mother Carcinoma in situ of colon [email or web address] Not available 2022 10:51:21 Sister Hypertensive disorder [...] Diagnosis SNOMED-CT Code Diagnosis ICD10 Code Diagnosis IMO Codes Diagnosis Note [id number] Randy Cruz MD [facility] [address],[place] [address] 11/15/2019 09:24:01 11/15/2019 10:20:08 Vaginal lesion 162491584 N94.89 [id number] Randy Cruz MD [facility] [address],[place] [address] 05/22/2020 15:17:49 05/22/2020 16:01:32 Vaginal lesion 081591917 N94.89 This patient is a 74-year-ol d female presents for follow-up on vaginal polyp. She has a vaginal polyp in the posterior left fornix of the vagina. It appears unchanged. She was examined. She has lot of inclusion cyst over the vulva. There is nothing on the vulva appears malignant. She will follow up in 6 months for well-woman exam. [id number] Randy Cruz MD [facility] [address],[place] [address] 11/26/2020 14:33:52 11/26/2020 16:51:11 Gynecologic examination 62981154 Z01.419 This patient is here for her [...] unchanged. Same as last year. Vaginal polyp. [id number] Randy Cruz MD [facility] [address] [address] 01/22/2022 15:18:27 01/23/2022 18:12:23 Polyp of vaginal wall 977218925 N84.2 this patient is a 76-year-ol d female with a vaginal polyp. She presents for examinatio n the polyp to confirm its stability. The polyp was examined it is at the posterior left fornix. Is hyperemic and unchanged in size. We will follow-up as needed. It is been stable over several examinatio ns. [id number] Randy Cruz MD [facility] [address] [address] 06/24/2022 10:51:12 06/24/2022 12:17:00 Polyp of vaginal wall 238712928 N84.2 76-year-ol d female who presents for [...] Otherwise she will return in 6 months. [id number] Randy Cruz MD [facility] [address] [address] 12/23/2022 10:02:04 12/23/2022 11:41:33 Polyp of vaginal wall 230531353 N84.2 77-year-ol d female presents for follow-up on a vaginal polyp. It is stable. Is been stable for year and. We going look at this once a year now. [id number] Randy Cruz MD [facility] [address] [address] 04/09/2024 14:15:28 04/09/2024 15:04:31 Gynecologic examination 49910056 Z01.419 Z11.51 This patient is here for [...] Member ID Tsang Member ID Guarantor Name 04/15/2025 1 [place] Priscilla Fernandezz [id number] 1 Priscilla Smitha 12/23/2022 2 [employer] Priscilla Reyes Smitha [id number] Priscilla Smitha 04/15/2025 2 [place]) [id number] Priscilla Reyes Smitha [id number] Priscilla Bone Notes Date Note Type Note Provider Name and Address Organization Details Recorded Time 11/27/19 21 text/htm l Annual GYNReported by PatientHistoryFor history, patient reportsno gynecologic complaints.Genitourinary symptomsFor menstrual cycle, patient reportsnormal menses. For urinary symptoms, patient reportsno hematuriaandno incontinence. For vulva, patient reportsno genital lesion. For vagina, patient reportsnormal vaginal discharge.Breast symptomsFor breast, patient reportsno breast pain,no breast lump, andno nipple discharge.Endocrine symptomsFor menopausal symptoms, patient reportsno menopausal symptomsandnormal vaginal lubrication.Psychological symptomsFor psychological symptoms, patient reportsno depressionandno anxiety.Preventative measuresFor preventive measures, patient reportsencourage self breast examinationandencourage regular exercise. Randy Cruz MD [address], [place], [address], [facility] 11/26/2020 16:46:30 01/23/20 22 text/htm l this patient is a 76-year-old female with a vaginal polyp. She presents for examination the polyp to confirm its stability. The polyp was examined it is at the posterior left fornix. Is hyperemic and unchanged in size. We will follow-up as needed. It is been stable over several examinations. Randy Cruz MD [address], [place], [address], [facility] 01/23/2022 15:49:36 06/24/19 23 text/htm l 76-year-old female who presents for follow-up for vaginal [...] months. Randy Cruz MD [address], [place], [address], [facility] 06/24/2022 12:13:20 12/24/19 23 text/htm l 77-year-old female presents for follow-up on a vaginal polyp. It is stable. Is been stable for year and. We going look at this once a year now. Randy Cruz MD [address], [place], [address], [facility] 12/23/2022 11:40:25 04/09/20 24 text/htm l Annual GYNReported by PatientHistoryFor history, patient reportsno gynecologic complaints.Genitourinary symptomsFor urinary symptoms, patient reportsno hematuria. For vulva, patient reportsno genital lesion. For vagina, patient reportsnormal vaginal discharge.Breast symptomsFor breast, patient reportsno breast painandno breast lump.Endocrine symptomsFor menopausal symptoms, patient reportsno menopausal symptoms.Psychological symptomsFor psychological symptoms, patient reportsno depressionandno anxiety.Preventative measuresFor preventive measures, patient reportsencourage self breast examinationandencourage regular exercise. Randy Cruz MD [address], [place], [address], [facility] 04/09/2024 15:00:15 OBGyn Episode Ob Episode Information Episode Created Date Number of Fetuses Patient Bloodtype Patient rh Status Prepregnancy Weight lbs Domestic Partner Domestic Partner Phone Father Name Window Installer Status 11/15/19 20 1 CLOSED Fetus Data [...] Domestic Partner Domestic Partner Phone Father Name Window Installer Status 11/15/19 20 1 CLOSED Fetus Data [...] Domestic Partner Domestic Partner Phone Father Name Window Installer Status 11/15/19 20 1 CLOSED Fetus Data [...] Domestic Partner Domestic Partner Phone Father Name Window Installer Status 11/15/19 20 1 CLOSED Fetus Data [...]
--- OUTSIDE RECORDS SUMMARY | 2025-06-17 14:15 | XMS_ITS | Clinical Summary ---
Author Organization [facility] Kimber[facility] g[facility] Address [address] [place] [address] Phone Care Team Providers Care Hide Curer Name Role Phone Moreno Woodward MD Primary Care Provider [phone] Allergies No known active allergies Medications acetaminophen [...] it is helping her tremor. Though her administrative support assistant has given the okay, she is [...] on file Legal Sex Female 9:55 AM [facility] Gender Identity Not on [...] Influenza Vaccine (#1) 2025 08/05/2015 Insurance MEDICARE [facility] MEDICARE SUPPLEMENT Care Teams Hide Curer Relationship Specialty Start Date End Date Moreno Woodward MD [address] [facility] [address] [facility] [address] [place] [address] PCP - General Internal Medicine 06/29/21
--- OUTSIDE RECORDS SUMMARY | 2025-06-17 14:15 | XMS_ITS | Encounter Summary ---
Author Organization [facility] Address [facility] [place] [address] Care Team Providers Care Drawing Instructor Name Role Phone None, Provider Primary Care Provider UnavailMoreno Al MD Primary Care Provider [phone] Olivier Miramontes MD Unavailable Encounter Details Date Type Department Care Team (Latest Contact Info) Description 04/25/2018 Abstract [facility] , Wesley Antony MD Social History Tobacco Use Types Packs/Day Years Used Date Smoking Tobacco: Never Comments Unknown Sex and Gender Information Value Date Recorded Sex Assigned at Female 07/14/2024 9:23 AM 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 ASSISTANT Legal Sex Female 11:04 PM CDT Gender Identity Not on file Sexual Orientation Not on file documented as of this encounter Plan of Treatment Not on file documented as of this encounter Visit Diagnoses Not on filedocumented in this encounter Additional Health Concerns Infection Onset Date Last Indicated Resolved Time COVID-19 Rule Out 07/14/2024 07/14/2024 07/14/2024 9:35 AM CHEMIST ASSISTANT documented as of this encounter Care Teams Drawing Instructor Relationship Specialty Start Date End Date None, Provider, PCP - General 10/09/20 03/24/22 Moreno Woodward MD [address] [facility] [address] [place] [address] PCP - General FAMILY PRACTICE 03/25/22 Olivier Miramontes MD [address] [place] [address] CARDIOVASCULAR DISEASE 07/14/24 documented as of this encounter
--- OUTSIDE RECORDS SUMMARY | 2025-06-17 14:15 | XMS_ITS | Clinical Summary ---
Author Organization [facility] Address [address] [place] [address] Care Team Providers Care Belt Cutter Name Role Phone Moreno Woodward MD Primary Care Provider Jose Angel Cody MD Unavailable [phone] Allergies No known active allergies Medications [...] 04/02/2019 Assessment & Plan (08/08/2023 10:53 AM CONTRACT RECRUITER): Images from the original note were not [...] discussed HIFU, inertial dampening devices and the Teleborder peripheral stimulation device. We discussed that we [...] would need to be done either in [place] or [place]. I discussed with her all aspects of this procedure (including the actual performance of the procedure, the potential benefits and complications and the post-surgical programming sessions). I answered all her questions pertaining to the procedure. We also discussed HIFU, inertial dampening devices and the Teleborder peripheral stimulation device. We discussed that we [...] it is helping her tremor. Though her senior counsel commercial has given the okay, she is reluctant [...] Encounters Date Type Department Care Team Description 06/10/2025 8:45 AM CONTRACT RECRUITER Office Visit [facility] Medical [facility] Cardiology [facility] [address] [place] [id number] Olivier Miramontes MD PVC's (premature ventricular contractions) (Primary Dx); Essential hypertension; CALLAHAN (dyspnea on exertion); Palpitations 03/22/2025 1:30 PM CDT Ancillary Procedure [facility] Cardiology [address] [place] [address] [address] [place] [phone] Palpitations 03/19/2025 Telephone [facility] Cardiology [address] [place] [address] [address] [place] [phone] Olivier Miramontes MD from Last 3 Months [...] on file Legal Sex Female 3:30 AM CONTRACT RECRUITER Gender Identity Not on file Sexual Orientation Not on file 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 Not on file Not on file Last Filed Vital Signs Vital Sign Reading Time Taken Comments Blood Pressure 126/80 06/10/2025 8:31 AM CONTRACT RECRUITER Pulse 78 06/10/2025 8:31 AM CONTRACT RECRUITER Temperature 36.2 C (97.1 F) 04/19/2022 9:03 AM CDT Respiratory Rate 16 03/03/2017 2:48 PM CDT Oxygen Saturation 97% 06/10/2025 8:31 AM CONTRACT RECRUITER Inhaled Oxygen Concentration - - Weight 95 kg (209 lb 8 oz) 06/10/2025 8:31 AM CS T Height 160 cm (5' 3) 06/10/2025 8:31 AM CONTRACT RECRUITER Body Mass Index 37.11 06/10/2025 8:31 AM CONTRACT RECRUITER Plan of Treatment Health Maintenance Due Date [...] Procedure Name Priority Date/Time Associated Diagnosis Comments EXTENDED/CARE HOME HOLTER PATCH (>48 HOURS UP TO 7 DAYS) Routine 03/22/2025 12:54 PM CDT Palpitations from Last 3 Months Results * Extended/Half-Way Holter Patch (>48 hours up to 7 days) (03/22/2025 12:54 PM CDT) Anatomical Region Laterality Modality Electrocardiogra phy Narrative 04/08/2025 2:12 PM CDT AMBULATORY DOUBLE END CHUCKING MACHINE OPERATOR REPORT Patient Name: Priscilla Bone Date of [...] was used to complete this document, therefore, ct tech variances may occur. Olivier Miramontes MD, [facility] 04/08/25 Procedure Note Olivier Miramontes MD - 04/08/2025 AMBULATORY DOUBLE END CHUCKING MACHINE OPERATOR REPORT Patient Name: Priscilla Bone Date of [...] software was used to complete this document, therefore,ct tech variances may occur. Olivier Miramontes MD, [facility] 04/08/25 Olivier Miramontes MD [facility] CARDIAC SERVICES PROCEDURES Final Result from Last 3 Months Insurance MEDICARE [facility] MEDICARE [facility] MEDICARE [employer]UE [employer]OSS MEDICARE SUPPLEMENT MEDICARE [facility] Care Teams Belt Cutter Relationship Specialty Start Date End Date Moreno Woodward MD [address] [place] [address] PCP - General 08/04/16 Jose Angel Cody MD [address] [place] [address] Consulting Physician Rheumatology 01/27/24
--- OUTSIDE RECORDS SUMMARY | 2025-06-17 14:16 | XMS_ITS | Clinical Summary ---
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 OPERATOR Legal Sex Female 11:04 PM CDT Gender Identity Not on file Sexual Orientation Not on file Last Filed Vital Signs Vital Sign Reading Time Taken Comments Blood Pressure 151/71 07/14/2024 12:00 PM SOLDER DEPOSIT OPERATOR Pulse 101 07/14/2024 12:00 PM SOLDER DEPOSIT OPERATOR Temperature 37.6 C (99.6 F) 07/14/2024 12:00 PM SOLDER DEPOSIT OPERATOR Respiratory Rate 20 07/14/2024 12:00 PM SOLDER DEPOSIT OPERATOR Oxygen Saturation 92% 07/14/2024 12:00 PM SOLDER DEPOSIT OPERATOR Inhaled Oxygen Concentration - - Weight 99.6 kg (219 lb 9.3 oz) 07/14/2024 9:08 A M SOLDER DEPOSIT OPERATOR Height 165.1 cm (5' 5) 07/14/2024 9:08 AM SOLDER DEPOSIT OPERATOR Body Mass Index 36.54 07/14/2024 9:08 AM SOLDER DEPOSIT OPERATOR Plan of Treatment Health Maintenance Due Date [...] WITH LIPID Routine 04/17/2025 12:10 AM CDT [facility] HEMOGLOBIN A1C Routine 04/17/2025 12:10 AM CDT FECAL BLOOD FIT SCREEN Routine 04/07/2018 12:27 AM CDT BONE DENSITY/DEXA Routine 10/24/2013 12: 14 PM CDT from Last 3 Months or Most Recently Relevant to Health Maintenance Results * (ABNORMAL) [facility] WITH LIPID (04/17/2025 12:10 AM CDT) WBC 7.33 4.4 - 11.0 x10'3/uL 04/17/2025 7:07 AM CDT [facility] RBC 4.47(L) 4.50 - 5.10 x10'6/uL 04/17/2025 7:07 AM CDT [facility] HGB 13.9 12.3 - 15.3 G/DL 04/17/2025 7:07 AM CDT [facility] HCT 41.5 35.9 - 44.6 % 04/17/2025 7:07 AM CDT [facility] MCV 92.8 80.0 - 96.0 FL 04/17/2025 7:07 AM CDT [facility] MCH 31.1(H) 25.3 - 30.9 PG 04/17/2025 7:07 AM CDT [facility] MCHC 33.5 31.0 - 34.1 G/DL 04/17/2025 7:07 AM CDT [facility] RDW 13.4 12.4 - 15.1 % 04/17/2025 7:07 AM CDT [facility] PLT 301 151 - 353 x10'3/uL 04/17/2025 7:07 AM T [facility] MPV 9.6 9.6 - 12.0 FL 04/17/2025 7:07 AM T [facility] RBC MORPHOLOGY NORMAL 04/17/2025 7:07 AM T [facility] PLT MORPH. NORMAL 04/17/2025 7:07 AM T [facility] WBC MORPHOLOGY NORMAL 04/17/2025 7:07 AM T [facility] LYMPHOCYTES % 19.9 15.8 - 45.0 % 04/17/2025 7:07 AM [facility] NEUTROPHILS % 68.5 42.1 - 71.9 % 04/17/2025 7:07 AM T [facility] MONOCYTES % 7.8 5.7 - 12.5 % 04/17/2025 7:07 AM [facility] EOSINOPHILS 2.9 0.0 - 5.6 % 04/17/2025 7:07 AM [facility] BASOPHILS 0.5 0.0 - 1.3 % 04/17/2025 7:07 AM [facility] ABS. NEUTROPHILS 5.02 1.40 - 6.00 x10'3/uL 04/17/2025 7:07 AM T [facility] IMMATURE GRANS % 0.4 0.0 - 0.5 % 04/17/2025 7:07 AM T [facility] ABS. LYMPHOCYTES 1.46 0.80 - 4.70 x10'3/uL 04/17/2025 7:07 AM [facility] GLUCOSE 92 70 - 99 MG/DL 04/17/2025 8:09 AM T [facility] BUN 20(H) 7 - 18 MG/DL 04/17/2025 8:09 AM T [facility] CREATININE S/P/B 0.92 0.55 - 1.02 MG/DL 04/17/2025 8:09 AM [facility] SODIUM S/P/B 139 136 - 145 MMOL/L 04/17/2025 8:09 AM T [facility] POTASSIUM S/P/B 4.0 3.5 - 5.1 MMOL/L 04/17/2025 8:09 AM T [facility] CHLORIDE S/P/B 102 100 - 108 MMOL/L 04/17/2025 8:09 AM [facility] CO2 29.7 21 - 32 MMOL/L 04/17/2025 8:09 AM [facility] CALCIUM S/P/B 9.0 8.5 - 10.1 MG/DL 04/17/2025 8:09 AM [facility] BILIRUBIN TOTAL S/P/B 0.4 0.2 - 1.2 MG/DL 04/17/2025 8:09 AM [facility] TOTAL PROTEIN S/P/B 7.7 6.4 - 8.2 G/DL 04/17/2025 8:09 AM [facility] ALBUMIN S/P/B 3.3(L) 3.4 - 5.0 G/DL 04/17/2025 8:09 AM [facility] AST 13(L) 15 - 37 U/L 04/17/2025 8:09 AM [facility] ALT 18 14 - 55 U/L 04/17/2025 8:09 AM [facility] ALKALINE PHOSPHATASE S/P/B 85 50 - 136 U/L 04/17/2025 8:09 AM [facility] ANION GAP 7.3 5 - 15 MMOL/L 04/17/2025 8:09 AM [facility] BUN CREATININE RATIO 21.7 6 - 26 04/17/2025 8:09 AM [facility] A/G RATIO 0.8(L) 1.0 - 2.0 RATIO 04/17/2025 8:09 AM [facility] GFR ESTIMATE 64(L) >90 ML/MIN/1. 73 M2 04/17/2025 8:09 AM [facility] Comment: NOTE: eGFR is not calculated for patients <18 years of age. This is an estimated GFR calculation using the new CKD EPI creatinine equation without race and so does not require a correction factor for race. This estimated GFR should not be used for calculating drug doses. TSH 2.197 0.358 - 3.74 uIU/ML 04/17/2025 8:09 AM [facility] Comment: HIGH DOSES OF BIOTIN MAY INTERFERE WITH THIS TEST RESULT. CORRELATION TO CLINICAL HISTORY AND PRESENTATION RECOMMENDED. CHOLESTEROL 249(H) <200.0 MG/DL 04/17/2025 8:09 AM [facility] TRIGLYCERIDES 74 <150 MG/DL 04/17/2025 8:09 AM [facility] HDL 91 >40.0 MG/DL 04/17/2025 8:09 AM [facility] LDL (CALCULATED) 143(H) <100 MG/DL 04/17/2025 8:09 AM [facility] Comment:CALCULATED USING THE FRIEDEWALD EQUATION NON HDL CHOLESTEROL 158(H) <130 MG/DL 04/17/2025 8:09 AM [facility] CHOL/HDL RATIO 2.7 0.0 - 4.5 04/17/2025 8:09 AM [facility] VLDL CALCULATION 15 5 - 55 MG/DL 04/17/2025 8:09 AM CDT [facility] LIPID INTERPRETATION 04/17/2025 8:09 AM CDT [facility] Comment: NIH CONCENSUS REPORT RECOMMENDATIONS: [...] MD LABORATORY Final Result Performing Organization Address [facility] de Phone Number [facility] [address] [place] [address], [place] [phone] * HEMOGLOBIN, GLYCOSYLATED (04/17/2025 12:10 AM CDT) HGB A1C 5.6 <5.7 % 04/17/2025 7:45 AM CDT [facility] Comment: INCREASED RISK OF DIABETES <5.7% NON-DIABETES 5.7-6.4% INCREASED RISK FOR FUTURE DIABETES > OR = 6.5 CONSISTENT WITH DIABETES STANDARDS OF MEDICAL CARE IN DIABETES-2010 DIABETES CARE, 33(SUPP 1): S1-S61,2010 ESTIMATED AVG GLUCOSE 114 mg/dL 04/17/2025 7:45 AM CDT [facility] 04/17/2025 12:1 0 AM CDT Donato Barba MD LABORATORY Final Result Performing Organization Address [facility] Co de Phone Number [facility] [address] [place] [address], [place] [phone] * VITAMIN D, 25 OH (04/17/2025 12:10 AM CDT) VITAMIN D 25 HYDROXY S/P/B 79 30 - 100 NG/ML 04/17/2025 4:58 PM CDT [facility] Comment: INTERPRETATION DEFICIENT <20 INSUFFICIENT 20-29 SUFFICIENT 30-100 04/17/2025 12:1 0 AM CDT Donato Barba MD LABORATORY Final Result Performing Organization Address [facility]/ZIP Co de Phone Number [facility] [address] [place] [address], * FECAL BLOOD FIT SCREEN (04/07/2018 12:27 AM CDT) FECAL BLOOD FIT SCRN NEGATIVE NEGATIVE 04/11/2018 7:13 AM CDT [facility] STOOL SPECIMEN / Unknown 04/07/2018 12:27 AM CDT 04/07/2018 12:28 AM CDT Wesley Antony Md, MD BODY FLUIDS AND STOOLS ORDERABLES Final Result Performing Organization Address [facility] Co de Phone Number [facility] [address] [place] [address], [place] [phone] * BONE DENSITY/DEXA (10/24/2013 12:14 PM CDT) Anatomical Region Laterality Modality Bone Bone Density 10/24/2013 12:1 4 PM CDT 10/24/2013 12:14 PM CDT Narrative 10/24/2013 2:51 PM CDT PRISCILLA WILBURN MD: GUSTAVO COURTNEY MD ACCT: [id number] ADMIT/SERVICE DATE: 10/24/13 DISCHARGE DATE: : 1945 PT TYPE: REG CLI SEX: F ORD SITE: [facility] STUDY DATE REPORT # PROCEDURE CODE PROCEDURE 10/24/13 [id number] DEXASCAN XR DEXA SCAN EXTORDERID [id number] CHART DOCUMENT DIVISION OF RADIOLOGY ACCESSION # EXAM DATE EXAM DESCRIPTION [id number] 10/24/2013 XR DEXA SCAN IMAGING STUDIES: BONE [...] 10/24/2013 1:44 P JOB NO: DOC NO: [id number] CC: Procedure Note Wesley Prabhakar MD - 04/14/2018 PRISCILLA WILBURN MD: GUSTAVO COURTNEY MD ACCT: [id number] ADMIT/SERVICE DATE: 10/24/13 DISCHARGE DATE: : 1945 PT TYPE: REG CLI SEX: F ORD SITE: [facility] STUDY DATE REPORT # PROCEDURE CODE PROCEDURE 10/24/13 [id number] DEXASCAN XR DEXA SCAN EXTORDERID [id number] CHART DOCUMENT DIVISION OF RADIOLOGY ACCESSION # EXAM DATE EXAM DESCRIPTION [id number] 10/24/2013 XR DEXA SCAN IMAGING STUDIES: BONE [...] 10/24/2013 1:44 P JOB NO: DOC NO: [id number] CC: Gustavo Courtney MD DEXA Final Result from Last 3 Months or Most Recently Relevant to Health Maintenance Insurance MEDICARE [facility] Care Teams Accounts Payable Representative Relationship Specialty Start Date End Date Moreno Woodward MD [address] [place] [address] PCP - General FAMILY PRACTICE 03/25/22 Olivier Miramontes MD [address] [address] CARDIOVASCULAR DISEASE 07/14/24
--- OUTSIDE RECORDS SUMMARY | 2025-06-17 14:16 | XMS_ITS | Clinical Summary ---
Author Organization [facility] [employer] Address [address] [facility] [place] [address] Care Team Providers Care Legal Associate Name Role Phone Moreno Woodward MD Primary Care Provider [phone] Jignesh Weller MD Unavailable [phone] Source Comments [facility] [employer],non-owned Affiliates and Associated Physician Practices is amultiple site organization consisting of ambulatory clinics and hospital sitesin [place], [place], [place] and [place]. This disclosure is being madepursuant to the Care Everywhere program and may not contain all information available regarding this patient. Last updated 18.[facility] [employer] Allergies No known active allergies Medications * [...] by mouth once daily Active Probiotic Product (Lumidigm) capsule Take 1 (one) capsule by mouth [...] would need to be done either in [place] or [place]. I discussed with her all aspects of this procedure (including the actual performance of the procedure, the potential benefits and complications and the post-surgical programming sessions). I answered all her questions pertaining to the procedure. We also discussed HIFU, inertial dampening devices and the SelectHub peripheral stimulation device. We discussed that we [...] it is helping her tremor. Though her as400 operator has given the okay, she is [...] age to complete this topic Insurance MEDICARE [facility] * Guarantor: PRISCILLA WILBURN Account Type Relation to Patient Date of Phone Billing Address Personal/Family [address] [place] [address] MEDICARE [facility] [place], [place] [address] Care Teams Legal Associate Relationship Specialty Start Date End Date Moreno Woodward MD [address] [place] [address] PCP - General Family Medicine 03/24/17 Jignesh Weller MD [address] [place] [address] Diorama Model Maker Electrophysiology 12/03/20
--- OUTSIDE RECORDS SUMMARY | 2025-06-17 14:16 | XMS_ITS | Encounter Summary ---
Author Organization [facility] Address [address] [facility] [place] [address] Care Team Providers Care Radiological Equipment Specialist Name Role Phone Moreno Woodward MD Primary Care Provider [phone] Jignesh Weller MD Unavailable [phone] Encounter Details Date Type Department Care Team (Late st Contact Info) Description 10/13/2017 Lab Requisition [facility] [address] [place] [id number] Mehrdad [place] [address] Social History Tobacco Use Types [...] AM CDT) Case Report Dermatopathology Report Case: [id number] Authorizing Provider: Mehrdad Mariano MD Collected: 10/12/2017 [...] specimen consists of a punch biopsy measuring [id number]. The margin is inked green. Jar 0. Specimen B: Received is one formalin filled container labeled with the patient's name and designated right distal thigh. The specimen consists of a shave biopsy measuring [id number]. The margin is inked green. Jar 0. [...] characteristic determined by the Dermatopathology Laboratory at [facility]. These tests need not be, and therefore are not, approved by the [place] Food and Drug Administration. The tests are used for clinical purposes. Billing Codes Specimen Charges Stain Charges 81763 46252 1 1 [id number] 02342 85846 71703 1 1 1 1 8 5:00 PM CDT DERMATOPATHOLOGY LABORATORY Embedded Images 8 5:00 PM CDT DERMATOPATHOLOGY LABORATORY Pathology/Cytology TISSUE SPECIMEN FROM SKIN / Unknown 10/12/2017 10/13/2017 12:13 PM CDT Miscellaneous samples (specimen) TISSUE SPECIMEN FROM SKIN / Unknown 10/12/2017 10/13/2017 12:13 PM CDT Mehrdad Mariano MD LAB - PATHOLOGY/CYTOLOGY ORD ERABLES Final Result DERMATOPATHOLOGY LABORATORY [facility] - Department of Dermatology [address] [facility] [address] [phone] documented in this encounter Visit Diagnoses Not on filedocumented in this encounter Care Teams Radiological Equipment Specialist Relationship Specialty Start Date End Date Moreno Woodward MD [address] [place] [address] PCP - General Family Medicine 03/24/17 Jignesh Weller MD [address] [place] [address] Diesel Technology Instructor Electrophysiology 12/03/20 documented as of this encounter
--- OUTSIDE RECORDS SUMMARY | 2025-06-17 14:16 | XMS_ITS | Encounter Summary ---
Author Organization [facility] Address [address] [facility] [place] [address] Care Team Providers Care Environmental Resource Specialist Name Role Phone Moreno Woodward MD Primary Care Provider [phone] Jignesh Weller MD Unavailable [phone] Encounter Details Date Type Department Care Team (Late st Contact Info) Description 05/01/2024 Lab Requisition [facility] - DermPath Lab [address] [facility], [place] [id number] Mehrdad [place] [address] Social History Tobacco Use Types [...] Comments DERMATOPATHOLOGY Routine 04/30/2024 12:0 0 AM CARPENTER REPAIR documented in this encounter Results * DERMATOPATHOLOGY (04/30/2024 12:00 AM CARPENTER REPAIR) Case Report Dermatopathology Report Case: [id number] Authorizing Provider: Mehrdad Mariano MD Collected: 04/30/2024 12:00 AM Ordering Location: [facility] - Received: 05/01/2024 02:37 PM DermPath Lab Pathologist: Darby Nation MD Specimen: Skin, right superior pretibia 3:[address] [facility] DERMATOPATHOLOGY LABORATORY Final Diagnosis Specimen A. SKIN, right superior pretibia: SEBORRHEIC KERATOSIS, IRRITATED AND INFLAMED (L82.0) NOT PRESENT AT SAMPLED MARGIN 3:[address] [facility] DERMATOPATHOLOGY LABORATORY at [address]7 CARPENTER REPAIR Clinical History R/O SK Please check margins 3:[address] [facility] DERMATOPATHOLOGY LABORATORY Gross Description Specimen A: Received is one formalin filled container labeled with the patients name and designated right superior pretibia. The specimen consists of a shave removal measuring [id number] mm. Jar 0. 3:[address] [facility] DERMATOPATHOLOGY LABORATORY Microscopic Description Specimen A. SKIN, right superior pretibia: Sections show acanthosis, papillomatosis, hyperkeratosis, and squamous eddies. There is a lymphohistiocytic infiltrate within the papillary dermis. This lesion is not present at the sampled margin of the specimen. 3:[address] [facility] DERMATOPATHOLOGY LABORATORY Disclaimer An external and internal positive and negative controls are appropriate for the histochemical, immunohistochemical and immunofluorescence stain(s) in this case (if any), except where stated explicitly. The performance characteristics of the stain(s) cited in this report were developed and its performance characteristic determined by the Dermatopathology Laboratory at [facility], directed by Dr. Amparo Pugh. These tests need not be, and therefore are not, approved by the [place] Food and Drug Administration. The tests are used for clinical purposes. Billing Codes Specimen Charges Stain Charges 43000 1 3:[address] [facility] DERMATOPATHOLOGY LABORATORY Embedded Images 3:[address] [facility] DERMATOPATHOLOGY LABORATORY Pathology/Cytolog y TISSUE SPECIMEN FROM SKIN / Unknown 04/30/2024 05/01/2024 2:37 PM CARPENTER REPAIR us Mehrdad Mariano MD LAB - PATHOLOGY/CYTOLOGY ORD ERABLES Final Result DERMATOPATHOLOGY LABORATORY [facility] - Department of Dermatology [facility] Specialized Medicine [address] [place] [address], [address] [phone] documented in this encounter Visit Diagnoses Not on filedocumented in this encounter Care Teams Environmental Resource Specialist Relationship Specialty Start Date End Date Moreno Woodward MD [address] [place] [address] PCP - General Family Medicine 03/24/17 Jignesh Weller MD [address] [place] [address] Brand Mgr Electrophysiology 12/03/20 documented as of this encounter
[2025-06-17 15:05] LABS: Influenza A QL RT-PCR Negative (Negative); Influenza B QL RT-PCR Negative (Negative); RSV RNA, RT-PCR Negative (Negative); SARS-CoV-2 RNA PCR Negative (Negative)
== END 2025-06-17 14:03 | disposition home or self-care (01) ==
PROVIDERS: PCP Family Medicine; Visit Provider Physician Assistant Medical
DX: Z20.822 Contact with and (suspected) exposure to COVID-19 (principal); R53.1 Weakness; R05.9 Cough, unspecified; R53.83 Other fatigue
CPT/HCPCS: 87637

== ENCOUNTER 2025-06-19 08:24 | Outpatient (CLI) | payer MEDICARE, SELFPAY ==
--- OUTSIDE RECORDS SUMMARY | 2025-06-19 08:31 | XMS_ITS | Clinical Summary ---
Author Organization [facility] Address [address] [place] [address] Phone Care Team Providers Care Director Fixed Income Name Role Phone Moreno Woodward MD Primary Care Provider [phone] Allergies No known active allergies Medications acetaminophen [...] it is helping her tremor. Though her bar useful or busser has given the okay, she is reluctant [...] on file Legal Sex Female 9:55 AM [facility] Gender Identity Not on file Sexual [...] Influenza Vaccine (#1) 2025 08/05/2015 Insurance MEDICARE [facility] MEDICARE SUPPLEMENT Care Teams Director Fixed Income Relationship Specialty Start Date End Date Moreno Woodward MD [address] [facility] [address] [facility] [address] [place] [address] PCP - General Internal Medicine 06/29/21
--- OUTSIDE RECORDS SUMMARY | 2025-06-19 08:31 | XMS_ITS | Data Portability ---
Author Organization [facility] [place] Address [address] [place] [address] Care Team Providers Care Electroplater Apprentice Name Role Phone DIANNE MENSAH Primary Care [...] Organization Details Last Modified Time Details Appointments VAG LUMP/B UMP/RA SH 026 04:15PM Stacy CRUZ MD Not available Not available Not available Lab None record ed. Referral None record [...] as clini mariela teixeira nted. Not Available [facility] (Lab) [address], [place], [address], 11/27/2020 15:31:38 04/09/20 24 04/09/2024 IMAGE GUIDE D PAP AND HPV REGAR DLESS image guided Pap, HPV regardless of Pap result SEE RESULT S BELOW CASE REPOR T: Cytol ogy Gynec ologi katerine Repor t Case: [id number] Autho millie mccullough Provi eli: Gaby Cruz MD Colle cted: 04/09 1621 Order ing Locat ion: [place] Patho logy Recei opal: 04/10 0643 First Scree n: Temo Tavarez CT Speci men: Shalini hester Pap - [...] or Anny delatorre (NIL) . Elect frank [place] d by Temo Tavarez CT on 04/14 at 6:39 AM ----- [...] as clini mariela teixeira nted. Not Available [facility] (Lab) [address], [place], [address], 04/14/2024 07:42:41 05/01/20 21 05/01/2021 MAMMO , scree mir, bilat eral No observ ation record ed. [address], [place], [address], 05/18/2021 10:47:09 05/19/20 22 05/19/2022 MAMMO , scree mir, bilat eral No observ ation record ed. [address], [place], [address], 09/22/2023 09:24:50 07/20/19 24 07/20/2023 MAMMO , scree mir, bilat eral No observ ation record ed. [address] [address], [place], [address], 08/18/2023 15:40:28 09/28/19 25 09/27/2024 MAMMO , scree mir, digit al, bilat eral No observ ation record ed. [address] [address], [place], [address], 10/09/2024 10:49:37 10/18/19 25 10/17/2024 DEXA, axial skele ton + verte bral fract ure asses sment No observ ation record ed. [address] [address], [place], [address], 10/22/2024 09:44:31 11/03/19 25 11/02/2024 MAMMO , diagn ostic , tomos ynthe sis, unila teral No observ ation record ed. [email or web address], [place], [address], 11/07/2024 15:55:45 11/06/19 25 11/02/2024 MAMMO , diagn ostic , tomos ynthe sis, unila teral No observ ation record ed. [email or web address] [facility] [address], [place], [address], 11/07/2024 15:57:26 Result Notes None recorded. Problems Name Problem SNOMED Code Status Onset Date Resolution Date Notes Provider Name and Address Organization Details Recorded Time Adult health examinati on Completed 201111/26/2020 Routine Medical Exam;Zeus rded Elsewhere : No Locati on: [facility] So urce: EHR Chron ic: N Practic e ID: [id number] Bill able Time: 09:00:00 AM Reynadanielle Moreira [facility] 16:04:08 Screening for malignant neoplasm of rectum Completed 201111/26/2020 Screening for malignant neoplasms of the rectum;Re corded Elsewhere : No Locati on: [facility] So urce: EHR Chron ic: N Practic e ID: 0001 Bill able Time: 09:00:00 AM [facility] 16:04:21 Specializ ed medical examinati on Completed 201111/26/2020 Routine gynecolog ical examinati on;Practi ce ID: [id number] Reyna Moreira [facility] 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 16:04:11 Neoplasti c disease of uncertain behavior Completed 201411/26/2020 Neoplasm of uncertain behavior of other specified female genital organs;Re corded Elsewhere : No Locati on: [facility] So urce: EHR Chron ic: N Practic e ID: 0001 Bill able Time: 02:30:00 PM Reyna reese [facility] 1 16:04:14 Noninflam matory disorder of vulva 91272792 Completed 201811/26/2020 Noninflam matory disorder of vulva and perineum, unspecifi ed;Record ed Elsewhere : No Locati on: [facility] So urce: EHR Chron ic: N Practic e ID: [id number] Bill able Time: 01:30:00 PM Reyna Moreira [facility] 1 16:04:17 Screening for malignant neoplasm of cervix Completed 201811/26/2020 Encounter for screening for malignant neoplasm of cervix;Re corded Elsewhere : No Locati on: [facility] So urce: EHR Chron ic: N Practic e ID: 0001 Bill able Time: 02:00:00 PM Reyna [facility] [address] 16:04:[address] Concept Completed 201811/26/2020 Encntr for swim coach exam (general) (routine) w/o abn findings; Recorded Elsewhere : No Locati on: [facility] So urce: EHR Chron ic: N Practic e ID: [id number] Bill able Time: 02:00:00 PM Reyna reese [facility] 1 16:04:24 Notes:Neoplasm of unsp behav ior of other genitourinary organs Practice ID: [id number] Problem Notes None recorded. Procedures Surgical History Date Name Laterality Status Provider Name and Address Organization Details Recorded Time 07/20/19 24 Date of Last Mammogram completed Brittany Garibay [facility] 04/09/2024 14:27:53 08/14/19 21 cardiac catheterization completed [facility] 12/01/2020 15:45:47 11/04/19 19 Date of Last Pap Smear completed [facility] 05/22/2020 15:58:43 10/19/19 18 grafting to skin completed [facility] 03/15/2022 15:09:48 10/19/19 16 partial nephrectomy completed [facility] 03/15/2022 15:09:28 04/20/20 13 procedure on wrist completed [facility] 03/15/2022 15:09:09 02/19/20 13 procedure on knee completed [facility] 03/15/2022 15:08:16 10/19/19 13 procedure on shoulder completed [facility] 11/15/2019 10:40:06 01/18/19 98 procedure on shoulder completed [facility] 11/15/2019 10:39:40 Imaging Results None [...] Elsewher e: Yes Loca tion: Vipul oliveira [facility] M odify By: cmedical Encount er DateTime : 05/10/20 12 09:00:00 AM Not Available Not Available Not Available hydrochlo rothiazid e 12.5 mg capsule take 2 capsule by oral route every day 12/01 completed Prescrib ed Elsewher e: Yes Loca tion: [facility] odify By: cmedical Encount er DateTime [...] Prescrib ed Elsewher e: Yes Loca tion: [facility] odify By: [email or web address] trick En counter [...] Prescrib ed Elsewher e: Yes Loca tion: [facility] odify By: cmedb Mcbridet er DateTime : 05/10/20 12 09:00:00 AM Not Available Not Available Not Available hydrochlo rothiazid e 12.5 mg tablet TAKE 1 TABLET BY MOUTH EVERY MORNING active Not Available Not Available No t Available Fiber Laxative (methylce llulose) 500 mg tablet 08/31 completed Prescrib ed Elsewher e: Yes Loca tion: [facility] odify By: [email or web address] trick En counter DateTime : 05/10/20 12 09:00:00 AM Not Available Not Available Not Available amlodipin e besylate (bulk) 100 % powder 10/13 completed Prescrib ed Elsewher e: Yes Loca tion: [facility] odify By: reyna Rodriguez r DateTime : 05/10/20 12 09:00:00 AM Not Available Not Available Not Available Prolia 2021 active Not Available Not Available Not Avai lable Suprep Bowel Prep Kit 17.5 gram-3.13 gram-1.6 gram oral solution 06/28 completed Not Available Not Available Not Available Kapspargo Sprinkle 25 mg capsule,e xtended release 11/03 completed Prescrib ed Elsewher e: Yes Loca tion: [facility] odify By: reyna Rodriguez r DateTime : 11/04/19 19 02:00:00 PM Not Available Not Available Not Available Flowflex COVID-19 Antigen Home Test kit USE DIRECTED 04/09 completed Not Available Not Available Not Available Vitals Date Recorded Body height Body mass index (BMI) Body weight Systolic And Diastolic Provider Name and Address Organization Details Last Updated DateTime 06/24/2022 162.56 cm 35.9 kg/m2 71339.81 g 160/74 mm[Hg] Reyna Moreira [facility] 06/24/2022 11:59:46 Date Recorded Body height Body mass index (BMI) Body weight Systolic And Diastolic Provider Name and Address Organization Details Last Updated DateTime 11/26/2020 162.56 cm 35.4 kg/m2 26269.03 g 167/78 mm[Hg] Reyna [facility] 11/26/2020 16:03:58 Date Recorded Body height Body mass index (BMI) Body weight Systolic And Diastolic Provider Name and Address Organization Details Last Updated DateTime 12/23/2022 162.56 cm 35.4 kg/m2 13508.03 g 146/72 mm[Hg] Reyna [facility] 12/23/2022 11:03:46 Date Recorded Body height Body mass index (BMI) Body weight Systolic And Diastolic Provider Name and Address Organization Details Last Updated DateTime 01/22/2022 162.56 cm 35.4 kg/m2 98376.03 g 122/78 mm[Hg] Reyna [facility] 01/22/2022 16:07:39 Date Recorded Body height Body mass index (BMI) Body weight Systolic And Diastolic Systolic And Diastolic Provider Name and Address Organization Details Last Updated DateTime 04/09/2024 162.56 cm 35 kg/m2 05617.84 g 161/101 mm[Hg] 160/88 mm[Hg] Brittany Garibay [facility] 14:26:08 Social History Question Answer Notes LastModified by Organizat ion Details LastModified Time Tobacco Smoking Status Never Smoker Reyna Moreira [facility] 12/23/2022 11:03:55 Do You Have An [...] Or The Highest Degree You Have Received? 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 Occasional Information not available 12/23/2022 Mental Status Question Answer Note LastModified by Organization D etails LastModified Time Do you feel stressed (tense, restless, nervous, or anxious, or unable to sleep at night)? [id number] [email or web address] Information not available 12/23/2022 Family History Relationship Description Onset Age of this Age Resolved Age Notes LastModified by Organization Details LastModified Time Mother Carcinoma in situ of colon [email or web address] Not available 2022 10:51:21 Sister Hypertensive disorder [...] Code Diagnosis IMO Codes Diagnosis Note [id number] MD Marilin Cage [address] [address] 11/15/2019 09:24:01 11/15/2019 10:20:08 Vaginal lesion 653092845 N94.89 [id number] MD Marilin Cage [address] [address] 05/22/2020 15:17:49 05/22/2020 16:01:32 Vaginal lesion 589457380 N94.89 This patient is a 74-year-ol d female presents for follow-up on vaginal polyp. She has a vaginal polyp in the posterior left fornix of the vagina. It appears unchanged. She was examined. She has lot of inclusion cyst over the vulva. There is nothing on the vulva appears malignant. She will follow up in 6 months for well-woman exam. [id number] MD Marilin Cage [address] [address] 11/26/2020 14:33:52 11/26/2020 16:51:11 Gynecologic examination 19485856 Z01.419 This patient is here for her [...] unchanged. Same as last year. Vaginal polyp. [id number] Randy Cruz MD [place] [address] [address] 01/22/2022 15:18:27 01/23/2022 18:12:23 Polyp of vaginal wall 279467626 N84.2 this patient is a 76-year-ol d female with a vaginal polyp. She presents for examinatio n the polyp to confirm its stability. The polyp was examined it is at the posterior left fornix. Is hyperemic and unchanged in size. We will follow-up as needed. It is been stable over several examinatio ns. [id number] Randy Cruz MD [place] [address] [address] 06/24/2022 10:51:12 06/24/2022 12:17:00 Polyp of vaginal wall 821536405 N84.2 76-year-ol d female who presents for [...] Otherwise she will return in 6 months. [id number] Randy Cruz MD [place] [address] [address] 12/23/2022 10:02:04 12/23/2022 11:41:33 Polyp of vaginal wall 830694055 N84.2 77-year-ol d female presents for follow-up on a vaginal polyp. It is stable. Is been stable for year and. We going look at this once a year now. [id number] Randy Cruz MD [place] [address] [address] 04/09/2024 14:15:28 04/09/2024 15:04:31 Gynecologic examination 66776647 Z01.419 Z11.51 This patient is here for [...] Guarantor Name 04/15/2025 1 [place] Priscilla Bone [id number] 1 Priscilla Bone 12/23/2022 2 [facility] Priscilla Bone [id number] Priscilla Bone 04/15/2025 2 [place] [id number] Priscilla Bone [id number] Prisclila Bone Notes Date Note Type Note Provider [...] breast examinationandencourage regular exercise. Randy Cruz MD [address], [place], [address], [facility] 11/26/2020 16:46:30 01/23/20 22 text/htm l this patient is a 76-year-old female with a vaginal polyp. She presents for examination the polyp to confirm its stability. The polyp was examined it is at the posterior left fornix. Is hyperemic and unchanged in size. We will follow-up as needed. It is been stable over several examinations. Randy Cruz MD [address], [place], [address], [facility] 01/23/2022 15:49:36 06/24/19 23 text/htm l [...] months. Randy Cruz MD [address], [place], [address], [facility] 06/24/2022 12:13:20 12/24/19 23 text/htm l 77-year-old female presents for follow-up on a vaginal polyp. It is stable. Is been stable for year and. We going look at this once a year now. Randy Cruz MD [address], [place], [address], [facility] 12/23/2022 11:40:25 04/09/20 24 text/htm l [...] breast examinationandencourage regular exercise. Randy Cruz MD [address], [place], [address], [facility] 04/09/2024 15:00:15 OBGyn Episode Ob Episode Information Episode Created Date Number of Fetuses Patient Bloodtype Patient rh Status Prepregnancy Weight lbs Domestic Partner Domestic Partner Phone Father Name Electronic Scanner Operator Status 11/15/19 20 1 CLOSED Fetus [...] Domestic Partner Domestic Partner Phone Father Name Electronic Scanner Operator Status 11/15/19 20 1 CLOSED Fetus [...] Domestic Partner Domestic Partner Phone Father Name Electronic Scanner Operator Status 11/15/19 20 1 CLOSED Fetus [...] Domestic Partner Domestic Partner Phone Father Name Electronic Scanner Operator Status 11/15/19 20 1 CLOSED Fetus [...]
--- OUTSIDE RECORDS SUMMARY | 2025-06-19 08:31 | XMS_ITS | Encounter Summary ---
Author Organization [facility] Address [facility] [place] [address] Care Team Providers Care Yard Spotter Name Role Phone None, Provider Primary Care Provider UnavailMoreno Al MD Primary Care Provider [phone] Olivier Miramontes MD Unavailable Encounter Details Date Type Department Care Team (Latest Contact Info) Description 04/25/2018 Abstract [facility] , Wesley Antony MD Social History Tobacco Use Types Packs/Day Years Used Date Smoking Tobacco: Never Comments Unknown Sex and Gender Information Value Date Recorded Sex Assigned at Female 07/14/2024 9:23 AM PRICING MANAGER Legal Sex Female 11:04 PM CDT Gender Identity Not on file Sexual Orientation Not on file documented as of this encounter Plan of Treatment Not on file documented as of this encounter Visit Diagnoses Not on filedocumented in this encounter Additional Health Concerns Infection Onset Date Last Indicated Resolved Time COVID-19 Rule Out 07/14/2024 07/14/2024 07/14/2024 9:35 AM PRICING MANAGER documented as of this encounter Care Teams Yard Spotter Relationship Specialty Start Date End Date None, Provider, PCP - General 10/09/20 03/24/22 Moreno Woodward MD [address] [facility] [address] [address] [address] [place] [address] PCP - General FAMILY PRACTICE 03/25/22 Olivier Miramontes MD [address] [place] [address] CARDIOVASCULAR DISEASE 07/14/24 documented as of this encounter
--- OUTSIDE RECORDS SUMMARY | 2025-06-19 08:31 | XMS_ITS | Encounter Summary ---
Author Organization [facility] Address [address] [place] [address] Care Team Providers Care Grade And Center Marker Name Role Phone Moreno Woodward MD Primary Care Provider [phone] Jignesh Weller MD Unavailable [phone] Encounter Details Date Type Department Care Team (Late st Contact Info) Description 05/01/2024 Lab Requisition [facility] - DermPath Lab [address] [place] [address] Mehrdad [place] [address] Social History Tobacco Use Types [...] Comments DERMATOPATHOLOGY Routine 04/30/2024 12:0 0 AM PINEAPPLE PLANTATION MANAGER documented in this encounter Results * DERMATOPATHOLOGY (04/30/2024 12:00 AM PINEAPPLE PLANTATION MANAGER) Case Report Dermatopathology Report Case: [id number] Authorizing Provider: Mehrdad Mariano MD Collected: 04/30/2024 12:00 AM Ordering Location: [facility] - Received: 05/01/2024 02:37 PM DermPath Lab Pathologist: Darby Nation MD Specimen: Skin, right superior pretibia 3:07 PM [facility] Final Diagnosis Specimen A. SKIN, right superior pretibia: SEBORRHEIC KERATOSIS, IRRITATED AND INFLAMED (L82.0) NOT PRESENT AT SAMPLED MARGIN 3:07 PM [facility] at [address] PINEAPPLE PLANTATION MANAGER Clinical History R/O SK Please check margins 3:07 PM [facility] Gross Description Specimen A: Received is one formalin filled container labeled with the patients name and designated right superior pretibia. The specimen consists of a shave removal measuring 44a97j2 mm. Jar 0. 3:07 PM [facility] Microscopic Description Specimen A. SKIN, right superior pretibia: Sections show acanthosis, papillomatosis, hyperkeratosis, and squamous eddies. There is a lymphohistiocytic infiltrate within the papillary dermis. This lesion is not present at the sampled margin of the specimen. 3:07 PM [facility] Disclaimer An external and internal positive and negative controls are appropriate for the histochemical, immunohistochemical and immunofluorescence stain(s) in this case (if any), except where stated explicitly. The performance characteristics of the stain(s) cited in this report were developed and its performance characteristic determined by the Dermatopathology Laboratory at [facility], directed by Dr. Amparo Pugh. These tests need not be, and therefore are not, approved by the [place] Food and Drug Administration. The tests are used for clinical purposes. Billing Codes Specimen Charges Stain Charges 28699 1 3:07 PM [facility] Embedded Images 3:07 PM [facility] Pathology/Cytolog y TISSUE SPECIMEN FROM SKIN / Unknown 04/30/2024 05/01/2024 2:37 PM PINEAPPLE PLANTATION MANAGER us Mehrdad Mariano MD LAB - PATHOLOGY/CYTOLOGY ORD ERABLES Final Result DERMATOPATHOLOGY LABORATORY [facility] - Department of Dermatology [facility] [address] [place] [address], [address] [phone] documented in this encounter Visit Diagnoses Not on filedocumented in this encounter Care Teams Grade And Center Marker Relationship Specialty Start Date End Date Moreno Woodward MD [address] [place] [address] PCP - General Family Medicine 03/24/17 Jignesh Weller MD [address] [place] [address] Webbing Tacker Electrophysiology 12/03/20 documented as of this encounter
--- OUTSIDE RECORDS SUMMARY | 2025-06-19 08:31 | XMS_ITS ---
Author Organization [facility] Address [address] [place] [address] Care Team Providers Care Rail Transit Operator Name Role Phone Moreno Woodward MD Primary Care Provider Jose Angel Cody MD Unavailable [phone] Active Problems Problem Noted Date Diagnosed [...] 04/02/2019 Assessment & Plan (08/08/2023 10:53 AM ADULT NEUROPSYCHOLOGIST): Images from the original note were not [...] would need to be done either in [place] or [place]. I discussed with her all aspects of [...] is helping her tremor. 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
--- OUTSIDE RECORDS SUMMARY | 2025-06-19 08:31 | XMS_ITS | Clinical Summary ---
Author Organization [facility] Address [address] [place] [address] Care Team Providers Care Hvac Project Manager Name Role Phone Moreno Woodward MD Primary Care Provider Jose Angel Cody MD Unavailable [phone] Allergies No known active allergies Medications [...] 04/02/2019 Assessment & Plan (08/08/2023 10:53 AM BUSINESS CONTINUITY ANALYST): Images from the original note were not [...] discussed HIFU, inertial dampening devices and the Visys peripheral stimulation device. We discussed that we [...] would need to be done either in [place] or [place]. I discussed with her all aspects of this procedure (including the actual performance of the procedure, the potential benefits and complications and the post-surgical programming sessions). I answered all her questions pertaining to the procedure. We also discussed HIFU, inertial dampening devices and the Visys peripheral stimulation device. We discussed that we [...] it is helping her tremor. Though her transit driver has given the okay, she is reluctant [...] Department Care Team Description 06/10/2025 8:45 AM BUSINESS CONTINUITY ANALYST Office Visit [facility] Medical [facility] Cardiology [facility] [address] [place] [phone] Olivier Miramontes MD PVC's (premature ventricular contractions) (Primary Dx); Essential hypertension; CALLAHAN (dyspnea on exertion); Palpitations 03/22/2025 1:30 PM CDT Ancillary Procedure [facility] [address] [place] [address] [address] [place] [phone] Palpitations 03/19/2025 Telephone [facility] [address] [place] [address] [address] [place] [phone] Olivier Miramontes MD from Last 3 Months [...] on file Legal Sex Female 3:30 AM BUSINESS CONTINUITY ANALYST Gender Identity Not on file Sexual Orientation Not on file 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 Not on file Not on file Last Filed Vital Signs Vital Sign Reading Time Taken Comments Blood Pressure 126/80 06/10/2025 8:31 AM BUSINESS CONTINUITY ANALYST Pulse 78 06/10/2025 8:31 AM BUSINESS CONTINUITY ANALYST Temperature 36.2 C (97.1 F) 04/19/2022 9:03 AM CDT Respiratory Rate 16 03/03/2017 2:48 PM CDT Oxygen Saturation 97% 06/10/2025 8:31 AM BUSINESS CONTINUITY ANALYST Inhaled Oxygen Concentration - - Weight 95 kg (209 lb 8 oz) 06/10/2025 8:31 AM CS T Height 160 cm (5' 3) 06/10/2025 8:31 AM BUSINESS CONTINUITY ANALYST Body Mass Index 37.11 06/10/2025 8:31 AM BUSINESS CONTINUITY ANALYST Plan of Treatment Health Maintenance Due Date [...] Procedure Name Priority Date/Time Associated Diagnosis Comments EXTENDED/SNF HOLTER PATCH (>48 HOURS UP TO 7 DAYS) Routine 03/22/2025 12:54 PM CDT Palpitations from Last 3 Months Results * Extended/Snf Holter Patch (>48 hours up to 7 days) (03/22/2025 12:54 PM CDT) Anatomical Region Laterality Modality Electrocardiogra phy Narrative 04/08/2025 2:12 PM CDT AMBULATORY PALAEONTOLOGIST REPORT Patient Name: Priscilla Bone Date of [...] was used to complete this document, therefore, knock out hand variances may occur. Olivier Miramontes MD, [facility] 04/08/25 Procedure Note Olivier Miramontes MD - 04/08/2025 AMBULATORY PALAEONTOLOGIST REPORT Patient Name: Priscilla Bone Date of [...] software was used to complete this document, therefore,knock out hand variances may occur. Olivier Miramontes MD, [facility] 04/08/25 Olivier Miramontes MD CV CARDIAC SERVICES PROCEDURES Final Result from Last 3 Months Insurance MEDICARE [facility] MEDICARE [facility] MEDICARE [employer] MEDICARE SUPPLEMENT MEDICARE [facility] Care Teams Hvac Project Manager Relationship Specialty Start Date End Date Moreno Woodward MD [address] [place] [address] PCP - General 08/04/16 Jose Angel Cody MD [address] [place] [address] Consulting Physician Rheumatology 01/27/24
--- OUTSIDE RECORDS SUMMARY | 2025-06-19 08:31 | XMS_ITS | Clinical Summary ---
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 Legal Sex Female 11:04 PM CDT Gender Identity Not on file Sexual Orientation Not on file Last Filed Vital Signs Vital Sign Reading Time Taken Comments Blood Pressure 151/71 07/14/2024 12:00 PM WALLCOVERING TEXTURER Pulse 101 07/14/2024 12:00 PM WALLCOVERING TEXTURER Temperature 37.6 C (99.6 F) 07/14/2024 12:00 PM WALLCOVERING TEXTURER Respiratory Rate 20 07/14/2024 12:00 PM WALLCOVERING TEXTURER Oxygen Saturation 92% 07/14/2024 12:00 PM WALLCOVERING TEXTURER Inhaled Oxygen Concentration - - Weight 99.6 kg (219 lb 9.3 oz) 07/14/2024 9:08 A M WALLCOVERING TEXTURER Height 165.1 cm (5' 5) 07/14/2024 9:08 AM WALLCOVERING TEXTURER Body Mass Index 36.54 07/14/2024 9:08 AM WALLCOVERING TEXTURER Plan of Treatment Health Maintenance Due Date [...] WITH LIPID Routine 04/17/2025 12:10 AM CDT [facility] HEMOGLOBIN A1C Routine 04/17/2025 12:10 AM CDT FECAL BLOOD FIT SCREEN Routine 04/07/2018 12:27 AM CDT BONE DENSITY/DEXA Routine 10/24/2013 12: 14 PM CDT from Last 3 Months or Most Recently Relevant to Health Maintenance Results * (ABNORMAL) [facility] WITH LIPID (04/17/2025 12:10 AM CDT) WBC 7.33 4.4 - 11.0 x10'3/uL 04/17/2025 7:07 AM CDT [facility] RBC 4.47(L) 4.50 - 5.10 x10'6/uL 04/17/2025 7:07 AM CDT [facility] HGB 13.9 12.3 - 15.3 G/DL 04/17/2025 7:07 AM CDT [facility] HCT 41.5 35.9 - 44.6 % 04/17/2025 7:07 AM CDT [facility] MCV 92.8 80.0 - 96.0 FL 04/17/2025 7:07 AM CDT [facility] MCH 31.1(H) 25.3 - 30.9 PG 04/17/2025 7:07 AM CDT [facility] MCHC 33.5 31.0 - 34.1 G/DL 04/17/2025 7:07 AM CDT [facility] RDW 13.4 12.4 - 15.1 % 04/17/2025 7:07 AM CDT [facility] PLT 301 151 - 353 x10'3/uL 04/17/2025 7:07 AM T [facility] MPV 9.6 9.6 - 12.0 FL 04/17/2025 7:07 AM T [facility] RBC MORPHOLOGY NORMAL 04/17/2025 7:07 AM T [facility] PLT MORPH. NORMAL 04/17/2025 7:07 AM T [facility] WBC MORPHOLOGY NORMAL 04/17/2025 7:07 AM T [facility] LYMPHOCYTES % 19.9 15.8 - 45.0 % 04/17/2025 7:07 AM [facility] NEUTROPHILS % 68.5 42.1 - 71.9 % 04/17/2025 7:07 AM T [facility] MONOCYTES % 7.8 5.7 - 12.5 % 04/17/2025 7:07 AM [facility] EOSINOPHILS 2.9 0.0 - 5.6 % 04/17/2025 7:07 AM [facility] BASOPHILS 0.5 0.0 - 1.3 % 04/17/2025 7:07 AM [facility] ABS. NEUTROPHILS 5.02 1.40 - 6.00 x10'3/uL 04/17/2025 7:07 AM T [facility] IMMATURE GRANS % 0.4 0.0 - 0.5 % 04/17/2025 7:07 AM T [facility] ABS. LYMPHOCYTES 1.46 0.80 - 4.70 x10'3/uL 04/17/2025 7:07 AM [facility] GLUCOSE 92 70 - 99 MG/DL 04/17/2025 8:09 AM T [facility] BUN 20(H) 7 - 18 MG/DL 04/17/2025 8:09 AM T [facility] CREATININE S/P/B 0.92 0.55 - 1.02 MG/DL 04/17/2025 8:09 AM [facility] SODIUM S/P/B 139 136 - 145 MMOL/L 04/17/2025 8:09 AM T [facility] POTASSIUM S/P/B 4.0 3.5 - 5.1 MMOL/L 04/17/2025 8:09 AM T [facility] CHLORIDE S/P/B 102 100 - 108 MMOL/L 04/17/2025 8:09 AM [facility] CO2 29.7 21 - 32 MMOL/L 04/17/2025 8:09 AM [facility] CALCIUM S/P/B 9.0 8.5 - 10.1 MG/DL 04/17/2025 8:09 AM [facility] BILIRUBIN TOTAL S/P/B 0.4 0.2 - 1.2 MG/DL 04/17/2025 8:09 AM [facility] TOTAL PROTEIN S/P/B 7.7 6.4 - 8.2 G/DL 04/17/2025 8:09 AM [facility] ALBUMIN S/P/B 3.3(L) 3.4 - 5.0 G/DL 04/17/2025 8:09 AM [facility] AST 13(L) 15 - 37 U/L 04/17/2025 8:09 AM [facility] ALT 18 14 - 55 U/L 04/17/2025 8:09 AM [facility] ALKALINE PHOSPHATASE S/P/B 85 50 - 136 U/L 04/17/2025 8:09 AM [facility] ANION GAP 7.3 5 - 15 MMOL/L 04/17/2025 8:09 AM [facility] BUN CREATININE RATIO 21.7 6 - 26 04/17/2025 8:09 AM [facility] A/G RATIO 0.8(L) 1.0 - 2.0 RATIO 04/17/2025 8:09 AM [facility] GFR ESTIMATE 64(L) >90 ML/MIN/1. 73 M2 04/17/2025 8:09 AM [facility] Comment: NOTE: eGFR is not calculated for patients <18 years of age. This is an estimated GFR calculation using the new CKD EPI creatinine equation without race and so does not require a correction factor for race. This estimated GFR should not be used for calculating drug doses. TSH 2.197 0.358 - 3.74 uIU/ML 04/17/2025 8:09 AM [facility] Comment: HIGH DOSES OF BIOTIN MAY INTERFERE WITH THIS TEST RESULT. CORRELATION TO CLINICAL HISTORY AND PRESENTATION RECOMMENDED. CHOLESTEROL 249(H) <200.0 MG/DL 04/17/2025 8:09 AM [facility] TRIGLYCERIDES 74 <150 MG/DL 04/17/2025 8:09 AM [facility] HDL 91 >40.0 MG/DL 04/17/2025 8:09 AM [facility] LDL (CALCULATED) 143(H) <100 MG/DL 04/17/2025 8:09 AM [facility] Comment:CALCULATED USING THE FRIEDEWALD EQUATION NON HDL CHOLESTEROL 158(H) <130 MG/DL 04/17/2025 8:09 AM [facility] CHOL/HDL RATIO 2.7 0.0 - 4.5 04/17/2025 8:09 AM [facility] VLDL CALCULATION 15 5 - 55 MG/DL 04/17/2025 8:09 AM CDT [facility] LIPID INTERPRETATION 04/17/2025 8:09 AM CDT [facility] Comment: NIH CONCENSUS REPORT RECOMMENDATIONS: [...] MD LABORATORY Final Result Performing Organization Address [facility] de Phone Number [facility] [address] [place] [address], [place] [phone] * HEMOGLOBIN, GLYCOSYLATED (04/17/2025 12:10 AM CDT) HGB A1C 5.6 <5.7 % 04/17/2025 7:45 AM CDT [facility] Comment: INCREASED RISK OF DIABETES <5.7% NON-DIABETES 5.7-6.4% INCREASED RISK FOR FUTURE DIABETES > OR = 6.5 CONSISTENT WITH DIABETES STANDARDS OF MEDICAL CARE IN DIABETES-2010 DIABETES CARE, 33(SUPP 1): S1-S61,2010 ESTIMATED AVG GLUCOSE 114 mg/dL 04/17/2025 7:45 AM CDT [facility] 04/17/2025 12:1 0 AM CDT Donato Barba MD LABORATORY Final Result Performing Organization Address [facility] Co de Phone Number [facility] [address] [place] [address], [place] [phone] * VITAMIN D, 25 OH (04/17/2025 12:10 AM CDT) VITAMIN D 25 HYDROXY S/P/B 79 30 - 100 NG/ML 04/17/2025 4:58 PM CDT [facility] Comment: INTERPRETATION DEFICIENT <20 INSUFFICIENT 20-29 SUFFICIENT 30-100 04/17/2025 12:1 0 AM CDT Donato Barba MD LABORATORY Final Result Performing Organization Address [facility]/ZIP Co de Phone Number [facility] [address] [place] [address], * FECAL BLOOD FIT SCREEN (04/07/2018 12:27 AM CDT) FECAL BLOOD FIT SCRN NEGATIVE NEGATIVE 04/11/2018 7:13 AM CDT [facility] STOOL SPECIMEN / Unknown 04/07/2018 12:27 AM CDT 04/07/2018 12:28 AM CDT Wesley Antony Md, MD BODY FLUIDS AND STOOLS ORDERABLES Final Result Performing Organization Address [facility] Co de Phone Number [facility] [address] [place] [address], [place] [phone] * BONE DENSITY/DEXA (10/24/2013 12:14 PM CDT) Anatomical Region Laterality Modality Bone Bone Density 10/24/2013 12:1 4 PM CDT 10/24/2013 12:14 PM CDT Narrative 10/24/2013 2:51 PM CDT PRISCILLA WILBURN MD: GUSTAVO COURTNEY MD ACCT: [id number] ADMIT/SERVICE DATE: 10/24/13 DISCHARGE DATE: : 1945 PT TYPE: REG CLI SEX: F ORD SITE: [facility] STUDY DATE REPORT # PROCEDURE CODE PROCEDURE 10/24/13 [id number] DEXASCAN XR DEXA SCAN EXTORDERID [id number] CHART DOCUMENT DIVISION OF RADIOLOGY ACCESSION # EXAM DATE EXAM DESCRIPTION [id number] 10/24/2013 XR DEXA SCAN IMAGING STUDIES: BONE [...] 10/24/2013 1:44 P JOB NO: DOC NO: [id number] CC: Procedure Note Wesley Prabhakar MD - 04/14/2018 PRISCILLA WILBURN MD: GUSTAVO COURTNEY MD ACCT: [id number] ADMIT/SERVICE DATE: 10/24/13 DISCHARGE DATE: : 1945 PT TYPE: REG CLI SEX: F ORD SITE: [facility] STUDY DATE REPORT # PROCEDURE CODE PROCEDURE 10/24/13 [id number] DEXASCAN XR DEXA SCAN EXTORDERID [id number] CHART DOCUMENT DIVISION OF RADIOLOGY ACCESSION # EXAM DATE EXAM DESCRIPTION [id number] 10/24/2013 XR DEXA SCAN IMAGING STUDIES: BONE [...] 10/24/2013 1:44 P JOB NO: DOC NO: [id number] CC: Gustavo Courtney MD DEXA Final Result from Last 3 Months or Most Recently Relevant to Health Maintenance Insurance MEDICARE [facility] Care Teams Woodwind Instrument Repairer Relationship Specialty Start Date End Date Moreno Woodward MD [address] [place] [address] PCP - General FAMILY PRACTICE 03/25/22 Olivier Miramontes MD [address] [address] CARDIOVASCULAR DISEASE 07/14/24
--- OUTSIDE RECORDS SUMMARY | 2025-06-19 08:31 | XMS_ITS | Clinical Summary ---
Author Organization [facility] Address [address] [place] [address] Care Team Providers Care Making Machine Operator Name Role Phone Moreno Woodward MD Primary Care Provider [phone] Jignesh Weller MD Unavailable [phone] Source Comments [facility],non-owned Affiliates and Associated Physician Practices is amultiple site organization consisting of ambulatory clinics and hospital sitesin [place], [place], [place] and [place]. This disclosure is being madepursuant to the Care Everywhere program and may not contain all information available regarding this patient. Last updated 18.[facility] Allergies No known active allergies Medications * [...] by mouth once daily Active Probiotic Product (Mingleverse) capsule Take 1 (one) capsule by mouth [...] would need to be done either in [place] or [place]. I discussed with her all aspects of this procedure (including the actual performance of the procedure, the potential benefits and complications and the post-surgical programming sessions). I answered all her questions pertaining to the procedure. We also discussed HIFU, inertial dampening devices and the Neuronetrix peripheral stimulation device. We discussed that we [...] it is helping her tremor. Though her weaver hand has given the okay, she is [...] age to complete this topic Insurance MEDICARE [facility] Address: [facility] [id number] [place] [phone] * Guarantor: PRISCILLA WILBURN Account Type Relation to Patient Date of Phone Billing Address Personal/Family [address] [place] [address] MEDICARE [facility] [place], [place] [phone] Care Teams Making Machine Operator Relationship Specialty Start Date End Date Moreno Woodward MD [address] [place] [address] PCP - General Family Medicine 03/24/17 Jignesh Weller MD [address] [place] [address] Manager Diesel Electrophysiology 12/03/20
--- OUTSIDE RECORDS SUMMARY | 2025-06-19 08:31 | XMS_ITS | Encounter Summary ---
Author Organization [facility] Address [address] [place] [address] Care Team Providers Care Review Nurse Name Role Phone Moreno Woodward MD Primary Care Provider [phone] Jignesh Weller MD Unavailable [phone] Encounter Details Date Type Department Care Team (Late st Contact Info) Description 10/13/2017 Lab Requisition [facility] [address] [place] [id number] [place] [address] Social History Tobacco Use Types [...] AM CDT) Case Report Dermatopathology Report Case: [id number] Authorizing Provider: Mehrdad Mariano MD Collected: 10/12/2017 [...] specimen consists of a punch biopsy measuring [id number]. The margin is inked green. Jar 0. Specimen B: Received is one formalin filled container labeled with the patient's name and designated right distal thigh. The specimen consists of a shave biopsy measuring [id number]. The margin is inked green. Jar 0. [...] characteristic determined by the Dermatopathology Laboratory at [facility]. These tests need not be, and therefore are not, approved by the [place] Food and Drug Administration. The tests are used for clinical purposes. Billing Codes Specimen Charges Stain Charges 49453 53052 1 1 [id number] [id number] 96675 17723 1 1 1 1 8 5:00 PM CDT DERMATOPATHOLOGY LABORATORY Embedded Images 8 5:00 PM CDT DERMATOPATHOLOGY LABORATORY Pathology/Cytology TISSUE SPECIMEN FROM SKIN / Unknown 10/12/2017 10/13/2017 12:13 PM CDT Miscellaneous samples (specimen) TISSUE SPECIMEN FROM SKIN / Unknown 10/12/2017 10/13/2017 12:13 PM CDT Mehrdad Mariano MD LAB - PATHOLOGY/CYTOLOGY ORD ERABLES Final Result DERMATOPATHOLOGY LABORATORY [facility] - Department of Dermatology [address] [facility] [address] [phone] documented in this encounter Visit Diagnoses Not on filedocumented in this encounter Care Teams Review Nurse Relationship Specialty Start Date End Date Moreno Woodward MD [address] [place] [address] PCP - General Family Medicine 03/24/17 Jignesh Weller MD [address] [place] [address] [employer] Executive Producer Electrophysiology 12/03/20 documented as of this encounter
[2025-06-19 09:39] LABS: Albumin Level 3.9 g/dL (3.5-5.1); Anion Gap 3 mmol/L (4-12); Blood Urea Nitrogen 26 mg/dL (7-17); Calcium 9.5 mg/dL (8.4-10.2); Carbon Dioxide 33 mmol/L (22-30); Chloride 102 mmol/L (98-107); Estimated Glomerular Filt Rate 58; Glucose 112 mg/dL (65-110); Potassium 4.3 mmol/L (3.4-5.0); Sodium 138 mmol/L (137-145)
[2025-06-19 10:06] LABS: Total Volume 24 Hour Urine 2400 ml
[2025-06-19 10:18] LABS: Creatinine 24 Hour Urine 1.2 gm/24 (0.8-1.8)
[2025-06-20 09:08] LABS: Calcium, Urine 3.5 mg/dL (Not Estab.)
== END 2025-06-19 08:25 | disposition home or self-care (01) ==
LOC: ANHLAB 08:25
PROVIDERS: PCP Family Medicine; Visit Provider Internal Medicine Endocrinology, Diabetes & Metabolism
DX: M81.0 Age-related osteoporosis without current pathological fracture (principal); E55.9 Vitamin D deficiency, unspecified
CPT/HCPCS: 36415; 80069; 81050; 82340; 82570